=== PATIENT | male | born 1945 | race Caucasian/White ===

== ENCOUNTER 2018-06-03 16:04 | Observation (INO) ==
--- NOTE | 2018-06-03 16:32 | Emergency Department Note ---
Disposition Clinical Impression: TIA (transient ischemic attack) Disposition: Home, Self-Care Condition: Good Referrals: Jose Oglesby MD [Primary Care Provider] - Forms: ED Satisfaction Letter Time of Disposition: 19:38 Weakness HPI - General Chief complaint: ED Weakness Stated complaint: "weakness,general illness from M3" Time Seen by Provider: 06/03/18 16:29 Source: EMS Mode of arrival: ambulatory Limitations: no limitations Nursing Notes Reviewed: Yes Vital Signs Reviewed: Yes - History of Present Illness HPI Narrative: Patient is a 73-year-old male with past medical history of hypertension, diabetes, hyperlipidemia, previous CVA, seizures, anxiety, depression, psychosis NOS. He presents today from a alf due to concern for generalized weakness, possible facial droop. The patient himself states that his family was visiting and stated that he had left upper lip drooping. He states that he took a nap about an hour prior to arrival, workup 30 minutes prior to arrival when his family was there. He denies noting any slurring of speech, facial droop, specific focal numbness, tingling, weakness. He does admit to generalized fatigue over the past several days. Denies any other chest pain, shortness breath, nausea, vomiting, fevers, diarrhea. Denies any falls. Pain Scale: 0 - Related Data Allergies Allergy/AdvReac Type Severity Reaction Status Date / Time No Known Allergies Allergy Verified 08/11/16 07:04 All systems ED: reviewed and negative except as stated. Constitutional: Denies: fever Cardiovascular: Denies: chest pain, palpitations Respiratory: Denies: cough, dyspnea, wheezes Gastrointestinal: Denies: abdominal pain, nausea, vomiting, diarrhea Genitourinary: Denies: urgency, dysuria Integumentary: Denies: rash Neurological: Denies: headache, weakness, numbness, paresthesias Endocrine: Reports: fatigue Past Medical History - Past Medical History Attestation: Yes The following information was validated with the patient. Source: patient Medical history: Reports: COPD, CVA, diabetes, GERD, hypertension, seizures Surgical history: Reports: no surgical history Psychiatric history: Reports: anxiety, depression - Social History Smoking Status: Current every day smoker Smokeless Tobacco Status: No Alcohol use: Reports: none Drug use: Reports: none Physical Exam - General Limitations: no limitations General appearance: alert, in no apparent distress - Head Head exam: atraumatic, normocephalic, normal inspection - Eye Eye exam: Present: normal appearance, PERRL, EOMI - ENT ENT exam: normal exam, normal oropharynx, mucous membranes moist - Neck Neck exam: Present: normal inspection, full ROM, trachea midline - Chest Chest inspection: Present: normal inspection, symmetric chest wall rise - Respiratory Respiratory exam: Present: normal lung sounds bilaterally - Cardiovascular Cardiovascular exam: Present: regular rate, normal rhythm, normal heart sounds - Abdominal Exam Abdominal exam: Present: soft, Non-Tender. Absent: tenderness, distention, guarding, rebound, rigidity - Extremities Exam Extremities exam: Present: normal inspection, full ROM. Absent: tenderness, pedal edema - Neurological Exam Neurological exam: Present: alert, oriented X3, CN II-XII intact. Absent: motor sensory deficit - Expanded Neurological Exam Patient oriented to: Present: person, place, time Speech: Present: fluid speech Cranial nerves: EOM function (II, III, IV, ): Normal, facial sensation (V): Normal, facial palsy (VII): Normal, spinal accessory function (XI): Normal, tongue deviation (XII): Normal Cerebellar function: finger to nose: Abnormal Right, Abnormal Left Motor strength - LUE: 5/5 Motor strength - RUE: 5/5 Motor strength - LLE: 5/5 Motor strength - RLE: 5/5 Sensory exam upper extremity: light touch: Normal Sensory exam lower extremity: light touch: Normal Coma Scale Eye Opening: Spontaneous Coma Scale Motor Response: Obeys Commands Coma Scale Verbal Response: Oriented Coma Scale Total: 15 - Psychiatric Psychiatric exam: Present: normal affect, normal mood - Skin Skin exam: Present: warm, dry, intact, normal color Course Course Narrative: Chest X-Ray 06/03/18 16:29 IMPRESSION: Essentially unremarkable chest radiograph D/ / Michael Whitley / Michael Whitley Interpreting Provider: Michael Whitley Head CT 06/03/18 16:30 IMPRESSION: No acute intracranial abnormality. Remote left MCA territory and frontal encephalomalacia related to prior infarction. D/ / Vinny Pereyra MD / Vinny Pereyra MD Interpreting Provider: Vinny Pereyra MD Vital Signs Temperature 97.7 F 06/03/18 16:06 Pulse Rate 86 06/03/18 16:06 Respiratory Rate 15 06/03/18 16:06 Blood Pressure 147/84 06/03/18 16:06 O2 Sat by Pulse Oximetry 98 06/03/18 16:06 Temperature 97.7 F 06/03/18 16:06 Pulse Rate 73 06/03/18 18:51 Respiratory Rate 18 06/03/18 18:51 Blood Pressure 141/94 06/03/18 18:51 O2 Sat by Pulse Oximetry 94 06/03/18 18:52 Oxygen Delivery Oxygen Delivery Room Air Weakness - MDM Narrative Medical decision making narrative: Physical exam shows NIH of 1 due to ataxia of finger nose finger testing of bilateral UE. No other focal neurologic deficits. If the patient truly had facial droop prior to arrival, it has since resolved. No stroke alert called at this time due to resolved symptoms. We will obtain CT the head, basic lab work, chest x-ray, EKG, troponin level. If negative, we will have to admit for TIA workup. 18:17 No major lab abnormalities. Chest x-ray negative for any acute abnormality. EKG shows no acute ST changes. CT the head negative for any acute abnormality. There is left MCA territory previous infract and frontal encephalomalacia related to prior infarcts. Currently concern for TIA. We will admit to the hospitalist for further care, recommend MRI and MRA of the head and neck. Aspirin given. - Medical Records Medical records reviewed: Yes I reviewed the patient's medical records. - Lab Data Lab results reviewed: Yes I reviewed the patient's lab results. Result diagrams: 06/03/18 17:11 06/03/18 17:11 Lab Results 06/03/18 06/03/18 06/03/18 Range/Units 17:02 17:11 17:11 WBC 6.0 (4.3-11.1) K/mcL RBC 3.67 L (4.19-5.50) M/mcL Hgb 11.8 L (12.9-16.9) g/dL Hct 34.8 L (37.5-50.1) % MCV 94.8 (83.0-100.0) fL MCH 32.2 (28.0-33.3) pg MCHC 33.9 (31.6-35.5) g/dL RDW 12.4 (11.5-14.5) % Plt Count 274 (140-400) K/mcL MPV 8.9 L (9.4-12.4) fL Immature Gran % 0.3 (0-4) % Seg Neutrophils % 37.1 % Lymphocytes % 33.6 % Monocytes % 11.9 % Eosinophils % 16.4 % Basophils % 0.7 % Neutrophils # 2.2 (1.6-8.9) K/mcL Lymphocytes # 2.0 (0.6-4.6) K/mcL Monocytes # 0.7 (0.0-1.3) K/mcL Eosinophils # 1.0 H (0.0-0.6) K/mcL Basophils # 0.0 (0.0-0.2) K/mcL Sodium 131 L (136-145) mEq/L Potassium 3.8 (3.5-5.1) mEq/L Chloride 98 (98-107) mEq/L Carbon Dioxide 28 (23-29) mEq/L BUN 7 L (8-23) mg/dL Creatinine 0.57 L (0.70-1.30) mg/dL Est GFR ( Amer) > 60 (> 60) Est GFR (Non-Af Amer) > 60 (> 60) BUN/Creatinine Ratio 12 (6-26) Glucose 90 (70-105) mg/dL Calculated Osmolality 270 L (280-300) Calcium 9.2 (8.6-10.3) mg/dL Total Bilirubin 0.5 (0.3-1.0) mg/dL AST 19 (13-39) Units/L ALT 12 (7-52) Units/L Alkaline Phosphatase 136 H (34-104) Units/L Troponin I < 0.03 (< 0.04) ng/mL Serum Total Protein 6.9 (6.4-8.9) g/dL Albumin 4.0 (3.5-5.7) g/dL Globulin 2.9 (2.4-3.5) g/dL Albumin/Globulin Ratio 1.4 (1.1-2.2) Urine Color Yellow (Yellow) Urine Clarity Turbid A (Clear) Urine pH 8.0 (5.0-8.0) pH Units Ur Specific [place] 1.016 (1.010-1.025) Urine Protein Negative (Neg-Trace) mg/dL Urine Glucose (UA) Normal (Normal) mg/dL Urine Ketones Negative (Negative) mg/dL Urine Blood Negative (Negative) Urine Nitrite Negative (Negative) Urine Bilirubin Negative (Negative) Urine Urobilinogen Normal (Normal) mg/dL Ur Leukocyte Esterase Negative (Negative) Urine Microscopic RBC 0-3 (0-3) per hpf Urine Microscopic WBC 0-3 (0-3) per hpf Ur Squamous Epith Cells None Seen (None-Few) per lpf Urine Bacteria None Seen (None-Few) per hpf Hyaline Casts None Seen (None-Few) per lpf Ur Culture Indicated? NO (NO) - Radiology Data Radiology results reviewed: Yes I reviewed the patient's radiology results. Chest X-Ray 06/03/18 16:29 IMPRESSION: Essentially unremarkable chest radiograph D/ / Michael Whitley / Michael Whitley Interpreting Provider: Michael Whitley Head CT 06/03/18 16:30 IMPRESSION: No acute intracranial abnormality. Remote left MCA territory and frontal encephalomalacia related to prior infarction. D/ / Vinny Pereyra MD / Vinny Pereyra MD Interpreting Provider: Vinny Pereyra MD S.Ashley - S.BJessyASharon Situation: Demographics, MOA Background: Presenting Complaint, Relevant PMH, Meds, & Allergies Assessment: Vital Signs, Course and respsone to treatment, Exam Concerns, Patient/Family Expectation, Pertinant Lab Results Recommendation: Barrier(s) to disposition, Recommendation based on pending studies, treatments, or consults S.B.A.Kevin Report Given to: Dr. Khurram Varma Repor Time: 19:37
--- NOTE | 2018-06-03 16:36 | Emergency Department Note ---
Disposition Clinical Impression: TIA (transient ischemic attack) Disposition: Home, Self-Care Condition: Good Referrals: Jose Oglesby MD [Primary Care Provider] - Forms: ED Satisfaction Letter General Adult HPI - General Chief complaint: ED Weakness Stated complaint: "weakness,general illness from M3" Time Seen by Provider: 06/03/18 16:29 Source: EMS Mode of arrival: ambulatory Limitations: no limitations - History of Present Illness Pain Scale: 0 - Related Data Allergies Allergy/AdvReac Type Severity Reaction Status Date / Time No Known Allergies Allergy Verified 08/11/16 07:04 Past Medical History - Past Medical History Medical history: Reports: COPD, CVA, diabetes, GERD, hypertension, seizures Surgical history: Reports: no surgical history Psychiatric history: Reports: anxiety, depression - Social History Smoking Status: Current every day smoker Smokeless Tobacco Status: No Alcohol use: Reports: none Drug use: Reports: none Physical Exam - General Limitations: no limitations General appearance: alert, in no apparent distress Course Vital Signs Temperature 97.7 F 06/03/18 16:06 Pulse Rate 86 06/03/18 16:06 Respiratory Rate 15 06/03/18 16:06 Blood Pressure 147/84 06/03/18 16:06 O2 Sat by Pulse Oximetry 98 06/03/18 16:06 Temperature 97.7 F 06/03/18 16:06 Pulse Rate 73 06/03/18 18:51 Respiratory Rate 18 06/03/18 18:51 Blood Pressure 141/94 06/03/18 18:51 O2 Sat by Pulse Oximetry 94 06/03/18 18:52 Oxygen Delivery Oxygen Delivery Room Air Medical Decision Making - Lab Data Result diagrams: 06/03/18 17:11 06/03/18 17:11 Lab Results 06/03/18 06/03/18 06/03/18 Range/Units 17:02 17:11 17:11 WBC 6.0 (4.3-11.1) K/mcL RBC 3.67 L (4.19-5.50) M/mcL Hgb 11.8 L (12.9-16.9) g/dL Hct 34.8 L (37.5-50.1) % MCV 94.8 (83.0-100.0) fL MCH 32.2 (28.0-33.3) pg MCHC 33.9 (31.6-35.5) g/dL RDW 12.4 (11.5-14.5) % Plt Count 274 (140-400) K/mcL MPV 8.9 L (9.4-12.4) fL Immature Gran % 0.3 (0-4) % Seg Neutrophils % 37.1 % Lymphocytes % 33.6 % Monocytes % 11.9 % Eosinophils % 16.4 % Basophils % 0.7 % Neutrophils # 2.2 (1.6-8.9) K/mcL Lymphocytes # 2.0 (0.6-4.6) K/mcL Monocytes # 0.7 (0.0-1.3) K/mcL Eosinophils # 1.0 H (0.0-0.6) K/mcL Basophils # 0.0 (0.0-0.2) K/mcL Sodium 131 L (136-145) mEq/L Potassium 3.8 (3.5-5.1) mEq/L Chloride 98 (98-107) mEq/L Carbon Dioxide 28 (23-29) mEq/L BUN 7 L (8-23) mg/dL Creatinine 0.57 L (0.70-1.30) mg/dL Est GFR ( Amer) > 60 (> 60) Est GFR (Non-Af Amer) > 60 (> 60) BUN/Creatinine Ratio 12 (6-26) Glucose 90 (70-105) mg/dL Calculated Osmolality 270 L (280-300) Calcium 9.2 (8.6-10.3) mg/dL Total Bilirubin 0.5 (0.3-1.0) mg/dL AST 19 (13-39) Units/L ALT 12 (7-52) Units/L Alkaline Phosphatase 136 H (34-104) Units/L Troponin I < 0.03 (< 0.04) ng/mL Serum Total Protein 6.9 (6.4-8.9) g/dL Albumin 4.0 (3.5-5.7) g/dL Globulin 2.9 (2.4-3.5) g/dL Albumin/Globulin Ratio 1.4 (1.1-2.2) Urine Color Yellow (Yellow) Urine Clarity Turbid A (Clear) Urine pH 8.0 (5.0-8.0) pH Units Ur Specific [place] 1.016 (1.010-1.025) Urine Protein Negative (Neg-Trace) mg/dL Urine Glucose (UA) Normal (Normal) mg/dL Urine Ketones Negative (Negative) mg/dL Urine Blood Negative (Negative) Urine Nitrite Negative (Negative) Urine Bilirubin Negative (Negative) Urine Urobilinogen Normal (Normal) mg/dL Ur Leukocyte Esterase Negative (Negative) Urine Microscopic RBC 0-3 (0-3) per hpf Urine Microscopic WBC 0-3 (0-3) per hpf Ur Squamous Epith Cells None Seen (None-Few) per lpf Urine Bacteria None Seen (None-Few) per hpf Hyaline Casts None Seen (None-Few) per lpf Ur Culture Indicated? NO (NO) Attestation Statement - Attestation Attestation: I examined this patient and my medical decision-making was reviewed with the CITY DRIVER/PA/Advanced Practice Nurse/Resident Physician. I agree with the documented findings, disposition and treatment plan as described except to the extent set forth below. I did see the patient and spoke with him and examined him. Stroke scale is 0 at this time. The patient reportedly woke up from a nap with facial droop but the symptoms are resolved at this time. He will have a CT the brain but is not a candidate for thrombolytics based on his low stroke scale and resolved symptoms. The patient will be admitted for further evaluation of possible TIA. I did review his EKG showing normal sinus rhythm with rate of 69 without acute ischemic change [id number]
[2018-06-03 17:25] LABS: Basophils % 0.7 %; Eosinophils % 16.4 %; Hematocrit 34.8 % (37.5-50.1); Hemoglobin 11.8 g/dL (12.9-16.9); Immature Granulocytes % 0.3 % (0-4); Lymphocytes % 33.6 %; Mean Corpuscular HGB Conc 33.9 g/dL (31.6-35.5); Mean Corpuscular Hemoglobin 32.2 pg (28.0-33.3); Mean Corpuscular Volume 94.8 fL (83.0-100.0); Mean Platelet Volume 8.9 fL (9.4-12.4); Monocytes # 0.7 K/mcL (0.0-1.3); Monocytes % 11.9 %; Neutrophils # 2.2 K/mcL (1.6-8.9); Platelet Count 274 K/mcL (140-400); Red Blood Count 3.67 M/mcL (4.19-5.50); Red Cell Distribution Width 12.4 % (11.5-14.5); Segmented Neutrophils % 37.1 %
[2018-06-03 17:34] LABS: Bilirubin,Urine Negative (Negative); Blood,Urine Negative (Negative); Clarity,Urine Turbid (Clear); Color,Urine Yellow (Yellow); Glucose,Urine (UA) Normal (Normal); Ketones,Urine Negative (Negative); Leukocyte Esterase,Urine Negative (Negative); Nitrite,Urine Negative (Negative); Protein,Urine Negative (Neg-Trace); Specific Gravity,Urine 1.016 (1.010-1.025); Urobilinogen,Urine Normal (Normal)
[2018-06-03 17:39] LABS: Bacteria,Urine None Seen per hpf (None-Few); Hyaline Casts,Urine None Seen per lpf (None-Few); RBC,Urine 0-3 per hpf (0-3); Squamous Epithelial Cell,Urine None Seen per lpf (None-Few); WBC,Urine 0-3 per hpf (0-3)
[2018-06-03 17:52] LABS: Troponin I < 0.03 ng/mL (< 0.04)
[2018-06-03 17:53] LABS: Alanine Aminotransferase 12 Units/L (7-52); Albumin/Globulin Ratio 1.4 (1.1-2.2); Alkaline Phosphatase 136 Units/L (34-104); Aspartate Amino Transferase 19 Units/L (13-39); BUN/Creatinine Ratio 12 (6-26); Bilirubin,Total 0.5 mg/dL (0.3-1.0); Blood Urea Nitrogen 7 mg/dL (8-23); Calcium 9.2 mg/dL (8.6-10.3); Carbon Dioxide 28 mEq/L (23-29); Chloride 98 mEq/L (98-107); Globulin 2.9 g/dL (2.4-3.5); Glucose 90 mg/dL (70-105); Osmolality,Calculated 270 (280-300); Potassium 3.8 mEq/L (3.5-5.1); Sodium 131 mEq/L (136-145); Total Protein 6.9 g/dL (6.4-8.9); eGFR For Non-African Americans > 60 (> 60)
[2018-06-03] MEDS ORDERED: *HR* LORazepam 2 MG/ML VIAL IVP ONE (18:17)
[2018-06-03] MEDS ORDERED: Aspirin 325 MG TABLET PO ONE (18:19)
[2018-06-03] MEDS ORDERED: Naloxone 0.4 MG/ML INJ IVP PRN (22:29)
[2018-06-03] MEDS: 0.9 % Sodium Chloride 1,000 ML IVC SCH (23:07)
--- NOTE | 2018-06-04 01:08 | Internal Med History&Physical ---
Date of Encounter: 06/04/18 Time of Encounter: 21:30 Internal Medicine - H&P: HPI Chief complaint: TIA Admitted From: Home Plans for Post Hospital Care: Home History of present illness: Mr. Martinez is a 73 year old male Patient states that he was not feeling well on the day of admission, did not feel like getting out of bed and was more lethargic than normal. His daughter was concerned with this and also noted a facial droop and wants patient to be seen at the hospital for possible stroke. He was brought to the emergency room and by that time his symptoms had resolved. He has a history of seizures in the past as well as atrial fibrillation and chronic hyponatremia. He is a pack- a-day smoker for many years. He currently denies chest pain, abdominal pain, nausea, vomiting, diarrhea, constipation, vision changes and weakness. Workup in the emergency room showed unremarkable chest x-ray and no acute abnormalities intracranially on CT. There was a remote left MCA territory and frontal encephalomalacic area related to a prior infarction. Patient's sodium was found to be 131 which is approximately around his baseline. He was admitted to the hospital for continued management and monitoring for TIA. Currently patient feeling well, has no complaints. Past Med Surg Social Fam HX - Past Medical History Medical history: COPD, CVA, diabetes, GERD, hypertension, seizures Psychiatric history: anxiety, depression - Past Surgical History Surgical History: no surgical history - Social History Smoking Status: Current every day smoker Packs per day: 0.5 Smokeless Tobacco Status: No Alcohol use: none Drug use: none - Family History Mother Living Status: Hx Family Neurologic Disorders: No Father Living Status: Hx Family Neurologic Disorders: No Internal Medicine - H&P: Meds Acetaminophen [Tylenol] 650 mg PO Q4HR PRN 06/03/18 [History] Albuterol Sulfate [Proair Hfa] 2 puff IH Q4H PRN 06/03/18 [History] Cetirizine HCl [Zyrtec] 10 mg PO DAILY 06/03/18 [History] Ferrous Sulfate [Iron] 325 mg PO DAILY 06/03/18 [History] Folic Acid 1 mg PO DAILY 06/03/18 [History] Gabapentin [Neurontin] 300 mg PO BID 06/03/18 [History] Ipratropium/Albuterol Neb [Duoneb] 3 ml IH Q6HR 06/03/18 [History] LORazepam [Ativan] 1 mg PO TID 06/03/18 [History] MORPHINE SUL Oral CONC [Roxanol Oral Conc] 0.25 ml PO Q4H PRN 06/03/18 [History] Mag Hydrox/Al Hydrox/Simeth [Antacid II-Simethicone Liq] 30 ml PO Q4-6H PRN [History] Magnesium Oxide [Magnesium] 400 mg PO DAILY 06/03/18 [History] Metoprolol Succinate [Toprol Xl] 50 mg PO DAILY 06/03/18 [History] Nitroglycerin [Nitrostat] 0.4 mg SL Q5MIN PRN 06/03/18 [History] Phenytoin ER [Dilantin ER] 100 mg PO BID 06/03/18 [History] Phenytoin ER [Dilantin ER] 200 mg PO HS 06/03/18 [History] Sertraline [Zoloft] 50 mg PO DAILY 06/03/18 [History] Thiamine HCl [Vitamin B-1] 100 mg PO DAILY 06/03/18 [History] levETIRAcetam [Levetiracetam] 1,000 mg PO Q12H 06/03/18 [History] 3 Allergy/AdvReac Type Severity Reaction Status Date / Time No Known Allergies Allergy Verified 08/11/16 07:04 All Systems PM: A 10-system review of systems was performed and is negative for pertinent findings except as documented above in the HPI. - Constitutional Vitals: Temp Pulse Resp BP Pulse Ox 97.5 F L 79 18 113/71 96 06/03/18 22:16 06/03/18 22:16 06/03/18 22:16 06/03/18 22:16 06/03/18 22:16 General appearance: Present: cooperative, A&O X 3, pleasant, no acute distress, answers questions appropriately - Head Head exam: Present: normal inspection - Eye Eye exam: Present: EOMI, normal appearance - Neck Neck exam general surgery: Present: full ROM - Respiratory Respiratory exam: Present: CTAB. Absent: chest wall tenderness, respiratory distress - Cardiovascular Cardiovascular exam: Present: RRR. Absent: diastolic murmur, systolic murmur - GI/Abdominal GI/Abdominal exam: Present: normal bowel sounds, soft. Absent: tenderness - Extremities Exam Extremities exam: Present: warm, radial pulses palpable and symmetrical. Absent : calf tenderness, pedal edema, tenderness - Neurological Exam Neurological exam: Present: alert, oriented X3, no focal deficits, strengths equal and symetr throughout. Absent: motor sensory deficit, facial droop, speech deficit - Psychiatric Psychiatric exam: Present: normal affect, normal mood - Skin Skin exam: Present: normal color, warm Internal Med - H&P Results - Labs CBC & Chem 7: 06/04/18 04:52 06/04/18 04:52 - Assessment and plan (1) TIA (transient ischemic attack) Current Visit: Yes Status: Acute Assessment and plan: symptoms of facial droop resolved by the time patient arrived to the ER. No weakness noted on my exam. Continue to monitor MRI in the AM (2) Chronic hyponatremia Current Visit: No Status: Acute Assessment and plan: At baseline, has had this going back 3 years in his chart Maintenance NS at 100cc/hr. Continue to monitor. (3) Seizure disorder Current Visit: No Status: Acute Assessment and plan: Patient states that he has a seizure disorder. Takes levetiracetam and phenytoin at home. Continue to monitor Seizure precautions. Continue home meds. (4) Nicotine dependence Current Visit: Yes Status: Acute Assessment and plan: Pack per day smoker. Declined nicotine patch Encourage cessation. Qualifiers: Nicotine product type: cigarettes Substance use status: uncomplicated Qualified Code(s): F17.210 - Nicotine dependence, cigarettes, uncomplicated (5) DVT prophylaxis Current Visit: No Status: Acute Assessment and plan: SCDs - Time Spent With Patient Total time spent is greater than 50% in coordination of care (as documented) at patient's floor/unit and/or counseling patient: Greater than 35 minutes
[2018-06-04 05:19] LABS: Hematocrit 38.4 % (37.5-50.1); Hemoglobin 13.1 g/dL (12.9-16.9); Mean Corpuscular HGB Conc 34.1 g/dL (31.6-35.5); Mean Corpuscular Volume 93.7 fL (83.0-100.0); Mean Platelet Volume 9.2 fL (9.4-12.4); Platelet Count 283 K/mcL (140-400); Red Cell Distribution Width 12.3 % (11.5-14.5)
[2018-06-04 05:35] LABS: BUN/Creatinine Ratio 20 (6-26); Blood Urea Nitrogen 9 mg/dL (8-23); Carbon Dioxide 24 mEq/L (23-29); Chloride 100 mEq/L (98-107); Glucose 93 mg/dL (70-105); Osmolality,Calculated 274 (280-300); Potassium 4.1 mEq/L (3.5-5.1); Sodium 133 mEq/L (136-145); eGFR For Non-African Americans > 60 (> 60)
[2018-06-04] MEDS: levETIRAcetam 250 MG TABLET PO SCH ×2 (08:32→21:34)
[2018-06-04] MEDS: 0.9 % Sodium Chloride 1,000 ML IVC SCH (08:43)
[2018-06-04] MEDS ORDERED: Nitroglycerin 0.4 MG TAB.SUBL SL PRN (09:28)
[2018-06-04] MEDS ORDERED: Acetaminophen 325 MG TABLET PO PRN (09:28)
[2018-06-04] MEDS ORDERED: Mag Hydrox/Al Hydrox/Simeth 30 ML UDC PO PRN (09:28)
[2018-06-04] MEDS: Ipratropium/Albuterol Neb 3 ML IH SCH ×3 (10:46→22:03)
[2018-06-04] MEDS: Magnesium Oxide 400 MG TABLET PO SCH (11:09)
[2018-06-04] MEDS: Metoprolol XL (24 HR) Succ 50 MG TAB.ER.24H PO SCH (11:09)
[2018-06-04] MEDS: Folic Acid 1 MG TABLET PO SCH (11:09)
[2018-06-04] MEDS: Thiamine (B-1) 100 MG TABLET PO SCH (11:09)
[2018-06-04] MEDS: Loratadine 10 MG TABLET PO SCH (11:09)
--- NOTE | 2018-06-04 11:55 | Internal Med Progress Note ---
Date of Encounter: 06/04/18 Time of Encounter: 11:53 - Assessment and plan (1) TIA (transient ischemic attack) Current Visit: Yes Status: Acute Assessment and plan: Presented with symptoms of facial droop, resolved by time of arrival to the ED. Neurological exam remains nonfocal. Prior history of CVA. Review of records reveals the patient has a severe 60-79% stenosis in the left carotid artery. We will discuss his case with vascular surgeon to determine whether or not he would benefit from optimization of medical management versus vascular intervention. Continue stroke workup with MRI, echocardiogram, carotid Doppler studies. Patient is not on any blood thinners at this time due to risk of falls. (2) Nicotine dependence Current Visit: Yes Status: Acute Assessment and plan: Regular pack per day smoker, declines nicotine patch, encouraged tobacco cessation. Patient does not wish to quit at this time Qualifiers: Nicotine product type: cigarettes Substance use status: uncomplicated Qualified Code(s): F17.210 - Nicotine dependence, cigarettes, uncomplicated (3) Chronic hyponatremia Current Visit: No Status: Acute Assessment and plan: Chronic hyponatremia, continue maintenance and is at 100 mL per hour. Monitor labs daily (4) Seizure disorder Current Visit: No Status: Acute Assessment and plan: History of seizure disorders. Denies any recent seizure-like activity. Continue Keppra and Dilantin per home dosing. Continue seizure precautions (5) DVT prophylaxis Current Visit: No Status: Acute Assessment and plan: SCDs - Time Spent With Patient Total time spent is greater than 50% in coordination of care (as documented) at patient's floor/unit and/or counseling patient: less than 15 minutes - Subjective Interval history: Seen and examined today, reporting resolution of neuro symptoms; facial droop has subsided. Denies any new neuro symptoms, no concerns at this time - Constitutional Vitals: Temp Pulse Resp BP Pulse Ox 97.7 F 89 14 147/92 96 06/04/18 11:11 06/04/18 11:11 06/04/18 11:11 06/04/18 11:11 06/04/18 11:11 General appearance: Present: cooperative, A&O X 2, pleasant, no acute distress, answers questions appropriately - Head Head exam: Present: atraumatic, normocephalic - Eye Eye exam: Present: EOMI, PERRL, conjuntiva pink, sclera anicteric Pupils: Present: PERRL - Neck Neck exam general surgery: Present: supple, trachea midline. Absent: lymphadenopathy - Respiratory Respiratory exam: Present: CTAB. Absent: accessory muscle use, rales, rhonchi, wheezes - Cardiovascular Cardiovascular exam: Present: RRR, +S1, +S2. Absent: diastolic murmur, gallop, rubs, systolic murmur - GI/Abdominal GI/Abdominal exam: Present: normal bowel sounds, soft, no peritoneal signs. Absent: distended, tenderness - Extremities Exam Extremities exam: Present: warm, radial pulses palpable and symmetrical. Absent : calf tenderness, cyanotic, pedal edema - Neurological Exam Neurological exam: Present: alert, CN II-XII intact, strengths equal and symetr throughout. Absent: normal gait (norma), pronater drift, facial droop, speech deficit - Psychiatric Psychiatric exam: Present: normal affect, normal mood Internal Medicine: Result - Labs CBC & Chem 7: 06/04/18 04:52 06/04/18 04:52 Labs: Short CBC 06/04/18 Range/Units 04:52 WBC 8.3 (4.3-11.1) K/mcL Hgb 13.1 (12.9-16.9) g/dL Hct 38.4 (37.5-50.1) % Plt Count 283 (140-400) K/mcL [facility] 06/04/18 04:52 Sodium 133 L Potassium 4.1 Chloride 100 Carbon Dioxide 24 BUN 9 Creatinine 0.45 L Glucose 93 Calcium 9.0 - VTE Documentation of Mechanical Device: Intermittent pneumatic compression device Consult Discharge Plan - Plan Referrals: Jose Oglesby MD [Primary Care Provider] -
[2018-06-04] MEDS: Aspirin 81 MG TAB.CHEW PO SCH (13:39)
[2018-06-04] MEDS ORDERED: *HR* LORazepam 1 MG TABLET PO PRN (14:33)
[2018-06-04] MEDS ORDERED: *HR* LORazepam 1 MG TABLET PO SCH (15:00)
--- NOTE | 2018-06-04 16:30 | Electrocardiograph Report ---
[place] [id number] Test Date: 2018-06-03 Pat Name: Mitchell Martinez Department: [id number] Room: 3B33 Gender: M Head Of Physics: : 1945 Requested By: Emil Rowe Order Number: [id number] Reading MD: Skyler Valentin Measurements Intervals [place] Rate: 69 P: 83 MI: 243 QRS: 65 QRSD: 93 T: 54 QT: 365 QTc: 384 Interpretive Statements SINUS RHYTHM WITH FIRST DEGREE AV BLOCK WITH OCCASIONAL SUPRAVENTRICULAR PREMATURE COMPLEXES SEPTAL MYOCARDIAL INFARCTION, OF INDETERMINATE AGE Electronically Signed On 06-04-2018 16:29:05 EDT by Skyler Valentin
--- NOTE | 2018-06-04 18:20 | Vascular/Endovasc Consult Note ---
Date of Encounter: 06/04/18 Time of Encounter: 18:16 Assessment and Plan (1) COPD (chronic obstructive pulmonary disease) Current Visit: Yes Status: Chronic Patient has chronic COPD Qualifiers: COPD type: unspecified COPD Qualified Code(s): J44.9 - Chronic obstructive pulmonary disease, unspecified (2) Carotid stenosis, bilateral Current Visit: Yes Status: Chronic Patient has chronic carotid artery disease, greater on the right side than on the left. I do not interpret his recent symptoms as that of a TIA or stroke. Imaging of the brain reveals no acute bleed or edema or infarction. Multiple lobes on the left brain have been affected by the previous stroke. The patient is in hospice care at the extended care facility and carotid endarterectomy is not indicated even if a severe stenosis is identified. (3) Nicotine dependence Current Visit: Yes Status: Chronic Patient has chronic tobacco dependency Qualifiers: Nicotine product type: cigarettes Substance use status: uncomplicated Qualified Code(s): F17.210 - Nicotine dependence, cigarettes, uncomplicated - History of Present Illness Consult date: 06/04/18 Consult reason: Carotid stenosis Chief complaint: Weakness History of present illness: Mr. Martinez is a 73 year old male Who was admitted from an extended care facility. His history is extremely imprecise and the patient cannot give me a clear and coherent story. As best I can determine he was being visited by his family and there is some concern raised about his medications and his physical appearance. He then was sent to the emergency room for further evaluation and was admitted. The family had raise concern about a potential facial droop and a possible TIA. The patient himself however does not give a history consistent with TIA. The patient underwent imaging studies that included a CT scan and MRI of the brain. 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 The patient had a stroke in 2009 and was hospitalized for a prolonged period at [facility]. In 2015 he had a seizure disorder and was admitted and treated at that time here at [place]. He was seen by neurology both as an inpatient and in follow-up as an outpatient. He has undergone previous carotid duplex scans. The original scan in August 2016 demonstrated a 60-79% right carotid stenosis with a 40-59% left carotid stenosis. A repeat scan in February 2017 showed similar findings. I seen the patient in the office in 2016. He was scheduled to return to see me earlier this spring. When my staff contacted him we were informed by the family that he was a chronic inpatient in the longterm and that he was known hospice care and did not want further testing. The patient has multiple ongoing medical problems that include COPD, atrial fibrillation, seizure disorder, hypertension, and malnutrition. Patient is also a tobacco abuser and smokes approximately 8-10 cigars a day. Past Med Surg Social Fam HX - Past Medical History Medical history: COPD, CVA, diabetes, GERD, hypertension, seizures Psychiatric history: anxiety, depression - Past Surgical History Surgical History: no surgical history - Social History Smoking Status: Current every day smoker Packs per day: 0.5 Smokeless Tobacco Status: No Alcohol use: none Drug use: none - Family History Mother Living Status: Hx Family Neurologic Disorders: No Father Living Status: Hx Family Neurologic Disorders: No Medications and Allergies Acetaminophen [Tylenol] 650 mg PO Q4HR PRN 06/03/18 [History] Albuterol Sulfate [Proair Hfa] 2 puff IH Q4H PRN 06/03/18 [History] Cetirizine HCl [Zyrtec] 10 mg PO DAILY 06/03/18 [History] Ferrous Sulfate [Iron] 325 mg PO DAILY 06/03/18 [History] Folic Acid 1 mg PO DAILY 06/03/18 [History] Gabapentin [Neurontin] 300 mg PO BID 06/03/18 [History] Ipratropium/Albuterol Neb [Duoneb] 3 ml IH Q6HR 06/03/18 [History] LORazepam [Ativan] 1 mg PO TID 06/03/18 [History] MORPHINE SUL Oral CONC [Roxanol Oral Conc] 0.25 ml PO Q4H PRN 06/03/18 [History] Mag Hydrox/Al Hydrox/Simeth [Antacid II-Simethicone Liq] 30 ml PO Q4-6H PRN [History] Magnesium Oxide [Magnesium] 400 mg PO DAILY 06/03/18 [History] Metoprolol Succinate [Toprol Xl] 50 mg PO DAILY 06/03/18 [History] Nitroglycerin [Nitrostat] 0.4 mg SL Q5MIN PRN 06/03/18 [History] Phenytoin ER [Dilantin ER] 100 mg PO BID 06/03/18 [History] Phenytoin ER [Dilantin ER] 200 mg PO HS 06/03/18 [History] Sertraline [Zoloft] 50 mg PO DAILY 06/03/18 [History] Thiamine HCl [Vitamin B-1] 100 mg PO DAILY 06/03/18 [History] levETIRAcetam [Levetiracetam] 1,000 mg PO Q12H 06/03/18 [History] 3 Allergy/AdvReac Type Severity Reaction Status Date / Time No Known Allergies Allergy Verified 08/11/16 07:04 All Systems Review: The remainder of the systems were reviewed and are negative Exam Vital Signs, Last 4 Hours Temp Pulse Resp BP Pulse Ox 06/04/18 16:11 18 98 06/04/18 15:31 98.7 F 75 14 120/66 98 General: Present: Conversant, No Apparent Distress, Other (Ill and cachectic appearing elderly white male) HEENT: Present: Atraumatic, Normocephaly, Trachea midline Neck: Absent: JVD, Left Carotid bruit, Right Carotid bruit, Midline deformity, Tracheal deviation Cardiac: Present: Reg Rate and Rhythm Lungs: Present: Decreased breath sounds Neuro: Present: Alert and responsive, Other (Patient has an active resting tremor of the right hand. Full neurologic evaluation was not possible as he was lying in bed.) Abdomen: Present: Soft, Non-tender. Absent: Masses Vascular: Absent: Edema Skin: Present: No rashes noted on visualized skin Consult Discharge Plan - Plan Referrals: Jose Oglesby MD [Primary Care Provider] -
[2018-06-04] MEDS: Gabapentin 300 MG CAPSULE PO SCH (21:34)
[2018-06-05] MEDS: 0.9 % Sodium Chloride 1,000 ML IVC SCH (02:26)
[2018-06-05] MEDS: Ipratropium/Albuterol Neb 3 ML IH SCH ×3 (04:18→15:03)
[2018-06-05 04:40] LABS: Basophils # 0.1 K/mcL (0.0-0.2); Basophils % 0.9 %; Eosinophils % 12.3 %; Hematocrit 32.7 % (37.5-50.1); Immature Granulocytes % 0.4 % (0-4); Lymphocytes # 1.9 K/mcL (0.6-4.6); Lymphocytes % 24.9 %; Mean Corpuscular Hemoglobin 30.9 pg (28.0-33.3); Mean Corpuscular Volume 93.7 fL (83.0-100.0); Mean Platelet Volume 9.5 fL (9.4-12.4); Monocytes # 0.9 K/mcL (0.0-1.3); Monocytes % 11.1 %; Neutrophils # 3.9 K/mcL (1.6-8.9); Platelet Count 255 K/mcL (140-400); Red Blood Count 3.49 M/mcL (4.19-5.50); Red Cell Distribution Width 12.3 % (11.5-14.5); Segmented Neutrophils % 50.4 %
[2018-06-05 04:46] LABS: BUN/Creatinine Ratio 17 (6-26); Blood Urea Nitrogen 10 mg/dL (8-23); Calcium 8.7 mg/dL (8.6-10.3); Carbon Dioxide 24 mEq/L (23-29); Chloride 102 mEq/L (98-107); Glucose 97 mg/dL (70-105); Osmolality,Calculated 269 (280-300); Sodium 130 mEq/L (136-145); eGFR For Non-African Americans > 60 (> 60)
[2018-06-05 05:09] LABS: Hemoglobin 10.8 g/dL (12.9-16.9)
[2018-06-05] MEDS: Magnesium Oxide 400 MG TABLET PO SCH (07:57)
[2018-06-05] MEDS: Aspirin 81 MG TAB.CHEW PO SCH (07:57)
[2018-06-05] MEDS: levETIRAcetam 250 MG TABLET PO SCH (07:57)
[2018-06-05] MEDS: Thiamine (B-1) 100 MG TABLET PO SCH (07:58)
[2018-06-05] MEDS: Metoprolol XL (24 HR) Succ 50 MG TAB.ER.24H PO SCH (07:58)
[2018-06-05] MEDS: Gabapentin 300 MG CAPSULE PO SCH (07:58)
[2018-06-05] MEDS: Loratadine 10 MG TABLET PO SCH (07:58)
[2018-06-05] MEDS: Folic Acid 1 MG TABLET PO SCH (07:58)
--- NOTE | 2018-06-05 11:17 | Event Note ---
Date of Encounter: 06/05/18 Time of Encounter: 11:15 Carotid duplex scan was performed late last night. I reviewed these results. There is no significant change from his previous studies in 2016 in 2017. Therefore I do not recommend further evaluation and treatment. As the patient is in hospice status at his ECF he does not require follow-up with vascular surgery.
--- NOTE | 2018-06-05 13:08 | Discharge Summary ---
- NOTES TO OUTPATIENT PROVIDER Notes to Outpatient Provider: No pending studies. Orders not resulted at time of discharge: Pending orders 06/06/18 04:00 Basic Metabolic Panel AM 0400 06/07/18 04:00 Basic Metabolic Panel AM 0400 Date of Encounter: 06/05/18 Time of Encounter: 13:00 - Discharge Diagnosis (1) TIA (transient ischemic attack) Priority: Primary Status: Acute Assessment and Plan: Presented with symptoms of facial droop, resolved by time of arrival to the ED. Neurological exam remains nonfocal. Prior history of CVA. Review of records reveals the patient has a severe 60-79% stenosis in the left carotid artery. We will discuss his case with vascular surgeon to determine whether or not he would benefit from optimization of medical management versus vascular intervention. Continue stroke workup with MRI, echocardiogram, carotid Doppler studies. Patient is not on any blood thinners at this time due to risk of falls. 06/05-TIA--patient presented facial droop resolved prior to arrival. He is now back to baseline and continues to have a nonfocal neurological exam. He is requesting return to [facility]. Chronic medical problems include COPD, A. fib, seizure disorder, HTN, malnutrition and daily tobacco abuse. In the setting of TIA i will add daily aspirin and a statin agent at discharge. CT head and MRI imaging redemonstrated known left hemispheric stroke involving multiple lobes of the left brain. No new findings. Known history of severe left carotid artery stenosis 60-79%. Repeat imaging redemonstrates the same. Patient does not wish to proceed with any further intervention. Uneventful hospital course (2) Nicotine dependence Priority: Secondary Status: Chronic Qualifiers: Nicotine product type: cigarettes Substance use status: uncomplicated Qualified Code(s): F17.210 - Nicotine dependence, cigarettes, uncomplicated (3) Chronic hyponatremia Priority: Secondary Status: Acute Assessment and Plan: Persistent chronic hyponatremia. 1 year review reveals an average serum sodium of 130 serum sodium at baseline today (4) Seizure disorder Priority: Secondary Status: Acute Assessment and Plan: Continue seizure medications at discharge (5) DVT prophylaxis Priority: Secondary Status: Acute Hospital course: Mr. Martinez is a 73 year old male who presented with concern for TIA--patient presented facial droop resolved prior to arrival. He is now back to baseline and continues to have a nonfocal neurological exam. He is requesting return to [facility]. Chronic medical problems include COPD, A. fib, seizure disorder, HTN , malnutrition and daily tobacco abuse. In the setting of TIA i will add daily aspirin and a statin agent at discharge. CT head and MRI imaging redemonstrated known left hemispheric stroke involving multiple lobes of the left brain. No new findings. Known history of severe left carotid artery stenosis 60-79%. Repeat imaging redemonstrates the same. Patient does not wish to proceed with any further intervention. Uneventful hospital course Discharge discussed with: patient, family, nurse, social work, case management, cassandra consultant - Time Spent with Patient Total time spent providing and/or coordinating discharge services: Less than 30 minutes - Discharge Medications Prescriptions: Aspirin 81 mg PO DAILY 30 Days #30 tab.chew LORazepam [Ativan] 1 mg PO TID 2 Days #6 tablet Simvastatin [Zocor] 40 mg PO HS 30 Days #30 tablet Home Medications: Acetaminophen [Tylenol] 650 mg PO Q4HR PRN 06/03/18 [History] Albuterol Sulfate [Proair Hfa] 2 puff IH Q4H PRN 06/03/18 [History] Cetirizine HCl [Zyrtec] 10 mg PO DAILY 06/03/18 [History] Ferrous Sulfate [Iron] 325 mg PO DAILY 06/03/18 [History] Folic Acid 1 mg PO DAILY 06/03/18 [History] Gabapentin [Neurontin] 300 mg PO BID 06/03/18 [History] Ipratropium/Albuterol Neb [Duoneb] 3 ml IH Q6HR 06/03/18 [History] MORPHINE SUL Oral CONC [Roxanol Oral Conc] 0.25 ml PO Q4H PRN 06/03/18 [History] Mag Hydrox/Al Hydrox/Simeth [Antacid II-Simethicone Liq] 30 ml PO Q4-6H PRN [History] Magnesium Oxide [Magnesium] 400 mg PO DAILY 06/03/18 [History] Metoprolol Succinate [Toprol Xl] 50 mg PO DAILY 06/03/18 [History] Nitroglycerin [Nitrostat] 0.4 mg SL Q5MIN PRN 06/03/18 [History] Phenytoin ER [Dilantin ER] 100 mg PO BID 06/03/18 [History] Phenytoin ER [Dilantin ER] 200 mg PO HS 06/03/18 [History] Sertraline [Zoloft] 50 mg PO DAILY 06/03/18 [History] Thiamine HCl [Vitamin B-1] 100 mg PO DAILY 06/03/18 [History] levETIRAcetam [Levetiracetam] 1,000 mg PO Q12H 06/03/18 [History] Aspirin 81 mg PO DAILY 30 Days #30 tab.chew 06/05/18 [Rx] LORazepam [Ativan] 1 mg PO TID 2 Days #6 tablet 06/05/18 [Rx] Simvastatin [Zocor] 40 mg PO HS 30 Days #30 tablet 06/05/18 [Rx] Allergies/Adverse Reactions: 3 Allergy/AdvReac Type Severity Reaction Status Date / Time No Known Allergies Allergy Verified 08/11/16 07:04 Date of admission: 06/03/18 21:26 Primary care physician: Jose Oglesby MD Consults: 06/04/18 11:52 Consult to Vascular Surgery [CONS] Routine Consulting Provider: Vascular Surgery [place] Reason for Consult: Prior h/o CVA, admitted with TIA, known severe carotid stenosis Time Notified: 11:53 Call Completed: Yes Discharging clinician: Aldo Valdez Anticipated date of discharge: 06/05/18 - Constitutional Vitals: Temp Pulse Resp BP Pulse Ox 97.5 F L 63 16 117/71 98 06/05/18 10:36 06/05/18 10:36 06/05/18 11:05 06/05/18 10:36 06/05/18 11:05 General appearance: Present: cooperative, A&O X 2, pleasant, no acute distress, answers questions appropriately - Head Head exam: Present: atraumatic, normocephalic - Eye Eye exam: Present: PERRL, conjuntiva pink, sclera anicteric Pupils: Present: PERRL - Neck Neck exam general surgery: Present: supple, trachea midline. Absent: lymphadenopathy - Respiratory Respiratory exam: Present: CTAB. Absent: accessory muscle use, rales, rhonchi, wheezes - Cardiovascular Cardiovascular exam: Present: RRR, +S1, +S2. Absent: diastolic murmur, gallop, rubs, systolic murmur - GI/Abdominal GI/Abdominal exam: Present: normal bowel sounds, soft, no peritoneal signs. Absent: distended, tenderness - Extremities Exam Extremities exam: Present: warm, radial pulses palpable and symmetrical. Absent : calf tenderness, cyanotic, pedal edema - Neurological Exam Neurological exam: Present: CN II-XII intact, oriented X3, no focal deficits. Absent: pronater drift, facial droop, speech deficit - Skin Skin exam: Present: dry, intact - Patient Status Disposition: Transfer SNF Condition: Good Functional capacity at discharge: uses cane/walker Overall status at discharge: patient is progressing back to baseline - Discharge Instructions Instructions: Peripheral Vascular Disorders (DC), Chronic Obstructive Pulmonary Disease (DC) Follow Up With: Jose Oglesby MD [Primary Care Provider] - - Diet and Activity Activity: resume usual activities as tolerated Diet: low fat, low cholesterol - VTE Documentation of Mechanical Device: Intermittent pneumatic compression device
--- NOTE | 2018-06-05 13:12 | Physician Discharge Referral ---
ExtendedCare Referral Info Transfer To: [facility] Provider in Charge: Facility provider Provider in Charge after Transfer: PCP Institutional Level of Care: Skilled - Diagnosis (1) TIA (transient ischemic attack) Priority: Primary Status: Acute (2) Nicotine dependence Priority: Secondary Status: Chronic (3) Chronic hyponatremia Priority: Secondary Status: Acute (4) Seizure disorder Priority: Secondary Status: Acute (5) DVT prophylaxis Priority: Secondary Status: Acute Prognosis: Fair Aware of Diagnosis: Patient, Family Aware of Prognosis: Patient, Family - Transfer Medications Prescriptions: Aspirin 81 mg PO DAILY 30 Days #30 tab.chew Simvastatin [Zocor] 40 mg PO HS 30 Days #30 tablet Home Medications: Acetaminophen [Tylenol] 650 mg PO Q4HR PRN 06/03/18 [History] Albuterol Sulfate [Proair Hfa] 2 puff IH Q4H PRN 06/03/18 [History] Cetirizine HCl [Zyrtec] 10 mg PO DAILY 06/03/18 [History] Ferrous Sulfate [Iron] 325 mg PO DAILY 06/03/18 [History] Folic Acid 1 mg PO DAILY 06/03/18 [History] Gabapentin [Neurontin] 300 mg PO BID 06/03/18 [History] Ipratropium/Albuterol Neb [Duoneb] 3 ml IH Q6HR 06/03/18 [History] LORazepam [Ativan] 1 mg PO TID 06/03/18 [History] MORPHINE SUL Oral CONC [Roxanol Oral Conc] 0.25 ml PO Q4H PRN 06/03/18 [History] Mag Hydrox/Al Hydrox/Simeth [Antacid II-Simethicone Liq] 30 ml PO Q4-6H PRN [History] Magnesium Oxide [Magnesium] 400 mg PO DAILY 06/03/18 [History] Metoprolol Succinate [Toprol Xl] 50 mg PO DAILY 06/03/18 [History] Nitroglycerin [Nitrostat] 0.4 mg SL Q5MIN PRN 06/03/18 [History] Phenytoin ER [Dilantin ER] 100 mg PO BID 06/03/18 [History] Phenytoin ER [Dilantin ER] 200 mg PO HS 06/03/18 [History] Sertraline [Zoloft] 50 mg PO DAILY 06/03/18 [History] Thiamine HCl [Vitamin B-1] 100 mg PO DAILY 06/03/18 [History] levETIRAcetam [Levetiracetam] 1,000 mg PO Q12H 06/03/18 [History] Aspirin 81 mg PO DAILY 30 Days #30 tab.chew 06/05/18 [Rx] Simvastatin [Zocor] 40 mg PO HS 30 Days #30 tablet 06/05/18 [Rx] Allergies/Adverse Reactions: 3 Allergy/AdvReac Type Severity Reaction Status Date / Time No Known Allergies Allergy Verified 08/11/16 07:04 - Respiratory Orders Smoking Cessation: Smoking cessation has been advised. For more information, call the [place] Tobacco Quit Line at 1-118-HONF-NOW. - Rehabiliation Orders Rehab Potential: Fair Rehab Orders: ROM Exercises, Evaluation for Physical Therapy, Evaluation for Occupational Therapy - Diet Orders Cardiac CERTIFICATION: I certify that the transfer of the above named patient to an Extended Care Facility is necessary for the continuing treatment of the diagnosis listed. The above information is true and accurate reflection of patient's current condition. Confidential - Redisclosure prohibited without a patient's written consent.
[2018-06-05 15:15] VITALS: BP 133/70
== END 2018-06-05 17:16 ==
LOC: 3BNU 16:04 → EMEROO 16:04 → 3BNU 21:40
PROVIDERS: ADMIT Family Medicine; ATTEND Family Medicine

== ENCOUNTER 2018-06-08 14:13 | Inpatient (IN) ==
--- NOTE | 2018-06-08 14:39 | Emergency Department Note ---
Disposition Clinical Impression: Weakness Altered mental status Qualifiers: Altered mental status type: unspecified Qualified Code(s): R41.82 - Altered mental status, unspecified Disposition: Admitted As Inpatient Condition: Fair Referrals: Jose Oglesby MD [Primary Care Provider] - Forms: ED Satisfaction Letter Time of Disposition: 16:40 General Adult HPI - General Chief complaint: ED Weakness Stated complaint: Weakness Time Seen by Provider: 06/08/18 14:14 Source: EMS Limitations: no limitations Nursing Notes Reviewed: Yes Vital Signs Reviewed: Yes - History of Present Illness HPI Narrative: 73-year-old male presents emergency department from his nursing facility with concern for generalized weakness and altered mental status. Patient states that he just does not feel well. Patient was recently admitted for the same symptoms. Recently was in the emergency department and discharged yesterday. Patient not complaining of any chest pain, shortness of breath, fevers. He does report that his eyelids Pain Scale: 0 - Related Data Home Medications Medication Instructions Recorded Confirmed Acetaminophen [Tylenol] 650 mg PO Q4HR PRN 06/03/18 06/03/18 Albuterol Sulfate [Proair Hfa] 2 puff IH Q4H PRN 06/03/18 06/03/18 Cetirizine HCl [Zyrtec] 10 mg PO DAILY 06/03/18 06/03/18 Ferrous Sulfate [Iron] 325 mg PO DAILY 06/03/18 06/03/18 Folic Acid 1 mg PO DAILY 06/03/18 06/03/18 Gabapentin [Neurontin] 300 mg PO BID 06/03/18 06/03/18 Ipratropium/Albuterol Neb [Duoneb] 3 ml IH Q6HR 06/03/18 06/03/18 MORPHINE SUL Oral CONC [Roxanol 0.25 ml PO Q4H PRN 06/03/18 06/03/18 Oral Conc] Mag Hydrox/Al Hydrox/Simeth 30 ml PO Q4-6H PRN 06/03/18 06/03/18 [Antacid II-Simethicone Liq] Magnesium Oxide [Magnesium] 400 mg PO DAILY 06/03/18 06/03/18 Metoprolol Succinate [Toprol Xl] 50 mg PO DAILY 06/03/18 06/03/18 Nitroglycerin [Nitrostat] 0.4 mg SL Q5MIN PRN 06/03/18 06/03/18 Phenytoin ER [Dilantin ER] 100 mg PO BID 06/03/18 06/03/18 Phenytoin ER [Dilantin ER] 200 mg PO HS 06/03/18 06/03/18 Sertraline [Zoloft] 50 mg PO DAILY 06/03/18 06/03/18 Thiamine HCl [Vitamin B-1] 100 mg PO DAILY 06/03/18 06/03/18 levETIRAcetam [Levetiracetam] 1,000 mg PO Q12H 06/03/18 06/03/18 Previous Rx's Medication Instructions Recorded Aspirin 81 mg PO DAILY 30 Days #30 tab.chew 06/05/18 LORazepam [Ativan] 1 mg PO TID 2 Days #6 tablet 06/05/18 Simvastatin [Zocor] 40 mg PO HS 30 Days #30 tablet 06/05/18 Allergies Allergy/AdvReac Type Severity Reaction Status Date / Time No Known Allergies Allergy Verified 08/11/16 07:04 Past Medical History - Past Medical History Medical history: Reports: cancer, COPD, CVA, diabetes, GERD, hypertension, seizures, other Surgical history: Reports: no surgical history Psychiatric history: Reports: anxiety, depression - Social History Smoking Status: Current every day smoker Smokeless Tobacco Status: No Alcohol use: Reports: heavy Drug use: Reports: none Physical Exam - General Limitations: no limitations General appearance: alert, in no apparent distress, lethargic Course Vital Signs Temperature 97.6 F 06/08/18 14:16 Pulse Rate 67 06/08/18 14:16 Respiratory Rate 20 06/08/18 14:16 Blood Pressure 148/82 06/08/18 14:16 O2 Sat by Pulse Oximetry 97 06/08/18 14:16 Temperature 97.6 F 06/08/18 14:24 Pulse Rate 66 06/08/18 15:10 Respiratory Rate 20 06/08/18 15:10 Blood Pressure 133/110 06/08/18 15:10 O2 Sat by Pulse Oximetry 96 06/08/18 15:10 Oxygen Delivery Oxygen Delivery Nasal Cannula Medical Decision Making - [facility] Narrative Medical decision making narrative: 73-year-old male presents emergency department with concern for generalized weakness. EKG was obtained did not reveal any ischemic ST changes. Chest x- ray did not reveal any evidence of acute cardiopulmonary disease. CT of head and neck were obtained as patient had a reported fall. Did not reveal any acute intracranial abnormality. Kidney function is stable. No leukocytosis. Hemoglobin is stable. No evidence of urinary tract infection. Urine drug screen positive for benzodiazepines. Phenytoin level is 33. Dr. Umaña spoke with poison control regarding patient's elevated phenytoin level. Reported supportive management at this time for it. This could certainly be part of the etiology to patient's generalized weakness as well as polypharmacy. Dr. Umaña spoke with the hospitalist who agreed to accept the patient for admission. Patient currently hemodynamically stable and not in acute distress. Chest X-Ray 06/08/18 14:23 IMPRESSION: No evidence of acute cardiopulmonary disease. D/ / 06/08/2018 14:43:20 Rudolph Ray MD / earnold Interpreting Provider: Rudolph Ray MD Cervical Spine CT 06/08/18 14:27 IMPRESSION: No acute abnormality of the cervical spine. D/ / Ivelisse Portillo Cha, MD / Ivelisse Portillo Cha, MD Interpreting Provider: Ivelisse Portillo Cha, MD Head CT 06/08/18 14:27 IMPRESSION: No acute intracranial abnormality or chain. 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 D/ / Landon Palacios MD / Landon Palacios MD Interpreting Provider: Landon Palacios MD - Lab Data Result diagrams: 06/08/18 14:24 06/08/18 14:24 Lab Results 06/08/18 06/08/18 06/08/18 Range/Units 14:24 14:24 14:29 WBC 7.2 (4.3-11.1) K/mcL RBC 4.07 L (4.19-5.50) M/mcL Hgb 12.9 (12.9-16.9) g/dL Hct 38.8 (37.5-50.1) % MCV 95.3 (83.0-100.0) fL MCH 31.7 (28.0-33.3) pg MCHC 33.2 (31.6-35.5) g/dL RDW 12.3 (11.5-14.5) % Plt Count 242 (140-400) K/mcL MPV 9.6 (9.4-12.4) fL Immature Gran % 0.4 (0-4) % Seg Neutrophils % 43.0 % Lymphocytes % 29.1 % Monocytes % 11.1 % Eosinophils % 15.6 % Basophils % 0.8 % Neutrophils # 3.1 (1.6-8.9) K/mcL Lymphocytes # 2.1 (0.6-4.6) K/mcL Monocytes # 0.8 (0.0-1.3) K/mcL Eosinophils # 1.1 H (0.0-0.6) K/mcL Basophils # 0.1 (0.0-0.2) K/mcL VBG pH (7.32-7.42) pH Units VBG pCO2 (41-51) mmHg VBG pO2 (25-50) mmHg VBG HCO3 (21-27) mEq/L Sodium 133 L (136-145) mEq/L Potassium 3.9 (3.5-5.1) mEq/L Chloride 104 (98-107) mEq/L Carbon Dioxide 31 H (23-29) mEq/L BUN 15 (8-23) mg/dL Creatinine 0.61 L (0.70-1.30) mg/dL Est GFR ( Amer) > 60 (> 60) Est GFR (Non-Af Amer) > 60 (> 60) BUN/Creatinine Ratio 25 (6-26) Glucose 94 (70-105) mg/dL Calculated Osmolality 277 L (280-300) Calcium 9.4 (8.6-10.3) mg/dL Total Bilirubin 0.4 (0.3-1.0) mg/dL Direct Bilirubin 0.1 (0.0-0.2) mg/dL Indirect Bilirubin 0.3 (0.0-1.2) mg/dL AST 28 (13-39) Units/L ALT 16 (7-52) Units/L Alkaline Phosphatase 160 H (34-104) Units/L Ammonia (16-53) mcmol/L Serum Total Protein 7.1 (6.4-8.9) g/dL Albumin 4.2 (3.5-5.7) g/dL Globulin 2.9 (2.4-3.5) g/dL Albumin/Globulin Ratio 1.4 (1.1-2.2) TSH 2.804 (0.340-5.600) mcIU/mL Urine Color (Yellow) Urine Clarity (Clear) Urine pH (5.0-8.0) pH Units Ur Specific Ora (1.010-1.025) Urine Protein (Neg-Trace) mg/dL Urine Glucose (UA) (Normal) mg/dL Urine Ketones (Negative) mg/dL Urine Blood (Negative) Urine Nitrite (Negative) Urine Bilirubin (Negative) Urine Urobilinogen (Normal) mg/dL Ur Leukocyte Esterase (Negative) Ur Culture Indicated? (NO) Salicylates < 2.5 L (15.0-30.0) mg/dL Urine Opiates Screen Negative (Pnmoir=937) ng/mL Acetaminophen < 10 L (10-20) mcg/mL Ur Barbiturates Screen Negative (Yloiro=119) ng/mL Phenytoin 33.1 H (10.0-20.0) mcg/mL Ur Phencyclidine Scrn Negative (Cutoff=25) ng/mL Ur Amphetamines Screen Negative (Dshaqz=1890) ng/mL U Benzodiazepines Scrn Positive H (Yznpxx=498) ng/mL Urine Cocaine Screen Negative (Cutoff= 300) ng/mL U Marijuana (THC) Screen Negative (Cutoff = 50) ng/mL Ur Drug Screen Interp See Below Ethyl Alcohol < 10 (Less than 10) mg/dL 06/08/18 06/08/18 06/08/18 Range/Units 14:52 15:07 15:24 WBC (4.3-11.1) K/mcL RBC (4.19-5.50) M/mcL Hgb (12.9-16.9) g/dL Hct (37.5-50.1) % MCV (83.0-100.0) fL MCH (28.0-33.3) pg MCHC (31.6-35.5) g/dL RDW (11.5-14.5) % Plt Count (140-400) K/mcL MPV (9.4-12.4) fL Immature Gran % (0-4) % Seg Neutrophils % % Lymphocytes % % Monocytes % % Eosinophils % % Basophils % % Neutrophils # (1.6-8.9) K/mcL Lymphocytes # (0.6-4.6) K/mcL Monocytes # (0.0-1.3) K/mcL Eosinophils # (0.0-0.6) K/mcL Basophils # (0.0-0.2) K/mcL VBG pH 7.41 (7.32-7.42) pH Units VBG pCO2 44 (41-51) mmHg VBG pO2 100 H (25-50) mmHg VBG HCO3 27 (21-27) mEq/L Sodium (136-145) mEq/L Potassium (3.5-5.1) mEq/L Chloride (98-107) mEq/L Carbon Dioxide (23-29) mEq/L BUN (8-23) mg/dL Creatinine (0.70-1.30) mg/dL Est GFR ( Amer) (> 60) Est GFR (Non-Af Amer) (> 60) BUN/Creatinine Ratio (6-26) Glucose (70-105) mg/dL Calculated Osmolality (280-300) Calcium (8.6-10.3) mg/dL Total Bilirubin (0.3-1.0) mg/dL Direct Bilirubin (0.0-0.2) mg/dL Indirect Bilirubin (0.0-1.2) mg/dL AST (13-39) Units/L ALT (7-52) Units/L Alkaline Phosphatase (34-104) Units/L Ammonia 46 (16-53) mcmol/L Serum Total Protein (6.4-8.9) g/dL Albumin (3.5-5.7) g/dL Globulin (2.4-3.5) g/dL Albumin/Globulin Ratio (1.1-2.2) TSH (0.340-5.600) mcIU/mL Urine Color Dark Yellow (Yellow) Urine Clarity Clear (Clear) Urine pH 6.0 (5.0-8.0) pH Units Ur Specific Ora 1.030 H (1.010-1.025) Urine Protein Negative (Neg-Trace) mg/dL Urine Glucose (UA) Normal (Normal) mg/dL Urine Ketones Negative (Negative) mg/dL Urine Blood Negative (Negative) Urine Nitrite Negative (Negative) Urine Bilirubin Small H (Negative) Urine Urobilinogen Normal (Normal) mg/dL Ur Leukocyte Esterase Negative (Negative) Ur Culture Indicated? NO (NO) Salicylates (15.0-30.0) mg/dL Urine Opiates Screen (Uzxbje=712) ng/mL Acetaminophen (10-20) mcg/mL Ur Barbiturates Screen (Wumsqv=900) ng/mL Phenytoin (10.0-20.0) mcg/mL Ur Phencyclidine Scrn (Cutoff=25) ng/mL Ur Amphetamines Screen (Youbcx=7098) ng/mL U Benzodiazepines Scrn (Vdygrz=013) ng/mL Urine Cocaine Screen (Cutoff= 300) ng/mL U Marijuana (THC) Screen (Cutoff = 50) ng/mL Ur Drug Screen Interp Ethyl Alcohol (Less than 10) mg/dL
--- NOTE | 2018-06-08 14:49 | Emergency Department Note ---
Disposition Clinical Impression: Weakness Altered mental status Qualifiers: Altered mental status type: unspecified Qualified Code(s): R41.82 - Altered mental status, unspecified Disposition: Admitted As Inpatient Condition: Fair Referrals: Jose Oglesby MD [Primary Care Provider] - Forms: ED Satisfaction Letter Time of Disposition: 16:34 Weakness HPI - General Chief complaint: ED Weakness Stated complaint: Weakness Time Seen by Provider: 06/08/18 14:14 Source: patient, EMS Mode of arrival: EMS Limitations: no limitations Nursing Notes Reviewed: Yes Vital Signs Reviewed: Yes - History of Present Illness HPI Narrative: 73 year old white male with complex past medical history of COPD, CVA, prostate cancer, diabetes, GERD, HTN, seizure, anxiety/depression presents to ED for weakness for "couple days." Had recently been discharged from hospital to SNF for TIA-like symptoms. And had Ativan increased to 3 times a day at nursing facility. EMS states that patient came to ED last night for same complaint. States not feeling good. Only change now is that eyes are swollen. Patient states he rubbed at his eyes because they hurt. Patient reports falling out of his wheelchair while trying to get up but did "not hurt anything." Reports feeling cold and cough productive for mucus. Also reports shortness of breath with activity which is not new. Denies chest pain, nausea, vomiting, numbness, tingling, fever, weight loss, dysuria, diarrhea, constipation, pain. Pain Scale: 0 - Related Data Home Medications Medication Instructions Recorded Confirmed Acetaminophen [Tylenol] 650 mg PO Q4HR PRN 06/03/18 06/03/18 Albuterol Sulfate [Proair Hfa] 2 puff IH Q4H PRN 06/03/18 06/03/18 Cetirizine HCl [Zyrtec] 10 mg PO DAILY 06/03/18 06/03/18 Ferrous Sulfate [Iron] 325 mg PO DAILY 06/03/18 06/03/18 Folic Acid 1 mg PO DAILY 06/03/18 06/03/18 Gabapentin [Neurontin] 300 mg PO BID 06/03/18 06/03/18 Ipratropium/Albuterol Neb [Duoneb] 3 ml IH Q6HR 06/03/18 06/03/18 MORPHINE SUL Oral CONC [Roxanol 0.25 ml PO Q4H PRN 06/03/18 06/03/18 Oral Conc] Mag Hydrox/Al Hydrox/Simeth 30 ml PO Q4-6H PRN 06/03/18 06/03/18 [Antacid II-Simethicone Liq] Magnesium Oxide [Magnesium] 400 mg PO DAILY 06/03/18 06/03/18 Metoprolol Succinate [Toprol Xl] 50 mg PO DAILY 06/03/18 06/03/18 Nitroglycerin [Nitrostat] 0.4 mg SL Q5MIN PRN 06/03/18 06/03/18 Phenytoin ER [Dilantin ER] 100 mg PO BID 06/03/18 06/03/18 Phenytoin ER [Dilantin ER] 200 mg PO HS 06/03/18 06/03/18 Sertraline [Zoloft] 50 mg PO DAILY 06/03/18 06/03/18 Thiamine HCl [Vitamin B-1] 100 mg PO DAILY 06/03/18 06/03/18 levETIRAcetam [Levetiracetam] 1,000 mg PO Q12H 06/03/18 06/03/18 Previous Rx's Medication Instructions Recorded Aspirin 81 mg PO DAILY 30 Days #30 tab.chew 06/05/18 LORazepam [Ativan] 1 mg PO TID 2 Days #6 tablet 06/05/18 Simvastatin [Zocor] 40 mg PO HS 30 Days #30 tablet 06/05/18 Allergies Allergy/AdvReac Type Severity Reaction Status Date / Time No Known Allergies Allergy Verified 08/11/16 07:04 All systems ED: reviewed and negative except as stated. Past Medical History - Past Medical History Medical history: Reports: cancer, COPD, CVA, diabetes, GERD, hypertension, seizures, other Surgical history: Reports: no surgical history Psychiatric history: Reports: anxiety, depression - Social History Smoking Status: Current every day smoker Smokeless Tobacco Status: No Alcohol use: Reports: heavy Drug use: Reports: none Physical Exam - General Limitations: no limitations General appearance: alert, in no apparent distress, other (drowsy) - Head Head exam: atraumatic, normocephalic, normal inspection - Eye Eye exam: Present: PERRL, EOMI, other (Swelling of upper eyelids with scant discharge, no crusting. Left eye cataract). Absent: scleral icterus, conjunctival injection - ENT ENT exam: mucous membranes moist, other (poor oral hygiene) - Neck Neck exam: Present: normal inspection, full ROM, trachea midline - Chest Chest inspection: Present: normal inspection, symmetric chest wall rise - Respiratory Respiratory exam: Present: normal lung sounds bilaterally - Cardiovascular Cardiovascular exam: Present: regular rate, normal rhythm, normal heart sounds - Abdominal Exam Abdominal exam: Present: soft, Non-Tender. Absent: tenderness, distention, guarding, rebound, rigidity - Extremities Exam Extremities exam: Present: normal inspection, full ROM. Absent: tenderness, pedal edema - Neurological Exam Neurological exam: Present: alert, oriented X3, CN II-XII intact. Absent: motor sensory deficit - Skin Skin exam: Present: warm, dry, intact, normal color Course Course Narrative: 73 year old male with complex medical history including COPD, CVA, seizure, and diabetes, presents from nursing facility for weakness. He went to ED last night for same complaint. Difficult to gather history from patient due to sleepiness. Patient is hemodynamically stable, alert and oriented, follows commands, and answers questions. Ordered EKG, CXR, CT head and cervical, and labwork including CBC, BMP, TSH, and drug levels. - Reevaluation(s) Reevaluation #1: Phenytoin level is elevated at 33.1. Other labwork and imaging unremarkable and unchanged from prior. Consulted with Poison Control and they recommended symptomatic supportive care with serial phenytoin levels every 4 hours until levels decline. Spoke with hospitalist Dr. Isreal Ratliff who agreed to admit. Time: 16:30 Vital Signs Temperature 97.6 F 06/08/18 14:16 Pulse Rate 67 06/08/18 14:16 Respiratory Rate 20 06/08/18 14:16 Blood Pressure 148/82 06/08/18 14:16 O2 Sat by Pulse Oximetry 97 06/08/18 14:16 Temperature 97.6 F 06/08/18 14:24 Pulse Rate 66 06/08/18 15:10 Respiratory Rate 20 06/08/18 15:10 Blood Pressure 133/110 06/08/18 15:10 O2 Sat by Pulse Oximetry 96 06/08/18 15:10 Oxygen Delivery Oxygen Delivery Nasal Cannula Weakness - Medical Records Medical records reviewed: Yes I reviewed the patient's medical records. - Lab Data Lab results reviewed: Yes I reviewed the patient's lab results. Result diagrams: 06/08/18 14:24 06/08/18 14:24 Lab Results 06/08/18 06/08/18 06/08/18 Range/Units 14:24 14:24 14:29 WBC 7.2 (4.3-11.1) K/mcL RBC 4.07 L (4.19-5.50) M/mcL Hgb 12.9 (12.9-16.9) g/dL Hct 38.8 (37.5-50.1) % MCV 95.3 (83.0-100.0) fL MCH 31.7 (28.0-33.3) pg MCHC 33.2 (31.6-35.5) g/dL RDW 12.3 (11.5-14.5) % Plt Count 242 (140-400) K/mcL MPV 9.6 (9.4-12.4) fL Immature Gran % 0.4 (0-4) % Seg Neutrophils % 43.0 % Lymphocytes % 29.1 % Monocytes % 11.1 % Eosinophils % 15.6 % Basophils % 0.8 % Neutrophils # 3.1 (1.6-8.9) K/mcL Lymphocytes # 2.1 (0.6-4.6) K/mcL Monocytes # 0.8 (0.0-1.3) K/mcL Eosinophils # 1.1 H (0.0-0.6) K/mcL Basophils # 0.1 (0.0-0.2) K/mcL VBG pH (7.32-7.42) pH Units VBG pCO2 (41-51) mmHg VBG pO2 (25-50) mmHg VBG HCO3 (21-27) mEq/L Sodium 133 L (136-145) mEq/L Potassium 3.9 (3.5-5.1) mEq/L Chloride 104 (98-107) mEq/L Carbon Dioxide 31 H (23-29) mEq/L BUN 15 (8-23) mg/dL Creatinine 0.61 L (0.70-1.30) mg/dL Est GFR ( Amer) > 60 (> 60) Est GFR (Non-Af Amer) > 60 (> 60) BUN/Creatinine Ratio 25 (6-26) Glucose 94 (70-105) mg/dL Calculated Osmolality 277 L (280-300) Calcium 9.4 (8.6-10.3) mg/dL Total Bilirubin 0.4 (0.3-1.0) mg/dL Direct Bilirubin 0.1 (0.0-0.2) mg/dL Indirect Bilirubin 0.3 (0.0-1.2) mg/dL AST 28 (13-39) Units/L ALT 16 (7-52) Units/L Alkaline Phosphatase 160 H (34-104) Units/L Ammonia (16-53) mcmol/L Serum Total Protein 7.1 (6.4-8.9) g/dL Albumin 4.2 (3.5-5.7) g/dL Globulin 2.9 (2.4-3.5) g/dL Albumin/Globulin Ratio 1.4 (1.1-2.2) TSH 2.804 (0.340-5.600) mcIU/mL Urine Color (Yellow) Urine Clarity (Clear) Urine pH (5.0-8.0) pH Units Ur Specific Daniel (1.010-1.025) Urine Protein (Neg-Trace) mg/dL Urine Glucose (UA) (Normal) mg/dL Urine Ketones (Negative) mg/dL Urine Blood (Negative) Urine Nitrite (Negative) Urine Bilirubin (Negative) Urine Urobilinogen (Normal) mg/dL Ur Leukocyte Esterase (Negative) Ur Culture Indicated? (NO) Salicylates < 2.5 L (15.0-30.0) mg/dL Urine Opiates Screen Negative (Vqgjyx=020) ng/mL Acetaminophen < 10 L (10-20) mcg/mL Ur Barbiturates Screen Negative (Sifjmo=693) ng/mL Phenytoin 33.1 H (10.0-20.0) mcg/mL Ur Phencyclidine Scrn Negative (Cutoff=25) ng/mL Ur Amphetamines Screen Negative (Qeiybo=8487) ng/mL U Benzodiazepines Scrn Positive H (Wqnaoc=797) ng/mL Urine Cocaine Screen Negative (Cutoff= 300) ng/mL U Marijuana (THC) Screen Negative (Cutoff = 50) ng/mL Ur Drug Screen Interp See Below Ethyl Alcohol < 10 (Less than 10) mg/dL 06/08/18 06/08/18 06/08/18 Range/Units 14:52 15:07 15:24 WBC (4.3-11.1) K/mcL RBC (4.19-5.50) M/mcL Hgb (12.9-16.9) g/dL Hct (37.5-50.1) % MCV (83.0-100.0) fL MCH (28.0-33.3) pg MCHC (31.6-35.5) g/dL RDW (11.5-14.5) % Plt Count (140-400) K/mcL MPV (9.4-12.4) fL Immature Gran % (0-4) % Seg Neutrophils % % Lymphocytes % % Monocytes % % Eosinophils % % Basophils % % Neutrophils # (1.6-8.9) K/mcL Lymphocytes # (0.6-4.6) K/mcL Monocytes # (0.0-1.3) K/mcL Eosinophils # (0.0-0.6) K/mcL Basophils # (0.0-0.2) K/mcL VBG pH 7.41 (7.32-7.42) pH Units VBG pCO2 44 (41-51) mmHg VBG pO2 100 H (25-50) mmHg VBG HCO3 27 (21-27) mEq/L Sodium (136-145) mEq/L Potassium (3.5-5.1) mEq/L Chloride (98-107) mEq/L Carbon Dioxide (23-29) mEq/L BUN (8-23) mg/dL Creatinine (0.70-1.30) mg/dL Est GFR ( Amer) (> 60) Est GFR (Non-Af Amer) (> 60) BUN/Creatinine Ratio (6-26) Glucose (70-105) mg/dL Calculated Osmolality (280-300) Calcium (8.6-10.3) mg/dL Total Bilirubin (0.3-1.0) mg/dL Direct Bilirubin (0.0-0.2) mg/dL Indirect Bilirubin (0.0-1.2) mg/dL AST (13-39) Units/L ALT (7-52) Units/L Alkaline Phosphatase (34-104) Units/L Ammonia 46 (16-53) mcmol/L Serum Total Protein (6.4-8.9) g/dL Albumin (3.5-5.7) g/dL Globulin (2.4-3.5) g/dL Albumin/Globulin Ratio (1.1-2.2) TSH (0.340-5.600) mcIU/mL Urine Color Dark Yellow (Yellow) Urine Clarity Clear (Clear) Urine pH 6.0 (5.0-8.0) pH Units Ur Specific Daniel 1.030 H (1.010-1.025) Urine Protein Negative (Neg-Trace) mg/dL Urine Glucose (UA) Normal (Normal) mg/dL Urine Ketones Negative (Negative) mg/dL Urine Blood Negative (Negative) Urine Nitrite Negative (Negative) Urine Bilirubin Small H (Negative) Urine Urobilinogen Normal (Normal) mg/dL Ur Leukocyte Esterase Negative (Negative) Ur Culture Indicated? NO (NO) Salicylates (15.0-30.0) mg/dL Urine Opiates Screen (Qvojsn=801) ng/mL Acetaminophen (10-20) mcg/mL Ur Barbiturates Screen (Ofisoo=898) ng/mL Phenytoin (10.0-20.0) mcg/mL Ur Phencyclidine Scrn (Cutoff=25) ng/mL Ur Amphetamines Screen (Ddkxgx=8378) ng/mL U Benzodiazepines Scrn (Izbofa=858) ng/mL Urine Cocaine Screen (Cutoff= 300) ng/mL U Marijuana (THC) Screen (Cutoff = 50) ng/mL Ur Drug Screen Interp Ethyl Alcohol (Less than 10) mg/dL - Radiology Data Radiology results reviewed: Yes I reviewed the patient's radiology results. CXR 06/08/2018. Chronic interstitial prominence unchanged from prior CXR 2017. No acute process. CT Cervical 06/08/2018. No acute abnormality. CT Head 06/08/2018. Old left MCA infarction. No acute abnormality. - EKG Data EKG attestation: Yes I reviewed and interpreted this EKG. EKG results narrative: EKG 06/08/2018 14:19. Sinus rhythm. Heart rate 69. No ST segment depression or elevation. No significant changes from prior EKG 06/07/2018.
[2018-06-08 15:07] LABS: Basophils # 0.1 K/mcL (0.0-0.2); Basophils % 0.8 %; Eosinophils # 1.1 K/mcL (0.0-0.6); Eosinophils % 15.6 %; Hematocrit 38.8 % (37.5-50.1); Hemoglobin 12.9 g/dL (12.9-16.9); Immature Granulocytes % 0.4 % (0-4); Lymphocytes # 2.1 K/mcL (0.6-4.6); Lymphocytes % 29.1 %; Mean Corpuscular HGB Conc 33.2 g/dL (31.6-35.5); Mean Corpuscular Hemoglobin 31.7 pg (28.0-33.3); Mean Corpuscular Volume 95.3 fL (83.0-100.0); Mean Platelet Volume 9.6 fL (9.4-12.4); Monocytes # 0.8 K/mcL (0.0-1.3); Monocytes % 11.1 %; Neutrophils # 3.1 K/mcL (1.6-8.9); Platelet Count 242 K/mcL (140-400); Red Blood Count 4.07 M/mcL (4.19-5.50); Red Cell Distribution Width 12.3 % (11.5-14.5)
[2018-06-08 15:10] LABS: VBG HCO3 27 mEq/L (21-27); VBG PCO2 44 mmHg (41-51); VBG PH 7.41 pH Units (7.32-7.42); VBG PO2 100 mmHg (25-50)
[2018-06-08 15:29] LABS: Acetaminophen < 10 mcg/mL (10-20); Alanine Aminotransferase 16 Units/L (7-52); Albumin 4.2 g/dL (3.5-5.7); Albumin/Globulin Ratio 1.4 (1.1-2.2); Alkaline Phosphatase 160 Units/L (34-104); Aspartate Amino Transferase 28 Units/L (13-39); BUN/Creatinine Ratio 25 (6-26); Bilirubin,Direct 0.1 mg/dL (0.0-0.2); Bilirubin,Indirect 0.3 mg/dL (0.0-1.2); Bilirubin,Total 0.4 mg/dL (0.3-1.0); Blood Urea Nitrogen 15 mg/dL (8-23); Calcium 9.4 mg/dL (8.6-10.3); Carbon Dioxide 31 mEq/L (23-29); Chloride 104 mEq/L (98-107); Globulin 2.9 g/dL (2.4-3.5); Glucose 94 mg/dL (70-105); Osmolality,Calculated 277 (280-300); Phenytoin (Dilantin) 33.1 mcg/mL (10.0-20.0); Potassium 3.9 mEq/L (3.5-5.1); Salicylate < 2.5 mg/dL (15.0-30.0); Sodium 133 mEq/L (136-145); Total Protein 7.1 g/dL (6.4-8.9); eGFR For Non-African Americans > 60 (> 60)
[2018-06-08 15:40] LABS: Bilirubin,Urine Small (Negative); Blood,Urine Negative (Negative); Clarity,Urine Clear (Clear); Color,Urine Dark Yellow (Yellow); Glucose,Urine (UA) Normal (Normal); Ketones,Urine Negative (Negative); Leukocyte Esterase,Urine Negative (Negative); Nitrite,Urine Negative (Negative); Protein,Urine Negative (Neg-Trace); Urobilinogen,Urine Normal (Normal)
[2018-06-08 15:41] LABS: Thyroid Stimulating Hormone 2.804 mcIU/mL (0.340-5.600)
--- NOTE | 2018-06-08 15:47 | Emergency Department Note ---
Disposition Clinical Impression: Weakness Altered mental status Qualifiers: Altered mental status type: unspecified Qualified Code(s): R41.82 - Altered mental status, unspecified Disposition: Admitted As Inpatient Condition: Fair Time of Disposition: 09:19 General Adult HPI - General Chief complaint: ED Weakness Stated complaint: Weakness Time Seen by Provider: 06/08/18 14:14 Source: patient, EMS Mode of arrival: EMS Limitations: no limitations - History of Present Illness HPI Narrative: 73 year old male prsentse ot the ED ith complaints of weakness and AMS from care home, it is unclear that if this is his baseline. Ther eis concern that he may have taken too many benzos and that there is polypharmacy component to the presntsation. Faviola was seen here yesterday for simliar prestation and had a thorough workup for AMS and discharged back to the [facility]. PAinet states that his eyelids are swollen and has no history of fevers, nausea, or vomitting. Patient will havve a repeat AMS including a HCT for furhter evlaution. He has not been hypoxic at bedside. WE will continue to monitor at bedside and re-evlaute. Pain Scale: 0 - Related Data Home Medications Medication Instructions Recorded Confirmed Acetaminophen [Tylenol] 650 mg PO Q4HR PRN 06/03/18 06/08/18 Albuterol Sulfate [Proair Hfa] 2 puff IH Q4H PRN 06/03/18 06/08/18 Cetirizine HCl [Zyrtec] 10 mg PO DAILY 06/03/18 06/08/18 Ferrous Sulfate [Iron] 325 mg PO DAILY 06/03/18 06/08/18 Folic Acid 1 mg PO DAILY 06/03/18 06/08/18 Gabapentin [Neurontin] 300 mg PO BID 06/03/18 06/08/18 Ipratropium/Albuterol Neb [Duoneb] 3 ml IH Q6HR 06/03/18 06/08/18 Mag Hydrox/Al Hydrox/Simeth 30 ml PO Q4-6H PRN 06/03/18 06/08/18 [Antacid II-Simethicone Liq] Magnesium Oxide [Magnesium] 400 mg PO DAILY 06/03/18 06/08/18 Metoprolol Succinate [Toprol Xl] 50 mg PO DAILY 06/03/18 06/08/18 Nitroglycerin [Nitrostat] 0.4 mg SL Q5MIN PRN 06/03/18 06/08/18 Phenytoin ER [Dilantin ER] 100 mg PO BID 06/03/18 06/08/18 Phenytoin ER [Dilantin ER] 200 mg PO HS 06/03/18 06/08/18 Sertraline [Zoloft] 50 mg PO DAILY 06/03/18 06/08/18 Thiamine HCl [Vitamin B-1] 100 mg PO DAILY 06/03/18 06/08/18 levETIRAcetam [Levetiracetam] 1,000 mg PO Q12H 06/03/18 06/08/18 Previous Rx's Medication Instructions Recorded Aspirin 81 mg PO DAILY 30 Days #30 tab.chew 06/05/18 LORazepam [Ativan] 1 mg PO TID 2 Days #6 tablet 06/05/18 Simvastatin [Zocor] 40 mg PO HS 30 Days #30 tablet 06/05/18 Allergies Allergy/AdvReac Type Severity Reaction Status Date / Time No Known Allergies Allergy Verified 06/08/18 16:45 Past Medical History - Past Medical History Medical history: Reports: cancer, COPD, CVA, diabetes, GERD, hypertension, seizures, other Surgical history: Reports: no surgical history Psychiatric history: Reports: anxiety, depression - Social History Smoking Status: Current every day smoker Smokeless Tobacco Status: No Alcohol use: Reports: heavy Drug use: Reports: none Physical Exam - General Limitations: no limitations General appearance: alert, in no apparent distress, other (drowsy) Course Vital Signs Temperature 97.6 F 06/08/18 14:16 Pulse Rate 67 06/08/18 14:16 Respiratory Rate 20 06/08/18 14:16 Blood Pressure 148/82 06/08/18 14:16 O2 Sat by Pulse Oximetry 97 06/08/18 14:16 Temperature 97.8 F 06/11/18 06:41 Pulse Rate 86 06/11/18 06:41 Respiratory Rate 16 06/11/18 06:41 Blood Pressure 125/74 06/11/18 06:41 O2 Sat by Pulse Oximetry 93 06/11/18 06:41 Oxygen Delivery Oxygen Delivery Nasal Cannula Medical Decision Making - Lab Data Result diagrams: 06/11/18 03:51 06/11/18 03:51 Lab Results 06/08/18 06/08/18 06/08/18 Range/Units 14:24 14:24 14:29 WBC 7.2 (4.3-11.1) K/mcL RBC 4.07 L (4.19-5.50) M/mcL Hgb 12.9 (12.9-16.9) g/dL Hct 38.8 (37.5-50.1) % MCV 95.3 (83.0-100.0) fL MCH 31.7 (28.0-33.3) pg MCHC 33.2 (31.6-35.5) g/dL RDW 12.3 (11.5-14.5) % Plt Count 242 (140-400) K/mcL MPV 9.6 (9.4-12.4) fL Immature Gran % 0.4 (0-4) % Seg Neutrophils % 43.0 % Lymphocytes % 29.1 % Monocytes % 11.1 % Eosinophils % 15.6 % Basophils % 0.8 % Neutrophils # 3.1 (1.6-8.9) K/mcL Lymphocytes # 2.1 (0.6-4.6) K/mcL Monocytes # 0.8 (0.0-1.3) K/mcL Eosinophils # 1.1 H (0.0-0.6) K/mcL Basophils # 0.1 (0.0-0.2) K/mcL VBG pH (7.32-7.42) pH Units VBG pCO2 (41-51) mmHg VBG pO2 (25-50) mmHg VBG HCO3 (21-27) mEq/L Sodium 133 L (136-145) mEq/L Potassium 3.9 (3.5-5.1) mEq/L Chloride 104 (98-107) mEq/L Carbon Dioxide 31 H (23-29) mEq/L BUN 15 (8-23) mg/dL Creatinine 0.61 L (0.70-1.30) mg/dL Est GFR ( Amer) > 60 (> 60) Est GFR (Non-Af Amer) > 60 (> 60) BUN/Creatinine Ratio 25 (6-26) Glucose 94 (70-105) mg/dL POC Glucose (70-99) mg/dL Calculated Osmolality 277 L (280-300) Calcium 9.4 (8.6-10.3) mg/dL Magnesium (1.6-2.6) mg/dL Total Bilirubin 0.4 (0.3-1.0) mg/dL Direct Bilirubin 0.1 (0.0-0.2) mg/dL Indirect Bilirubin 0.3 (0.0-1.2) mg/dL AST 28 (13-39) Units/L ALT 16 (7-52) Units/L Alkaline Phosphatase 160 H (34-104) Units/L Ammonia (16-53) mcmol/L Serum Total Protein 7.1 (6.4-8.9) g/dL Albumin 4.2 (3.5-5.7) g/dL Globulin 2.9 (2.4-3.5) g/dL Albumin/Globulin Ratio 1.4 (1.1-2.2) TSH 2.804 (0.340-5.600) mcIU/mL Urine Color (Yellow) Urine Clarity (Clear) Urine pH (5.0-8.0) pH Units Ur Specific [place] (1.010-1.025) Urine Protein (Neg-Trace) mg/dL Urine Glucose (UA) (Normal) mg/dL Urine Ketones (Negative) mg/dL Urine Blood (Negative) Urine Nitrite (Negative) Urine Bilirubin (Negative) Urine Urobilinogen (Normal) mg/dL Ur Leukocyte Esterase (Negative) Ur Culture Indicated? (NO) Salicylates < 2.5 L (15.0-30.0) mg/dL Urine Opiates Screen Negative (Eludow=834) ng/mL Acetaminophen < 10 L (10-20) mcg/mL Ur Barbiturates Screen Negative (Wbqwde=056) ng/mL Phenytoin 33.1 H (10.0-20.0) mcg/mL Ur Phencyclidine Scrn Negative (Cutoff=25) ng/mL Ur Amphetamines Screen Negative (Tybhqp=2991) ng/mL U Benzodiazepines Scrn Positive H (Llamtc=821) ng/mL Urine Cocaine Screen Negative (Cutoff= 300) ng/mL U Marijuana (THC) Screen Negative (Cutoff = 50) ng/mL Ur Drug Screen Interp See Below Ethyl Alcohol < 10 (Less than 10) mg/dL 06/08/18 06/08/18 06/08/18 Range/Units 14:33 14:52 14:52 WBC (4.3-11.1) K/mcL RBC (4.19-5.50) M/mcL Hgb (12.9-16.9) g/dL Hct (37.5-50.1) % MCV (83.0-100.0) fL MCH (28.0-33.3) pg MCHC (31.6-35.5) g/dL RDW (11.5-14.5) % Plt Count (140-400) K/mcL MPV (9.4-12.4) fL Immature Gran % (0-4) % Seg Neutrophils % % Lymphocytes % % Monocytes % % Eosinophils % % Basophils % % Neutrophils # (1.6-8.9) K/mcL Lymphocytes # (0.6-4.6) K/mcL Monocytes # (0.0-1.3) K/mcL Eosinophils # (0.0-0.6) K/mcL Basophils # (0.0-0.2) K/mcL VBG pH (7.32-7.42) pH Units VBG pCO2 (41-51) mmHg VBG pO2 (25-50) mmHg VBG HCO3 (21-27) mEq/L Sodium (136-145) mEq/L Potassium (3.5-5.1) mEq/L Chloride (98-107) mEq/L Carbon Dioxide (23-29) mEq/L BUN (8-23) mg/dL Creatinine (0.70-1.30) mg/dL Est GFR ( Amer) (> 60) Est GFR (Non-Af Amer) (> 60) BUN/Creatinine Ratio (6-26) Glucose (70-105) mg/dL POC Glucose 84 (70-99) mg/dL Calculated Osmolality (280-300) Calcium (8.6-10.3) mg/dL Magnesium (1.6-2.6) mg/dL Total Bilirubin (0.3-1.0) mg/dL Direct Bilirubin (0.0-0.2) mg/dL Indirect Bilirubin (0.0-1.2) mg/dL AST (13-39) Units/L ALT (7-52) Units/L Alkaline Phosphatase (34-104) Units/L Ammonia 46 (16-53) mcmol/L Serum Total Protein (6.4-8.9) g/dL Albumin (3.5-5.7) g/dL Globulin (2.4-3.5) g/dL Albumin/Globulin Ratio (1.1-2.2) TSH (0.340-5.600) mcIU/mL Urine Color (Yellow) Urine Clarity (Clear) Urine pH (5.0-8.0) pH Units Ur Specific [place] (1.010-1.025) Urine Protein (Neg-Trace) mg/dL Urine Glucose (UA) (Normal) mg/dL Urine Ketones (Negative) mg/dL Urine Blood (Negative) Urine Nitrite (Negative) Urine Bilirubin (Negative) Urine Urobilinogen (Normal) mg/dL Ur Leukocyte Esterase (Negative) Ur Culture Indicated? (NO) Salicylates (15.0-30.0) mg/dL Urine Opiates Screen (Anbsvc=651) ng/mL Acetaminophen (10-20) mcg/mL Ur Barbiturates Screen (Ewjiju=455) ng/mL Phenytoin TNP (10.0-20.0) mcg/mL Ur Phencyclidine Scrn (Cutoff=25) ng/mL Ur Amphetamines Screen (Kpaigu=0840) ng/mL U Benzodiazepines Scrn (Mkiugn=816) ng/mL Urine Cocaine Screen (Cutoff= 300) ng/mL U Marijuana (THC) Screen (Cutoff = 50) ng/mL Ur Drug Screen Interp Ethyl Alcohol (Less than 10) mg/dL 06/08/18 06/08/18 06/09/18 Range/Units 15:07 15:24 00:40 WBC (4.3-11.1) K/mcL RBC (4.19-5.50) M/mcL Hgb (12.9-16.9) g/dL Hct (37.5-50.1) % MCV (83.0-100.0) fL MCH (28.0-33.3) pg MCHC (31.6-35.5) g/dL RDW (11.5-14.5) % Plt Count (140-400) K/mcL MPV (9.4-12.4) fL Immature Gran % (0-4) % Seg Neutrophils % % Lymphocytes % % Monocytes % % Eosinophils % % Basophils % % Neutrophils # (1.6-8.9) K/mcL Lymphocytes # (0.6-4.6) K/mcL Monocytes # (0.0-1.3) K/mcL Eosinophils # (0.0-0.6) K/mcL Basophils # (0.0-0.2) K/mcL VBG pH 7.41 (7.32-7.42) pH Units VBG pCO2 44 (41-51) mmHg VBG pO2 100 H (25-50) mmHg VBG HCO3 27 (21-27) mEq/L Sodium (136-145) mEq/L Potassium (3.5-5.1) mEq/L Chloride (98-107) mEq/L Carbon Dioxide (23-29) mEq/L BUN (8-23) mg/dL Creatinine (0.70-1.30) mg/dL Est GFR ( Amer) (> 60) Est GFR (Non-Af Amer) (> 60) BUN/Creatinine Ratio (6-26) Glucose (70-105) mg/dL POC Glucose (70-99) mg/dL Calculated Osmolality (280-300) Calcium (8.6-10.3) mg/dL Magnesium (1.6-2.6) mg/dL Total Bilirubin (0.3-1.0) mg/dL Direct Bilirubin (0.0-0.2) mg/dL Indirect Bilirubin (0.0-1.2) mg/dL AST (13-39) Units/L ALT (7-52) Units/L Alkaline Phosphatase (34-104) Units/L Ammonia (16-53) mcmol/L Serum Total Protein (6.4-8.9) g/dL Albumin (3.5-5.7) g/dL Globulin (2.4-3.5) g/dL Albumin/Globulin Ratio (1.1-2.2) TSH (0.340-5.600) mcIU/mL Urine Color Dark Yellow (Yellow) Urine Clarity Clear (Clear) Urine pH 6.0 (5.0-8.0) pH Units Ur Specific [place] 1.030 H (1.010-1.025) Urine Protein Negative (Neg-Trace) mg/dL Urine Glucose (UA) Normal (Normal) mg/dL Urine Ketones Negative (Negative) mg/dL Urine Blood Negative (Negative) Urine Nitrite Negative (Negative) Urine Bilirubin Small H (Negative) Urine Urobilinogen Normal (Normal) mg/dL Ur Leukocyte Esterase Negative (Negative) Ur Culture Indicated? NO (NO) Salicylates (15.0-30.0) mg/dL Urine Opiates Screen (Nvwldf=694) ng/mL Acetaminophen (10-20) mcg/mL Ur Barbiturates Screen (Iipgyb=805) ng/mL Phenytoin 35.6 H (10.0-20.0) mcg/mL Ur Phencyclidine Scrn (Cutoff=25) ng/mL Ur Amphetamines Screen (Bfnwjm=9002) ng/mL U Benzodiazepines Scrn (Nnrjvz=554) ng/mL Urine Cocaine Screen (Cutoff= 300) ng/mL U Marijuana (THC) Screen (Cutoff = 50) ng/mL Ur Drug Screen Interp Ethyl Alcohol (Less than 10) mg/dL 06/09/18 06/09/18 06/10/18 Range/Units 04:10 09:51 06:18 WBC 9.3 (4.3-11.1) K/mcL RBC 3.89 L (4.19-5.50) M/mcL Hgb 12.4 L (12.9-16.9) g/dL Hct 35.7 L (37.5-50.1) % MCV 91.8 (83.0-100.0) fL MCH 31.9 (28.0-33.3) pg MCHC 34.7 (31.6-35.5) g/dL RDW 11.9 (11.5-14.5) % Plt Count 277 (140-400) K/mcL MPV 9.4 (9.4-12.4) fL Immature Gran % 0.2 (0-4) % Seg Neutrophils % 39.7 % Lymphocytes % 30.2 % Monocytes % 12.1 % Eosinophils % 16.9 % Basophils % 0.9 % Neutrophils # 3.7 (1.6-8.9) K/mcL Lymphocytes # 2.8 (0.6-4.6) K/mcL Monocytes # 1.1 (0.0-1.3) K/mcL Eosinophils # 1.6 H (0.0-0.6) K/mcL Basophils # 0.1 (0.0-0.2) K/mcL VBG pH (7.32-7.42) pH Units VBG pCO2 (41-51) mmHg VBG pO2 (25-50) mmHg VBG HCO3 (21-27) mEq/L Sodium 132 L (136-145) mEq/L Potassium 4.3 (3.5-5.1) mEq/L Chloride 100 (98-107) mEq/L Carbon Dioxide 25 (23-29) mEq/L BUN 11 (8-23) mg/dL Creatinine 0.48 L (0.70-1.30) mg/dL Est GFR ( Amer) > 60 (> 60) Est GFR (Non-Af Amer) > 60 (> 60) BUN/Creatinine Ratio 23 (6-26) Glucose 72 (70-105) mg/dL POC Glucose (70-99) mg/dL Calculated Osmolality 272 L (280-300) Calcium 9.0 (8.6-10.3) mg/dL Magnesium 1.6 (1.6-2.6) mg/dL Total Bilirubin (0.3-1.0) mg/dL Direct Bilirubin (0.0-0.2) mg/dL Indirect Bilirubin (0.0-1.2) mg/dL AST (13-39) Units/L ALT (7-52) Units/L Alkaline Phosphatase (34-104) Units/L Ammonia (16-53) mcmol/L Serum Total Protein (6.4-8.9) g/dL Albumin (3.5-5.7) g/dL Globulin (2.4-3.5) g/dL Albumin/Globulin Ratio (1.1-2.2) TSH (0.340-5.600) mcIU/mL Urine Color (Yellow) Urine Clarity (Clear) Urine pH (5.0-8.0) pH Units Ur Specific [place] (1.010-1.025) Urine Protein (Neg-Trace) mg/dL Urine Glucose (UA) (Normal) mg/dL Urine Ketones (Negative) mg/dL Urine Blood (Negative) Urine Nitrite (Negative) Urine Bilirubin (Negative) Urine Urobilinogen (Normal) mg/dL Ur Leukocyte Esterase (Negative) Ur Culture Indicated? (NO) Salicylates (15.0-30.0) mg/dL Urine Opiates Screen (Elekub=175) ng/mL Acetaminophen (10-20) mcg/mL Ur Barbiturates Screen (Ptntvd=925) ng/mL Phenytoin 27.8 H 27.3 H (10.0-20.0) mcg/mL Ur Phencyclidine Scrn (Cutoff=25) ng/mL Ur Amphetamines Screen (Ileuzz=0603) ng/mL U Benzodiazepines Scrn (Jzvjlz=029) ng/mL Urine Cocaine Screen (Cutoff= 300) ng/mL U Marijuana (THC) Screen (Cutoff = 50) ng/mL Ur Drug Screen Interp Ethyl Alcohol (Less than 10) mg/dL 06/10/18 06/11/18 06/11/18 Range/Units 06:18 03:51 03:51 WBC 9.0 (4.3-11.1) K/mcL RBC 3.67 L (4.19-5.50) M/mcL Hgb 11.5 L (12.9-16.9) g/dL Hct 33.9 L (37.5-50.1) % MCV 92.4 (83.0-100.0) fL MCH 31.3 (28.0-33.3) pg MCHC 33.9 (31.6-35.5) g/dL RDW 12.1 (11.5-14.5) % Plt Count 236 (140-400) K/mcL MPV 10.7 (9.4-12.4) fL Immature Gran % 0.2 (0-4) % Seg Neutrophils % 46.0 % Lymphocytes % 27.4 % Monocytes % 11.1 % Eosinophils % 14.3 % Basophils % 1.0 % Neutrophils # 4.1 (1.6-8.9) K/mcL Lymphocytes # 2.5 (0.6-4.6) K/mcL Monocytes # 1.0 (0.0-1.3) K/mcL Eosinophils # 1.3 H (0.0-0.6) K/mcL Basophils # 0.1 (0.0-0.2) K/mcL VBG pH (7.32-7.42) pH Units VBG pCO2 (41-51) mmHg VBG pO2 (25-50) mmHg VBG HCO3 (21-27) mEq/L Sodium 130 L 128 L (136-145) mEq/L Potassium 4.4 4.6 (3.5-5.1) mEq/L Chloride 99 96 L (98-107) mEq/L Carbon Dioxide 26 25 (23-29) mEq/L BUN 7 L 11 (8-23) mg/dL Creatinine 0.49 L 0.54 L (0.70-1.30) mg/dL Est GFR ( Amer) > 60 > 60 (> 60) Est GFR (Non-Af Amer) > 60 > 60 (> 60) BUN/Creatinine Ratio 14 20 (6-26) Glucose 91 80 (70-105) mg/dL POC Glucose (70-99) mg/dL Calculated Osmolality 268 L 264 L (280-300) Calcium 9.0 9.2 (8.6-10.3) mg/dL Magnesium (1.6-2.6) mg/dL Total Bilirubin (0.3-1.0) mg/dL Direct Bilirubin (0.0-0.2) mg/dL Indirect Bilirubin (0.0-1.2) mg/dL AST (13-39) Units/L ALT (7-52) Units/L Alkaline Phosphatase (34-104) Units/L Ammonia (16-53) mcmol/L Serum Total Protein (6.4-8.9) g/dL Albumin (3.5-5.7) g/dL Globulin (2.4-3.5) g/dL Albumin/Globulin Ratio (1.1-2.2) TSH (0.340-5.600) mcIU/mL Urine Color (Yellow) Urine Clarity (Clear) Urine pH (5.0-8.0) pH Units Ur Specific [place] (1.010-1.025) Urine Protein (Neg-Trace) mg/dL Urine Glucose (UA) (Normal) mg/dL Urine Ketones (Negative) mg/dL Urine Blood (Negative) Urine Nitrite (Negative) Urine Bilirubin (Negative) Urine Urobilinogen (Normal) mg/dL Ur Leukocyte Esterase (Negative) Ur Culture Indicated? (NO) Salicylates (15.0-30.0) mg/dL Urine Opiates Screen (Upodmw=561) ng/mL Acetaminophen (10-20) mcg/mL Ur Barbiturates Screen (Ysftej=909) ng/mL Phenytoin 22.9 H 17.6 (10.0-20.0) mcg/mL Ur Phencyclidine Scrn (Cutoff=25) ng/mL Ur Amphetamines Screen (Zksxyi=0623) ng/mL U Benzodiazepines Scrn (Klqhsw=893) ng/mL Urine Cocaine Screen (Cutoff= 300) ng/mL U Marijuana (THC) Screen (Cutoff = 50) ng/mL Ur Drug Screen Interp Ethyl Alcohol (Less than 10) mg/dL Attestation Statement - Attestation Attestation: I examined this patient and my medical decision-making was reviewed with the Resident Physician. I agree with the documented findings, disposition and treatment plan as described except to the extent set forth below. 73 year old male prscatrachoe ot the ED ith complaints of weakness and AMS from care home, it is unclear that if this is his baseline. Ther eis concern that he may have taken too many benzos and that there is polypharmacy component to the presntsation. Faviola was seen here yesterday for simar prestation and had a thorough workup for AMS and discharged back to the E[facility]. Geovanna states that his eyelids are swollen and has no history of fevers, nausea, or vomitting. Patient will havve a repeat AMS including a HCT for furhter evlaution. He has not been hypoxic at bedside. WE will continue to monitor at bedside and re-evlaute.
[2018-06-08 16:05] LABS: Ethanol < 10 mg/dL (Less than 10)
[2018-06-08 16:05] LABS: Amphetamine Screen,Urine Negative ng/mL (Cutoff=1000); Barbiturate Screen,Urine Negative ng/mL (Cutoff=200); Benzodiazepines Screen,Urine Positive ng/mL (Cutoff=200); Cannabinoid Screen,Urine Negative ng/mL (Cutoff = 50); Cocaine Screen,Urine Negative ng/mL (Cutoff= 300); Opiate Screen,Urine Negative ng/mL (Cutoff=300); Phencyclidine Screen,Urine Negative ng/mL (Cutoff=25)
[2018-06-08] MEDS ORDERED: Nitroglycerin 0.4 MG TAB.SUBL SL PRN (21:00)
[2018-06-08] MEDS ORDERED: Ipratropium/Albuterol Neb 3 ML IH PRN (21:00)
[2018-06-08] MEDS ORDERED: Acetaminophen 325 MG TABLET PO PRN (21:00)
[2018-06-08] MEDS: 0.9 % Sodium Chloride w KCl 20 MEQ/1,000 ML MLS IVC SCH (21:43)
[2018-06-08] MEDS: Gabapentin 300 MG CAPSULE PO SCH (21:44)
[2018-06-08] MEDS: *HR* LORazepam 1 MG TABLET PO SCH (21:44)
[2018-06-08] MEDS: levETIRAcetam 250 MG TABLET PO SCH (21:45)
--- NOTE | 2018-06-08 23:27 | Internal Med History&Physical ---
Date of Encounter: 06/08/18 Time of Encounter: 21:00 Internal Medicine - H&P: HPI Admitted From: Long-term Nursing Facility Plans for Post Hospital Care: Transfer Care Home Facility History of present illness: Mr. Martinez is a 73 year old male. The patient is sent to us from his extended care facility. He has developed weakness and inability to ambulate with his walker for the last 2448 hours. It is associated with some confusion. The confusion seems to be better after he has received IV fluids in the emergency department. This patient was recently hospitalized for treatment of TIA. He does have underlying come seizure disorder; taking caffeinated pain. His phenytoin level when checked in the emergency department was 33.1! Review of systems: All 14 organ systems were reviewed by me with the patient. Positive and pertinent negative findings are listed above. The rest of organ systems is negative. Past Med Surg Social Fam HX - Past Medical History Medical history: cancer, COPD, CVA, diabetes, GERD, hypertension, seizures, other Additional medical history: muscle weakness, difficulty in walking Psychiatric history: anxiety, depression - Past Surgical History Surgical History: no surgical history - Social History Smoking Status: Current every day smoker Smokeless Tobacco Status: No Alcohol use: heavy Drug use: none - Family History Mother Living Status: Hx Family Neurologic Disorders: No Father Living Status: Hx Family Neurologic Disorders: No Internal Medicine - H&P: Meds Acetaminophen [Tylenol] 650 mg PO Q4HR PRN 06/03/18 [History] Albuterol Sulfate [Proair Hfa] 2 puff IH Q4H PRN 06/03/18 [History] Cetirizine HCl [Zyrtec] 10 mg PO DAILY 06/03/18 [History] Ferrous Sulfate [Iron] 325 mg PO DAILY 06/03/18 [History] Folic Acid 1 mg PO DAILY 06/03/18 [History] Gabapentin [Neurontin] 300 mg PO BID 06/03/18 [History] Ipratropium/Albuterol Neb [Duoneb] 3 ml IH Q6HR 06/03/18 [History] Mag Hydrox/Al Hydrox/Simeth [Antacid II-Simethicone Liq] 30 ml PO Q4-6H PRN [History] Magnesium Oxide [Magnesium] 400 mg PO DAILY 06/03/18 [History] Metoprolol Succinate [Toprol Xl] 50 mg PO DAILY 06/03/18 [History] Nitroglycerin [Nitrostat] 0.4 mg SL Q5MIN PRN 06/03/18 [History] Phenytoin ER [Dilantin ER] 100 mg PO BID 06/03/18 [History] Phenytoin ER [Dilantin ER] 200 mg PO HS 06/03/18 [History] Sertraline [Zoloft] 50 mg PO DAILY 06/03/18 [History] Thiamine HCl [Vitamin B-1] 100 mg PO DAILY 06/03/18 [History] levETIRAcetam [Levetiracetam] 1,000 mg PO Q12H 06/03/18 [History] Aspirin 81 mg PO DAILY 30 Days #30 tab.chew 06/05/18 [Rx] LORazepam [Ativan] 1 mg PO TID 2 Days #6 tablet 06/05/18 [Rx] Simvastatin [Zocor] 40 mg PO HS 30 Days #30 tablet 06/05/18 [Rx] 3 Allergy/AdvReac Type Severity Reaction Status Date / Time No Known Allergies Allergy Verified 06/08/18 16:45 All Systems PM: A 10-system review of systems was performed and is negative for pertinent findings except as documented above in the HPI. - Constitutional Vitals: Temp Pulse Resp BP Pulse Ox 97.6 F 96 16 149/57 95 06/08/18 23:11 06/08/18 23:11 06/08/18 23:11 06/08/18 23:11 06/08/18 23:11 - Other Additional findings: Skin: Free of rash and discoloration. Eyes: Sclera is white. There is no discharge from eyes. ENMT: Oral/pharyngeal mucosa is normal in appearance. There is no discharge from nose or ears. Respiratory: Normal breath sounds with no crackles and wheezes bilaterally. CV: Heart is regular with no gallop or murmur. GI: Abdomen is flat and soft with no palpable mass or visceromegaly. : There is no tenderness in patient's flanks bilaterally. There is mild tenderness in suprapubic area. His post voiding residual is about 500 cc. Neuro exam: He has good strength in upper and lower extremities. He has normal eye movements. Examination of his gait is deferred. He knows, where he is. He can tell me his first name and last name. He follows my commands. Psychiatric: He has normal affect. His thought process is appropriate to the situation. Internal Med - H&P Results - Labs CBC & Chem 7: 06/08/18 14:24 06/08/18 14:24 - Assessment and plan (1) Phenytoin toxicity Current Visit: Yes Status: Acute Assessment and plan: His phenytoin level is high. We will keep his Dilantin on hold. We will continue IV fluids. We will check his phenytoin level in the morning. He will go to his ECF with lower dose of Dilantin. We will offer him physical therapy from tomorrow morning. Qualifiers: Encounter type: initial encounter Qualified Code(s): T42.0X1A - Poisoning by hydantoin derivatives, accidental (unintentional), initial encounter (2) Seizure disorder Current Visit: No Status: Chronic Assessment and plan: The patient has not had any seizure for a long period of time. We will continue lower dose Dilantin at the time of discharge. We will continue his Keppra. (3) COPD (chronic obstructive pulmonary disease) Current Visit: No Status: Chronic Assessment and plan: The problem is stable/controlled. We will continue when necessary nebulizer treatments with DuoNeb. Qualifiers: COPD type: unspecified COPD Qualified Code(s): J44.9 - Chronic obstructive pulmonary disease, unspecified (4) HTN (hypertension) Current Visit: Yes Status: Acute Assessment and plan: Under control. Will continue Toprol-XL. Qualifiers: Hypertension type: essential hypertension Qualified Code(s): I10 - Essential (primary) hypertension - Time Spent With Patient Total time spent is greater than 50% in coordination of care (as documented) at patient's floor/unit and/or counseling patient: Greater than 35 minutes (40 minutes)
[2018-06-09 05:22] LABS: BUN/Creatinine Ratio 23 (6-26); Blood Urea Nitrogen 11 mg/dL (8-23); Carbon Dioxide 25 mEq/L (23-29); Chloride 100 mEq/L (98-107); Glucose 72 mg/dL (70-105); Magnesium 1.6 mg/dL (1.6-2.6); Osmolality,Calculated 272 (280-300); Phenytoin (Dilantin) 27.8 mcg/mL (10.0-20.0); Potassium 4.3 mEq/L (3.5-5.1); Sodium 132 mEq/L (136-145); eGFR For Non-African Americans > 60 (> 60)
[2018-06-09] MEDS: Magnesium Oxide 400 MG TABLET PO SCH (07:46)
[2018-06-09] MEDS: Thiamine (B-1) 100 MG TABLET PO SCH (07:46)
[2018-06-09] MEDS: *HR* LORazepam 1 MG TABLET PO SCH ×3 (07:46→20:15)
[2018-06-09] MEDS: Folic Acid 1 MG TABLET PO SCH (07:46)
[2018-06-09] MEDS: Gabapentin 300 MG CAPSULE PO SCH ×2 (07:47→20:15)
[2018-06-09] MEDS: Aspirin 81 MG TAB.CHEW PO SCH (07:47)
[2018-06-09] MEDS: Metoprolol XL (24 HR) Succ 50 MG TAB.ER.24H PO SCH (07:47)
[2018-06-09] MEDS: Loratadine 10 MG TABLET PO SCH (07:47)
[2018-06-09] MEDS: 0.9 % Sodium Chloride w KCl 20 MEQ/1,000 ML MLS IVC SCH (07:55)
[2018-06-09] MEDS: levETIRAcetam 250 MG TABLET PO SCH ×2 (08:31→20:14)
--- NOTE | 2018-06-09 11:43 | Internal Med Progress Note ---
Hospitalist Progress Note - Encounter Date of Encounter: 06/09/18 Time of Encounter: 11:43 - Subjective Interval History: Patient seen and examined at bedside currently denies any pain or discomfort - Exam Vitals: Temp Pulse Resp BP Pulse Ox 97.5 F L 71 18 149/74 100 06/09/18 11:22 06/09/18 11:22 06/09/18 11:22 06/09/18 11:22 06/09/18 11:22 Exam: Skin: Free of rash and discoloration. Eyes: Sclera is white. There is no discharge from eyes. ENMT: Oral/pharyngeal mucosa is normal in appearance. There is no discharge from nose or ears. Respiratory: Normal breath sounds with no crackles and wheezes bilaterally. CV: Heart is regular with no gallop or murmur. GI: Abdomen is flat and soft with no palpable mass or visceromegaly. : There is no tenderness in patient's flanks bilaterally. Neuro exam: He has good strength in upper and lower extremities. He has normal eye movements. Psychiatric: He has normal affect. His thought process is appropriate to the situation. - Assessment and Plan (1) HTN (hypertension) Current Visit: Yes Status: Acute Assessment and Plan: Insulin at this time continue with Toprol (2) Phenytoin toxicity Current Visit: Yes Status: Acute Assessment and Plan: 1 . Level was high on admission-33.1, 27.3 today we will continue to hold and monitor Dilantin 100 mg twice a day per pharmacy recommendation-we will clarify with neurology (3) COPD (chronic obstructive pulmonary disease) Current Visit: No Status: Chronic Assessment and Plan: 1 currently stable no wheezing we will continue with bronchodilators oxygen as needed (4) Seizure disorder Current Visit: No Status: Chronic Assessment and Plan: Currently Dilantin level was toxic holding Dilantin continue to monitor seizure precautions-Keppra thousand milligrams every 12 hours (5) Chronic hyponatremia Current Visit: No Status: Acute Assessment and Plan: Sodium 132 today this appears to be chronic we will continue to monitor DVT Prophylaxis: Lovenox subcutaneous - Time Spent with Patient Total time spent is greater than 50% in coordination of care (as documented) at patient's floor/unit and/or counseling patient: Internal Medicine: Result - Labs CBC & Chem 7: 06/08/18 14:24 06/09/18 04:10 Labs: BMP 06/09/18 04:10 Sodium 132 L Potassium 4.3 Chloride 100 Carbon Dioxide 25 BUN 11 Creatinine 0.48 L Glucose 72 Calcium 9.0 Consult Discharge Plan - Plan Referrals: Jose Oglesby MD [Primary Care Provider] - (1) HTN (hypertension) Qualifiers: Hypertension type: essential hypertension Qualified Code(s): I10 - Essential (primary) hypertension (2) Phenytoin toxicity Qualifiers: Encounter type: initial encounter Qualified Code(s): T42.0X1A - Poisoning by hydantoin derivatives, accidental (unintentional), initial encounter (3) COPD (chronic obstructive pulmonary disease) Qualifiers: COPD type: unspecified COPD Qualified Code(s): J44.9 - Chronic obstructive pulmonary disease, unspecified
--- NOTE | 2018-06-09 20:36 | Electrocardiograph Report ---
[place] [id number] Test Date: 2018-06-08 Pat Name: Mitchell Martinez Department: [id number] Room: 3B Gender: M Studio Coordinator: MARILYN : 1945 Requested By: Berto Mccord Order Number: [id number] Reading MD: Caitlin Adame Measurements Intervals [place] Rate: 69 P: 25 NM: 239 QRS: 51 QRSD: 102 T: 53 QT: 366 QTc: 385 Interpretive Statements SINUS RHYTHM WITH FIRST DEGREE AV BLOCK WITH OCCASIONAL SUPRAVENTRICULAR PREMATURE COMPLEXES Electronically Signed On 06-09-2018 17:13:15 EDT by Caitlin Adame
[2018-06-10 06:30] LABS: Basophils # 0.1 K/mcL (0.0-0.2); Basophils % 0.9 %; Eosinophils # 1.6 K/mcL (0.0-0.6); Eosinophils % 16.9 %; Hematocrit 35.7 % (37.5-50.1); Hemoglobin 12.4 g/dL (12.9-16.9); Immature Granulocytes % 0.2 % (0-4); Lymphocytes # 2.8 K/mcL (0.6-4.6); Lymphocytes % 30.2 %; Mean Corpuscular HGB Conc 34.7 g/dL (31.6-35.5); Mean Corpuscular Hemoglobin 31.9 pg (28.0-33.3); Mean Corpuscular Volume 91.8 fL (83.0-100.0); Mean Platelet Volume 9.4 fL (9.4-12.4); Monocytes # 1.1 K/mcL (0.0-1.3); Monocytes % 12.1 %; Neutrophils # 3.7 K/mcL (1.6-8.9); Platelet Count 277 K/mcL (140-400); Red Blood Count 3.89 M/mcL (4.19-5.50); Red Cell Distribution Width 11.9 % (11.5-14.5); Segmented Neutrophils % 39.7 %
[2018-06-10 06:42] LABS: BUN/Creatinine Ratio 14 (6-26); Blood Urea Nitrogen 7 mg/dL (8-23); Carbon Dioxide 26 mEq/L (23-29); Chloride 99 mEq/L (98-107); Glucose 91 mg/dL (70-105); Osmolality,Calculated 268 (280-300); Potassium 4.4 mEq/L (3.5-5.1); Sodium 130 mEq/L (136-145); eGFR For Non-African Americans > 60 (> 60)
[2018-06-10] MEDS: *HR* Enoxaparin 40 MG/0.4 ML SYRINGE SQ SCH (07:24)
[2018-06-10] MEDS: Thiamine (B-1) 100 MG TABLET PO SCH (07:24)
[2018-06-10] MEDS: Gabapentin 300 MG CAPSULE PO SCH ×2 (07:24→20:37)
[2018-06-10] MEDS: Magnesium Oxide 400 MG TABLET PO SCH (07:24)
[2018-06-10] MEDS: *HR* LORazepam 1 MG TABLET PO SCH ×3 (07:24→20:37)
[2018-06-10] MEDS: levETIRAcetam 250 MG TABLET PO SCH ×2 (07:24→20:37)
[2018-06-10] MEDS: Loratadine 10 MG TABLET PO SCH (07:24)
[2018-06-10] MEDS: Aspirin 81 MG TAB.CHEW PO SCH (07:24)
[2018-06-10] MEDS: Folic Acid 1 MG TABLET PO SCH (07:24)
[2018-06-10] MEDS: Metoprolol XL (24 HR) Succ 50 MG TAB.ER.24H PO SCH (07:24)
--- NOTE | 2018-06-10 09:53 | Internal Med Progress Note ---
Hospitalist Progress Note - Encounter Date of Encounter: 06/10/18 Time of Encounter: 09:52 - Subjective Interval History: Patient seen and examined at bedside currently denies any pain or discomfort-no seizure activity noted - Exam Vitals: Temp Pulse Resp BP Pulse Ox 97.9 F 88 16 164/87 95 06/10/18 07:57 06/10/18 07:57 06/10/18 07:57 06/10/18 07:57 06/10/18 07:57 Exam: Skin: Free of rash and discoloration. Eyes: Sclera is white. There is no discharge from eyes. ENMT: Oral/pharyngeal mucosa is normal in appearance. There is no discharge from nose or ears. Respiratory: Normal breath sounds with no crackles and wheezes bilaterally. CV: Heart is regular with no gallop or murmur. GI: Abdomen is flat and soft with no palpable mass or visceromegaly. : There is no tenderness in patient's flanks bilaterally. Neuro exam: He has good strength in upper and lower extremities. He has normal eye movements. Examination of his gait is deferrered alert and oriented to name only Psychiatric: He has normal affect. His thought process is appropriate to the situation. - Assessment and Plan (1) Phenytoin toxicity Current Visit: Yes Status: Acute Assessment and Plan: 1 . Level was high on admission-33.1, improving 22 today we will continue to monitor once returned to baseline pharmacy recommendations-Dilantin 100 mg twice a day -we will clarify with neurology (2) HTN (hypertension) Current Visit: Yes Status: Acute Assessment and Plan: Currently controlled continue with Toprol (3) COPD (chronic obstructive pulmonary disease) Current Visit: No Status: Chronic Assessment and Plan: 1 currently stable no wheezing we will continue with bronchodilators oxygen as needed (4) Seizure disorder Current Visit: No Status: Chronic Assessment and Plan: Currently Dilantin level was toxic holding Dilantin continue to monitor, seizure precautions-Keppra thousand milligrams every 12 hours (5) Chronic hyponatremia Current Visit: No Status: Acute Assessment and Plan: Sodium 130 today this appears to be chronic we will continue to monitor - Time Spent with Patient Total time spent is greater than 50% in coordination of care (as documented) at patient's floor/unit and/or counseling patient: Internal Medicine: Result - Labs CBC & Chem 7: 06/10/18 06:18 06/10/18 06:18 Labs: Short CBC 06/10/18 Range/Units 06:18 WBC 9.3 (4.3-11.1) K/mcL Hgb 12.4 L (12.9-16.9) g/dL Hct 35.7 L (37.5-50.1) % Plt Count 277 (140-400) K/mcL Neutrophils # 3.7 (1.6-8.9) K/mcL BMP 06/10/18 06:18 Sodium 130 L Potassium 4.4 Chloride 99 Carbon Dioxide 26 BUN 7 L Creatinine 0.49 L Glucose 91 Calcium 9.0 Consult Discharge Plan - Plan Referrals: Jose Oglesby MD [Primary Care Provider] - (1) Phenytoin toxicity Qualifiers: Encounter type: initial encounter (2) HTN (hypertension) Qualifiers: Hypertension type: essential hypertension Qualified Code(s): I10 - Essential (primary) hypertension (3) COPD (chronic obstructive pulmonary disease) Qualifiers: COPD type: unspecified COPD Qualified Code(s): J44.9 - Chronic obstructive pulmonary disease, unspecified
[2018-06-10 12:31] LABS: Phenytoin (Dilantin) 22.9 mcg/mL (10.0-20.0)
[2018-06-11 05:04] LABS: Basophils # 0.1 K/mcL (0.0-0.2); Eosinophils # 1.3 K/mcL (0.0-0.6); Eosinophils % 14.3 %; Hematocrit 33.9 % (37.5-50.1); Hemoglobin 11.5 g/dL (12.9-16.9); Immature Granulocytes % 0.2 % (0-4); Lymphocytes # 2.5 K/mcL (0.6-4.6); Lymphocytes % 27.4 %; Mean Corpuscular HGB Conc 33.9 g/dL (31.6-35.5); Mean Corpuscular Hemoglobin 31.3 pg (28.0-33.3); Mean Corpuscular Volume 92.4 fL (83.0-100.0); Mean Platelet Volume 10.7 fL (9.4-12.4); Monocytes % 11.1 %; Neutrophils # 4.1 K/mcL (1.6-8.9); Red Blood Count 3.67 M/mcL (4.19-5.50); Red Cell Distribution Width 12.1 % (11.5-14.5)
[2018-06-11 05:26] LABS: BUN/Creatinine Ratio 20 (6-26); Blood Urea Nitrogen 11 mg/dL (8-23); Calcium 9.2 mg/dL (8.6-10.3); Carbon Dioxide 25 mEq/L (23-29); Chloride 96 mEq/L (98-107); Glucose 80 mg/dL (70-105); Osmolality,Calculated 264 (280-300); Phenytoin (Dilantin) 17.6 mcg/mL (10.0-20.0); Potassium 4.6 mEq/L (3.5-5.1); Sodium 128 mEq/L (136-145); eGFR For Non-African Americans > 60 (> 60)
[2018-06-11 05:44] LABS: Platelet Count 236 K/mcL (140-400)
[2018-06-11] MEDS: *HR* Enoxaparin 40 MG/0.4 ML SYRINGE SQ SCH (05:44)
[2018-06-11] MEDS: 0.9 % Sodium Chloride 1,000 ML IVC SCH ×2 (08:28→21:34)
[2018-06-11] MEDS: Loratadine 10 MG TABLET PO SCH (08:29)
[2018-06-11] MEDS: Gabapentin 300 MG CAPSULE PO SCH ×2 (08:29→20:27)
[2018-06-11] MEDS: Aspirin 81 MG TAB.CHEW PO SCH (08:29)
[2018-06-11] MEDS: Magnesium Oxide 400 MG TABLET PO SCH (08:29)
[2018-06-11] MEDS: Thiamine (B-1) 100 MG TABLET PO SCH (08:29)
[2018-06-11] MEDS: Folic Acid 1 MG TABLET PO SCH (08:29)
[2018-06-11] MEDS: *HR* LORazepam 1 MG TABLET PO SCH ×3 (08:29→20:27)
[2018-06-11] MEDS: levETIRAcetam 250 MG TABLET PO SCH ×2 (08:29→20:27)
[2018-06-11] MEDS: Metoprolol XL (24 HR) Succ 50 MG TAB.ER.24H PO SCH (08:29)
--- NOTE | 2018-06-11 09:17 | Internal Med Progress Note ---
Hospitalist Progress Note - Encounter Date of Encounter: 06/11/18 Time of Encounter: 09:17 - Subjective Interval History: Patient seen and examined at bedside. Patient resides in an extended care facility he developed weakness and inability to ambulate with his walker. He did have some confusion on presentation which did improve after receiving IV fluids has a history of seizure disorder CVA diabetes hypertension COPD. Dilantin level was elevated on presentation. Dilantin was held and has returned back to baseline. pharmacy recommendations-Dilantin 100 mg twice a day -we will clarify with neurology Has a history of chronic hyponatremia sodium was 129 which we are monitoring and giving IV fluids. He has poor oral intake dietary services has been consulted for supplements. Today he is alert oriented to name following simple commands denies any chest pain or shortness of breath - Exam Vitals: Temp Pulse Resp BP Pulse Ox 97.8 F 86 16 125/74 93 06/11/18 06:41 06/11/18 06:41 06/11/18 06:41 06/11/18 06:41 06/11/18 06:41 - Assessment and Plan (1) Phenytoin toxicity Current Visit: Yes Status: Acute Assessment and Plan: 1 . Level was high on admission-33.1, improved 17 today pharmacy recommendations- Dilantin 100 mg twice a day -we will clarify with neurology (2) HTN (hypertension) Current Visit: Yes Status: Acute Assessment and Plan: Currently controlled continue with Toprol (3) COPD (chronic obstructive pulmonary disease) Current Visit: No Status: Chronic Assessment and Plan: 1 currently stable no wheezing we will continue with bronchodilators oxygen as needed (4) Seizure disorder Current Visit: No Status: Chronic Assessment and Plan: Currently Dilantin level was toxic holding Dilantin continue to monitor - pharmacy recommendations-Dilantin 100 mg twice a day -we will clarify with neurology-Keppra thousand milligrams every 12 hours (5) Chronic hyponatremia Current Visit: No Status: Acute Assessment and Plan: Sodium 129 today this appears to be chronic has poor oral intake we will give IV fluids we will continue to monitor - Time Spent with Patient Total time spent is greater than 50% in coordination of care (as documented) at patient's floor/unit and/or counseling patient: Internal Medicine: Result - Labs CBC & Chem 7: 06/11/18 03:51 06/11/18 10:06 Consult Discharge Plan - Plan Referrals: Oglesby,Garcia, MD [Primary Care Provider] - Leticia Garcia CNP [Advanced Practice Nurse] - 06/17/18 4:00 pm (1) Phenytoin toxicity Qualifiers: Encounter type: initial encounter (2) HTN (hypertension) Qualifiers: Hypertension type: essential hypertension Qualified Code(s): I10 - Essential (primary) hypertension (3) COPD (chronic obstructive pulmonary disease) Qualifiers: COPD type: unspecified COPD Qualified Code(s): J44.9 - Chronic obstructive pulmonary disease, unspecified
[2018-06-12] MEDS: Folic Acid 1 MG TABLET PO SCH (08:20)
[2018-06-12] MEDS: Gabapentin 300 MG CAPSULE PO SCH ×2 (08:20→20:06)
[2018-06-12] MEDS: Magnesium Oxide 400 MG TABLET PO SCH (08:20)
[2018-06-12] MEDS: Thiamine (B-1) 100 MG TABLET PO SCH (08:20)
[2018-06-12] MEDS: *HR* LORazepam 1 MG TABLET PO SCH ×2 (08:20→15:46)
[2018-06-12] MEDS: *HR* Enoxaparin 40 MG/0.4 ML SYRINGE SQ SCH (08:20)
[2018-06-12] MEDS: Loratadine 10 MG TABLET PO SCH (08:20)
[2018-06-12] MEDS: Metoprolol XL (24 HR) Succ 50 MG TAB.ER.24H PO SCH (08:20)
[2018-06-12] MEDS: levETIRAcetam 250 MG TABLET PO SCH ×2 (08:20→20:06)
[2018-06-12] MEDS: Aspirin 81 MG TAB.CHEW PO SCH (08:20)
[2018-06-12] MEDS: 0.9 % Sodium Chloride 1,000 ML IVC SCH ×2 (08:21→23:51)
--- NOTE | 2018-06-12 12:22 | Neurology - Consult Note ---
Date of Encounter: 06/12/18 Time of Encounter: 12:13 Assessment and Plan (1) Phenytoin toxicity Current Visit: Yes Status: Acute It is quite possible that the phenytoin toxicity is the etiology for this current presentation. He is not encephalopathic however he is simply somnolent. The lorazepam may also be contributing to this. In my experience is generally not a good idea to use lorazepam in [facility] patient's for this very reason. Sometimes it is slow to metabolize and many patients in the with protracted somnolence. I see no evidence of an acute central nervous system process at this time. No evidence of a central nervous system infectious , hemorrhagic, vascular or neoplastic process. I would recommend discontinuing the phenytoin permanently. It is difficult to comanage with other medications depending on protein binding capabilities. However it is not medication is generally fallen out of favor from long-term use. I would recommend maintaining the Keppra 1000 mg twice a day. I also suspect that this patient may have undiagnosed Parkinson's disease. I would like to follow up with him in my office after discharge to assess him when he is not bedbound. I would recommend increasing activity tolerance as to avoid deconditioning. I anticipate rounding on him tomorrow. At this point I will hold off on ordering an EEG as I do not think that he is having subclinical seizures. Qualifiers: Encounter type: initial encounter Qualified Code(s): T42.0X1A - Poisoning by hydantoin derivatives, accidental (unintentional), initial encounter History of Present Illness HPI: The chart was reviewed, the patient was seen and examined. I also discussed this admission in the prior admission at length with the family who was present at the bedside. Mr. Martinez is a 73 year old male who is seen for neurologic consultation at the request of the hospitalist secondary to lethargy and mental status changes. He was actually admitted to the hospital on June 03 for similar symptoms. At that time it was suspected that he had possible stroke. He had MRI scan of the brain which did not reveal evidence of an acute infarct, he also had a carotid Doppler study completed which shows 60-79% stenosis of the left internal carotid artery. 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 Ultimately he was seen by vascular surgery and the patient declined further intervention. He was discharged on June 05. He then returned to the hospital and was readmitted from the [facility] care facility where he lives on June 07 secondary to similar symptoms of the previous visit. It was then that his phenytoin level was checked and found to be elevated at 33. Otherwise I see no evidence on his examination of acute infection. His vital signs have been relatively stable. Repeat CT scan of the brain reveals no evidence of extended infarction or any other acute inflammatory, neoplastic or hemorrhagic process. His phenytoin increased up to 35 the following day. However his phenytoin is now held and today the level is 17.6. He remains somnolent, but is not encephalopathic. Perhaps some of this may be secondary to lingering effects of lorazepam. Otherwise his CBC is fairly unremarkable. He has chronic hyponatremia. BUN and creatinine are not elevated, glucose has been normal. Liver enzymes are normal. Ammonia level was normal. Urinalysis finds the color of the urine is dark yellow however no evidence of infection identified. Urine tox screen was positive for benzodiazepines. He is been started on levetiracetam 1000 mg every 12 hours. Was also given vitamin B-1 daily, he does have a history of chronic ethanol abuse. He has a history of previous seizures that began after the initial left MCA infarct several years ago. Past Med Surg Social Fam HX - Past Medical History Medical history: cancer, COPD, CVA, diabetes, GERD, hypertension, seizures, other Additional medical history: muscle weakness, difficulty in walking Psychiatric history: anxiety, depression - Past Surgical History Surgical History: no surgical history - Social History Smoking Status: Current every day smoker Smokeless Tobacco Status: No Alcohol use: heavy Drug use: none - Family History Mother Living Status: Hx Family Neurologic Disorders: No Father Living Status: Hx Family Neurologic Disorders: No Medications and Allergies Acetaminophen [Tylenol] 650 mg PO Q4HR PRN 06/03/18 [History] Albuterol Sulfate [Proair Hfa] 2 puff IH Q4H PRN 06/03/18 [History] Cetirizine HCl [Zyrtec] 10 mg PO DAILY 06/03/18 [History] Ferrous Sulfate [Iron] 325 mg PO DAILY 06/03/18 [History] Folic Acid 1 mg PO DAILY 06/03/18 [History] Gabapentin [Neurontin] 300 mg PO BID 06/03/18 [History] Ipratropium/Albuterol Neb [Duoneb] 3 ml IH Q6HR 06/03/18 [History] Mag Hydrox/Al Hydrox/Simeth [Antacid II-Simethicone Liq] 30 ml PO Q4-6H PRN [History] Magnesium Oxide [Magnesium] 400 mg PO DAILY 06/03/18 [History] Metoprolol Succinate [Toprol Xl] 50 mg PO DAILY 06/03/18 [History] Nitroglycerin [Nitrostat] 0.4 mg SL Q5MIN PRN 06/03/18 [History] Phenytoin ER [Dilantin ER] 100 mg PO BID 06/03/18 [History] Phenytoin ER [Dilantin ER] 200 mg PO HS 06/03/18 [History] Sertraline [Zoloft] 50 mg PO DAILY 06/03/18 [History] Thiamine HCl [Vitamin B-1] 100 mg PO DAILY 06/03/18 [History] levETIRAcetam [Levetiracetam] 1,000 mg PO Q12H 06/03/18 [History] Aspirin 81 mg PO DAILY 30 Days #30 tab.chew 06/05/18 [Rx] LORazepam [Ativan] 1 mg PO TID 2 Days #6 tablet 06/05/18 [Rx] Simvastatin [Zocor] 40 mg PO HS 30 Days #30 tablet 06/05/18 [Rx] 3 Allergy/AdvReac Type Severity Reaction Status Date / Time No Known Allergies Allergy Verified 06/08/18 16:45 ROS unobtainable: due to mental status All Systems: The remainder of the systems were reviewed and are negative Physical Examination - Vital Signs Vital Signs: Initial Vital Signs Temp Pulse Resp BP Pulse Ox 97.6 F 67 20 148/82 97 06/08/18 14:16 06/08/18 14:16 06/08/18 14:16 06/08/18 14:16 06/08/18 14:16 - Exam Exam: Cranial nerves-pupils are equal and reactive to light, no ptosis is present. Sensory to face seems to be intact. There is no facial asymmetry present. Hearing seems to be intact. Tongue is midline. Cerebellar exam finds no nystagmus. He performs finger to nose without ataxia. Motor exam-I find no focal or lateralized deficits in strength. He has normal tone of all 4 extremities. However it is difficult to assess strength and motor function in the traditional manner as he is somnolent. He does have a resting tremor of the right upper extremity when awake. The tremor abates when he falls asleep. I see no evidence of myoclonus or seizure activity. Sensory exam-this is difficult to assess in the patient who is somnolent. However he does withdrawal to noxious stim globally. Deep tendon reflexes are 1 symmetrically at biceps triceps preclude radialis patellar and Achilles. No clonus or Babinski at present. - Neurologic Mental Status Examination: Mental status assessment finds this patient to be somnolent, however he is not encephalopathic. When he is aroused he recognizes everyone in the room he knows where he is, he knows the names of his children. He gives appropriate answers to all questions. He simply somnolent. I see no signs of delirium, or agitation. He does have scratches on his face. He states that he scratches his face because it "itches". Results - Laboratory Findings CBC and BMP: 06/11/18 03:51 06/11/18 10:06 Abnormal lab findings: Abnormal lab results RBC 3.67 M/mcL (4.19-5.50) L 06/11/18 03:51 Hgb 11.5 g/dL (12.9-16.9) L 06/11/18 03:51 Hct 33.9 % (37.5-50.1) L 06/11/18 03:51 Eosinophils # 1.3 K/mcL (0.0-0.6) H 06/11/18 03:51 VBG pO2 100 mmHg (25-50) H 06/08/18 15:07 Sodium 131 mEq/L (136-145) L 06/11/18 10:06 Chloride 96 mEq/L (98-107) L 06/11/18 03:51 Creatinine 0.54 mg/dL (0.70-1.30) L 06/11/18 03:51 Calculated Osmolality 264 (280-300) L 06/11/18 03:51 Alkaline Phosphatase 160 Units/L (34-104) H 06/08/18 14:24 Ur Specific [place] 1.030 (1.010-1.025) H 06/08/18 15:24 Urine Bilirubin Small (Negative) H 06/08/18 15:24 Salicylates < 2.5 mg/dL (15.0-30.0) L 06/08/18 14:24 Acetaminophen < 10 mcg/mL (10-20) L 06/08/18 14:24 U Benzodiazepines Scrn Positive ng/mL (Iqylas=609) H 06/08/18 14:29 Consult Discharge Plan - Plan Referrals: Jose Oglesby MD [Primary Care Provider] - Leticia Garcia CNP [Advanced Practice Nurse] - 06/17/18 4:00 pm
--- NOTE | 2018-06-12 16:46 | Internal Med Progress Note ---
Hospitalist Progress Note - Encounter Date of Encounter: 06/12/18 Time of Encounter: 12:00 - Subjective Interval History: Pt was seen and assessed at bedside at noon. Multiple family members at bedside. Pt is drowsy, however, he opens his eyes and answers questions appropriately, slowly. All family questions answered. - Exam Vitals: Temp Pulse Resp BP Pulse Ox 97.7 F 79 17 155/74 99 06/12/18 16:28 06/12/18 16:28 06/12/18 16:28 06/12/18 16:28 06/12/18 16:28 Exam: General: Pt resting quietly on bed, no distress. Pt is somnolent Skin: pwd, no rashes, lesions, redness Neurological: Pt is drowsy, Speech is slow, HEENT: mucous mumbranes moist, no conjuctival pallor Neck: supple, no tracheal deviation, no lymphadenopathy, tenderness, no thyromegaly Heart: S1S2 heard without gallops, clicks, murmurs, no bradycardia or tachycardia, pt has no peripheral edema, pedal and radial pulses palpable bilaterally. Lungs: clear throughout without wheezing, rales, or ronchi, respirations are unlabored Abdomen: soft and non tender with bowel sound present, no hepatomegaly. Psych: Normal affect with good eye contact - Assessment and Plan (1) COPD (chronic obstructive pulmonary disease) Current Visit: No Status: Chronic Assessment and Plan: Stable. Chronic. Continue with bronchodilators, 02 as needed to maintain sats > 92% (2) Seizure disorder Current Visit: Yes Status: Chronic Assessment and Plan: Dilantin has been stopped, may help with somnolence/AmS. Neurology is following, I appreciate his recommendations as always. Will hold off on EEG for now. Suggests that dilantin toxicity is the cause of the AMS pt is experiencing. Pt is also getting Ativan, will slowly taper to avoid withdrawl and possible seizures. Continue seizure precautions Continue Keppra 1,000mg po BID. (3) Chronic hyponatremia Current Visit: No Status: Acute Assessment and Plan: Improving slowly. Continue gentle IVF hydration. Monitor labs and vitals. (4) Phenytoin toxicity Current Visit: Yes Status: Acute Assessment and Plan: Dilantin level WNL today. It has been stopped and Keppra 1,000mg po BID started. (5) HTN (hypertension) Current Visit: Yes Status: Acute Assessment and Plan: Currently controlled continue with Toprol. Stable and chronic. (6) Tremor Current Visit: Yes Status: Acute Assessment and Plan: Pt with chronic tremors to andree hands. Pt has been seen by neurology, he would like to work up pt in the office for Parkinson's disease. Pt is currently unable to feed himself per family, I have entered an order for nursing to feed pt his meal trays. DVT Prophylaxis: Lovenox SQ - Time Spent with Patient Total time spent is greater than 50% in coordination of care (as documented) at patient's floor/unit and/or counseling patient: less than 15 minutes Plan of Care Discussed with: family Internal Medicine: Result - Labs CBC & Chem 7: 06/11/18 03:51 06/11/18 10:06 Consult Discharge Plan - Plan Referrals: Jose Oglesby MD [Primary Care Provider] - Leticia Garcia CNP [Advanced Practice Nurse] - 06/17/18 4:00 pm (1) COPD (chronic obstructive pulmonary disease) Qualifiers: COPD type: unspecified COPD Qualified Code(s): J44.9 - Chronic obstructive pulmonary disease, unspecified (4) Phenytoin toxicity Qualifiers: Encounter type: initial encounter Qualified Code(s): T42.0X1A - Poisoning by hydantoin derivatives, accidental (unintentional), initial encounter (5) HTN (hypertension) Qualifiers: Hypertension type: essential hypertension Qualified Code(s): I10 - Essential (primary) hypertension
[2018-06-12] MEDS: *HR* LORazepam 0.5 MG TABLET PO SCH (20:06)
[2018-06-13] MEDS: *HR* Enoxaparin 40 MG/0.4 ML SYRINGE SQ SCH (06:31)
[2018-06-13 07:10] LABS: Basophils # 0.1 K/mcL (0.0-0.2); Basophils % 0.6 %; Eosinophils # 1.5 K/mcL (0.0-0.6); Eosinophils % 16.4 %; Hematocrit 34.7 % (37.5-50.1); Hemoglobin 11.9 g/dL (12.9-16.9); Immature Granulocytes % 0.2 % (0-4); Lymphocytes # 2.1 K/mcL (0.6-4.6); Lymphocytes % 22.7 %; Mean Corpuscular HGB Conc 34.3 g/dL (31.6-35.5); Mean Corpuscular Hemoglobin 31.5 pg (28.0-33.3); Mean Corpuscular Volume 91.8 fL (83.0-100.0); Mean Platelet Volume 9.7 fL (9.4-12.4); Monocytes % 11.4 %; Neutrophils # 4.4 K/mcL (1.6-8.9); Platelet Count 308 K/mcL (140-400); Red Blood Count 3.78 M/mcL (4.19-5.50); Red Cell Distribution Width 11.9 % (11.5-14.5); Segmented Neutrophils % 48.7 %
[2018-06-13] MEDS: levETIRAcetam 250 MG TABLET PO SCH ×2 (07:44→19:48)
[2018-06-13] MEDS: Gabapentin 300 MG CAPSULE PO SCH ×2 (07:45→19:49)
[2018-06-13] MEDS: Thiamine (B-1) 100 MG TABLET PO SCH (07:45)
[2018-06-13] MEDS: Loratadine 10 MG TABLET PO SCH (07:45)
[2018-06-13] MEDS: Magnesium Oxide 400 MG TABLET PO SCH (07:45)
[2018-06-13] MEDS: Aspirin 81 MG TAB.CHEW PO SCH (07:45)
[2018-06-13] MEDS: *HR* LORazepam 0.5 MG TABLET PO SCH (07:45)
[2018-06-13] MEDS: Metoprolol XL (24 HR) Succ 50 MG TAB.ER.24H PO SCH (07:45)
[2018-06-13] MEDS: Folic Acid 1 MG TABLET PO SCH (07:45)
[2018-06-13 09:58] LABS: BUN/Creatinine Ratio 15 (6-26); Blood Urea Nitrogen 7 mg/dL (8-23); Calcium 9.1 mg/dL (8.6-10.3); Carbon Dioxide 25 mEq/L (23-29); Chloride 99 mEq/L (98-107); Glucose 90 mg/dL (70-105); Osmolality,Calculated 274 (280-300); Sodium 133 mEq/L (136-145); eGFR For Non-African Americans > 60 (> 60)
--- NOTE | 2018-06-13 12:14 | Neurology Progress Note ---
Date of Encounter: 06/13/18 Time of Encounter: 12:12 Assessment and Plan (1) Altered mental status Current Visit: Yes Status: Acute Patient is unchanged at this point he appears very much the same as he did yesterday. He denies any pain or headache. States "I just do not feel good" really do not identify any specific central nervous system etiology to explain this. He does not really seem encephalopathic only somnolent. When he is aroused he gives appropriate answers and seems to be a fairly lucid. I will recheck ALT, AST, lactate, phenytoin, CPK level, thyroid cascade and methylmalonic acid. sedimentation rate. I would recommend considering Romazicon to reverse any residual effects of the benzodiazepine. Consider chest x-ray. Continue thiamine. Qualifiers: Altered mental status type: unspecified Qualified Code(s): R41.82 - Altered mental status, unspecified Subjective Interval history: The chart was reviewed, the patient was seen and examined. From a clinical perspective he is much the same as it was yesterday. He remains somnolent however is arousable, he is coherent when aroused. He knows where he is, he can recognize the correct number of fingers that I hold my hand. Denies headache. States "I do not feel good". His face is very red. He has no focal or lateralized deficits. Currently labs really do not reveal a specific etiology to explain this. Objective - Constitutional Vitals: Temp Pulse Resp BP Pulse Ox 97.9 F 72 16 144/75 99 06/13/18 10:57 06/13/18 10:57 06/13/18 10:57 06/13/18 10:57 06/13/18 10:57 - Neurological Exam Additional comments: Neurologic examination remains unchanged from my previous assessment on 2017. Results - Laboratory Findings CBC and BMP: 06/13/18 06:27 06/13/18 06:27 Abnormal lab findings: Abnormal lab results RBC 3.78 M/mcL (4.19-5.50) L 06/13/18 06:27 Hgb 11.9 g/dL (12.9-16.9) L 06/13/18 06:27 Hct 34.7 % (37.5-50.1) L 06/13/18 06:27 Eosinophils # 1.5 K/mcL (0.0-0.6) H 06/13/18 06:27 VBG pO2 100 mmHg (25-50) H 06/08/18 15:07 Sodium 133 mEq/L (136-145) L 06/13/18 06:27 BUN 7 mg/dL (8-23) L 06/13/18 06:27 Creatinine 0.46 mg/dL (0.70-1.30) L 06/13/18 06:27 Calculated Osmolality 274 (280-300) L 06/13/18 06:27 Alkaline Phosphatase 160 Units/L (34-104) H 06/08/18 14:24 Ur Specific [place] 1.030 (1.010-1.025) H 06/08/18 15:24 Urine Bilirubin Small (Negative) H 06/08/18 15:24 Salicylates < 2.5 mg/dL (15.0-30.0) L 06/08/18 14:24 Acetaminophen < 10 mcg/mL (10-20) L 06/08/18 14:24 U Benzodiazepines Scrn Positive ng/mL (Vbhaqv=928) H 06/08/18 14:29 Consult Discharge Plan - Plan Referrals: Jose Oglesby MD [Primary Care Provider] - Leticia Garcia CNP [Advanced Practice Nurse] - 06/17/18 4:00 pm
[2018-06-13] MEDS: 0.9 % Sodium Chloride 1,000 ML IVC SCH ×2 (13:32→18:49)
--- NOTE | 2018-06-13 18:30 | Internal Med Progress Note ---
Hospitalist Progress Note - Encounter Date of Encounter: 06/13/18 Time of Encounter: 09:20 - Subjective Interval History: Pt was seen and assessed at bedside at 0920 a.m. Family is not present today. Pt is drowsy, however, he opens his eyes and answers questions appropriately, slowly. Pt remains unchanged. - Exam Vitals: Temp Pulse Resp BP Pulse Ox 97.5 F L 78 18 148/87 94 06/13/18 16:01 06/13/18 16:01 06/13/18 16:01 06/13/18 16:01 06/13/18 16:01 - Assessment and Plan (1) COPD (chronic obstructive pulmonary disease) Current Visit: No Status: Chronic Assessment and Plan: Stable. Chronic. Continue with bronchodilators, 02 as needed to maintain sats > 92% Lungs clear and diminished with poor inspiratory effort (2) Seizure disorder Current Visit: Yes Status: Chronic Assessment and Plan: Dilantin has been stopped, thus far has not helped with somnolence Neurology is following, I appreciate his recommendations as always. Will hold off on EEG for now. Suggests that dilantin toxicity is the cause of the AMS pt is experiencing. Ativan discontinued. Continue seizure precautions Continue Keppra 1,000mg po BID. Romazicon 0.2mg IV x 4 doses for benzodiazepine reversal for somnolence. (3) Chronic hyponatremia Current Visit: Yes Status: Acute Assessment and Plan: Improving slowly. Continue gentle IVF hydration. Monitor labs and vitals. (4) Phenytoin toxicity Current Visit: Yes Status: Acute Assessment and Plan: Dilantin level WNL today. It has been stopped and Keppra 1,000mg po BID started. (5) HTN (hypertension) Current Visit: Yes Status: Acute Assessment and Plan: Currently controlled, continue with Toprol. (6) Tremor Current Visit: Yes Status: Acute Assessment and Plan: Pt with chronic tremors to andree hands. Pt has been seen by neurology, he would like to work up pt in the office for Parkinson's disease after discharge. Daughter states that he has been treated with Ativan, it has been stopped due to somnolence. Will continue to monitor. DVT Prophylaxis: Lovenox SQ - Time Spent with Patient Total time spent is greater than 50% in coordination of care (as documented) at patient's floor/unit and/or counseling patient: less than 15 minutes Plan of Care Discussed with: patient Internal Medicine: Result - Labs CBC & Chem 7: 06/13/18 06:27 06/13/18 06:27 Labs: Short CBC 06/13/18 Range/Units 06:27 WBC 9.0 (4.3-11.1) K/mcL Hgb 11.9 L (12.9-16.9) g/dL Hct 34.7 L (37.5-50.1) % Plt Count 308 (140-400) K/mcL Neutrophils # 4.4 (1.6-8.9) K/mcL BMP 06/13/18 06:27 Sodium 133 L Potassium 4.0 Chloride 99 Carbon Dioxide 25 BUN 7 L Creatinine 0.46 L Glucose 90 Calcium 9.1 Consult Discharge Plan - Plan Referrals: Jose Oglesby MD [Primary Care Provider] - Leticia Garcia CNP [Advanced Practice Nurse] - 06/17/18 4:00 pm (1) COPD (chronic obstructive pulmonary disease) Qualifiers: COPD type: unspecified COPD Qualified Code(s): J44.9 - Chronic obstructive pulmonary disease, unspecified (4) Phenytoin toxicity Qualifiers: Encounter type: initial encounter (5) HTN (hypertension) Qualifiers: Hypertension type: essential hypertension Qualified Code(s): I10 - Essential (primary) hypertension
[2018-06-14] MEDS ORDERED: Furosemide 40 MG/4 ML VIAL ONE (03:09)
[2018-06-14] MEDS ORDERED: *HR* Metoprolol 5 MG/5 ML VIAL IVP ONE (03:12)
[2018-06-14] MEDS ORDERED: *HR* LORazepam 2 MG/ML VIAL ONE (03:12)
[2018-06-14] MEDS ORDERED: *HR* Morphine 2 MG/ML SYRINGE IVP ONE (03:13)
--- NOTE | 2018-06-14 03:55 | Event Note ---
Date of Encounter: 06/14/18 Time of Encounter: 03:48 Rapid response was called on the patient for acute change in status. He was seen delirious, diaphoretic and flushed with notable difficulty breathing. On my assessment he had tight wheezes and rales. He was hypoxic to the mid 80s, tachypneic and EKG showed atrial fibrillation with rapid ventricular rate in addition to highly active hypertensive state BP was checked. Glucose level was 175 mg/dL. No seizure activity was witnessed. We administered one stat nebulizer therapy, 5 mg of metoprolol IV for rate control, 2 mg of lorazepam IV for acute anxiety, 40 mg furosemide IV and 2 mg of morphine IV with notable response and his clinical status. His heart rate came down to the 90s and blood pressure 124/70. We placed him on facemask with oxygen saturation sustained above 96%. Chest x-ray showed pulmonary vascular congestion. On follow-up reassessment he still had notable rales on auscultation however the wheezes had improved his respiratory rate normalized. ABG will be obtained. Review of records is notable for administration of flumazenil earlier in the day and it is also possible that he may be a having rebound effect from the benzo reversal. We will place him on one-to-one observation. Nebulizer therapy every 4 hours. Close hemodynamic monitoring.
[2018-06-14 03:59] LABS: Basophils # 0.1 K/mcL (0.0-0.2); Basophils % 0.6 %; Eosinophils # 1.4 K/mcL (0.0-0.6); Eosinophils % 11.4 %; Hematocrit 36.7 % (37.5-50.1); Hemoglobin 12.3 g/dL (12.9-16.9); Immature Granulocytes % 0.3 % (0-4); Lymphocytes # 4.3 K/mcL (0.6-4.6); Lymphocytes % 33.8 %; Mean Corpuscular HGB Conc 33.5 g/dL (31.6-35.5); Mean Corpuscular Hemoglobin 30.7 pg (28.0-33.3); Mean Corpuscular Volume 91.5 fL (83.0-100.0); Mean Platelet Volume 9.7 fL (9.4-12.4); Monocytes # 1.2 K/mcL (0.0-1.3); Monocytes % 9.8 %; Neutrophils # 5.5 K/mcL (1.6-8.9); Platelet Count 358 K/mcL (140-400); Red Blood Count 4.01 M/mcL (4.19-5.50); Segmented Neutrophils % 44.1 %
[2018-06-14] MEDS: Ipratropium/Albuterol Neb 3 ML IH SCH ×6 (03:59→23:34)
[2018-06-14 04:05] LABS: Alanine Aminotransferase 22 Units/L (7-52); Aspartate Amino Transferase 34 Units/L (13-39); BUN/Creatinine Ratio 10 (6-26); Blood Urea Nitrogen 6 mg/dL (8-23); Calcium 9.5 mg/dL (8.6-10.3); Carbon Dioxide 21 mEq/L (23-29); Chloride 98 mEq/L (98-107); Creatine Kinase 85 Units/L (30-223); Glucose 218 mg/dL (70-105); Osmolality,Calculated 280 (280-300); Potassium 3.4 mEq/L (3.5-5.1); Sodium 133 mEq/L (136-145); eGFR For Non-African Americans > 60 (> 60)
[2018-06-14 04:13] LABS: Troponin I < 0.03 ng/mL (< 0.04)
[2018-06-14 04:58] LABS: ABG Base Excess 3 mEq/L (-2 to 3); ABG HCO3 27 mEq/L (21-27); ABG Oxygen Saturation 99 % (95-98); ABG PCO2 37 mmHg (35-45); ABG PH 7.46 pH Units (7.32-7.45); ABG PO2 140 mmHg (85-104); ABG TCO2 28 mEq/L (20-26); Blood Gas FiO2 4.5 (1-15=lpm or21-100=%)
[2018-06-14] MEDS: *HR* Enoxaparin 40 MG/0.4 ML SYRINGE SQ SCH (06:12)
[2018-06-14] MEDS: Loratadine 10 MG TABLET PO SCH (08:33)
[2018-06-14] MEDS: Aspirin 81 MG TAB.CHEW PO SCH (08:33)
[2018-06-14] MEDS: Metoprolol XL (24 HR) Succ 50 MG TAB.ER.24H PO SCH (08:34)
[2018-06-14] MEDS: levETIRAcetam 250 MG TABLET PO SCH ×2 (08:34→20:42)
[2018-06-14] MEDS: Thiamine (B-1) 100 MG TABLET PO SCH (08:34)
[2018-06-14] MEDS: Folic Acid 1 MG TABLET PO SCH (08:34)
[2018-06-14] MEDS: Magnesium Oxide 400 MG TABLET PO SCH (08:34)
[2018-06-14] MEDS: Gabapentin 300 MG CAPSULE PO SCH ×2 (08:34→20:41)
--- NOTE | 2018-06-14 08:53 | Neurology Progress Note ---
<Michael Martinez - Last Filed: 06/14/18 09:42> Date of Encounter: 06/14/18 Time of Encounter: 08:30 Assessment and Plan (1) Altered mental status Current Visit: Yes Status: Acute He remains somnolent but opens eyes, answers questions and follows commands appropriately. No focal neurological deficits or any evidence of a STATE [employer] OFFICER cause. Was given 4 doses of flumazenil yesterday with lorazepam stopped. Spoke to hospitalist and told no change in status since completion of flumazenil. Rapid response early this morning for hypoxia and SOB, was given 2mg of lorazepam. CXR normal. Small leukocytosis of 12.6 today but no evidence of infectious or metabolic origin to account for his mental status. LFT's normal with hepatic encephalopathy unlikely. Phenytoin has been stopped, phenytoin level on 06/13 wnl at 17.6 and awaiting free phenytoin level. Do not think an LP is indicated yet but may consider if no change in status occurs. Will consider EEG but unlikely to show any epileptic activity. Qualifiers: Altered mental status type: somnolence Qualified Code(s): R40.0 - Somnolence (2) Phenytoin toxicity Current Visit: Yes Status: Acute Phenytoin has been stopped. Phenytoin level 17.6 on 06/13 Free phenytoin level ordered. Qualifiers: Encounter type: initial encounter Injury intent: accidental or unintentional Qualified Code(s): T42.0X1A - Poisoning by hydantoin derivatives , accidental (unintentional), initial encounter Subjective Principal diagnosis: Phenytoin toxicity Interval history: He says he is feeling better than yesterday. He says he is just tired and needs rest. He has no complaints today except fatigue. He received 4 doses of flumazenil yesterday with lorazepam stopped. Rapid response early this morning for hypoxia and SOB, was given 2mg of lorazepam. Most recent phenytoin level from 06/13 of 17.6 and free phenytoin level still pending. Objective - Constitutional Vitals: Temp Pulse Resp BP Pulse Ox 97.8 F 67 16 174/88 100 06/13/18 22:34 06/13/18 22:34 06/14/18 07:32 06/13/18 22:34 06/14/18 08:01 General appearance: Present: A&O X 3, no acute distress, answers questions appropriately - Neurological Exam Mental Status Examination: Present: oriented to person, oriented to place, oriented to time, follows commands appropriately, answers questions appropriately, lethargic, opens eyes to voice Cranial nerve examination: Present: EOMI, no facial asymmetry is present, no dysarthria, flexes SCM and trapezius muscles symmetrically with full power, tongue protrudes midline, no atrophy or facial fasiculations present Results - Laboratory Findings CBC and BMP: 06/14/18 03:33 06/14/18 03:33 Abnormal lab findings: Abnormal lab results WBC 12.6 K/mcL (4.3-11.1) H 06/14/18 03:33 RBC 4.01 M/mcL (4.19-5.50) L 06/14/18 03:33 Hgb 12.3 g/dL (12.9-16.9) L 06/14/18 03:33 Hct 36.7 % (37.5-50.1) L 06/14/18 03:33 Eosinophils # 1.4 K/mcL (0.0-0.6) H 06/14/18 03:33 ESR 18 mm/hr (0-10) H 06/13/18 13:33 ABG pH 7.46 pH Units (7.32-7.45) H 06/14/18 04:52 ABG pO2 140 mmHg (85-104) H 06/14/18 04:52 ABG Total CO2 28 mEq/L (20-26) H 06/14/18 04:52 ABG O2 Saturation 99 % (95-98) H 06/14/18 04:52 VBG pO2 100 mmHg (25-50) H 06/08/18 15:07 Sodium 133 mEq/L (136-145) L 06/14/18 03:33 Potassium 3.4 mEq/L (3.5-5.1) L 06/14/18 03:33 Carbon Dioxide 21 mEq/L (23-29) L 06/14/18 03:33 BUN 6 mg/dL (8-23) L 06/14/18 03:33 Creatinine 0.59 mg/dL (0.70-1.30) L 06/14/18 03:33 Glucose 218 mg/dL (70-105) H 06/14/18 03:33 Alkaline Phosphatase 160 Units/L (34-104) H 06/08/18 14:24 Ur Specific [place] 1.030 (1.010-1.025) H 06/08/18 15:24 Urine Bilirubin Small (Negative) H 06/08/18 15:24 Salicylates < 2.5 mg/dL (15.0-30.0) L 06/08/18 14:24 Acetaminophen < 10 mcg/mL (10-20) L 06/08/18 14:24 U Benzodiazepines Scrn Positive ng/mL ([id number]=435) H 06/08/18 14:29 Consult Discharge Plan - Plan Referrals: Jose Oglesby MD [Primary Care Provider] - Leticia Garcia CNP [Advanced Practice Nurse] - 06/17/18 4:00 pm <Emil Dwyer - Last Filed: 06/14/18 16:10> Date of Encounter: 06/14/18 Time of Encounter: 15:47 Assessment and Plan (1) Altered mental status Current Visit: Yes Status: Acute At this point we do not have a specific etiology to explain this case. Metabolic w/u is unrevealing. Initial CT scan only reveals old infarct. Will check MRI brain, Await free dilantin level. Will get EEG and LP. Further recs pending test results. Case discussed with hospitalist. Qualifiers: Altered mental status type: somnolence Qualified Code(s): R40.0 - Somnolence Subjective Interval history: The chart was reviewed, the patient was seen and examined independently. Case was discussed with Dr. Martinez as well as with the director mortgage. Patient is still very somnolent. He arouses however to voice. He gives appropriate answers to questions. He follows simple commands. Metabolic work up has been unrevealing. Objective - Constitutional Vitals: Temp Pulse Resp BP Pulse Ox 99.3 F 100 18 98/52 98 06/14/18 14:57 06/14/18 14:57 06/14/18 14:57 06/14/18 14:57 06/14/18 14:57 Results - Laboratory Findings CBC and BMP: 06/14/18 03:33 06/14/18 03:33 Abnormal lab findings: Abnormal lab results WBC 12.6 K/mcL (4.3-11.1) H 06/14/18 03:33 RBC 4.01 M/mcL (4.19-5.50) L 06/14/18 03:33 Hgb 12.3 g/dL (12.9-16.9) L 06/14/18 03:33 Hct 36.7 % (37.5-50.1) L 06/14/18 03:33 Eosinophils # 1.4 K/mcL (0.0-0.6) H 06/14/18 03:33 ESR 18 mm/hr (0-10) H 06/13/18 13:33 ABG pH 7.46 pH Units (7.32-7.45) H 06/14/18 04:52 ABG pO2 140 mmHg (85-104) H 06/14/18 04:52 ABG Total CO2 28 mEq/L (20-26) H 06/14/18 04:52 ABG O2 Saturation 99 % (95-98) H 06/14/18 04:52 VBG pO2 100 mmHg (25-50) H 06/08/18 15:07 Sodium 133 mEq/L (136-145) L 06/14/18 03:33 Potassium 3.4 mEq/L (3.5-5.1) L 06/14/18 03:33 Carbon Dioxide 21 mEq/L (23-29) L 06/14/18 03:33 BUN 6 mg/dL (8-23) L 06/14/18 03:33 Creatinine 0.59 mg/dL (0.70-1.30) L 06/14/18 03:33 Glucose 218 mg/dL (70-105) H 06/14/18 03:33 Alkaline Phosphatase 160 Units/L (34-104) H 06/08/18 14:24 Ur Specific [place] 1.030 (1.010-1.025) H 06/08/18 15:24 Urine Bilirubin Small (Negative) H 06/08/18 15:24 Salicylates < 2.5 mg/dL (15.0-30.0) L 06/08/18 14:24 Acetaminophen < 10 mcg/mL (10-20) L 06/08/18 14:24 U Benzodiazepines Scrn Positive ng/mL (Pamjyj=856) H 06/08/18 14:29
[2018-06-14] MEDS: 0.9 % Sodium Chloride 1,000 ML IVC SCH ×2 (13:49→14:51)
[2018-06-14] MEDS ORDERED: Gadolinium Contrast Agent (WT Based) IV PRN (15:56)
--- NOTE | 2018-06-14 16:55 | Internal Med Progress Note ---
Hospitalist Progress Note - Encounter Date of Encounter: 06/14/18 Time of Encounter: 07:45 - Subjective Interval History: Pt was seen and assessed at bedside at 0745 a.m. Family is not present. Pt is drowsy, however, he opens his eyes and answers questions appropriately, slowly. Pt remains unchanged. He denies headache, nausea, chest pain, SOB> - Exam Vitals: Temp Pulse Resp BP Pulse Ox 99.3 F 100 16 98/52 96 06/14/18 14:57 06/14/18 14:57 06/14/18 15:50 06/14/18 14:57 06/14/18 15:50 Exam: General: Pt resting quietly on bed, no distress. Skin: pwd, no rashes, lesions, patient has facial redness and peeling Neurological: Pt is alert and awake, oriented x 3, Speech is clear, PERRLA, EOMI , no nystagmus, no pronator drift. strength equal x 4 extremities HEENT: mucous mumbranes moist, no conjuctival pallor, andree pinna appear to be mildly edematous Neck: supple, no tracheal deviation, no lymphadenopathy, tenderness, no thyromegaly Heart: S1S2 heard without gallops, clicks, murmurs, no bradycardia or tachycardia, pt has no peripheral edema, pedal and radial pulses palpable bilaterally. Lungs: clear throughout without wheezing, rales, or ronchi, respirations are unlabored Abdomen: soft and non tender with bowel sound present, no hepatomegaly. Psych: Normal affect with good eye contact - Assessment and Plan (1) COPD (chronic obstructive pulmonary disease) Current Visit: Yes Status: Chronic Assessment and Plan: Stable. Chronic. Continue with bronchodilators, 02 as needed to maintain sats > 92% Lungs clear and diminished with poor inspiratory effort Pt using 2L 02 via n/c . (2) Seizure disorder Current Visit: Yes Status: Chronic Assessment and Plan: Dilantin has been stopped, thus far has not helped with somnolence Free Dilantin level is still pending. Neurology is following, I appreciate his recommendations as always. Ativan discontinued. EEG ordered for morning. Continue seizure precautions Continue Keppra 1,000mg po BID. (3) Chronic hyponatremia Current Visit: Yes Status: Acute Assessment and Plan: Improving slowly, stable. Continue gentle IVF hydration. Monitor labs and vitals. (4) Phenytoin toxicity Current Visit: Yes Status: Acute Assessment and Plan: Dilantin level WNL today. It has been stopped and Keppra 1,000mg po BID started. Pt remains somnolent, free dilantin level ordered and pending. (5) HTN (hypertension) Current Visit: Yes Status: Acute Assessment and Plan: Currently controlled, continue with Toprol. (6) Tremor Current Visit: Yes Status: Acute Assessment and Plan: Pt with chronic tremors to andree hands. Pt has been seen by neurology, he would like to work up pt in the office for Parkinson's disease after discharge. Daughter states that he has been treated with Ativan, it has been stopped due to somnolence. (7) Somnolence Current Visit: Yes Status: Acute Assessment and Plan: Pt is drowsy, arouses briefly to verbal stimuli. He does answer questions appropriately. This is a new occurrence since last admission. Ativan and Dilantin have been stopped without change in level of alertness. Pt has had Romazicon x 4 doses without change in somnolence Unclear etiology, pt was alert and at baseline at his birthday constitution party a few weeks ago. No apparent metabolic cause, on admission, chest x-ray was negative, as it was last night. Patient's head CT was negative on 06/08 with no acute intracranial abnormality. Dilantin and ATivan discontinued due to sedative effects of both. Patient has some new, mild leukocytosis this morning after event last night, likely reactive to event last night. ABG normal. No significant electrolyte imbalance. Urine was negative for infection on arrival. Ammonia and repeat UA ordered for morning as well as BMP and CBC. Dr Dwyer and I have discussed this pt today, MRI, EEG, and LP by IR ordered for tomorrow. If tests are unremarkable, pt should be transferred to another facility for further testing. Heart Surgeon for safety and falls Continue 02 and monitor labs, vitals, pt condition. DVT Prophylaxis: Lovenox SQ - Time Spent with Patient Total time spent is greater than 50% in coordination of care (as documented) at patient's floor/unit and/or counseling patient: less than 15 minutes Plan of Care Discussed with: other Internal Medicine: Result - Labs CBC & Chem 7: 06/14/18 03:33 06/14/18 03:33 Labs: Short CBC 06/14/18 Range/Units 03:33 WBC 12.6 H (4.3-11.1) K/mcL Hgb 12.3 L (12.9-16.9) g/dL Hct 36.7 L (37.5-50.1) % Plt Count 358 (140-400) K/mcL Neutrophils # 5.5 (1.6-8.9) K/mcL BMP 06/14/18 03:33 Sodium 133 L Potassium 3.4 L Chloride 98 Carbon Dioxide 21 L BUN 6 L Creatinine 0.59 L Glucose 218 H Calcium 9.5 Cardiac Enzymes 06/14/18 Range/Units 03:33 Troponin I < 0.03 (< 0.04) ng/mL Liver Function 06/14/18 Range/Units 03:33 AST 34 (13-39) Units/L ALT 22 (7-52) Units/L - ABG Interpretation ABG results: ABG ABG pH 7.46 pH Units (7.32-7.45) H 06/14/18 04:52 ABG pCO2 37 mmHg (35-45) 06/14/18 04:52 ABG pO2 140 mmHg (85-104) H 06/14/18 04:52 ABG O2 Saturation 99 % (95-98) H 06/14/18 04:52 - Impressions Impressions Chest X-Ray 06/14/18 03:19 IMPRESSION: No acute disease. D/ / Dagoberto Escalante MD / Dagoberto Escalante MD Interpreting Provider: Dagoberto Escalante MD Consult Discharge Plan - Plan Referrals: Jose Oglesby MD [Primary Care Provider] - Leticia Garcia CNP [Advanced Practice Nurse] - 06/17/18 4:00 pm (1) COPD (chronic obstructive pulmonary disease) Qualifiers: COPD type: unspecified COPD Qualified Code(s): J44.9 - Chronic obstructive pulmonary disease, unspecified (4) Phenytoin toxicity Qualifiers: Encounter type: initial encounter Injury intent: accidental or unintentional Qualified Code(s): T42.0X1A - Poisoning by hydantoin derivatives, accidental ( unintentional), initial encounter (5) HTN (hypertension) Qualifiers: Hypertension type: essential hypertension Qualified Code(s): I10 - Essential (primary) hypertension
[2018-06-14] MEDS ORDERED: Albuterol 2.5 MG/3 ML NEBULIZER IH PRN (16:59)
[2018-06-14 17:53] LABS: Bilirubin,Urine Small (Negative); Blood,Urine Negative (Negative); Clarity,Urine Cloudy (Clear); Color,Urine Dark Yellow (Yellow); Glucose,Urine (UA) Normal (Normal); Ketones,Urine Trace mg/dL (Negative); Leukocyte Esterase,Urine Small (Negative); Nitrite,Urine Negative (Negative); PH,Urine 5.5 pH Units (5.0-8.0); Protein,Urine 30 mg/dL (Neg-Trace); Specific Gravity,Urine 1.018 (1.010-1.025); Urobilinogen,Urine Normal (Normal)
[2018-06-14 18:19] LABS: Bacteria,Urine Moderate per hpf (None-Few)
[2018-06-14 18:20] LABS: Hyaline Casts,Urine Moderate per lpf (None-Few); Squamous Epithelial Cell,Urine Few per lpf (None-Few)
[2018-06-14] MEDS ORDERED: Aspirin Enteric Coated 81 MG Tablet PO ONE (20:20)
--- NOTE | 2018-06-14 20:54 | Event Note ---
Date of Encounter: 06/14/18 Time of Encounter: 19:51 Alerted by pts. nurse of MRI results which showed small acute infarcts involving the superior right frontal lobe. Extensive left cerebral encephalomalacia/gliosis. Numerous remote infarcts. There is evidence of remote hemorrhage. Notified Dr. Dwyer who was occupational analyst for Neurology of the results. Went to see pt. who was resting in bed. Patient was alert and oriented 3, conversational, denied any complaints at the present time ( including headache, difficulty breathing, weakness). On exam, patient showed no neurologic deficits, slurred speech, pronator drift. Strengths equal in bilateral upper extremities and lower extremities on exam. Notified Dr. Dwyer of these results with his recommendations being administration of 81 mg aspirin now, SHANTAL ordered, and bilateral carotid Dopplers ordered. Dr. Dwyer to see patient in a.m. Patient to be monitored closely overnight.
[2018-06-15] MEDS: Ipratropium/Albuterol Neb 3 ML IH SCH ×5 (03:44→20:46)
[2018-06-15] MEDS: 0.9 % Sodium Chloride 1,000 ML IVC SCH (04:41)
[2018-06-15 06:28] LABS: Basophils # 0.1 K/mcL (0.0-0.2); Basophils % 0.5 %; Eosinophils # 0.9 K/mcL (0.0-0.6); Eosinophils % 8.1 %; Hematocrit 28.8 % (37.5-50.1); Immature Granulocytes % 0.3 % (0-4); Lymphocytes # 2.2 K/mcL (0.6-4.6); Lymphocytes % 20.3 %; Mean Corpuscular Hemoglobin 30.5 pg (28.0-33.3); Mean Corpuscular Volume 89.7 fL (83.0-100.0); Mean Platelet Volume 9.4 fL (9.4-12.4); Monocytes # 1.2 K/mcL (0.0-1.3); Monocytes % 11.1 %; Neutrophils # 6.4 K/mcL (1.6-8.9); Platelet Count 299 K/mcL (140-400); Red Blood Count 3.21 M/mcL (4.19-5.50); Red Cell Distribution Width 12.3 % (11.5-14.5); Segmented Neutrophils % 59.7 %
[2018-06-15 06:29] LABS: Hemoglobin 9.8 g/dL (12.9-16.9)
[2018-06-15 06:44] LABS: BUN/Creatinine Ratio 26 (6-26); Blood Urea Nitrogen 14 mg/dL (8-23); Calcium 8.9 mg/dL (8.6-10.3); Carbon Dioxide 26 mEq/L (23-29); Chloride 103 mEq/L (98-107); Glucose 122 mg/dL (70-105); Osmolality,Calculated 282 (280-300); Potassium 3.7 mEq/L (3.5-5.1); Sodium 135 mEq/L (136-145); eGFR For Non-African Americans > 60 (> 60)
--- NOTE | 2018-06-15 08:24 | Neurology Progress Note ---
Date of Encounter: 06/15/18 Time of Encounter: 08:22 Assessment and Plan (1) Altered mental status Current Visit: Yes Status: Acute Today's the first day that Mr. Martinez seems to be clinically improved. He is awake upon my entering the room today he makes eye contact, follow simple commands and answers questions. I am increasingly suspicious that the phenytoin toxicity is the ultimate explanation. However the free level is still pending. The lab informed me that it may take up to 3 days prior to getting the result. However I do not feel that an EEG or lumbar puncture are necessary at this time. We can cancel the studies. I would like to continue to monitor him for another day or so. I would like to increase his activity to tolerance perhaps getting him up in the chair. I also believe that we can cancel the SHANTAL as he is not a good candidate for anticoagulation in any regard. I will continue to follow with him. Qualifiers: Altered mental status type: somnolence Qualified Code(s): R40.0 - Somnolence Subjective Principal diagnosis: Phenytoin toxicity Interval history: The chart was reviewed, the patient was seen and examined. I am pleased to report that he is a bit more awake today. He follows commands and answers questions. However he is very fatigued. I did review the MRI scan of the brain. It shows 2 small areas of infarct in the deep white matter on the right. These lesions are not responsible for his mental status changes. This is an incidental finding. The MRI also shows the encephalomalacia on the left side from the previous left MCA infarct. The free Dilantin level was still pending. I am increasingly suspicious however that Dilantin toxicity may be the explanation for this case. He continues to deny headache. Objective - Constitutional Vitals: Temp Pulse Resp BP Pulse Ox 98.1 F 96 19 106/61 98 06/15/18 07:06 06/15/18 07:06 06/15/18 07:06 06/15/18 07:06 06/15/18 07:06 General appearance: Present: A&O X 3, no acute distress, answers questions appropriately - Neurological Exam Motor Examination: Present: other (Neurologic examination really does not reveal any focal deficits. He does have generalized weakness of the upper and lower extremities, but I did not find any localized weakness at this time. He is somewhat tremulous however.) Sensation intact: Present: other (Light touch and deep touch are intact.) Reflex and gait examination: other (Deep tendon reflexes are diminished throughout.) Mental Status Examination: Present: awake, oriented to person, oriented to place , oriented to time, follows commands appropriately, answers questions appropriately, opens eyes to voice Cranial nerve examination: Present: PERRL, EOMI, sensory to face intact, no facial asymmetry is present, no dysarthria, flexes SCM and trapezius muscles symmetrically with full power, tongue protrudes midline, no atrophy or facial fasiculations present Results - Laboratory Findings CBC and BMP: 06/15/18 06:12 06/15/18 06:12 Abnormal lab findings: Abnormal lab results RBC 3.21 M/mcL (4.19-5.50) L 06/15/18 06:12 Hgb 9.8 g/dL (12.9-16.9) L D 06/15/18 06:12 Hct 28.8 % (37.5-50.1) L 06/15/18 06:12 Eosinophils # 0.9 K/mcL (0.0-0.6) H 06/15/18 06:12 ESR 18 mm/hr (0-10) H 06/13/18 13:33 ABG pH 7.46 pH Units (7.32-7.45) H 06/14/18 04:52 ABG pO2 140 mmHg (85-104) H 06/14/18 04:52 ABG Total CO2 28 mEq/L (20-26) H 06/14/18 04:52 ABG O2 Saturation 99 % (95-98) H 06/14/18 04:52 VBG pO2 100 mmHg (25-50) H 06/08/18 15:07 Sodium 135 mEq/L (136-145) L 06/15/18 06:12 Creatinine 0.54 mg/dL (0.70-1.30) L 06/15/18 06:12 Glucose 122 mg/dL (70-105) H 06/15/18 06:12 Alkaline Phosphatase 160 Units/L (34-104) H 06/08/18 14:24 Urine Clarity Cloudy (Clear) A 06/14/18 17:30 Urine Protein 30 mg/dL (Neg-Trace) H 06/14/18 17:30 Urine Ketones Trace mg/dL (Negative) H 06/14/18 17:30 Urine Bilirubin Small (Negative) H 06/14/18 17:30 Ur Leukocyte Esterase Small (Negative) H 06/14/18 17:30 Urine Microscopic RBC 3-5 per hpf (0-3) H 06/14/18 17:30 Urine Microscopic WBC 5-15 per hpf (0-3) H 06/14/18 17:30 Urine Bacteria Moderate per hpf (None-Few) H 06/14/18 17:30 Hyaline Casts Moderate per lpf (None-Few) H 06/14/18 17:30 Ur Culture Indicated? YES (NO) A 06/14/18 17:30 Salicylates < 2.5 mg/dL (15.0-30.0) L 06/08/18 14:24 Acetaminophen < 10 mcg/mL (10-20) L 06/08/18 14:24 U Benzodiazepines Scrn Positive ng/mL (Wfajfh=213) H 06/08/18 14:29 Consult Discharge Plan - Plan Referrals: Jose Oglesby MD [Primary Care Provider] - Leticia Garcia CNP [Advanced Practice Nurse] - 06/17/18 4:00 pm
[2018-06-15] MEDS: Loratadine 10 MG TABLET PO SCH (08:42)
[2018-06-15] MEDS: *HR* Enoxaparin 40 MG/0.4 ML SYRINGE SQ SCH (08:42)
[2018-06-15] MEDS: Folic Acid 1 MG TABLET PO SCH (08:42)
[2018-06-15] MEDS: Aspirin 81 MG TAB.CHEW PO SCH (08:42)
[2018-06-15] MEDS: Metoprolol XL (24 HR) Succ 50 MG TAB.ER.24H PO SCH (08:43)
[2018-06-15] MEDS: levETIRAcetam 250 MG TABLET PO SCH ×2 (08:43→20:48)
[2018-06-15] MEDS: Gabapentin 300 MG CAPSULE PO SCH ×2 (08:43→20:41)
[2018-06-15] MEDS: Magnesium Oxide 400 MG TABLET PO SCH (08:43)
[2018-06-15] MEDS: Thiamine (B-1) 100 MG TABLET PO SCH (08:43)
[2018-06-15] MEDS ORDERED: Lidocaine Viscous Oral Soln 15 ML SOLUTION MM PRN (12:34)
[2018-06-15] MEDS ORDERED: 0.9 % Sodium Chloride 500 ML IVC ONE (12:35)
[2018-06-15] MEDS ORDERED: Tetracaine/Benzocaine/Butamben 200MG/SPRAY (100SPY/BOT) MM ONE (12:35)
[2018-06-15] MEDS: *HR* FentaNYL (PF) 100 MCG/2 ML VIAL IVP PRN ×4 (13:25→13:40)
[2018-06-15] MEDS: *HR* Midazolam HCl 5 MG/5 ML VIAL IVP PRN ×4 (13:25→13:40)
--- NOTE | 2018-06-15 13:30 | Internal Med Progress Note ---
Hospitalist Progress Note - Encounter Date of Encounter: 06/15/18 Time of Encounter: 09:00 - Subjective Interval History: Seems to be awake and alert, able to answer a few questions. Nose that he is in the hospital. Reports new onset of right hand weakness and drooping of left eyelid. Reports that he is bed bound and wheelchair bound mostly. Denies chest pain, shortness of breath, cough, fever or chills. Tolerates oral diet. - Exam Vitals: Temp Pulse Resp BP Pulse Ox 98.6 F 89 18 153/74 93 06/15/18 13:12 06/15/18 13:12 06/15/18 13:12 06/15/18 13:12 06/15/18 13:12 Exam: General: frail elderly male, no distress, lying in bed Chest: Normal thoracic expansion. Normal breath sounds. Clear to auscultation. Heart: Normal S1 & S2; rhythmic. No rubs or murmurs. Abdomen: Non-distended, soft and nontender Extremities: No clubbing, cyanosis or edema. No calf tenderness. Normal distal pulses. Neurological: Awake, alert and oriented to person, place; B/L ptosis left>right ; right forearm and hand with 0-1/5 motor power; Psych: Affect appropriate. - Assessment and Plan (1) Acute encephalopathy Current Visit: Yes Status: Acute Assessment and Plan: Toxic metabolic encephalopathy. Neurology follow-up appreciated. Patient has been in the hospital for at least 5 days, reportedly with significant improvement in mental status today per neurology notes. Probable etiology noted to be Dilantin toxicity. MRI brain showed small right frontal infarcts, which is likely an incidental finding. No other infectious or metabolic etiology for encephalopathy identified. Serum ammonia normal. Blood cultures are negative. Follow-up urine culture. No indication for lumbar puncture, EEG at this time. Continue supportive care and fall precautions. (2) COPD (chronic obstructive pulmonary disease) Current Visit: Yes Status: Chronic Assessment and Plan: Not in acute exacerbation. Continue when necessary breathing treatments and supplemental oxygen. (3) Seizure disorder Current Visit: Yes Status: Chronic (4) Chronic hyponatremia Current Visit: Yes Status: Chronic (5) Phenytoin toxicity Current Visit: Yes Status: Resolved Assessment and Plan: Dilantin level improving. Free phenytoin level pending. Phenytoin currently on hold. (6) HTN (hypertension) Current Visit: Yes Status: Chronic Assessment and Plan: Blood pressure well controlled. Continue current medications. (7) Diabetes mellitus Current Visit: Yes Status: Chronic Assessment and Plan: Blood sugars acceptable. Start Accu-Chek blood glucose monitoring with sliding scale insulin as needed. Diabetic diet as tolerated. (8) Anxiety and depression Current Visit: Yes Status: Chronic DVT Prophylaxis: On subcutaneous Lovenox. - Time Spent with Patient Total time spent is greater than 50% in coordination of care (as documented) at patient's floor/unit and/or counseling patient: Plan of Care Discussed with: nurse Internal Medicine: Result - Labs CBC & Chem 7: 06/15/18 06:12 06/15/18 06:12 Labs: Short CBC 06/15/18 Range/Units 06:12 WBC 10.7 (4.3-11.1) K/mcL Hgb 9.8 L D (12.9-16.9) g/dL Hct 28.8 L (37.5-50.1) % Plt Count 299 (140-400) K/mcL Neutrophils # 6.4 (1.6-8.9) K/mcL BMP 06/15/18 06:12 Sodium 135 L Potassium 3.7 Chloride 103 Carbon Dioxide 26 BUN 14 Creatinine 0.54 L Glucose 122 H Calcium 8.9 Urine 06/14/18 Range/Units 17:30 Urine Color Dark Yellow (Yellow) Urine Clarity Cloudy A (Clear) Urine pH 5.5 (5.0-8.0) pH Units Ur Specific Davey 1.018 (1.010-1.025) Urine Protein 30 H (Neg-Trace) mg/dL Urine Glucose (UA) Normal (Normal) mg/dL - ABG Interpretation ABG results: ABG ABG pH 7.46 pH Units (7.32-7.45) H 06/14/18 04:52 ABG pCO2 37 mmHg (35-45) 06/14/18 04:52 ABG pO2 140 mmHg (85-104) H 06/14/18 04:52 ABG O2 Saturation 99 % (95-98) H 06/14/18 04:52 - Impressions Impressions Brain MRI 06/14/18 15:56 IMPRESSION: Small acute infarcts involving the superior right frontal lobe. Extensive left cerebral encephalomalacia/gliosis. Numerous remote infarcts. There is evidence of remote hemorrhage. The findings were sent to the [facility] at 7:27 pm on 06/14/2018to be communicated to a licensed caregiver. D/ / 06/14/2018 19:31:06 Jayson Rivera MD / cortney Interpreting Provider: Jayson Rivera MD Consult Discharge Plan - Plan Referrals: Jose Oglesby MD [Primary Care Provider] - Leticia Garcia CNP [Advanced Practice Nurse] - 06/17/18 4:00 pm (2) COPD (chronic obstructive pulmonary disease) Qualifiers: COPD type: unspecified COPD Qualified Code(s): J44.9 - Chronic obstructive pulmonary disease, unspecified (5) Phenytoin toxicity Qualifiers: Encounter type: initial encounter Injury intent: accidental or unintentional Qualified Code(s): T42.0X1A - Poisoning by hydantoin derivatives, accidental ( unintentional), initial encounter (6) HTN (hypertension) Qualifiers: Hypertension type: essential hypertension Qualified Code(s): I10 - Essential (primary) hypertension (7) Diabetes mellitus Qualifiers: Diabetes mellitus type: type 2 Diabetes mellitus fdc insulin use: without fdc use Diabetes mellitus complication status: with unspecified complications Qualified Code(s): E11.8 - Type 2 diabetes mellitus with unspecified complications
[2018-06-15] MEDS ORDERED: D5% in Water 1,000 ML IVC PRN (13:38)
[2018-06-15] MEDS ORDERED: Dextrose Gel 15 GM/37.5 ML TUBE PO PRN ×2 (13:38)
[2018-06-15] MEDS: Insulin LISPRO 300 UNITS/3 ML VIAL SQ SCH ×2 (16:04→20:47)
[2018-06-15] MEDS ORDERED: *HR* Metoprolol 5 MG/5 ML VIAL IVP ONE (17:21)
[2018-06-15] MEDS: *HR* Dextrose 50 % in Water (Syg) 50 ML SYRINGE IVP PRN (17:36)
[2018-06-16] MEDS: Ipratropium/Albuterol Neb 3 ML IH SCH ×7 (00:43→23:37)
[2018-06-16 05:54] LABS: Basophils # 0.1 K/mcL (0.0-0.2); Basophils % 0.6 %; Eosinophils # 1.1 K/mcL (0.0-0.6); Eosinophils % 10.9 %; Hematocrit 31.6 % (37.5-50.1); Hemoglobin 10.9 g/dL (12.9-16.9); Immature Granulocytes % 0.2 % (0-4); Lymphocytes # 1.9 K/mcL (0.6-4.6); Lymphocytes % 18.4 %; Mean Corpuscular HGB Conc 34.5 g/dL (31.6-35.5); Mean Corpuscular Hemoglobin 32.2 pg (28.0-33.3); Mean Corpuscular Volume 93.2 fL (83.0-100.0); Mean Platelet Volume 9.8 fL (9.4-12.4); Monocytes # 1.1 K/mcL (0.0-1.3); Monocytes % 10.9 %; Neutrophils # 6.1 K/mcL (1.6-8.9); Platelet Count 310 K/mcL (140-400); Red Blood Count 3.39 M/mcL (4.19-5.50); Red Cell Distribution Width 12.5 % (11.5-14.5)
[2018-06-16 06:14] LABS: BUN/Creatinine Ratio 21 (6-26); Blood Urea Nitrogen 10 mg/dL (8-23); Calcium 8.9 mg/dL (8.6-10.3); Carbon Dioxide 26 mEq/L (23-29); Chloride 104 mEq/L (98-107); Glucose 106 mg/dL (70-105); Osmolality,Calculated 283 (280-300); Potassium 3.7 mEq/L (3.5-5.1); Sodium 137 mEq/L (136-145); eGFR For Non-African Americans > 60 (> 60)
[2018-06-16] MEDS: *HR* Enoxaparin 40 MG/0.4 ML SYRINGE SQ SCH (08:03)
--- NOTE | 2018-06-16 08:03 | Neurology Progress Note ---
Date of Encounter: 06/16/18 Time of Encounter: 07:59 Assessment and Plan (1) Altered mental status Current Visit: Yes Status: Acute Qualifiers: Altered mental status type: somnolence Qualified Code(s): R40.0 - Somnolence (2) Phenytoin toxicity Current Visit: Yes Status: Resolved I believe that the major factor leading up to this admission in his mental status changes should be a treatable to be phenytoin toxicity. He is been off phenytoin since admission and gradually his mental status has improved. We were not able to identify any other metabolic or central nervous system process to account for his mental status change. There is no evidence of acute infection or sepsis. The MRI scan of the brain did not reveal an acute right lacunar infarct however this was not a contribute factor in his mental status change. Moving forward I would suggest we increase his activity level getting some sitting up in the chair and standing and trying to ambulate. I would recommend we leave him off phenytoin and maintain the Keppra at 1000 mg twice a day. Maintain aspirin 81 mg daily. I do not feel that the SHANTAL is necessary at this juncture. I would like to follow up with him at some point after discharge to further assess the tremor and whether not is necessary to be treated. I will reevaluate him at your request. Unfortunately we have still not received the free Dilantin level. Qualifiers: Encounter type: initial encounter Injury intent: accidental or unintentional Qualified Code(s): T42.0X1A - Poisoning by hydantoin derivatives , accidental (unintentional), initial encounter Subjective Principal diagnosis: Phenytoin toxicity Interval history: The chart was reviewed, the patient was seen and examined. Patient was awake upon my entering the room and watching television. His mental status is much improved even over yesterday. He recognizes me follows commands and answers questions his responses are appropriate. Denies any pain today. Apparently he is been eating cookies. The urine culture came back negative. Ultimately I suspect that we were dealing with the results of phenytoin toxicity. The skin on his face and neck and upper chest is very dry. He denies any complaints of weakness of the left upper extremity. The acute infarct identified on the MRI involving the right centrum semiovale ovale is not at all relevant to his mental status changes. This infarcts likely due to small vessel disease associated with known stroke risk factors. Objective - Constitutional Vitals: Temp Pulse Resp BP Pulse Ox 97.9 F 56 16 128/76 96 06/16/18 07:38 06/16/18 07:38 06/16/18 07:38 06/16/18 07:38 06/16/18 07:38 General appearance: Present: A&O X 3, no acute distress, answers questions appropriately - Neurological Exam Motor Examination: Present: other (Neurologic examination really does not reveal any focal deficits. He does have generalized weakness of the upper and lower extremities, but I did not find any localized weakness at this time. He is somewhat tremulous however.) Sensation intact: Present: other (Light touch and deep touch are intact.) Reflex and gait examination: other (Deep tendon reflexes are diminished throughout.) Mental Status Examination: Present: awake, oriented to person, oriented to place , oriented to time, follows commands appropriately, answers questions appropriately, opens eyes to voice Cranial nerve examination: Present: PERRL, EOMI, sensory to face intact, no facial asymmetry is present, no dysarthria, flexes SCM and trapezius muscles symmetrically with full power, tongue protrudes midline, no atrophy or facial fasiculations present - VTE Documentation of Mechanical Device: Intermittent pneumatic compression device Results - Laboratory Findings CBC and BMP: 06/16/18 05:38 06/16/18 05:38 Abnormal lab findings: Abnormal lab results RBC 3.39 M/mcL (4.19-5.50) L 06/16/18 05:38 Hgb 10.9 g/dL (12.9-16.9) L 06/16/18 05:38 Hct 31.6 % (37.5-50.1) L 06/16/18 05:38 Eosinophils # 1.1 K/mcL (0.0-0.6) H 06/16/18 05:38 ESR 18 mm/hr (0-10) H 06/13/18 13:33 ABG pH 7.46 pH Units (7.32-7.45) H 06/14/18 04:52 ABG pO2 140 mmHg (85-104) H 06/14/18 04:52 ABG Total CO2 28 mEq/L (20-26) H 06/14/18 04:52 ABG O2 Saturation 99 % (95-98) H 06/14/18 04:52 VBG pO2 100 mmHg (25-50) H 06/08/18 15:07 Creatinine 0.47 mg/dL (0.70-1.30) L 06/16/18 05:38 Glucose 106 mg/dL (70-105) H 06/16/18 05:38 POC Glucose 63 mg/dL (70-99) L 06/15/18 20:17 Alkaline Phosphatase 160 Units/L (34-104) H 06/08/18 14:24 Urine Clarity Cloudy (Clear) A 06/14/18 17:30 Urine Protein 30 mg/dL (Neg-Trace) H 06/14/18 17:30 Urine Ketones Trace mg/dL (Negative) H 06/14/18 17:30 Urine Bilirubin Small (Negative) H 06/14/18 17:30 Ur Leukocyte Esterase Small (Negative) H 06/14/18 17:30 Urine Microscopic RBC 3-5 per hpf (0-3) H 06/14/18 17:30 Urine Microscopic WBC 5-15 per hpf (0-3) H 06/14/18 17:30 Urine Bacteria Moderate per hpf (None-Few) H 06/14/18 17:30 Hyaline Casts Moderate per lpf (None-Few) H 06/14/18 17:30 Ur Culture Indicated? YES (NO) A 06/14/18 17:30 Salicylates < 2.5 mg/dL (15.0-30.0) L 06/08/18 14:24 Acetaminophen < 10 mcg/mL (10-20) L 06/08/18 14:24 U Benzodiazepines Scrn Positive ng/mL (Ygtyey=469) H 06/08/18 14:29 Consult Discharge Plan - Plan Referrals: Jose Oglesby MD [Primary Care Provider] - Leticia Garcia CNP [Advanced Practice Nurse] - 06/17/18 4:00 pm
[2018-06-16] MEDS: Magnesium Oxide 400 MG TABLET PO SCH (08:04)
[2018-06-16] MEDS: Gabapentin 300 MG CAPSULE PO SCH ×2 (08:04→22:05)
[2018-06-16] MEDS: levETIRAcetam 250 MG TABLET PO SCH ×2 (08:04→22:05)
[2018-06-16] MEDS: Loratadine 10 MG TABLET PO SCH (08:04)
[2018-06-16] MEDS: Metoprolol XL (24 HR) Succ 50 MG TAB.ER.24H PO SCH (08:04)
[2018-06-16] MEDS: Aspirin 81 MG TAB.CHEW PO SCH (08:04)
[2018-06-16] MEDS: Insulin LISPRO 300 UNITS/3 ML VIAL SQ SCH ×4 (08:04→21:26)
[2018-06-16] MEDS: Thiamine (B-1) 100 MG TABLET PO SCH (08:04)
[2018-06-16] MEDS: Folic Acid 1 MG TABLET PO SCH (08:04)
--- NOTE | 2018-06-16 15:42 | Internal Med Progress Note ---
Hospitalist Progress Note - Encounter Date of Encounter: 06/16/18 Time of Encounter: 10:30 - Subjective Interval History: Reports feeling much better today. More alert and oriented. Improving right hand weakness. Had an episode of tachycardia and shortness of breath yesterday after returning from SHANTAL, which have now resolved. - Exam Vitals: Temp Pulse Resp BP Pulse Ox 98.4 F 88 15 163/67 90 06/16/18 15:04 06/16/18 15:04 06/16/18 15:04 06/16/18 15:04 06/16/18 15:04 Exam: General: Frail elderly male, lying comfortably in bed in no acute distress Chest: Normal thoracic expansion. Normal breath sounds. Clear to auscultation. Heart: Normal S1 & S2; rhythmic. No rubs or murmurs. Abdomen: Non-distended, soft and nontender Neurological: Awake, alert and oriented to person, place. Improving B/L ptosis and right forearm and hand motor power Psych: Affect appropriate. - Assessment and Plan (1) Acute encephalopathy Current Visit: Yes Status: Acute Assessment and Plan: Toxic metabolic encephalopathy, likely due to Dilantin toxicity. Neurology follow-up appreciated, mow signed off, recommend outpatient f/up. Mental status currently at baseline. MRI brain showed small right frontal infarcts, which is likely an incidental finding. SHANTAL has been aborted yesterday due to patient agitation and uncooperation. No other infectious or metabolic etiology for encephalopathy identified. Serum ammonia normal. Blood and urine cultures are negative. No indication for lumbar puncture, EEG at this time. Continue supportive care and fall precautions. Anticipate discharge back to [facility] tomorrow. (2) COPD (chronic obstructive pulmonary disease) Current Visit: Yes Status: Chronic (3) Seizure disorder Current Visit: Yes Status: Chronic Assessment and Plan: Continue to hold Dilantin at discharge. Continue Keppra at current dosage. Neurology follow-up appreciated. Free Dilantin level is still pending. (4) Chronic hyponatremia Current Visit: Yes Status: Chronic (5) Phenytoin toxicity Current Visit: Yes Status: Resolved Assessment and Plan: Dilantin level improving. Free phenytoin level pending. Phenytoin currently on hold. (6) HTN (hypertension) Current Visit: Yes Status: Chronic (7) Diabetes mellitus Current Visit: Yes Status: Chronic Assessment and Plan: Blood sugars well-controlled. continue Accu-Chek blood glucose monitoring with sliding scale insulin as needed. Had an episode of hypoglycemia last evening after returning from SHANTAL; Diabetic diet as tolerated. (8) Anxiety and depression Current Visit: Yes Status: Chronic (9) Atrial fibrillation Current Visit: Yes Status: Chronic Assessment and Plan: Paroxysmal atrial fibrillation has been documented in his chart. had an episode of respiratory distress and RVR last evening after returning from SHANTAL attempt- improved with a dose of 5mg IV Lopressor and supplemental O2; Not on anticoagulation as outpatient, ?poor candidate due to fall risk, elderly age; will d/w Neurology; DVT Prophylaxis: on s.c Lovenox; - Time Spent with Patient Total time spent is greater than 50% in coordination of care (as documented) at patient's floor/unit and/or counseling patient: Plan of Care Discussed with: case management Internal Medicine: Result - Labs CBC & Chem 7: 06/16/18 05:38 06/16/18 05:38 Labs: Short CBC 06/16/18 Range/Units 05:38 WBC 10.3 (4.3-11.1) K/mcL Hgb 10.9 L (12.9-16.9) g/dL Hct 31.6 L (37.5-50.1) % Plt Count 310 (140-400) K/mcL Neutrophils # 6.1 (1.6-8.9) K/mcL BMP 06/16/18 05:38 Sodium 137 Potassium 3.7 Chloride 104 Carbon Dioxide 26 BUN 10 Creatinine 0.47 L Glucose 106 H Calcium 8.9 - ABG Interpretation ABG results: ABG ABG pH 7.46 pH Units (7.32-7.45) H 06/14/18 04:52 ABG pCO2 37 mmHg (35-45) 06/14/18 04:52 ABG pO2 140 mmHg (85-104) H 06/14/18 04:52 ABG O2 Saturation 99 % (95-98) H 06/14/18 04:52 - VTE Documentation of Mechanical Device: Intermittent pneumatic compression device Consult Discharge Plan - Plan Referrals: Jose Oglesby MD [Primary Care Provider] - Leticia Garcia CNP [Advanced Practice Nurse] - 06/17/18 4:00 pm (2) COPD (chronic obstructive pulmonary disease) Qualifiers: COPD type: unspecified COPD Qualified Code(s): J44.9 - Chronic obstructive pulmonary disease, unspecified (5) Phenytoin toxicity Qualifiers: Encounter type: initial encounter Injury intent: accidental or unintentional Qualified Code(s): T42.0X1A - Poisoning by hydantoin derivatives, accidental ( unintentional), initial encounter (6) HTN (hypertension) Qualifiers: Hypertension type: essential hypertension Qualified Code(s): I10 - Essential (primary) hypertension (7) Diabetes mellitus Qualifiers: Diabetes mellitus type: type 2 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
--- NOTE | 2018-06-16 17:00 | Electrocardiograph Report ---
[address] [place] [address] Test Date: 2018-06-15 Pat Name: Mitchell Martinez Department: 113 Room: 3B31 Gender: Wall Covering Installer: : 1945 Requested By: Ngozi Stafford Order Number: [id number] Reading MD: Skyler Valentin Measurements Intervals [place] Rate: 108 P: 85 IA: 211 QRS: 74 QRSD: 106 T: -72 QT: 312 QTc: 376 Interpretive Statements ATRIAL FIBRILLATION WITH RAPID VENTRICULAR RESPONSE SEPTAL MYOCARDIAL INFARCTION, PROBABLY OLD MODERATE T-WAVE ABNORMALITY, CONSIDER LATERAL ISCHEMIA MODERATE T-WAVE ABNORMALITY, CONSIDER INFERIOR ISCHEMIA Electronically Signed On 06-16-2018 16:58:57 EDT by Skyler Valentin
--- NOTE | 2018-06-16 17:01 | Electrocardiograph Report ---
[address] [place] [address] Test Date: 2018-06-15 Pat Name: Mitchell Martinez Department: 113 Room: 3B31 Gender: M Welder Manufacture: : 1945 Requested By: Ngozi Stafford Order Number: [id number] Reading MD: Skyler Valentin Measurements Intervals [place] Rate: 108 P: MO: 0 QRS: 60 QRSD: 106 T: 188 QT: 326 QTc: 390 Interpretive Statements ATRIAL FIBRILLATION WITH RAPID VENTRICULAR RESPONSE SEPTAL MYOCARDIAL INFARCTION, PROBABLY OLD MODERATE T-WAVE ABNORMALITY, CONSIDER LATERAL ISCHEMIA MODERATE T-WAVE ABNORMALITY, CONSIDER INFERIOR ISCHEMIA Electronically Signed On 06-16-2018 16:59:27 EDT by Skyler Valentin
[2018-06-16 18:02] LABS: Phenytoin (Dilantin) Free 0.7 ug/mL (1.0-2.5); Phenytoin Dose NOT PROVIDED; Phenytoin Dose Frequency NOT PROVIDED; Phenytoin Route NOT PROVIDED
[2018-06-17] MEDS: Ipratropium/Albuterol Neb 3 ML IH SCH ×6 (04:21→23:09)
[2018-06-17] MEDS: *HR* Enoxaparin 40 MG/0.4 ML SYRINGE SQ SCH (06:00)
[2018-06-17 07:23] LABS: ABG Base Excess -9 mEq/L (-2 to 3); ABG HCO3 19 mEq/L (21-27); ABG Oxygen Saturation 93 % (95-98); ABG PCO2 52 mmHg (35-45); ABG PH 7.17 pH Units (7.32-7.45); ABG PO2 84 mmHg (85-104); ABG TCO2 21 mEq/L (20-26)
[2018-06-17 07:48] LABS: Phenytoin Percent Free 11.3 % (8.0-14.0); Phenytoin Type of Draw NOT PROVIDED
[2018-06-17 08:19] LABS: Basophils # 0.1 K/mcL (0.0-0.2); Basophils % 0.7 %; Eosinophils # 1.8 K/mcL (0.0-0.6); Eosinophils % 15.5 %; Immature Granulocytes % 0.4 % (0-4); Lymphocytes # 2.1 K/mcL (0.6-4.6); Lymphocytes % 18.9 %; Mean Corpuscular HGB Conc 34.4 g/dL (31.6-35.5); Mean Corpuscular Hemoglobin 32.1 pg (28.0-33.3); Mean Corpuscular Volume 93.3 fL (83.0-100.0); Mean Platelet Volume 9.6 fL (9.4-12.4); Monocytes % 8.4 %; Neutrophils # 6.4 K/mcL (1.6-8.9); Platelet Count 354 K/mcL (140-400); Red Blood Count 3.43 M/mcL (4.19-5.50); Red Cell Distribution Width 12.2 % (11.5-14.5); Segmented Neutrophils % 56.1 %
[2018-06-17 08:22] LABS: VBG Ionized Calcium 1.18 mmol/L (1.15-1.35)
[2018-06-17 08:24] LABS: INR 1.4; Prothrombin Time 15.5 Seconds (9.4-12.1)
--- NOTE | 2018-06-17 08:25 | Pulmonology Consult Note ---
<Héctor Medina - Last Filed: 06/17/18 21:04> Date of Encounter: 06/17/18 Time of Encounter: 14:00 Assessment and Plan (1) Acute encephalopathy Current Visit: Yes Status: Acute - likely due to his current UTI, it could also be likely due to his dilantin toxicity, patient was rules out for any infectious or metabolic etiology for encephalopathy. patient recent MRI showed small acute infarcts involving the superior frontal lobe in conjunction with extensive left cerebral encephalomalacia/gliosis - unlikely contributing to his current mental status changes. As per the neurologist those infarcts are likely due to small vessel disease associated with known stroke risk factors - patient currently following commands, A&O*3 - we will continue to monitor his mental status, continue supportive care and fall precautions - Ativan 1mg PRN, Haldol 3mg PRN if the patient shows an signs of agitation. (2) Acute respiratory failure with hypoxia Current Visit: Yes Status: Acute - secondary to his Hx of COPD, patient is morbidly cachetic (BMI: 16.8) with Hx of stroke/TIA, -patient was on BiPAP when he was moved to the ICU , he had been on 3L of oxymask later -continue duonebs as needed, oxygen supplementation (3) Atrial fibrillation with RVR Current Visit: Yes Status: Acute - patient has no known Hx of Afib RVR. It could be secondary to his acute respiratory failure, or due to his being agitated which causes a sympathetic drive leading to Afib RVR. Patient had a similar incidence 2 days ago when he went into afib secondary to acute respiratory distress- was given 5 mg of metoprolol IV for rate control - patient is out of the RVR but continues to be in Afib. HR : 80-90s. - patient was put on cardizem drip this morning. Drip has been stopped and he' s currently on 60 q4 PO Cardizem short acting , his metoprolol has been increased from 50 to 100 mL. - (4) Seizure Current Visit: Yes Status: Acute - patient has a Hx of seizure but has not had any seizure episodes for a long time - currently on 1000mg PO keppra, his Dilantin has been discontinued owing to the elevated levels during admission. Patient does not seem to have elevated lactate at the moment ( 1.0) - continue to monitor patient for signs for drooling, teeth clenching , tongue biting, worsening confusion (5) COPD (chronic obstructive pulmonary disease) Current Visit: Yes Status: Chronic - has a Hx of COPD, chroic smoker - no acute exacerbation of COPD noted - duonebs PRN, O2 supplementation Qualifiers: COPD type: unspecified COPD Qualified Code(s): J44.9 - Chronic obstructive pulmonary disease, unspecified (6) UTI (urinary tract infection) Current Visit: Yes Status: Acute - patient's urine culture was positive for moderate bacteria - preliminary culture grew enterococcus species - patient currently is afebrile, denies any suprapubic pain. However with his metabolic encephalopathy could be masking his perception of pain - he's currently on IV ampicillin to cover for enerococcus Qualifiers: Qualified Code(s): N39.0 - Urinary tract infection, site not specified (7) DVT prophylaxis Current Visit: No Status: Acute SCDs History of Present Illness Consult date: 06/17/18 Chief complaint: acute respiraotry failure History of present illness: This is a 73 y.o male with a PMHX of seizures, COPD who was placed on the ICU/ pulmonary service because of acute respiratory failure , Afib RVR. Patient presented to the ED on 06/08 because of weakness confusion and was found to have a Phenytoin level of 33.1 . His confusion got better with fluid resuscitation.By the end of day 6 of his hospital stay his pyenytoin levels came to the normal level. He also had an episode of hyponatremia secondary to less PO intake, which resolved eventually. Patient had a similar presentation on 06/14 when he was agitated, diaphoretic and flushed Patient was recent hospitalized for generalized weakness and mild facial droop, had an JHONY of 1 due to ataxia of finger nose finger testing of bilateral UE and was found to have TIA. Past Med Surg Social Fam HX - Past Medical History Medical history: cancer, COPD, CVA, diabetes, GERD, hypertension, seizures, other Additional medical history: muscle weakness, difficulty in walking Psychiatric history: anxiety, depression - Past Surgical History Surgical History: no surgical history - Social History Smoking Status: Current every day smoker Smokeless Tobacco Status: No Alcohol use: heavy Drug use: none - Family History Mother Living Status: Hx Family Neurologic Disorders: No Father Living Status: Hx Family Neurologic Disorders: No Medications and Allergies Acetaminophen [Tylenol] 650 mg PO Q4HR PRN 06/03/18 [History] Albuterol Sulfate [Proair Hfa] 2 puff IH Q4H PRN 06/03/18 [History] Cetirizine HCl [Zyrtec] 10 mg PO DAILY 06/03/18 [History] Ferrous Sulfate [Iron] 325 mg PO DAILY 06/03/18 [History] Folic Acid 1 mg PO DAILY 06/03/18 [History] Gabapentin [Neurontin] 300 mg PO BID 06/03/18 [History] Ipratropium/Albuterol Neb [Duoneb] 3 ml IH Q6HR 06/03/18 [History] Mag Hydrox/Al Hydrox/Simeth [Antacid II-Simethicone Liq] 30 ml PO Q4-6H PRN [History] Magnesium Oxide [Magnesium] 400 mg PO DAILY 06/03/18 [History] Metoprolol Succinate [Toprol Xl] 50 mg PO DAILY 06/03/18 [History] Nitroglycerin [Nitrostat] 0.4 mg SL Q5MIN PRN 06/03/18 [History] Phenytoin ER [Dilantin ER] 100 mg PO BID 06/03/18 [History] Phenytoin ER [Dilantin ER] 200 mg PO HS 06/03/18 [History] Sertraline [Zoloft] 50 mg PO DAILY 06/03/18 [History] Thiamine HCl [Vitamin B-1] 100 mg PO DAILY 06/03/18 [History] levETIRAcetam [Levetiracetam] 1,000 mg PO Q12H 06/03/18 [History] Aspirin 81 mg PO DAILY 30 Days #30 tab.chew 06/05/18 [Rx] LORazepam [Ativan] 1 mg PO TID 2 Days #6 tablet 06/05/18 [Rx] Simvastatin [Zocor] 40 mg PO HS 30 Days #30 tablet 06/05/18 [Rx] 3 Allergy/AdvReac Type Severity Reaction Status Date / Time No Known Allergies Allergy Verified 06/08/18 16:45 All Systems: The remainder of the systems were reviewed and are negative Physical Examination Vital Signs: Vital Signs, Last 4 Hours Pulse Resp BP Pulse Ox 06/17/18 07:34 169 32 179/119 78 General appearance: agitated (A&O*3) Auscultation: bilateral: clear (no wheezing, ronchi or rales) Cardiovascular: regular rate and rhythm (no gallops, murmurs or rubs) Gastrointestinal: soft, non-tender, non-distended pupils equal and round, CN II-XII normal anxious (agitated , waxing and waning consciousness) Results - Laboratory Findings CBC and BMP: 06/17/18 08:00 06/17/18 08:00 ABG ABG pH 7.17 pH Units (7.32-7.45) L* 06/17/18 07:16 ABG pCO2 52 mmHg (35-45) H 06/17/18 07:16 ABG pO2 84 mmHg (85-104) L 06/17/18 07:16 ABG O2 Saturation 93 % (95-98) L 06/17/18 07:16 Abnormal lab findings: Abnormal lab results WBC 11.3 K/mcL (4.3-11.1) H 06/17/18 08:00 RBC 3.43 M/mcL (4.19-5.50) L 06/17/18 08:00 Hgb 11.0 g/dL (12.9-16.9) L 06/17/18 08:00 Hct 32.0 % (37.5-50.1) L 06/17/18 08:00 Eosinophils # 1.8 K/mcL (0.0-0.6) H 06/17/18 08:00 ESR 18 mm/hr (0-10) H 06/13/18 13:33 ABG pH 7.17 pH Units (7.32-7.45) L* 06/17/18 07:16 ABG pCO2 52 mmHg (35-45) H 06/17/18 07:16 ABG pO2 84 mmHg (85-104) L 06/17/18 07:16 ABG HCO3 19 mEq/L (21-27) L 06/17/18 07:16 ABG O2 Saturation 93 % (95-98) L 06/17/18 07:16 ABG Base Excess -9 mEq/L (-2 to 3) L 06/17/18 07:16 VBG pO2 100 mmHg (25-50) H 06/08/18 15:07 Creatinine 0.47 mg/dL (0.70-1.30) L 06/16/18 05:38 Glucose 106 mg/dL (70-105) H 06/16/18 05:38 POC Glucose 149 mg/dL (70-99) H 06/17/18 07:32 Alkaline Phosphatase 160 Units/L (34-104) H 06/08/18 14:24 Urine Clarity Cloudy (Clear) A 06/14/18 17:30 Urine Protein 30 mg/dL (Neg-Trace) H 06/14/18 17:30 Urine Ketones Trace mg/dL (Negative) H 06/14/18 17:30 Urine Bilirubin Small (Negative) H 06/14/18 17:30 Ur Leukocyte Esterase Small (Negative) H 06/14/18 17:30 Urine Microscopic RBC 3-5 per hpf (0-3) H 06/14/18 17:30 Urine Microscopic WBC 5-15 per hpf (0-3) H 06/14/18 17:30 Urine Bacteria Moderate per hpf (None-Few) H 06/14/18 17:30 Hyaline Casts Moderate per lpf (None-Few) H 06/14/18 17:30 Ur Culture Indicated? YES (NO) A 06/14/18 17:30 Salicylates < 2.5 mg/dL (15.0-30.0) L 06/08/18 14:24 Acetaminophen < 10 mcg/mL (10-20) L 06/08/18 14:24 Free Phenytoin 0.7 ug/mL (1.0-2.5) L 06/13/18 13:33 Total Phenytoin 6.2 ug/mL (10.0-20.0) L 06/13/18 13:33 U Benzodiazepines Scrn Positive ng/mL (Mmycuz=740) H 06/08/18 14:29 - Microbiology Findings Microbiology Findings: Microbiology, Last 48 Hours 06/14/18 17:30 Urine Culture - Preliminary Urine,Clean Catch Enterococcus species - Clinical Findings Intake & Output: Intake & Output 06/16/18 06/17/18 06/17/18 23:59 07:59 15:59 Output Total 200 / 200 200 / 200 Balance -200 / -200 -200 / -200 Weight 53.1 kg Consult Discharge Plan - Plan Referrals: Jose Oglesby MD [Primary Care Provider] - Leticia Garcia, PANEL FLOW MACHINE OPERATOR [Advanced Practice Nurse] - 06/17/18 4:00 pm <JamiehildadannyMinoo S - Last Filed: 06/17/18 21:36> Date of Encounter: 06/17/18 All Systems: The remainder of the systems were reviewed and are negative Physical Examination Vital Signs: Vital Signs, Last 4 Hours Temp Pulse Resp BP Pulse Ox 06/17/18 21:00 81 20 110/60 95 06/17/18 20:00 104 22 97 06/17/18 19:51 22 92 06/17/18 19:37 98.8 F 06/17/18 18:00 85 22 80/56 96 Results - Laboratory Findings CBC and BMP: 06/17/18 08:00 06/17/18 08:00 ABG ABG pH 7.43 pH Units (7.32-7.45) D 06/17/18 12:32 ABG pCO2 42 mmHg (35-45) 06/17/18 12:32 ABG pO2 92 mmHg (85-104) 06/17/18 12:32 ABG O2 Saturation 97 % (95-98) 06/17/18 12:32 PT/INR, D-dimer PT 15.5 Seconds (9.4-12.1) H 06/17/18 08:00 Abnormal lab findings: Abnormal lab results WBC 11.3 K/mcL (4.3-11.1) H 06/17/18 08:00 RBC 3.43 M/mcL (4.19-5.50) L 06/17/18 08:00 Hgb 11.0 g/dL (12.9-16.9) L 06/17/18 08:00 Hct 32.0 % (37.5-50.1) L 06/17/18 08:00 Eosinophils # 1.8 K/mcL (0.0-0.6) H 06/17/18 08:00 ESR 18 mm/hr (0-10) H 06/13/18 13:33 PT 15.5 Seconds (9.4-12.1) H 06/17/18 08:00 ABG HCO3 28 mEq/L (21-27) H 06/17/18 12:32 ABG Total CO2 29 mEq/L (20-26) H 06/17/18 12:32 VBG pO2 100 mmHg (25-50) H 06/08/18 15:07 Sodium 135 mEq/L (136-145) L 06/17/18 08:00 Creatinine 0.55 mg/dL (0.70-1.30) L 06/17/18 08:00 Glucose 130 mg/dL (70-105) H 06/17/18 08:00 AST 48 Units/L (13-39) H 06/17/18 08:00 Alkaline Phosphatase 137 Units/L (34-104) H 06/17/18 08:00 Urine Clarity Cloudy (Clear) A 06/14/18 17:30 Urine Protein 30 mg/dL (Neg-Trace) H 06/14/18 17:30 Urine Ketones Trace mg/dL (Negative) H 06/14/18 17:30 Urine Bilirubin Small (Negative) H 06/14/18 17:30 Ur Leukocyte Esterase Small (Negative) H 06/14/18 17:30 Urine Microscopic RBC 3-5 per hpf (0-3) H 06/14/18 17:30 Urine Microscopic WBC 5-15 per hpf (0-3) H 06/14/18 17:30 Urine Bacteria Moderate per hpf (None-Few) H 06/14/18 17:30 Hyaline Casts Moderate per lpf (None-Few) H 06/14/18 17:30 Ur Culture Indicated? YES (NO) A 06/14/18 17:30 Salicylates < 2.5 mg/dL (15.0-30.0) L 06/08/18 14:24 Acetaminophen < 10 mcg/mL (10-20) L 06/08/18 14:24 Free Phenytoin 0.7 ug/mL (1.0-2.5) L 06/13/18 13:33 Total Phenytoin 6.2 ug/mL (10.0-20.0) L 06/13/18 13:33 U Benzodiazepines Scrn Positive ng/mL (Owmwgg=[id number]) H 06/08/18 14:29 - Microbiology Findings Microbiology Findings: Microbiology, Last 48 Hours 06/14/18 17:30 Urine Culture - Preliminary Urine,Clean Catch Enterococcus species - Clinical Findings Intake & Output: Intake & Output 06/17/18 06/17/18 06/17/18 07:59 15:59 23:59 Intake Total 120 / 120 150 / 150 Output Total 200 / 200 Balance -200 / -200 120 / 120 150 / 150 Weight 53.1 kg 53 kg - Attending Attestation I saw and evaluated this patient and my medical decision-making was reviewed with the Resident Physician. I agree with the documented findings, disposition and treatment plan as described except to the extent set forth below. We independently had [id number] contact with the patient I spent 32 minutes of Critical Care time with this patient. It involved decision making of high complexity to assess, manipulate, and support vital organ system failure and/or to prevent further life threatening deterioration of the patient's condition. The time involved in the performance of separately reportable procedures was not counted toward critical care time. Patient seen and examined at bedside Labs, radiology, chart personally reviewed. Management was reviewed during multidisciplinary critical care rounds. SWATCH CLERK:Patient has episodic confusion , patient has h/o multiple tiny infarcts , seizure disorder on Keppra , Neuro did a extensive evaluation the work up didnt reveal anything , most likely due to toxic/metabolic encephalopathy patient has recent diagnosis of enterococcal UTI for can also be due to some complex partial seizures which is triggered by this toxic/metabolic encephalopathy. Spoke with Dr. Dwyer neurology will come and see the patient tomorrow. Pulm: Franck was transferred to ICU for possible intubation developed acute hypoxic respiratory failure most likely secondary to diastolic dysfunction after atrial fibrillation with rapid ventricular response. Patient was started on AVAPS tolerated well . Patient gas exchange was initially worsen for impending respiratory failure needing intubation but patient responded BiPAP therapy with improvement in oxygenation and ventilation.. Cards: Atrial Fibrillation with RVR with Cardizem drip we will transition to by mouth Cardizem short-acting and Toprol-XL when able FEN-GI: Patient is on BiPAP nothing by mouth for now Renal: Labs and output reviewed ID: urine culture growing enterococcus. We will start on ampicillin. Heme/Onc: Labs reviewed to continue thromboprophylaxis Endo: Glucose Monitored Integ/MSK: Skin Care per routine ICU Nursing Protocol to prevent ulcers. Lines: All lines examined without evidence of infection : Dispo: Patient has high chance of clinical deterioration. CODE: Full Code
[2018-06-17] MEDS: Thiamine (B-1) 100 MG TABLET PO SCH (08:36)
[2018-06-17] MEDS: Gabapentin 300 MG CAPSULE PO SCH ×2 (08:36→19:52)
[2018-06-17] MEDS: Metoprolol XL (24 HR) Succ 50 MG TAB.ER.24H PO SCH (08:36)
[2018-06-17] MEDS: Aspirin 81 MG TAB.CHEW PO SCH (08:36)
[2018-06-17] MEDS: Loratadine 10 MG TABLET PO SCH (08:36)
[2018-06-17] MEDS: levETIRAcetam 250 MG TABLET PO SCH (08:36)
[2018-06-17] MEDS: Magnesium Oxide 400 MG TABLET PO SCH (08:36)
[2018-06-17] MEDS: Folic Acid 1 MG TABLET PO SCH (08:36)
[2018-06-17] MEDS: Insulin LISPRO 300 UNITS/3 ML VIAL SQ SCH ×4 (08:39→23:06)
[2018-06-17 08:41] LABS: Troponin I < 0.03 ng/mL (< 0.04)
[2018-06-17 08:42] LABS: Alanine Aminotransferase 37 Units/L (7-52); Albumin 3.9 g/dL (3.5-5.7); Albumin/Globulin Ratio 1.3 (1.1-2.2); Alkaline Phosphatase 137 Units/L (34-104); Aspartate Amino Transferase 48 Units/L (13-39); BUN/Creatinine Ratio 18 (6-26); Bilirubin,Direct 0.1 mg/dL (0.0-0.2); Bilirubin,Indirect 0.4 mg/dL (0.0-1.2); Bilirubin,Total 0.5 mg/dL (0.3-1.0); Blood Urea Nitrogen 10 mg/dL (8-23); Calcium 9.2 mg/dL (8.6-10.3); Carbon Dioxide 25 mEq/L (23-29); Chloride 100 mEq/L (98-107); Glucose 130 mg/dL (70-105); Magnesium 1.6 mg/dL (1.6-2.6); Osmolality,Calculated 281 (280-300); Potassium 3.9 mEq/L (3.5-5.1); Sodium 135 mEq/L (136-145); Total Protein 6.9 g/dL (6.4-8.9); eGFR For Non-African Americans > 60 (> 60)
[2018-06-17] MEDS: Ampicillin 2 GM in 0.9 % Sodium Chloride Mini Bag 100 ML IVPB SCH ×3 (12:25→23:05)
[2018-06-17 12:38] LABS: ABG Base Excess 3 mEq/L (-2 to 3); ABG HCO3 28 mEq/L (21-27); ABG Oxygen Saturation 97 % (95-98); ABG PCO2 42 mmHg (35-45); ABG PH 7.43 pH Units (7.32-7.45); ABG PO2 92 mmHg (85-104); ABG TCO2 29 mEq/L (20-26); Blood Gas Modality NIV
[2018-06-17] MEDS ORDERED: Metoprolol XL (24 HR) Succ 50 MG TAB.ER.24H PO SCH (13:03)
[2018-06-17] MEDS ORDERED: dilTIAZem HCl 60 MG TABLET PO SCH (13:15)
[2018-06-17] MEDS ORDERED: *HR* LORazepam 2 MG/ML VIAL IVP PRN (15:50)
[2018-06-17] MEDS ORDERED: levETIRAcetam 1,000 MG in 0.9 % Sodium Chloride 100 ML IVPB ONE (16:48)
[2018-06-17] MEDS ORDERED: Haloperidol Lactate 5 MG/ML VIAL IVP PRN (17:09)
[2018-06-17] MEDS: *HR* LORazepam 2 MG/ML VIAL IVP PRN (17:23)
[2018-06-17] MEDS: dilTIAZem HCl 60 MG TABLET PO SCH ×2 (18:06→23:06)
[2018-06-17] MEDS ORDERED: Dexmedetomidine HCl 400 MCG/100 ML MLS IVC ONE (19:53)
[2018-06-17] MEDS: Dexmedetomidine HCl 400 MCG/100 ML MLS IVC SCH (20:00)
[2018-06-18] MEDS: *HR* LORazepam 2 MG/ML VIAL IVP PRN (02:17)
[2018-06-18] MEDS: Ipratropium/Albuterol Neb 3 ML IH SCH ×5 (03:44→20:07)
[2018-06-18] MEDS: Dexmedetomidine HCl 400 MCG/100 ML MLS IVC SCH (03:51)
[2018-06-18 05:34] LABS: Basophils # 0.1 K/mcL (0.0-0.2); Basophils % 0.6 %; Eosinophils # 0.4 K/mcL (0.0-0.6); Eosinophils % 4.1 %; Hematocrit 30.8 % (37.5-50.1); Hemoglobin 10.5 g/dL (12.9-16.9); Immature Granulocytes % 0.4 % (0-4); Lymphocytes # 1.7 K/mcL (0.6-4.6); Lymphocytes % 16.1 %; Mean Corpuscular HGB Conc 34.1 g/dL (31.6-35.5); Mean Corpuscular Hemoglobin 31.5 pg (28.0-33.3); Mean Corpuscular Volume 92.5 fL (83.0-100.0); Mean Platelet Volume 10.4 fL (9.4-12.4); Monocytes # 1.2 K/mcL (0.0-1.3); Neutrophils # 7.3 K/mcL (1.6-8.9); Platelet Count 352 K/mcL (140-400); Red Blood Count 3.33 M/mcL (4.19-5.50); Red Cell Distribution Width 12.2 % (11.5-14.5); Segmented Neutrophils % 67.8 %
[2018-06-18 05:37] LABS: Alanine Aminotransferase 44 Units/L (7-52); Albumin 3.7 g/dL (3.5-5.7); Albumin/Globulin Ratio 1.4 (1.1-2.2); Alkaline Phosphatase 125 Units/L (34-104); Aspartate Amino Transferase 52 Units/L (13-39); BUN/Creatinine Ratio 29 (6-26); Bilirubin,Total 0.5 mg/dL (0.3-1.0); Blood Urea Nitrogen 14 mg/dL (8-23); Calcium 9.3 mg/dL (8.6-10.3); Carbon Dioxide 25 mEq/L (23-29); Chloride 103 mEq/L (98-107); Creatine Kinase 568 Units/L (30-223); Globulin 2.7 g/dL (2.4-3.5); Glucose 97 mg/dL (70-105); Magnesium 1.7 mg/dL (1.6-2.6); Osmolality,Calculated 284 (280-300); Potassium 3.9 mEq/L (3.5-5.1); Sodium 137 mEq/L (136-145); Total Protein 6.4 g/dL (6.4-8.9); eGFR For Non-African Americans > 60 (> 60)
[2018-06-18] MEDS: *HR* Enoxaparin 40 MG/0.4 ML SYRINGE SQ SCH (05:39)
[2018-06-18] MEDS: Ampicillin 2 GM in 0.9 % Sodium Chloride Mini Bag 100 ML IVPB SCH ×3 (05:39→17:00)
[2018-06-18] MEDS: dilTIAZem HCl 60 MG TABLET PO SCH ×3 (05:40→17:03)
[2018-06-18] MEDS ORDERED: levETIRAcetam 1,000 MG in 0.9 % Sodium Chloride 100 ML IVPB SCH (07:00)
[2018-06-18] MEDS: Insulin LISPRO 300 UNITS/3 ML VIAL SQ SCH ×4 (07:15→21:24)
--- NOTE | 2018-06-18 08:41 | Neurology Progress Note ---
Date of Encounter: 06/18/18 Time of Encounter: 08:36 Assessment and Plan (1) Altered mental status Current Visit: Yes Status: Acute Qualifiers: Altered mental status type: somnolence Qualified Code(s): R40.0 - Somnolence (2) Acute metabolic encephalopathy Current Visit: No Status: Acute At this time it seems fairly certain that the acute mental status changes may in fact be due to metabolic encephalopathy associated with a urinary tract infection. He does have right upper and right lower extremity weakness which today seems to be a bit worse however this may be due to unmasking associated with decreased mental status. He has not had any further seizure activity. I am going to obtain a CT scan of the brain just to rule out any new left hemispheric event. I do not feel a repeat EEG is necessary at this juncture. I will recommend maintaining Keppra 1000 mg twice a day. Dilantin should be discontinued indefinitely. Otherwise we will follow him peripherally. Subjective Principal diagnosis: Phenytoin toxicity Interval history: The chart was reviewed, the patient was seen and examined. Case was discussed with the ICU attending and resident. Since my last visit with Mr. Martinez he apparently encountered some respiratory difficulty and was transferred to the intensive care unit. Blood gases were significantly abnormal with a pH of 7.1 CO2 was having the 50s therefore suggestive of a metabolic acidosis. And urine culture was positive for enterococcus. He has not had any further seizure activity. He has been started on antibiotic therapy. He did not have to be intubated. He seems to have more weakness of the right upper and right lower extremity. This may be due to unmasking of the weakness because of his decreased mental status, he has a known history of her previous left MCA territory infarct. During the initial phases of my assessment he was somewhat confused and inattentive. Resident's assessment progressed he became more awake was able to make eye contact answers some questions however not all, he follows some simple commands but not all. He denied headache. Objective - Constitutional Vitals: Temp Pulse Resp BP Pulse Ox 97.4 F L 76 20 141/69 99 06/18/18 07:00 06/18/18 08:00 06/18/18 08:00 06/18/18 08:00 06/18/18 08:00 General appearance: Present: A&O X 3, no acute distress, answers questions appropriately - Neurological Exam Motor Examination: Present: other (Neurologic examination really does not reveal any focal deficits. He does have generalized weakness of the upper and lower extremities, but I did not find any localized weakness at this time. He is somewhat tremulous however.) Motor examination - right side: 3/5: peoples[employer]s, hip flexors, 4/5: deltoids, biceps, triceps, tibialis Anterior, quadriceps, toe extension (EHL), plantarflexion Motor examination - left side: 5/5: deltoids, biceps, triceps, hip flexors, peoples[employer] , quadriceps, tibialis Anterior, toe extension (EHL), plantarflexion Sensation intact: Present: other (Difficult to assess in a confused patient.) Reflex and gait examination: other (Deep tendon reflexes are diminished throughout.) Mental Status Examination: Present: awake, oriented to person, follows commands appropriately (He is able to follow some commands appropriately however not all. ), answers questions appropriately (He is oriented 1. He thought that he was in [place].), opens eyes to voice, makes eye contact. Absent: alert, oriented to place, oriented to time Cranial nerve examination: Present: PERRL, EOMI, sensory to face intact, no facial asymmetry is present, no dysarthria, flexes SCM and trapezius muscles symmetrically with full power, tongue protrudes midline, no atrophy or facial fasiculations present - VTE Documentation of Mechanical Device: Intermittent pneumatic compression device Results - Laboratory Findings CBC and BMP: 06/18/18 05:02 06/18/18 05:02 Abnormal lab findings: Abnormal lab results RBC 3.33 M/mcL (4.19-5.50) L 06/18/18 05:02 Hgb 10.5 g/dL (12.9-16.9) L 06/18/18 05:02 Hct 30.8 % (37.5-50.1) L 06/18/18 05:02 ESR 18 mm/hr (0-10) H 06/13/18 13:33 PT 15.5 Seconds (9.4-12.1) H 06/17/18 08:00 ABG HCO3 28 mEq/L (21-27) H 06/17/18 12:32 ABG Total CO2 29 mEq/L (20-26) H 06/17/18 12:32 VBG pO2 100 mmHg (25-50) H 06/08/18 15:07 Creatinine 0.49 mg/dL (0.70-1.30) L 06/18/18 05:02 BUN/Creatinine Ratio 29 (6-26) H 06/18/18 05:02 AST 52 Units/L (13-39) H 06/18/18 05:02 Alkaline Phosphatase 125 Units/L (34-104) H 06/18/18 05:02 Creatine Kinase 568 Units/L (30-223) H 06/18/18 05:02 Urine Clarity Cloudy (Clear) A 06/14/18 17:30 Urine Protein 30 mg/dL (Neg-Trace) H 06/14/18 17:30 Urine Ketones Trace mg/dL (Negative) H 06/14/18 17:30 Urine Bilirubin Small (Negative) H 06/14/18 17:30 Ur Leukocyte Esterase Small (Negative) H 06/14/18 17:30 Urine Microscopic RBC 3-5 per hpf (0-3) H 06/14/18 17:30 Urine Microscopic WBC 5-15 per hpf (0-3) H 06/14/18 17:30 Urine Bacteria Moderate per hpf (None-Few) H 06/14/18 17:30 Hyaline Casts Moderate per lpf (None-Few) H 06/14/18 17:30 Ur Culture Indicated? YES (NO) A 06/14/18 17:30 Salicylates < 2.5 mg/dL (15.0-30.0) L 06/08/18 14:24 Acetaminophen < 10 mcg/mL (10-20) L 06/08/18 14:24 Free Phenytoin 0.7 ug/mL (1.0-2.5) L 06/13/18 13:33 Total Phenytoin 6.2 ug/mL (10.0-20.0) L 06/13/18 13:33 U Benzodiazepines Scrn Positive ng/mL ([id number]=[id number]) H 06/08/18 14:29 Consult Discharge Plan - Plan Referrals: Jose Oglesby MD [Primary Care Provider] - Leticia Garcia CNP [Advanced Practice Nurse] - 06/17/18 4:00 pm
[2018-06-18] MEDS: Nicotine 14 MG PATCH.TD24 TD SCH (08:42)
--- NOTE | 2018-06-18 09:35 | Pulmonology Progress Note ---
<Minoo Barrientos S - Last Filed: 06/18/18 11:36> Date of Encounter: 06/18/18 Objective PUL Vital signs: Last Vital Signs Temp 97.1 F L 06/18/18 11:34 Pulse 90 06/18/18 11:00 Resp 16 06/18/18 11:10 BP 143/81 06/18/18 11:00 Pulse Ox 93 06/18/18 11:10 Results - Laboratory Findings CBC and BMP: 06/18/18 05:02 06/18/18 05:02 ABG ABG pH 7.43 pH Units (7.32-7.45) D 06/17/18 12:32 ABG pCO2 42 mmHg (35-45) 06/17/18 12:32 ABG pO2 92 mmHg (85-104) 06/17/18 12:32 ABG O2 Saturation 97 % (95-98) 06/17/18 12:32 PT/INR, D-dimer PT 15.5 Seconds (9.4-12.1) H 06/17/18 08:00 Abnormal lab findings: Abnormal lab results RBC 3.33 M/mcL (4.19-5.50) L 06/18/18 05:02 Hgb 10.5 g/dL (12.9-16.9) L 06/18/18 05:02 Hct 30.8 % (37.5-50.1) L 06/18/18 05:02 ESR 18 mm/hr (0-10) H 06/13/18 13:33 PT 15.5 Seconds (9.4-12.1) H 06/17/18 08:00 ABG HCO3 28 mEq/L (21-27) H 06/17/18 12:32 ABG Total CO2 29 mEq/L (20-26) H 06/17/18 12:32 VBG pO2 100 mmHg (25-50) H 06/08/18 15:07 Creatinine 0.49 mg/dL (0.70-1.30) L 06/18/18 05:02 BUN/Creatinine Ratio 29 (6-26) H 06/18/18 05:02 POC Glucose 63 mg/dL (70-99) L 06/18/18 11:30 AST 52 Units/L (13-39) H 06/18/18 05:02 Alkaline Phosphatase 125 Units/L (34-104) H 06/18/18 05:02 Creatine Kinase 568 Units/L (30-223) H 06/18/18 05:02 Urine Clarity Cloudy (Clear) A 06/14/18 17:30 Urine Protein 30 mg/dL (Neg-Trace) H 06/14/18 17:30 Urine Ketones Trace mg/dL (Negative) H 06/14/18 17:30 Urine Bilirubin Small (Negative) H 06/14/18 17:30 Ur Leukocyte Esterase Small (Negative) H 06/14/18 17:30 Urine Microscopic RBC 3-5 per hpf (0-3) H 06/14/18 17:30 Urine Microscopic WBC 5-15 per hpf (0-3) H 06/14/18 17:30 Urine Bacteria Moderate per hpf (None-Few) H 06/14/18 17:30 Hyaline Casts Moderate per lpf (None-Few) H 06/14/18 17:30 Ur Culture Indicated? YES (NO) A 06/14/18 17:30 Salicylates < 2.5 mg/dL (15.0-30.0) L 06/08/18 14:24 Acetaminophen < 10 mcg/mL (10-20) L 06/08/18 14:24 Free Phenytoin 0.7 ug/mL (1.0-2.5) L 06/13/18 13:33 Total Phenytoin 6.2 ug/mL (10.0-20.0) L 06/13/18 13:33 U Benzodiazepines Scrn Positive ng/mL (Xbmurp=358) H 06/08/18 14:29 - Microbiology Findings Microbiology Findings: Microbiology, Last 48 Hours 06/14/18 17:30 Urine Culture - Final Urine,Clean Catch Enterococcus species - Clinical Findings Intake & Output: Intake & Output 06/17/18 06/18/18 06/18/18 23:59 07:59 15:59 Intake Total 177 / 177 518 / 518 111 / 111 Balance 177 / 177 518 / 518 111 / 111 Weight 55.2 kg 56.7 kg Consult Discharge Plan - Plan Referrals: Jose Oglesby MD [Primary Care Provider] - Letciia Garcia CNP [Advanced Practice Nurse] - 06/17/18 4:00 pm - Attending Attestation - Attending Attestation I saw and evaluated this patient and my medical decision-making was reviewed with the Resident Physician. I agree with the documented findings, disposition and treatment plan as described except to the extent set forth below. We independently had [id number] contact with the patient Patient seen and examined at bedside Labs, radiology, chart personally reviewed. Management was reviewed during multidisciplinary critical care rounds. PROFESSOR/NURSE ANESTHETIST:Patient has episodic confusion , patient has h/o multiple tiny infarcts , seizure disorder on Keppra , Neuro did a extensive evaluation the work up didnt reveal anything , most likely due to toxic/metabolic encephalopathy patient has recent diagnosis of enterococcal UTI for can also be due to some complex partial seizures which is triggered by this toxic/metabolic encephalopathy. 06/18 Patient has this on and of episodic confusion with questionable seizure like activity Neuro saw this patient recommended CT scan with out contrast to look for any infarct . Most likely the current PROFESSOR/NURSE ANESTHETIST can due to toxic encephalopathy due to underlying UTI . Pulm: Franck was transferred to ICU for possible intubation developed acute hypoxic respiratory failure most likely secondary to diastolic dysfunction after atrial fibrillation with rapid ventricular response. Patient was started on AVAPS tolerated well . Patient gas exchange was initially worsen for impending respiratory failure needing intubation but patient responded BiPAP therapy with improvement in oxygenation and ventilation.. 06/18 Today his V/Q mismatch is lot better with acceptable Oxygenation and ventilation . To continue O2 supplementation continue diuretics as tolerated . Cards: Patient is hemodynamically stable sinus rhythm will need Lopressor IV as patient is not taking PO at the moment FEN-GI:Patient is getting speech evaluation advance diet as tolerated . Renal: Labs and output reviewed ID: urine culture growing enterococcus. To continue Ampicillin Heme/Onc: Labs reviewed to continue thromboprophylaxis Endo: Glucose Monitored Integ/MSK: Skin Care per routine ICU Nursing Protocol to prevent ulcers. Lines: All lines examined without evidence of infection : Dispo: To remain in the ICU Patient has high chance of clinical deterioration. CODE: Full Code <Khadar Medinabh - Last Filed: 06/18/18 16:55> Date of Encounter: 06/18/18 Time of Encounter: 09:30 Assessment and Plan (1) Acute encephalopathy Current Visit: Yes Status: Acute 06/18/2018 - likely due to his UTI , Urine clean catch was positive for Enterococcus species -currently on IV Ampicillin. Patien doesn't endorse any symptom of dysurea. - patient currently following commands although he does get intermittently agitated (but no drooling, tongue biting or loss of control of bowel /bladder) . - Haldol, Ativan PRN. Precedex if her gets overly agitated . Most recent Head CT unremarkable with no acute changes from previous findings -continue supportive care and fall precautions - Follow up for an out-patient EEG studies 06/17/2018 - likely due to his current UTI, it could also be likely due to his dilantin toxicity, patient was ruled out for any infectious or metabolic etiology for encephalopathy. patient recent MRI showed small acute infarcts involving the superior frontal lobe in conjunction with extensive left cerebral encephalomalacia/gliosis - unlikely contributing to his current mental status changes. As per the neurologist those infarcts are likely due to small vessel disease associated with known stroke risk factors - patient currently following commands, A&O*3 - we will continue to monitor his mental status, continue supportive care and fall precautions - Ativan 1mg PRN, Haldol 3mg PRN if the patient shows an signs of agitation. (2) Acute respiratory failure with hypoxia Current Visit: Yes Status: Acute - secondary to his Hx of COPD, patient is morbidly cachetic (BMI: 16.8) with Hx of stroke/TIA, -patient was on BiPAP when he was moved to the ICU , he had been on 3L of oxymask later -continue duonebs as needed, oxygen supplementation (3) Atrial fibrillation with RVR Current Visit: Yes Status: Acute - patient came t o the ICU with Afib RVR - likely due to sympathetic drive secondary to agitation . - currently patient is on NSR. he is s/p cardizem drip, has Cardizem, Metoprolol PO on board but held overnight because of swallow evaluation. - patient denies any chest pain , palpitation or SOB. - continue monitoring the patient's hemodynamic status. (4) Seizure Current Visit: Yes Status: Acute - patient has a chronic Hx of seizure - currently on 1000mg PO keppra, his Dilantin has been discontinued owing to the elevated levels during admission. Patient does not seem to have elevated lactate as of yesterday ( 1.0) - continue to monitor patient for signs for drooling, teeth clenching , tongue biting, worsening confusion (5) COPD (chronic obstructive pulmonary disease) Current Visit: Yes Status: Chronic - has a Hx of COPD, chronic smoker - no acute exacerbation of COPD noted-, no change in the color of the sputum, change in frequency of cough, no SOB. - duonebs PRN, O2 supplementation Qualifiers: COPD type: unspecified COPD Qualified Code(s): J44.9 - Chronic obstructive pulmonary disease, unspecified (6) UTI (urinary tract infection) Current Visit: Yes Status: Acute -patient's urine culture was positive for moderate bacteria - preliminary culture grew enterococcus species - patient currently is afebrile, denies any suprapubic pain. However with his metabolic encephalopathy could be masking his perception of pain - he's currently on day 2 of IV ampicillin to cover for enerococcus Qualifiers: Qualified Code(s): N39.0 - Urinary tract infection, site not specified (7) DVT prophylaxis Current Visit: No Status: Acute - SDCs . Subjective Principal diagnosis: Phenytoin toxicity Interval history: no acute events overnight . Patient was intermittently agitated overnight with some diminished weakness in the upper and lower extremities. it is hard to tell if it is secondary to any new infarct or due to unmasking because of altered mental state. We repested his Head CT which was negative for any new infarcts or hemorrhage. Patient doesn't seem to have any symptoms of loss of bowel or bladder. He was not on his PO meds overnight and has converted to NSR. He continues to be on Ampicillin for his UTI. Objective PUL Vital signs: Last Vital Signs Temp 97.4 F L 06/18/18 07:00 Pulse 79 06/18/18 09:00 Resp 18 06/18/18 09:00 BP 130/67 06/18/18 09:00 Pulse Ox 97 06/18/18 09:00 General appearance: lethargic (mildy distressed, confused , A&O *2 (person and place) ) Auscultation: bilateral: clear (no wheeing, ronchi or rales) Cardiovascular: regular rate and rhythm (no gallops, murmurs or rubs) Gastrointestinal: soft, non-tender, non-distended Extremities: no cyanosis, no edema, no clubbing CN II-XII normal (motor strength 3/5 bilterally) Results - Laboratory Findings CBC and BMP: 06/18/18 05:02 06/18/18 05:02 ABG ABG pH 7.43 pH Units (7.32-7.45) D 06/17/18 12:32 ABG pCO2 42 mmHg (35-45) 06/17/18 12:32 ABG pO2 92 mmHg (85-104) 06/17/18 12:32 ABG O2 Saturation 97 % (95-98) 06/17/18 12:32 PT/INR, D-dimer PT 15.5 Seconds (9.4-12.1) H 06/17/18 08:00 Abnormal lab findings: Abnormal lab results RBC 3.33 M/mcL (4.19-5.50) L 06/18/18 05:02 Hgb 10.5 g/dL (12.9-16.9) L 06/18/18 05:02 Hct 30.8 % (37.5-50.1) L 06/18/18 05:02 ESR 18 mm/hr (0-10) H 06/13/18 13:33 PT 15.5 Seconds (9.4-12.1) H 06/17/18 08:00 ABG HCO3 28 mEq/L (21-27) H 06/17/18 12:32 ABG Total CO2 29 mEq/L (20-26) H 06/17/18 12:32 VBG pO2 100 mmHg (25-50) H 06/08/18 15:07 Creatinine 0.49 mg/dL (0.70-1.30) L 06/18/18 05:02 BUN/Creatinine Ratio 29 (6-26) H 06/18/18 05:02 AST 52 Units/L (13-39) H 06/18/18 05:02 Alkaline Phosphatase 125 Units/L (34-104) H 06/18/18 05:02 Creatine Kinase 568 Units/L (30-223) H 06/18/18 05:02 Urine Clarity Cloudy (Clear) A 06/14/18 17:30 Urine Protein 30 mg/dL (Neg-Trace) H 06/14/18 17:30 Urine Ketones Trace mg/dL (Negative) H 06/14/18 17:30 Urine Bilirubin Small (Negative) H 06/14/18 17:30 Ur Leukocyte Esterase Small (Negative) H 06/14/18 17:30 Urine Microscopic RBC 3-5 per hpf (0-3) H 06/14/18 17:30 Urine Microscopic WBC 5-15 per hpf (0-3) H 06/14/18 17:30 Urine Bacteria Moderate per hpf (None-Few) H 06/14/18 17:30 Hyaline Casts Moderate per lpf (None-Few) H 06/14/18 17:30 Ur Culture Indicated? YES (NO) A 06/14/18 17:30 Salicylates < 2.5 mg/dL (15.0-30.0) L 06/08/18 14:24 Acetaminophen < 10 mcg/mL (10-20) L 06/08/18 14:24 Free Phenytoin 0.7 ug/mL (1.0-2.5) L 06/13/18 13:33 Total Phenytoin 6.2 ug/mL (10.0-20.0) L 06/13/18 13:33 U Benzodiazepines Scrn Positive ng/mL (Yxlyqw=475) H 06/08/18 14:29 - Microbiology Findings Microbiology Findings: Microbiology, Last 48 Hours 06/14/18 17:30 Urine Culture - Final Urine,Clean Catch Enterococcus species - Clinical Findings Intake & Output: Intake & Output 06/17/18 06/18/18 06/18/18 23:59 07:59 15:59 Intake Total 177 / 177 518 / 518 0 / 0 Balance 177 / 177 518 / 518 0 / 0 Weight 55.2 kg 56.7 kg - VTE Documentation of Mechanical Device: Intermittent pneumatic compression device
[2018-06-18] MEDS: Thiamine (B-1) 100 MG TABLET PO SCH (10:53)
[2018-06-18] MEDS: Loratadine 10 MG TABLET PO SCH (10:53)
[2018-06-18] MEDS: Folic Acid 1 MG TABLET PO SCH (10:53)
[2018-06-18] MEDS: Gabapentin 300 MG CAPSULE PO SCH ×2 (10:53→21:26)
[2018-06-18] MEDS: Aspirin 81 MG TAB.CHEW PO SCH (10:53)
[2018-06-18] MEDS: Magnesium Oxide 400 MG TABLET PO SCH (10:53)
[2018-06-18] MEDS: *HR* Dextrose 50 % in Water (Syg) 50 ML SYRINGE IVP PRN (16:18)
[2018-06-18] MEDS: levETIRAcetam 250 MG TABLET PO SCH (17:02)
--- NOTE | 2018-06-18 17:57 | Electrocardiograph Report ---
[address] [place] [address] Test Date: 2018-06-17 Pat Name: Mitchell Martinez Department: 113 Room: [facility] Gender: M Ultrasound Tester: DEEP : 1945 Requested By: Ngozi Stafford Order Number: [id number] Reading MD: Caitlin Adame Measurements Intervals [place] Rate: 153 P: MO: 0 QRS: 74 QRSD: 87 T: 76 QT: 257 QTc: 344 Interpretive Statements ATRIAL FIBRILLATION WITH RAPID VENTRICULAR RESPONSE SEPTAL MYOCARDIAL INFARCTION, PROBABLY OLD MODERATE ST-WAVE ABNORMALITY, CONSIDER INFERIOR ISCHEMIA Electronically Signed On 06-18-2018 17:55:30 EDT by Caitlin Adame
[2018-06-19] MEDS: Ipratropium/Albuterol Neb 3 ML IH SCH ×7 (00:02→23:20)
[2018-06-19] MEDS: dilTIAZem HCl 60 MG TABLET PO SCH ×5 (00:09→23:35)
[2018-06-19] MEDS: Ampicillin 2 GM in 0.9 % Sodium Chloride Mini Bag 100 ML IVPB SCH ×5 (00:09→23:35)
[2018-06-19] MEDS: *HR* Enoxaparin 40 MG/0.4 ML SYRINGE SQ SCH (05:49)
[2018-06-19] MEDS: levETIRAcetam 250 MG TABLET PO SCH ×2 (05:49→17:37)
[2018-06-19 06:13] LABS: Basophils # 0.1 K/mcL (0.0-0.2); Basophils % 0.7 %; Eosinophils # 0.8 K/mcL (0.0-0.6); Eosinophils % 7.9 %; Hematocrit 32.4 % (37.5-50.1); Immature Granulocytes % 0.1 % (0-4); Lymphocytes # 1.6 K/mcL (0.6-4.6); Lymphocytes % 15.8 %; Mean Corpuscular HGB Conc 33.3 g/dL (31.6-35.5); Mean Corpuscular Hemoglobin 30.9 pg (28.0-33.3); Mean Corpuscular Volume 92.6 fL (83.0-100.0); Mean Platelet Volume 9.6 fL (9.4-12.4); Monocytes # 1.1 K/mcL (0.0-1.3); Monocytes % 10.9 %; Neutrophils # 6.3 K/mcL (1.6-8.9); Platelet Count 376 K/mcL (140-400); Red Cell Distribution Width 12.6 % (11.5-14.5); Segmented Neutrophils % 64.6 %
[2018-06-19 06:19] LABS: Hemoglobin 10.8 g/dL (12.9-16.9)
[2018-06-19 06:31] LABS: BUN/Creatinine Ratio 26 (6-26); Blood Urea Nitrogen 13 mg/dL (8-23); Calcium 9.5 mg/dL (8.6-10.3); Carbon Dioxide 24 mEq/L (23-29); Chloride 104 mEq/L (98-107); Glucose 84 mg/dL (70-105); Osmolality,Calculated 287 (280-300); Potassium 3.2 mEq/L (3.5-5.1); Sodium 139 mEq/L (136-145); eGFR For Non-African Americans > 60 (> 60)
[2018-06-19] MEDS ORDERED: Potassium Chloride Elixir 20 MEQ/15 ML UDC PO ONE (07:47)
[2018-06-19] MEDS: Nicotine 14 MG PATCH.TD24 TD SCH (09:13)
[2018-06-19] MEDS: Gabapentin 300 MG CAPSULE PO SCH ×2 (09:15→20:28)
[2018-06-19] MEDS: Thiamine (B-1) 100 MG TABLET PO SCH (09:15)
[2018-06-19] MEDS: Loratadine 10 MG TABLET PO SCH (09:15)
[2018-06-19] MEDS: Folic Acid 1 MG TABLET PO SCH (09:15)
[2018-06-19] MEDS: Magnesium Oxide 400 MG TABLET PO SCH (09:15)
[2018-06-19] MEDS: Aspirin 81 MG TAB.CHEW PO SCH (09:15)
[2018-06-19] MEDS: Insulin LISPRO 300 UNITS/3 ML VIAL SQ SCH ×4 (09:16→20:29)
[2018-06-19] MEDS ORDERED: Bacitracin/PolymyxinB OPTH Oin 3.5 APPL/3.5 GM TUBE LEFT EYE SCH (10:00)
--- NOTE | 2018-06-19 10:36 | Pulmonology Progress Note ---
Date of Encounter: 06/19/18 Time of Encounter: 09:00 Assessment and Plan (1) Acute encephalopathy Current Visit: Yes Status: Acute Patient encephalopathy is toxic/metabolic the background of chronic microvascular disease in the brain with patient had multiple infarct with chronic encephalomalacia and fibrosis, gliosis any factors like UTI she will need to decline in his mental status and also lowered his seizure threshold. Neurology followed up does not look like seizure-like activity to keep Ativan and Haldol when necessary for agitation probably he might need Precedex if his agitation comes back now is off Precedex patient can be transferred to [facility] where they can do Precedex. (2) Acute respiratory failure with hypoxia Current Visit: Yes Status: Acute Patient acute on chronic hypoxic respiratory failure with acceptable oxygenation and ventilation looks like he is nearly euvolemic will diurese when needed. To continue O2 supplementation. (3) Atrial fibrillation with RVR Current Visit: Yes Status: Acute Patient is on beta alivia when he can take by mouth he can take the Cardizem to patient is currently in sinus rhythm whenever he gets agitated he flips into A. fib at some point he needs to be on anticoagulation after this acute episode because he has high risk for stroke. (4) Seizure Current Visit: Yes Status: Acute Patient is on [facility] neurology recs. (5) UTI (urinary tract infection) Current Visit: Yes Status: Acute Patient is on day 3 of ampicillin patient is growing enterococcus. Qualifiers: Encounter type: initial encounter Qualified Code(s): T83.511A - Infection and inflammatory reaction due to indwelling urethral catheter, initial encounter ; N39.0 - Urinary tract infection, site not specified (6) Encounter for deep vein thrombosis (DVT) prophylaxis Current Visit: Yes Status: Acute To continue current prophylaxis. Subjective Principal diagnosis: Phenytoin toxicity Interval history: Patient is more awake and engaging conversation with me in does not look as stated is soft Precedex patient had a good night with no acute events. Objective PUL Vital signs: Last Vital Signs Temp 98.0 F 06/19/18 07:18 Pulse 72 06/19/18 10:00 Resp 18 06/19/18 10:00 BP 117/93 06/19/18 10:00 Pulse Ox 96 06/19/18 10:00 Auscultation: bilateral: diminished breath sounds Results - Laboratory Findings CBC and BMP: 06/19/18 05:49 06/19/18 05:49 ABG ABG pH 7.43 pH Units (7.32-7.45) D 06/17/18 12:32 ABG pCO2 42 mmHg (35-45) 06/17/18 12:32 ABG pO2 92 mmHg (85-104) 06/17/18 12:32 ABG O2 Saturation 97 % (95-98) 06/17/18 12:32 PT/INR, D-dimer PT 15.5 Seconds (9.4-12.1) H 06/17/18 08:00 Abnormal lab findings: Abnormal lab results RBC 3.50 M/mcL (4.19-5.50) L 06/19/18 05:49 Hgb 10.8 g/dL (12.9-16.9) L 06/19/18 05:49 Hct 32.4 % (37.5-50.1) L 06/19/18 05:49 Eosinophils # 0.8 K/mcL (0.0-0.6) H 06/19/18 05:49 ESR 18 mm/hr (0-10) H 06/13/18 13:33 PT 15.5 Seconds (9.4-12.1) H 06/17/18 08:00 ABG HCO3 28 mEq/L (21-27) H 06/17/18 12:32 ABG Total CO2 29 mEq/L (20-26) H 06/17/18 12:32 VBG pO2 100 mmHg (25-50) H 06/08/18 15:07 Potassium 3.2 mEq/L (3.5-5.1) L 06/19/18 05:49 Creatinine 0.50 mg/dL (0.70-1.30) L 06/19/18 05:49 AST 52 Units/L (13-39) H 06/18/18 05:02 Alkaline Phosphatase 125 Units/L (34-104) H 06/18/18 05:02 Creatine Kinase 568 Units/L (30-223) H 06/18/18 05:02 Urine Clarity Cloudy (Clear) A 06/14/18 17:30 Urine Protein 30 mg/dL (Neg-Trace) H 06/14/18 17:30 Urine Ketones Trace mg/dL (Negative) H 06/14/18 17:30 Urine Bilirubin Small (Negative) H 06/14/18 17:30 Ur Leukocyte Esterase Small (Negative) H 06/14/18 17:30 Urine Microscopic RBC 3-5 per hpf (0-3) H 06/14/18 17:30 Urine Microscopic WBC 5-15 per hpf (0-3) H 06/14/18 17:30 Urine Bacteria Moderate per hpf (None-Few) H 06/14/18 17:30 Hyaline Casts Moderate per lpf (None-Few) H 06/14/18 17:30 Ur Culture Indicated? YES (NO) A 06/14/18 17:30 Salicylates < 2.5 mg/dL (15.0-30.0) L 06/08/18 14:24 Acetaminophen < 10 mcg/mL (10-20) L 06/08/18 14:24 Free Phenytoin 0.7 ug/mL (1.0-2.5) L 06/13/18 13:33 Total Phenytoin 6.2 ug/mL (10.0-20.0) L 06/13/18 13:33 U Benzodiazepines Scrn Positive ng/mL (Glmcxt=821) H 06/08/18 14:29 - Microbiology Findings Microbiology Findings: Microbiology, Last 48 Hours 06/14/18 17:30 Urine Culture - Final Urine,Clean Catch Enterococcus species - Clinical Findings Intake & Output: Intake & Output 06/18/18 06/19/18 06/19/18 23:59 07:59 15:59 Intake Total 220 / 220 200 / 200 Balance 220 / 220 200 / 200 Weight 54.7 kg - VTE Documentation of Mechanical Device: Intermittent pneumatic compression device Consult Discharge Plan - Plan Referrals: Jose Oglesby MD [Primary Care Provider] - Leticia Garcia CNP [Advanced Practice Nurse] - 06/17/18 4:00 pm
[2018-06-19] MEDS ORDERED: Haloperidol Lactate 5 MG/ML VIAL IVP PRN (12:36)
[2018-06-19] MEDS ORDERED: Albuterol 2.5 MG/3 ML NEBULIZER IH PRN (12:36)
[2018-06-19] MEDS ORDERED: Dextrose Gel 15 GM/37.5 ML TUBE PO PRN ×2 (12:36)
[2018-06-19] MEDS ORDERED: Acetaminophen 325 MG TABLET PO PRN (12:36)
[2018-06-19] MEDS ORDERED: Nitroglycerin 0.4 MG TAB.SUBL SL PRN (12:36)
[2018-06-19] MEDS ORDERED: D5% in Water 1,000 ML IVC PRN (12:36)
[2018-06-19] MEDS ORDERED: *HR* Dextrose 50 % in Water (Syg) 50 ML SYRINGE IVP PRN (12:36)
[2018-06-19] MEDS: Dexmedetomidine HCl 400 MCG/100 ML MLS IVC SCH (13:42)
[2018-06-19] MEDS: *HR* LORazepam 2 MG/ML VIAL IVP PRN (14:37)
[2018-06-19] MEDS: Bacitracin/PolymyxinB OPTH Oin 3.5 APPL/3.5 GM TUBE LEFT EYE SCH (20:29)
[2018-06-20] MEDS: *HR* LORazepam 2 MG/ML VIAL IVP PRN ×2 (01:06→18:55)
[2018-06-20] MEDS: Ipratropium/Albuterol Neb 3 ML IH SCH ×6 (03:46→23:59)
[2018-06-20] MEDS: dilTIAZem HCl 60 MG TABLET PO SCH (05:10)
[2018-06-20] MEDS: Ampicillin 2 GM in 0.9 % Sodium Chloride Mini Bag 100 ML IVPB SCH ×4 (05:10→23:47)
[2018-06-20] MEDS: levETIRAcetam 250 MG TABLET PO SCH ×2 (05:10→17:14)
[2018-06-20] MEDS: *HR* Enoxaparin 40 MG/0.4 ML SYRINGE SQ SCH (05:53)
[2018-06-20] MEDS: Insulin LISPRO 300 UNITS/3 ML VIAL SQ SCH ×4 (08:06→21:31)
[2018-06-20] MEDS: Folic Acid 1 MG TABLET PO SCH (08:08)
[2018-06-20] MEDS: Gabapentin 300 MG CAPSULE PO SCH ×2 (08:08→19:46)
[2018-06-20] MEDS: Loratadine 10 MG TABLET PO SCH (08:08)
[2018-06-20] MEDS: Aspirin 81 MG TAB.CHEW PO SCH (08:09)
[2018-06-20] MEDS: Thiamine (B-1) 100 MG TABLET PO SCH (08:09)
[2018-06-20] MEDS: Nicotine 14 MG PATCH.TD24 TD SCH (08:10)
[2018-06-20] MEDS: Magnesium Oxide 400 MG TABLET PO SCH (08:11)
[2018-06-20] MEDS: Diltiazem CD (24hr) 180 MG CAPSULE PO SCH (10:07)
[2018-06-20] MEDS: Bacitracin/PolymyxinB OPTH Oin 3.5 APPL/3.5 GM TUBE LEFT EYE SCH ×2 (10:26→19:58)
--- NOTE | 2018-06-20 12:56 | Internal Med Progress Note ---
Hospitalist Progress Note - Encounter Date of Encounter: 06/20/18 Time of Encounter: 09:10 - Subjective Interval History: Noted to be somewhat sleepy, but able to answer questions; denies chest pain, dyspnea, palpitations; no fever/chills; noted to have intermittent moist cough; noted to have intermittent jerking movements like rigors in extremities, while remaining awake and oriented; - Exam Vitals: Temp Pulse Resp BP Pulse Ox 97.3 F L 87 24 154/77 94 06/20/18 11:35 06/20/18 11:35 06/20/18 11:35 06/20/18 11:35 06/20/18 11:35 Exam: General: frail elderly male lying comfortably in bed in slight discomfort Chest: Normal thoracic expansion. coarse breath sounds B/L; Heart: Normal S1 & S2; rhythmic. tachycardic; No rubs or murmurs. Abdomen: Non-distended, soft and nontender Extremities: No clubbing, cyanosis or edema. No calf tenderness. Normal distal pulses. Neurological: Awake, alert and oriented to person and place; decreased motor power B/L LE Skin- seborrheic dermatitis with dry flaky skin on his face - Assessment and Plan (1) Acute encephalopathy Current Visit: Yes Status: Acute Assessment and Plan: Likely due to UTI, underlying medical illness, unmasking right-sided weakness and facial droop. Patient also has some altered mental status after admission due to suspected Dilantin toxicity. Neurology has been on board, recommended no further intervention at this time except holding Dilantin. Repeat CT head showed no acute infarct. Continue supportive care, fall precautions, physical therapy. (2) COPD (chronic obstructive pulmonary disease) Current Visit: Yes Status: Chronic Assessment and Plan: Not in acute exacerbation. Continue when necessary breathing treatments and supplemental oxygen. Patient is noted to have moist cough with suspicion for aspiration. Speech therapy evaluation was completed, recommended pureed diet with thin liquids with aspiration precautions. (3) Seizure disorder Current Visit: Yes Status: Chronic Assessment and Plan: Continue to hold Dilantin at discharge. Continue Keppra at current dosage. Neurology follow-up appreciated. (4) Phenytoin toxicity Current Visit: Yes Status: Resolved (5) HTN (hypertension) Current Visit: Yes Status: Chronic (6) Diabetes mellitus Current Visit: Yes Status: Chronic Assessment and Plan: Blood sugars low normal. continue Accu-Chek blood glucose monitoring with sliding scale insulin as needed. Diabetic diet as tolerated. (7) Anxiety and depression Current Visit: Yes Status: Chronic (8) Atrial fibrillation Current Visit: Yes Status: Chronic Assessment and Plan: Continues to have intermittent tachycardia, related to his tremors and anxiety. Has been started on Cardizem, been changed to Cardizem CD. Continue beta alivia. Not on anticoagulation as outpatient, ?poor candidate due to fall risk , elderly age; probably needs to be on anticoagulation after the acute medical illness results due to high risk for stroke. Continue telemetry monitoring. (9) UTI (urinary tract infection) Current Visit: Yes Status: Acute Assessment and Plan: Urine culture grew ampicillin sensitive enterococcus, continue IV ampicillin. (10) Acute and chronic respiratory failure Current Visit: Yes Status: Chronic Assessment and Plan: Due to atrial fibrillation with rapid ventricular response and encephalopathy. Improving. Wean down FiO2 as tolerated. - Time Spent with Patient Total time spent is greater than 50% in coordination of care (as documented) at patient's floor/unit and/or counseling patient: Plan of Care Discussed with: nurse Internal Medicine: Result - Labs CBC & Chem 7: 06/19/18 05:49 06/19/18 05:49 - ABG Interpretation ABG results: ABG ABG pH 7.43 pH Units (7.32-7.45) D 06/17/18 12:32 ABG pCO2 42 mmHg (35-45) 06/17/18 12:32 ABG pO2 92 mmHg (85-104) 06/17/18 12:32 ABG O2 Saturation 97 % (95-98) 06/17/18 12:32 PT/INR, D-dimer PT 15.5 Seconds (9.4-12.1) H 06/17/18 08:00 - VTE Documentation of Mechanical Device: Venous foot pump, device Consult Discharge Plan - Plan Referrals: Jose Oglesby MD [Primary Care Provider] - Leticia Garcia CNP [Advanced Practice Nurse] - 06/17/18 4:00 pm (2) COPD (chronic obstructive pulmonary disease) Qualifiers: COPD type: unspecified COPD Qualified Code(s): J44.9 - Chronic obstructive pulmonary disease, unspecified (4) Phenytoin toxicity Qualifiers: Encounter type: initial encounter Injury intent: accidental or unintentional Qualified Code(s): T42.0X1A - Poisoning by hydantoin derivatives, accidental ( unintentional), initial encounter (5) HTN (hypertension) Qualifiers: Hypertension type: essential hypertension Qualified Code(s): I10 - Essential (primary) hypertension (6) Diabetes mellitus Qualifiers: Diabetes mellitus type: type 2 Diabetes mellitus intermediate insulin use: without intermediate use Diabetes mellitus complication status: with unspecified complications Qualified Code(s): E11.8 - Type 2 diabetes mellitus with unspecified complications (8) Atrial fibrillation Qualifiers: Atrial fibrillation type: paroxysmal Qualified Code(s): I48.0 - Paroxysmal atrial fibrillation (9) UTI (urinary tract infection) Qualifiers: Indwelling urinary catheter type: unspecified Encounter type: initial encounter (10) Acute and chronic respiratory failure Qualifiers: Respiratory failure complication: hypoxia Qualified Code(s): J96.21 - Acute and chronic respiratory failure with hypoxia
[2018-06-20] MEDS: Dexmedetomidine HCl 400 MCG/100 ML MLS IVC SCH (19:28)
[2018-06-21] MEDS: Ipratropium/Albuterol Neb 3 ML IH SCH ×6 (03:52→23:26)
[2018-06-21 05:29] LABS: Basophils # 0.1 K/mcL (0.0-0.2); Basophils % 0.3 %; Hematocrit 34.4 % (37.5-50.1); Hemoglobin 11.4 g/dL (12.9-16.9); Immature Granulocytes % 0.6 % (0-4); Lymphocytes # 1.9 K/mcL (0.6-4.6); Lymphocytes % 11.7 %; Mean Corpuscular HGB Conc 33.1 g/dL (31.6-35.5); Mean Corpuscular Hemoglobin 31.1 pg (28.0-33.3); Mean Corpuscular Volume 93.7 fL (83.0-100.0); Mean Platelet Volume 9.8 fL (9.4-12.4); Monocytes % 12.4 %; Platelet Count 439 K/mcL (140-400); Red Blood Count 3.67 M/mcL (4.19-5.50); Red Cell Distribution Width 12.8 % (11.5-14.5)
[2018-06-21 05:30] LABS: Neutrophils # 12.2 K/mcL (1.6-8.9)
[2018-06-21 06:13] LABS: BUN/Creatinine Ratio 36 (6-26); Blood Urea Nitrogen 20 mg/dL (8-23); Calcium 9.8 mg/dL (8.6-10.3); Carbon Dioxide 24 mEq/L (23-29); Chloride 108 mEq/L (98-107); Glucose 87 mg/dL (70-105); Magnesium 1.8 mg/dL (1.6-2.6); Osmolality,Calculated 306 (280-300); Potassium 3.2 mEq/L (3.5-5.1); Sodium 147 mEq/L (136-145); eGFR For Non-African Americans > 60 (> 60)
[2018-06-21] MEDS: Ampicillin 2 GM in 0.9 % Sodium Chloride Mini Bag 100 ML IVPB SCH (06:13)
[2018-06-21] MEDS: levETIRAcetam 250 MG TABLET PO SCH ×2 (06:16→16:32)
[2018-06-21] MEDS: *HR* Enoxaparin 40 MG/0.4 ML SYRINGE SQ SCH (06:18)
[2018-06-21] MEDS: Insulin LISPRO 300 UNITS/3 ML VIAL SQ SCH ×4 (08:41→20:31)
[2018-06-21] MEDS: Nicotine 14 MG PATCH.TD24 TD SCH (08:42)
[2018-06-21] MEDS: Diltiazem CD (24hr) 180 MG CAPSULE PO SCH (08:42)
[2018-06-21] MEDS: Gabapentin 300 MG CAPSULE PO SCH ×2 (08:42→20:30)
[2018-06-21] MEDS: Magnesium Oxide 400 MG TABLET PO SCH (08:42)
[2018-06-21] MEDS: Aspirin 81 MG TAB.CHEW PO SCH (08:43)
[2018-06-21] MEDS: Thiamine (B-1) 100 MG TABLET PO SCH (08:43)
[2018-06-21] MEDS: Folic Acid 1 MG TABLET PO SCH (08:43)
[2018-06-21] MEDS: Loratadine 10 MG TABLET PO SCH (08:43)
[2018-06-21] MEDS ORDERED: Potassium Chloride Elixir 20 MEQ/15 ML UDC PO ONE (08:45)
[2018-06-21] MEDS: Bacitracin/PolymyxinB OPTH Oin 3.5 APPL/3.5 GM TUBE LEFT EYE SCH ×2 (08:48→20:31)
--- NOTE | 2018-06-21 12:17 | Palliative - Consult Note ---
Date of Encounter: 06/21/18 Time of Encounter: 11:30 - Assessment and Plan (1) COPD (chronic obstructive pulmonary disease) Current Visit: Yes Status: Chronic Assessment and plan: Pulmonary evaluated patient. Oxygen saturation 95-96% during assessment. Continue oxygen therapy and duonebs. Qualifiers: COPD type: unspecified COPD Qualified Code(s): J44.9 - Chronic obstructive pulmonary disease, unspecified (2) Atrial fibrillation Current Visit: Yes Status: Chronic Assessment and plan: Patient continues to have Irregular rhythm. Continue Cardizem as ordered. Qualifiers: Atrial fibrillation type: paroxysmal Qualified Code(s): I48.0 - Paroxysmal atrial fibrillation (3) Seizure disorder Current Visit: Yes Status: Chronic Assessment and plan: Neurology consult completed. Recommend continue Keppra. (4) Acute encephalopathy Current Visit: Yes Status: Acute Assessment and plan: Patient alert and oriented times 2. Patient has improved form entry AMS. (5) Goals of care, counseling/discussion Current Visit: Yes Status: Acute Assessment and plan: 1208: Left voicemail for Madhavi and no answer for Zelda. Attempting to reach family members regarding goals of care. Requested Primary RN Rui to call palliative care if patients family arrive for visit. 1416: Attempted to call listed number for Madhavi Martinez ([phone]); notified by male whom answered the telephone that calling the incorrect number. 1515: Family meeting with patient's Daughter Zelda, patient's daughter agrees to discharge patient to [facility] once medically stable. Gave sister's phone number ([phone]); however, only will be able to reach her if on wifi at home. Patient's daughter Zelda expects patient to be followed by [facility] at return to [facility] [place] [facility]. Family understands that [facility] has no beds at this time. Family request voicemail be left if they are unable to be reached at time of discharge. Discussed CODE STATUS; family desires for Palliative care to attempt to discuss CODE STATUS with Madhavi tomorrow. Palliative-CN HPI - Data of Consult Patient: new to practice Consult date: 06/21/18 Requesting Physician: Sonam Stafford MD Primary Care Provider: Jose Oglesby MD - Consult Narrative Palliative Care/Comfort Measures: Palliative care Reason for consult: Poor functional status; intermittent tremors and rigors. Goals of care. History of present illness: Mr. Martinez is a 73 year old male Arrived to [facility] for nursing facility with generalized weakness and AMS, on . Had previously been evaluated and discharged day before. Patient discharged from hospital to SNF for TIA symptoms. Initial Chest x-ray showed: No evidence of acute cardiopulmonary disease. EKG showed: Sinus Rhythm with first degree AV Block with occasional Supraventricular Premature complexes. CT of cervical spine without contrast showing: No acute abnormality of cervical spine. 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 PMH: Cancer, COPD, CVA, DM, GERD, HTN, Seizures, anxiety, and depression. Patient admitted for Weakness; noted Phenytoin level of 33.1. Admitting diagnosis include: HTN, Phenytoin toxicity, COPD, Seizure disorder, and Chronic hyponatremia. Dilantin noted to be improving over the course of the hospital stay. As of 06/11/18, noted to have poor oral intake; nutrition consulted. 06/12/18 , Neurology consulted with recommendation to stop Dilantin and maintain Keppra. Repeat Chest x-ray on 06/14/18 showed no acute disease. Rapid response called as patient had acute change in mentation, increased delirium, diaphoretic and notable dyspnea. Patient was found to be hypoxic, EKG showed Atrial Fibrillation with RVR and hypertensive state. Blood glucose check showed 175. Incident medically managed and patient placed on 1:1 supervision. Patient transferred to ICU. MRI without contrast of head/brain showing: Small acute infarcts involving the superior right frontal lobe; Extensive left cerebral encephalomalacia/gliosis; numerous remote infarcts; and evidence of remote hemorrhage. Findings of MRI given to Neurology with recommendations. Mentation improvement noted as of 06/15/18. Patient is not a candidate for anticoagulation. New onset of right hand weakness and drooping to left eyelid noted; tolerating oral diet. EKG on 06/15/18 showing Atrial Fibrillation with RVR, Septal Myocardial Infarction (probably old), Moderate t-wave abnormality (consider lateral ischemia and inferior ischemia). Echo attempted and canceled due to agitation. Neurology recommends outpatient follow up for management of tremors. EKG, repeated, unchanged. Pulmonary consult completed. New diagnosis and management of UTI. Transferred to . Palliative care consult for poor functional status, came with encephalopathy/Dilantin Toxicity, then developed A. Fib with RVR, now has intermittent tremors and rigors. Patient is alert and oriented times 2; place and person. Slightly confused to time; thought it was 2019. Patient denies pain, nausea, vomiting, anxiety, and dyspnea. Patient discussed potential discharge planning and desires to finalize decision with daughters; given permission to call daughters Zelda and Madhavi. No family present at bedside. Called Madhavi (No voicemail and no answer) and Zelda (Left voicemail). Received report family is expected this afternoon. Will continue to attempt to reach family and arrange family meeting. CC: Sonam Stafford MD Past Med Surg Social Fam HX - Past Medical History Medical history: cancer, COPD, CVA, diabetes, GERD, hypertension, seizures, other Additional medical history: muscle weakness, difficulty in walking Psychiatric history: anxiety, depression - Past Surgical History Surgical History: no surgical history - Social History Smoking Status: Current every day smoker Smokeless Tobacco Status: No Alcohol use: heavy Drug use: none - Family History Mother Living Status: Hx Family Neurologic Disorders: No Father Living Status: Hx Family Neurologic Disorders: No Medications and Allergies Acetaminophen [Tylenol] 650 mg PO Q4HR PRN 06/03/18 [History] Albuterol Sulfate [Proair Hfa] 2 puff IH Q4H PRN 06/03/18 [History] Cetirizine HCl [Zyrtec] 10 mg PO DAILY 06/03/18 [History] Ferrous Sulfate [Iron] 325 mg PO DAILY 06/03/18 [History] Folic Acid 1 mg PO DAILY 06/03/18 [History] Gabapentin [Neurontin] 300 mg PO BID 06/03/18 [History] Ipratropium/Albuterol Neb [Duoneb] 3 ml IH Q6HR 06/03/18 [History] Mag Hydrox/Al Hydrox/Simeth [Antacid II-Simethicone Liq] 30 ml PO Q4-6H PRN [History] Magnesium Oxide [Magnesium] 400 mg PO DAILY 06/03/18 [History] Metoprolol Succinate [Toprol Xl] 50 mg PO DAILY 06/03/18 [History] Nitroglycerin [Nitrostat] 0.4 mg SL Q5MIN PRN 06/03/18 [History] Phenytoin ER [Dilantin ER] 100 mg PO BID 06/03/18 [History] Phenytoin ER [Dilantin ER] 200 mg PO HS 06/03/18 [History] Sertraline [Zoloft] 50 mg PO DAILY 06/03/18 [History] Thiamine HCl [Vitamin B-1] 100 mg PO DAILY 06/03/18 [History] levETIRAcetam [Levetiracetam] 1,000 mg PO Q12H 06/03/18 [History] Aspirin 81 mg PO DAILY 30 Days #30 tab.chew 06/05/18 [Rx] LORazepam [Ativan] 1 mg PO TID 2 Days #6 tablet 06/05/18 [Rx] Simvastatin [Zocor] 40 mg PO HS 30 Days #30 tablet 06/05/18 [Rx] 3 Allergy/AdvReac Type Severity Reaction Status Date / Time No Known Allergies Allergy Verified 06/08/18 16:45 - Constitutional Constitutional ROS PAL: anorexia, frequent falls, weight loss - EENT Ears, nose, mouth, throat: dry mouth - Cardiovascular Cardiovascular ROS: diaphoresis, irregular heart rhythm, no pedal edema, no radiating pain - Respiratory Respiratory: no dyspnea - Gastrointestinal Gastrointestinal: no abdominal pain, no change in stool character, no constipation, no nausea, no vomiting - Genitourinary Genitourinary ROS male: no difficulty urinating - Integumentary ROS Integumentary: dry skin - Neurological Neurological ROS: confusion, frequent falls, lack of coordination - Psychiatric Psychiatric general PM: no anxiety Palliative Care-Exam - Constitutional Vitals: Temp Pulse Resp BP Pulse Ox 97.9 F 81 22 115/83 98 06/21/18 11:28 06/21/18 11:28 06/21/18 11:28 06/21/18 11:28 06/21/18 11:28 General appearance: Present: cooperative, no acute distress - Head Head Exam: Present: atraumatic, normal inspection - Expanded Head Exam Head exam expanded IM: Absent: raccoon eyes - Eye Eye exam: Present: normal appearance, conjuntiva pink. Absent: nystagmus, periorbital swelling, periorbital tenderness, PERRL - ENT ENT exam: Present: mucous membranes dry, normal external ear exam - Expanded ENT Exam Mouth Exam: Present: dry mucosa, normal external inspection. Absent: drooling - Neck Neck exam: Present: full ROM - Respiratory Respiratory exam: Present: accessory muscle use, respiratory distress, wheezes - Cardiovascular Cardiovascular exam: Present: irregular rhythm - Expanded Cardiovascular Exam Peripheral pulses: 2+: Radial (L), Radial (R), Posterior Tibialis (L), Posterior Tibialis (R), Dorsalis Pedis (L) PM, Dorsalis Pedis (R) PM - GI/Abdominal Exam GI/Abdominal exam: Present: distended, normal bowel sounds, soft - Rectal Rectal Exam: Present: deferred - Extremities Exam Extremities exam: Present: normal inspection. Absent: full ROM, pedal edema, tenderness - Back Exam Back exam: Present: normal inspection - Neurological Exam Neurological exam: Present: alert. Absent: oriented X3, strengths equal and symetr throughout - Expanded Neurological Exam Patient oriented to: Present: person, place. Absent: time Coma Scale Eye Opening: To Voice Coma Scale Motor Response: Obeys Commands Coma Scale Verbal Response: Confused Coma Scale Total: 13 - Psychiatric Psychiatric exam: Present: normal affect, normal mood. Absent: anxious - Skin Skin exam: Present: dry, intact, pallor Internal Medicine - CN: Reslt - Labs CBC & Chem 7: 06/21/18 04:53 06/21/18 04:53 Labs: Short CBC 06/21/18 Range/Units 04:53 WBC 16.2 H D (4.3-11.1) K/mcL Hgb 11.4 L (12.9-16.9) g/dL Hct 34.4 L (37.5-50.1) % Plt Count 439 H (140-400) K/mcL Neutrophils # 12.2 H (1.6-8.9) K/mcL BMP 06/21/18 04:53 Sodium 147 H Potassium 3.2 L Chloride 108 H Carbon Dioxide 24 BUN 20 Creatinine 0.56 L Glucose 87 Calcium 9.8 - ABG Interpretation ABG results: ABG ABG pH 7.43 pH Units (7.32-7.45) D 06/17/18 12:32 ABG pCO2 42 mmHg (35-45) 06/17/18 12:32 ABG pO2 92 mmHg (85-104) 06/17/18 12:32 ABG O2 Saturation 97 % (95-98) 06/17/18 12:32 PT/INR, D-dimer PT 15.5 Seconds (9.4-12.1) H 06/17/18 08:00 Consult Discharge Plan - Plan Referrals: Ivelisse Serrano LOOM FIXER HELPER [Advanced Practice Nurse] - 06/29/18 4:00 pm Caitlin Adame DO [Partnered Physician] - (Office will call patient at home with follow up appointment) Palliative Quality Palliative Quality: Screen for Code Status: Yes, Screen for Goals of Care: Yes, Screen for Pain: Yes, If Pain Regimen Started, Initiate Bowel Regimen: NA, Screen for Nausea/Vomitting: Yes
--- NOTE | 2018-06-21 14:31 | Internal Med Progress Note ---
Hospitalist Progress Note - Encounter Date of Encounter: 06/21/18 Time of Encounter: 08:45 - Subjective Interval History: Noted to be awake and alert, denies chest pain, palpitations. Does have intermittent shortness of breath. Noted to have very brief episodes of shaking all his extremities associated with increase in heart rate, which is self- limited. No fever, chills. HPI- This patient has been in the hospital for 13 days, originally sent from [facility] due to altered mental status and lethargy. He was noted to be very somnolent. No infectious or metabolic cause was initially identified. Neurology has been on board, suspected Dilantin toxicity, Dilantin is currently recommended to be held indefinitely. MRI brain also showed small acute right frontal lobe infarcts, which have not thought to be causing his encephalopathy. He also has history of atrial fibrillation, which has been rate controlled, he has not been on anticoagulation as outpatient. His mental status gradually improved, however he had issues with rapid ventricular response and respiratory distress, transferred to ICU, improved with medical management, did not require intubation. He is currently alert, saturating well on room air but continues to have intermittent episodes of tremors and rigors in all 4 extremities, associated with tachycardia, mostly self-limiting. Patient also has right-sided weakness and facial droop, waxing and waning. Neurology is aware of this, do not recommend further testing or intervention. He is being continued on Keppra. Urine culture eventually grew enterococcus, has been on IV ampicillin, been changed to oral amoxicillin today. Blood cultures negative. Has moist cough but does not report choking or dysphagia. POKER IN evaluation was completed, recommended pureed diet with thin liquids with aspiration precautions. Patient has poor functional status with an overall poor prognosis, consulted palliative care. Patient did verbalize to me that he wanted to be DNR/DNI. - Exam Vitals: Temp Pulse Resp BP Pulse Ox 97.9 F 81 22 115/83 98 06/21/18 11:28 06/21/18 11:28 06/21/18 11:28 06/21/18 11:28 06/21/18 11:28 Exam: General: frail elderly male lying comfortably in bed Chest: Normal thoracic expansion. coarse breath sounds B/L; Heart: Normal S1 & S2; irregular;. tachycardic; No rubs or murmurs. Abdomen: Non-distended, soft and nontender Extremities: No clubbing, cyanosis or edema. No calf tenderness. Normal distal pulses. Neurological: Awake, alert and oriented to person and place; decreased motor power B/L LE; improving motor power right UE; intermittent tremors noted; Skin- seborrheic dermatitis with dry flaky skin on his face and neck - Assessment and Plan (1) Acute encephalopathy Current Visit: Yes Status: Acute Assessment and Plan: Metabolic/toxic- Likely due to UTI, underlying medical illness, Dilantin toxicity, unmasking right-sided weakness and facial droop. Neurology has been on board, recommended no further intervention at this time except holding Dilantin. Repeat CT head showed no acute infarct. Continue supportive care, fall precautions, physical therapy. Palliative care has been consulted. (2) COPD (chronic obstructive pulmonary disease) Current Visit: Yes Status: Chronic Assessment and Plan: Not in acute exacerbation. Continue when necessary breathing treatments and supplemental oxygen. Patient is noted to have moist cough with suspicion for aspiration. Speech therapy evaluation was completed, recommended pureed diet with thin liquids with aspiration precautions. He seems to have no issues with feeding and meds per nursing staff; (3) Seizure disorder Current Visit: Yes Status: Chronic Assessment and Plan: Continue to hold Dilantin at discharge. Continue Keppra at current dosage. Neurology follow-up appreciated. (4) Phenytoin toxicity Current Visit: Yes Status: Resolved (5) HTN (hypertension) Current Visit: Yes Status: Chronic (6) Diabetes mellitus Current Visit: Yes Status: Chronic Assessment and Plan: Blood sugars low normal. continue Accu-Chek blood glucose monitoring with sliding scale insulin as needed. Diabetic diet as tolerated. (7) Anxiety and depression Current Visit: Yes Status: Chronic (8) Atrial fibrillation Current Visit: Yes Status: Chronic Assessment and Plan: Continues to have intermittent tachycardia, related to his tremors and anxiety- this is self-limiting. Will not change any treatment; continue Cardizem CD. Continue beta alivia. Not on anticoagulation as outpatient, ?poor candidate due to fall risk, elderly age; probably needs to be on anticoagulation after the acute medical illness results due to high risk for stroke. Continue telemetry monitoring. (9) UTI (urinary tract infection) Current Visit: Yes Status: Acute Assessment and Plan: Patient has chronic indwelling Love catheter. Urine culture grew ampicillin sensitive enterococcus, has been on IV ampicillin, changed to PO Amoxicillin- total of day 4 today. (10) Acute and chronic respiratory failure Current Visit: Yes Status: Chronic DVT Prophylaxis: on s.c Lovenox; - Time Spent with Patient Total time spent is greater than 50% in coordination of care (as documented) at patient's floor/unit and/or counseling patient: Plan of Care Discussed with: patient Internal Medicine: Result - Labs CBC & Chem 7: 06/21/18 04:53 06/21/18 04:53 Labs: Short CBC 06/21/18 Range/Units 04:53 WBC 16.2 H D (4.3-11.1) K/mcL Hgb 11.4 L (12.9-16.9) g/dL Hct 34.4 L (37.5-50.1) % Plt Count 439 H (140-400) K/mcL Neutrophils # 12.2 H (1.6-8.9) K/mcL BMP 06/21/18 04:53 Sodium 147 H Potassium 3.2 L Chloride 108 H Carbon Dioxide 24 BUN 20 Creatinine 0.56 L Glucose 87 Calcium 9.8 - ABG Interpretation ABG results: ABG ABG pH 7.43 pH Units (7.32-7.45) D 06/17/18 12:32 ABG pCO2 42 mmHg (35-45) 06/17/18 12:32 ABG pO2 92 mmHg (85-104) 06/17/18 12:32 ABG O2 Saturation 97 % (95-98) 06/17/18 12:32 PT/INR, D-dimer PT 15.5 Seconds (9.4-12.1) H 06/17/18 08:00 - VTE Documentation of Mechanical Device: Venous foot pump, device Consult Discharge Plan - Plan Referrals: Ivelisse Serrano CNP [Advanced Practice Nurse] - 06/29/18 4:00 pm Caitlin Adame DO [Partnered Physician] - (Office will call patient at home with follow up appointment) (2) COPD (chronic obstructive pulmonary disease) Qualifiers: COPD type: unspecified COPD Qualified Code(s): J44.9 - Chronic obstructive pulmonary disease, unspecified (4) Phenytoin toxicity Qualifiers: Encounter type: initial encounter Injury intent: accidental or unintentional Qualified Code(s): T42.0X1A - Poisoning by hydantoin derivatives, accidental ( unintentional), initial encounter (5) HTN (hypertension) Qualifiers: Hypertension type: essential hypertension Qualified Code(s): I10 - Essential (primary) hypertension (6) Diabetes mellitus Qualifiers: Diabetes mellitus type: type 2 Diabetes mellitus termite control technician insulin use: without correction use Diabetes mellitus complication status: with unspecified complications Qualified Code(s): E11.8 - Type 2 diabetes mellitus with unspecified complications (8) Atrial fibrillation Qualifiers: Atrial fibrillation type: paroxysmal Qualified Code(s): I48.0 - Paroxysmal atrial fibrillation (9) UTI (urinary tract infection) Qualifiers: Indwelling urinary catheter type: unspecified Encounter type: initial encounter (10) Acute and chronic respiratory failure Qualifiers: Respiratory failure complication: hypoxia Qualified Code(s): J96.21 - Acute and chronic respiratory failure with hypoxia
[2018-06-21] MEDS: Amoxicillin 500 MG CAPSULE PO SCH ×2 (16:32→20:30)
[2018-06-22] MEDS: Ipratropium/Albuterol Neb 3 ML IH SCH ×4 (03:44→15:49)
[2018-06-22 05:39] LABS: Basophils # 0.1 K/mcL (0.0-0.2); Basophils % 0.3 %; Eosinophils % 0.2 %; Hematocrit 32.1 % (37.5-50.1); Hemoglobin 10.7 g/dL (12.9-16.9); Immature Granulocytes % 0.6 % (0-4); Lymphocytes # 2.7 K/mcL (0.6-4.6); Lymphocytes % 15.1 %; Mean Corpuscular HGB Conc 33.3 g/dL (31.6-35.5); Monocytes # 1.6 K/mcL (0.0-1.3); Monocytes % 8.8 %; Neutrophils # 13.4 K/mcL (1.6-8.9); Platelet Count 393 K/mcL (140-400); Red Blood Count 3.45 M/mcL (4.19-5.50); Red Cell Distribution Width 12.9 % (11.5-14.5)
[2018-06-22 05:58] LABS: BUN/Creatinine Ratio 38 (6-26); Blood Urea Nitrogen 23 mg/dL (8-23); Calcium 9.6 mg/dL (8.6-10.3); Carbon Dioxide 27 mEq/L (23-29); Chloride 110 mEq/L (98-107); Glucose 113 mg/dL (70-105); Magnesium 1.7 mg/dL (1.6-2.6); Osmolality,Calculated 308 (280-300); Potassium 3.2 mEq/L (3.5-5.1); Sodium 147 mEq/L (136-145); eGFR For Non-African Americans > 60 (> 60)
[2018-06-22] MEDS: *HR* Enoxaparin 40 MG/0.4 ML SYRINGE SQ SCH (06:07)
[2018-06-22] MEDS: levETIRAcetam 250 MG TABLET PO SCH ×2 (06:07→17:03)
[2018-06-22] MEDS: Insulin LISPRO 300 UNITS/3 ML VIAL SQ SCH ×3 (08:11→16:53)
[2018-06-22] MEDS: Nicotine 14 MG PATCH.TD24 TD SCH (09:49)
[2018-06-22] MEDS: Thiamine (B-1) 100 MG TABLET PO SCH (09:53)
[2018-06-22] MEDS: Diltiazem CD (24hr) 180 MG CAPSULE PO SCH (09:53)
[2018-06-22] MEDS: Loratadine 10 MG TABLET PO SCH (09:54)
[2018-06-22] MEDS: Amoxicillin 500 MG CAPSULE PO SCH ×2 (09:54→15:55)
[2018-06-22] MEDS: Magnesium Oxide 400 MG TABLET PO SCH (09:54)
[2018-06-22] MEDS: Gabapentin 300 MG CAPSULE PO SCH (09:54)
[2018-06-22] MEDS: Aspirin 81 MG TAB.CHEW PO SCH (09:54)
[2018-06-22] MEDS: Folic Acid 1 MG TABLET PO SCH (09:54)
[2018-06-22] MEDS: Bacitracin/PolymyxinB OPTH Oin 3.5 APPL/3.5 GM TUBE LEFT EYE SCH (09:55)
--- NOTE | 2018-06-22 11:44 | Palliative Progress Note ---
Date of Encounter: 06/22/18 Time of Encounter: 11:00 - Assessment and plan (1) COPD (chronic obstructive pulmonary disease) Current Visit: Yes Status: Chronic Assessment and plan: Worsening lung sounds. Oxygen saturation 95% on 4L NC. Continue oxygen therapy. Qualifiers: COPD type: unspecified COPD Qualified Code(s): J44.9 - Chronic obstructive pulmonary disease, unspecified (2) Atrial fibrillation Current Visit: Yes Status: Chronic Assessment and plan: Continued irregular rhythm. Continue Cardizem. Qualifiers: Atrial fibrillation type: paroxysmal Qualified Code(s): I48.0 - Paroxysmal atrial fibrillation (3) Seizure disorder Current Visit: Yes Status: Chronic Assessment and plan: Continue Keppra; Neurology consult appreciated. (4) Acute encephalopathy Current Visit: Yes Status: Acute (5) Goals of care, counseling/discussion Current Visit: Yes Status: Acute Assessment and plan: Spoke with patient regarding goals of care. Plan to return to [facility] skilled; patient and family desire to go to [place] or [place]. Patient expressed desire to have full aggressive treatment until his heart should stop. Patient verbalizes ok with intubation. CODE STATUS changed to DNRCCA to reflect patient' s wishes. Notified Daughter Madhavi via telephone; verbalized understanding. Attempted to speak with Zelda; no answer and voicemail left. (6) Weight loss, unintentional Current Visit: Yes Status: Acute Assessment and plan: Patient noted to have lost weight over the last few days. Made phone call to electric motorman to request evaluation. If no further dietary recommendations will order Marinol. - Time Spent With Patient Total time spent is greater than 50% in coordination of care (as documented) at patient's floor/unit and/or counseling patient: - Subjective Interval history: Patient resting in bed looking around room upon arrival for assessment. Patient is alert and oriented times 2; disoriented to time. Patient denies pain, anxiety , nausea, and vomiting during assessment. No family present at bedside. Patient noted to have decreasing weight over the last 5 days. - Constitutional Vitals: Abnormal lab results WBC 17.9 K/mcL (4.3-11.1) H 06/22/18 04:50 RBC 3.45 M/mcL (4.19-5.50) L 06/22/18 04:50 Hgb 10.7 g/dL (12.9-16.9) L 06/22/18 04:50 Hct 32.1 % (37.5-50.1) L 06/22/18 04:50 Neutrophils # 13.4 K/mcL (1.6-8.9) H 06/22/18 04:50 Monocytes # 1.6 K/mcL (0.0-1.3) H 06/22/18 04:50 ESR 18 mm/hr (0-10) H 06/13/18 13:33 PT 15.5 Seconds (9.4-12.1) H 06/17/18 08:00 ABG HCO3 28 mEq/L (21-27) H 06/17/18 12:32 ABG Total CO2 29 mEq/L (20-26) H 06/17/18 12:32 VBG pO2 100 mmHg (25-50) H 06/08/18 15:07 Sodium 147 mEq/L (136-145) H 06/22/18 04:50 Potassium 3.2 mEq/L (3.5-5.1) L 06/22/18 04:50 Chloride 110 mEq/L (98-107) H 06/22/18 04:50 Creatinine 0.60 mg/dL (0.70-1.30) L 06/22/18 04:50 BUN/Creatinine Ratio 38 (6-26) H 06/22/18 04:50 Glucose 113 mg/dL (70-105) H 06/22/18 04:50 POC Glucose 140 mg/dL (70-99) H 06/21/18 19:06 Calculated Osmolality 308 (280-300) H 06/22/18 04:50 AST 52 Units/L (13-39) H 06/18/18 05:02 Alkaline Phosphatase 125 Units/L (34-104) H 06/18/18 05:02 Creatine Kinase 568 Units/L (30-223) H 06/18/18 05:02 Urine Clarity Cloudy (Clear) A 06/14/18 17:30 Urine Protein 30 mg/dL (Neg-Trace) H 06/14/18 17:30 Urine Ketones Trace mg/dL (Negative) H 06/14/18 17:30 Urine Bilirubin Small (Negative) H 06/14/18 17:30 Ur Leukocyte Esterase Small (Negative) H 08/06/18 17:30 Urine Microscopic RBC 3-5 per hpf (0-3) H 06/14/18 17:30 Urine Microscopic WBC 5-15 per hpf (0-3) H 06/14/18 17:30 Urine Bacteria Moderate per hpf (None-Few) H 06/14/18 17:30 Hyaline Casts Moderate per lpf (None-Few) H 06/14/18 17:30 Ur Culture Indicated? YES (NO) A 06/14/18 17:30 Salicylates < 2.5 mg/dL (15.0-30.0) L 06/08/18 14:24 Acetaminophen < 10 mcg/mL (10-20) L 06/08/18 14:24 Free Phenytoin 0.7 ug/mL (1.0-2.5) L 06/13/18 13:33 Total Phenytoin 6.2 ug/mL (10.0-20.0) L 06/13/18 13:33 U Benzodiazepines Scrn Positive ng/mL (Qnwqll=409) H 06/08/18 14:29 General appearance: Present: cooperative, no acute distress - Head Head exam: Present: atraumatic, normal inspection - Eye Eye exam: Present: EOMI, conjuntiva pink. Absent: normal appearance (left eye cataract noted.), periorbital swelling, periorbital tenderness Pupils: Absent: fixed - ENT ENT exam: Present: mucous membranes moist, normal external ear exam - Neck Neck exam: Present: full ROM, normal inspection - Respiratory Respiratory exam: Present: accessory muscle use, rhonchi, wheezes. Absent: respiratory distress - Cardiovascular Cardiovascular exam: Present: irregular rhythm - GI/Abdominal GI/Abdominal exam: Present: normal bowel sounds, soft. Absent: tenderness - Rectal Rectal exam: Present: deferred - Extremities Exam Extremities exam: Present: full ROM. Absent: calf tenderness, pedal edema - Back Exam Back exam: Present: full ROM, normal inspection - Neurological Exam Neurological exam: Present: alert. Absent: oriented X3, strengths equal and symetr throughout - Psychiatric Psychiatric exam: Present: normal affect, normal mood. Absent: anxious - Skin Skin exam: Present: dry, intact, warm Palliative Quality Palliative Quality: Screen for Code Status: Yes, Screen for Goals of Care: Yes, Screen for Pain: Yes, If Pain Regimen Started, Initiate Bowel Regimen: NA, Screen for Nausea/Vomitting: Yes Code Status: 06/22/18 11:37 DNR [Resuscitation Status: Active] [RES] Routine Comment: Resuscitation Status: DNR-Comfort Care-Arrest - Labs CBC & Chem 7: 06/22/18 04:50 06/22/18 04:50 Labs: Laboratory Results - last 24 hr 06/20/18 06/21/18 06/21/18 20:39 07:19 11:30 WBC RBC Hgb Hct MCV MCH MCHC RDW Plt Count MPV Immature Gran % Seg Neutrophils % Lymphocytes % Monocytes % Eosinophils % Basophils % Neutrophils # Lymphocytes # Monocytes # Eosinophils # Basophils # Sodium Potassium Chloride Carbon Dioxide BUN Creatinine Est GFR ( Amer) Est GFR (Non-Af Amer) BUN/Creatinine Ratio Glucose POC Glucose 85 93 91 Calculated Osmolality Calcium Magnesium 06/21/18 06/21/18 06/22/18 15:48 19:06 04:50 WBC 17.9 H RBC 3.45 L Hgb 10.7 L Hct 32.1 L MCV 93.0 MCH 31.0 MCHC 33.3 RDW 12.9 Plt Count 393 MPV 10.0 Immature Gran % 0.6 Seg Neutrophils % 75.0 Lymphocytes % 15.1 Monocytes % 8.8 Eosinophils % 0.2 Basophils % 0.3 Neutrophils # 13.4 H Lymphocytes # 2.7 Monocytes # 1.6 H Eosinophils # 0.0 Basophils # 0.1 Sodium Potassium Chloride Carbon Dioxide BUN Creatinine Est GFR ( Amer) Est GFR (Non-Af Amer) BUN/Creatinine Ratio Glucose POC Glucose 118 H 140 H Calculated Osmolality Calcium Magnesium 06/22/18 04:50 WBC RBC Hgb Hct MCV MCH MCHC RDW Plt Count MPV Immature Gran % Seg Neutrophils % Lymphocytes % Monocytes % Eosinophils % Basophils % Neutrophils # Lymphocytes # Monocytes # Eosinophils # Basophils # Sodium 147 H Potassium 3.2 L Chloride 110 H Carbon Dioxide 27 BUN 23 Creatinine 0.60 L Est GFR ( Amer) > 60 Est GFR (Non-Af Amer) > 60 BUN/Creatinine Ratio 38 H Glucose 113 H POC Glucose Calculated Osmolality 308 H Calcium 9.6 Magnesium 1.7 - Impressions Impressions Videofluoroscopic Swallow 06/22/18 00:01 IMPRESSION: 1. Aspiration of thin liquid. 2. Significant residual in the pharynx with applesauce and cracker. Please see separate speech pathology report for full discussion of findings and recommendations. Anselmo/ / Dawit Khan MD / Dawit Khan MD Interpreting Provider: Dawit Khan MD - ABG Interpretation ABG results: ABG ABG pH 7.43 pH Units (7.32-7.45) D 06/17/18 12:32 ABG pCO2 42 mmHg (35-45) 06/17/18 12:32 ABG pO2 92 mmHg (85-104) 06/17/18 12:32 ABG O2 Saturation 97 % (95-98) 06/17/18 12:32 PT/INR, D-dimer PT 15.5 Seconds (9.4-12.1) H 06/17/18 08:00 Consult Discharge Plan - Plan Referrals: Ivelisse Serrano, SURY [Advanced Practice Nurse] - 06/29/18 4:00 pm Caitlin Adame DO [Partnered Physician] - (Office will call patient at home with follow up appointment)
--- NOTE | 2018-06-22 15:48 | Discharge Summary ---
- NOTES TO OUTPATIENT PROVIDER Notes to Outpatient Provider: Patient to continue Keppra for seizures Orders not resulted at time of discharge: Pending orders 06/21/18 08:20 Culture,Blood [BC] Routine Date of Encounter: 06/22/18 Time of Encounter: 11:00 - Discharge Diagnosis (1) COPD (chronic obstructive pulmonary disease) Priority: Secondary Status: Chronic Qualifiers: COPD type: unspecified COPD Qualified Code(s): J44.9 - Chronic obstructive pulmonary disease, unspecified (2) Atrial fibrillation Priority: Secondary Status: Chronic Qualifiers: Atrial fibrillation type: paroxysmal Qualified Code(s): I48.0 - Paroxysmal atrial fibrillation (3) Seizure disorder Priority: Secondary Status: Chronic (4) Acute and chronic respiratory failure Priority: Secondary Status: Chronic Qualifiers: Respiratory failure complication: hypoxia Qualified Code(s): J96.21 - Acute and chronic respiratory failure with hypoxia (5) Phenytoin toxicity Priority: Primary Status: Resolved Qualifiers: Encounter type: initial encounter Injury intent: accidental or unintentional Qualified Code(s): T42.0X1A - Poisoning by hydantoin derivatives , accidental (unintentional), initial encounter (6) HTN (hypertension) Priority: Secondary Status: Chronic Qualifiers: Hypertension type: essential hypertension Qualified Code(s): I10 - Essential (primary) hypertension (7) Acute encephalopathy Priority: Primary Status: Acute (8) Diabetes mellitus Priority: Secondary Status: Chronic Qualifiers: Diabetes mellitus type: type 2 Diabetes mellitus vermin exterminator insulin use: without detention use Diabetes mellitus complication status: with unspecified complications Qualified Code(s): E11.8 - Type 2 diabetes mellitus with unspecified complications (9) Anxiety and depression Priority: Secondary Status: Chronic (10) UTI (urinary tract infection) Priority: Primary Status: Acute Qualifiers: Indwelling urinary catheter type: unspecified Encounter type: initial encounter Qualified Code(s): T83.511A - Infection and inflammatory reaction due to indwelling urethral catheter, initial encounter; N39.0 - Urinary tract infection, site not specified Hospital course: Patient is a 73-year-old male with past medical history significant for CVA, COPD, hypertension, diabetes, GERD and seizures who presents to the ER on from snf facility due to generalized weakness and confusion. In the ER, patients was confusion was thought to be secondary to phenytoin toxicity and therefore was held and patient started on IV fluids. Patient was admitted to the progressive unit for further monitoring and evaluation. During patients hospital stay, patient was found to have urinary tract infection and was started on IV ampicillin which was later switched to oral amoxicillin. Neurology was consulted and mental status thought to be secondary to urinary tract infection. EEG was also done which did not show seizure activity. Patient was recommended to start Keppra during hospitalization. Patient is medically stable to be discharged to snf facility to continue treatment for urinary tract infection. - Time Spent with Patient Total time spent providing and/or coordinating discharge services: Less than 30 minutes - Discharge Medications Prescriptions: LORazepam [Ativan] 1 mg PO TID 2 Days #6 tablet Home Medications: Acetaminophen [Tylenol] 650 mg PO Q4HR PRN 06/03/18 [History] Albuterol Sulfate [Proair Hfa] 2 puff IH Q4H PRN 06/03/18 [History] Cetirizine HCl [Zyrtec] 10 mg PO DAILY 06/03/18 [History] Ferrous Sulfate [Iron] 325 mg PO DAILY 06/03/18 [History] Folic Acid 1 mg PO DAILY 06/03/18 [History] Gabapentin [Neurontin] 300 mg PO BID 06/03/18 [History] Ipratropium/Albuterol Neb [Duoneb] 3 ml IH Q6HR 06/03/18 [History] Mag Hydrox/Al Hydrox/Simeth [Antacid II-Simethicone Liq] 30 ml PO Q4-6H PRN [History] Magnesium Oxide [Magnesium] 400 mg PO DAILY 06/03/18 [History] Nitroglycerin [Nitrostat] 0.4 mg SL Q5MIN PRN 06/03/18 [History] Phenytoin ER [Dilantin ER] 200 mg PO HS 06/03/18 [History] Sertraline [Zoloft] 50 mg PO DAILY 06/03/18 [History] Thiamine HCl [Vitamin B-1] 100 mg PO DAILY 06/03/18 [History] Aspirin 81 mg PO DAILY 30 Days #30 tab.chew 06/05/18 [Rx] Simvastatin [Zocor] 40 mg PO HS 30 Days #30 tablet 06/05/18 [Rx] Amoxicillin [Amoxil] 500 mg PO TID 3 Days #0 capsule 06/22/18 [Rx] Diltiazem CD (24hr) [Cardizem CD] 360 mg PO DAILY cap.er.24h 06/22/18 [Rx] Enoxaparin [Lovenox] 40 mg SQ 0700 syringe 06/22/18 [Rx] LORazepam [Ativan] 1 mg PO TID 2 Days #6 tablet 06/22/18 [Rx] Metoprolol [Lopressor] 50 mg PO BID tablet 06/22/18 [Rx] Nicotine Patch [Nicoderm] 14 mg TD DAILY patch.td24 06/22/18 [Rx] levETIRAcetam [Keppra] 1,000 mg PO Q12HR tablet 06/22/18 [Rx] Allergies/Adverse Reactions: 3 Allergy/AdvReac Type Severity Reaction Status Date / Time No Known Allergies Allergy Verified 06/08/18 16:45 Date of admission: 06/11/18 08:23 Primary care physician: Jose Oglesby MD Consults: 06/11/18 14:29 Consult to Neurology [CONS] Routine Consulting Provider: Neurology [facility] Reason for Consult: medication recommendations Time Notified: 14:30 Call Completed: Yes 06/17/18 09:18 Consult to Critical Care [CONS] Routine Consulting Provider: Pulm [facility] Reason for Consult: patient transferred to ICU for critical management Call Completed: No 06/18/18 07:40 Consult to Speech Therapy [CONS] Stat Comment: Evaluate, develop and implement POC Reason for Consult: Patient has weak swallowing and cough mechanism please need to be assesed before we can give cardiac rate control meds . Time Notified: 07:40 Call Completed: Yes 06/21/18 08:05 Consult to Palliative Care [CONS] Routine Comment: Consulting Provider: Palliative Care Angie Reason for Consult: Poor functional status, came with encephalopathy with Dilantin toxicity, then developed a.fib with RVR, now has intermittent tremors and rigors Call Completed: No Consult to Speech Therapy [CONS] Routine Comment: Evaluate, develop and implement POC Reason for Consult: continues to have choking and moist cough, elevated white count Call Completed: No - Constitutional Vitals: Temp Pulse Resp BP Pulse Ox 97.8 F 76 18 114/84 95 06/22/18 11:38 06/22/18 11:38 06/22/18 11:38 06/22/18 11:38 06/22/18 11:38 General appearance: Present: no acute distress - Cardiovascular Cardiovascular exam: Present: RRR, +S1, +S2. Absent: diastolic murmur, gallop, rubs, systolic murmur - Patient Status Disposition: Transfer SNF Condition: Fair - Discharge Instructions Follow Up With: Ivelisse Serrano CNP [Advanced Practice Nurse] - 06/29/18 4:00 pm Caitlin Adame DO [Partnered Physician] - (Office will call patient at home with follow up appointment) - VTE Documentation of Mechanical Device: Venous foot pump, device
--- NOTE | 2018-06-22 15:49 | Physician Discharge Referral ---
ExtendedCare Referral Info Institutional Level of Care: Intermediate - Diagnosis (1) COPD (chronic obstructive pulmonary disease) Status: Chronic (2) Atrial fibrillation Status: Chronic (3) Seizure disorder Status: Chronic (4) Acute and chronic respiratory failure Status: Chronic (5) Phenytoin toxicity Status: Resolved (6) HTN (hypertension) Status: Chronic (7) Acute encephalopathy Status: Acute (8) Diabetes mellitus Status: Chronic (9) Anxiety and depression Status: Chronic (10) UTI (urinary tract infection) Status: Acute - Transfer Medications Prescriptions: LORazepam [Ativan] 1 mg PO TID 2 Days #6 tablet Home Medications: Acetaminophen [Tylenol] 650 mg PO Q4HR PRN 06/03/18 [History] Albuterol Sulfate [Proair Hfa] 2 puff IH Q4H PRN 06/03/18 [History] Cetirizine HCl [Zyrtec] 10 mg PO DAILY 06/03/18 [History] Ferrous Sulfate [Iron] 325 mg PO DAILY 06/03/18 [History] Folic Acid 1 mg PO DAILY 06/03/18 [History] Gabapentin [Neurontin] 300 mg PO BID 06/03/18 [History] Ipratropium/Albuterol Neb [Duoneb] 3 ml IH Q6HR 06/03/18 [History] Mag Hydrox/Al Hydrox/Simeth [Antacid II-Simethicone Liq] 30 ml PO Q4-6H PRN [History] Magnesium Oxide [Magnesium] 400 mg PO DAILY 06/03/18 [History] Nitroglycerin [Nitrostat] 0.4 mg SL Q5MIN PRN 06/03/18 [History] Phenytoin ER [Dilantin ER] 200 mg PO HS 06/03/18 [History] Sertraline [Zoloft] 50 mg PO DAILY 06/03/18 [History] Thiamine HCl [Vitamin B-1] 100 mg PO DAILY 06/03/18 [History] Aspirin 81 mg PO DAILY 30 Days #30 tab.chew 06/05/18 [Rx] Simvastatin [Zocor] 40 mg PO HS 30 Days #30 tablet 06/05/18 [Rx] Amoxicillin [Amoxil] 500 mg PO TID 3 Days #0 capsule 06/22/18 [Rx] Diltiazem CD (24hr) [Cardizem CD] 360 mg PO DAILY cap.er.24h 06/22/18 [Rx] Enoxaparin [Lovenox] 40 mg SQ 0700 syringe 06/22/18 [Rx] LORazepam [Ativan] 1 mg PO TID 2 Days #6 tablet 06/22/18 [Rx] Metoprolol [Lopressor] 50 mg PO BID tablet 06/22/18 [Rx] Nicotine Patch [Nicoderm] 14 mg TD DAILY patch.td24 06/22/18 [Rx] levETIRAcetam [Keppra] 1,000 mg PO Q12HR tablet 06/22/18 [Rx] Allergies/Adverse Reactions: 3 Allergy/AdvReac Type Severity Reaction Status Date / Time No Known Allergies Allergy Verified 06/08/18 16:45 - Respiratory Orders Smoking Cessation: Smoking cessation has been advised. For more information, call the [place] Tobacco Quit Line at 9-952-PRPUNOW. CERTIFICATION: I certify that the transfer of the above named patient to an Extended Care Facility is necessary for the continuing treatment of the diagnosis listed. The above information is true and accurate reflection of patient's current condition. Confidential - Redisclosure prohibited without a patient's written consent.
[2018-06-22 16:28] VITALS: BP 106/66
== END 2018-06-22 17:42 | DRG 917 ==
LOC: 3BNU 14:13 → EMEROO 14:13 → 3BNU 17:57 → SUATTDRO 06-11 08:23 → ICNU 06-17 07:27 → 2NNU 06-20 06:23
PROVIDERS: ADMIT Internal Medicine; ATTEND Hospitalist

== ENCOUNTER 2019-02-01 19:48 | Inpatient (IN) ==
[2019-02-01] MEDS ORDERED: Ipratropium/Albuterol Neb 3 ML IH ONE (20:08)
[2019-02-01] MEDS ORDERED: 0.9 % Sodium Chloride 1,000 ML IVC ONE (20:08)
[2019-02-01] MEDS ORDERED: methylPREDNISolone 125 MG/2 ML VIAL IVP ONE (20:09)
--- NOTE | 2019-02-01 20:12 | Emergency Department Note ---
Disposition Clinical Impression: COPD exacerbation, Influenza-like illness Disposition: Admitted As Inpatient Condition: Fair SOB HPI - General Stated Complaint: illness Time Seen by Provider: 02/01/19 19:51 Source: patient, family, EMS Mode of arrival: EMS Limitations: no limitations Nursing Notes Reviewed: Yes Vital Signs Reviewed: Yes - History of Present Illness Patient presents to the ED via EMS for hypoxia and shortness breath. Patient has a history of COPD and is from the skilled nursing. Reportedly everyone on his unit and has influenza, but he tested -48 hours ago. They started him on Tamiflu anyways. He is continued fevers and shortness of breath and cough. Does have an increased sputum production from baseline. Has a history of COPD and is on oxygen at all times, but was noted to be hypoxic in the upper 60s. Upon EMS arrival they state he was in the 80s on his normal 2 L and they bumped him up to 5 L and he came up into the 90s. Patient states he feels just very rundown and tired. He had a fever there as well. He states that he just was discharged from [facility] not too long ago after sepsis from UTI. He did have t o have a feeding tube placed and states he has had no appetite - Related Data Home Medications Medication Instructions Recorded Confirmed RX: Acetaminophen [Tylenol] 650 mg PO Q4HR PRN 06/03/18 06/08/18 RX: Albuterol Sulfate [Proair Hfa] 2 puff IH Q4H PRN 06/03/18 06/08/18 RX: Cetirizine HCl [Zyrtec] 10 mg PO DAILY 06/03/18 06/08/18 RX: Ferrous Sulfate [Iron] 325 mg PO DAILY 06/03/18 06/08/18 RX: Folic Acid 1 mg PO DAILY 06/03/18 06/08/18 RX: Gabapentin [Neurontin] 300 mg PO BID 06/03/18 06/08/18 RX: Ipratropium/Albuterol Neb 3 ml IH Q6HR 06/03/18 06/08/18 [Duoneb] RX: Mag Hydrox/Al Hydrox/Simeth 30 ml PO Q4-6H PRN 06/03/18 06/08/18 [Antacid II-Simethicone Liq] RX: Magnesium Oxide [Magnesium] 400 mg PO DAILY 06/03/18 06/08/18 RX: Nitroglycerin [Nitrostat] 0.4 mg SL Q5MIN PRN 06/03/18 06/08/18 RX: Phenytoin ER [Dilantin ER] 200 mg PO HS 06/03/18 06/08/18 RX: Sertraline [Zoloft] 50 mg PO DAILY 06/03/18 06/08/18 RX: Thiamine HCl [Vitamin B-1] 100 mg PO DAILY 06/03/18 06/08/18 Previous Rx's Medication Instructions Recorded RX: Aspirin 81 mg PO DAILY 30 Days #30 tab.chew 06/05/18 RX: Simvastatin [Zocor] 40 mg PO HS 30 Days #30 tablet 06/05/18 RX: Amoxicillin [Amoxil] 500 mg PO TID 3 Days #0 capsule 06/22/18 RX: Diltiazem CD (24hr) [Cardizem 360 mg PO DAILY cap.er.24h 06/22/18 CD] RX: Enoxaparin [Lovenox] 40 mg SQ 0700 syringe 06/22/18 RX: LORazepam [Ativan] 1 mg PO TID 2 Days #6 tablet 06/22/18 RX: Metoprolol [Lopressor] 50 mg PO BID tablet 06/22/18 RX: Nicotine Patch [Nicoderm] 14 mg TD DAILY patch.td24 06/22/18 RX: levETIRAcetam [Keppra] 1,000 mg PO Q12HR tablet 06/22/18 Allergies Allergy/AdvReac Type Severity Reaction Status Date / Time No Known Allergies Allergy Verified 06/08/18 16:45 Review of Systems: As reviewed in the HPI. All other systems reviewed are negative or normal. Past Medical History - Past Medical History Attestation: Yes The following information was validated with the patient. Source: patient Medical history: Reports: cancer, COPD, CVA, diabetes, GERD, hypertension, seizures, other Surgical history: Reports: no surgical history Psychiatric history: Reports: anxiety, depression - Social History Smoking Status: Current every day smoker Smokeless Tobacco Status: No Alcohol use: Reports: heavy Drug use: Reports: none Physical Exam CONSTITUTIONAL: [Chronically ill-appearing in mild respiratory distress, cachectic] EYES: [EOMI, clear conjunctiva, PERRLA] HENT: [Normocephalic, atraumatic, dry mucus membranes, normal oropharynx] NECK: [normal inspection, full ROM, trachea midline, no obvious swelling] PULMONARY: [Coarse wheezing throughout all lung draper, rhonchi in his central chest, decreased breath sounds bilateral bases, mild respiratory distress with accessory muscle use CARDIOVASCULAR: [regular rate, regular rhythm, normal heart sounds, no murmurs, distal extremities are warm and well perfused] GASTROINSTESTINAL: [soft, non-tender, non-rigid, non-distended, no guarding, no rebound, normal bowel sounds] GENITOURINARY/RECTAL: [Love catheter in place with diaper rash] NEUROLOGIC: [Alert, oriented x3, normal speech, moves all extremities] EXTREMITIES: [Normal inspection, full ROM, no tenderness, no pedal edema, normal capillary refill] MUSCULOSKELETAL: [no gross deformities, atraumatic] SKIN: [No cyanosis, no diaphoresis, normal color, warm, no rash] PSYCHIATRIC: [normal mood and affect] Course Course Narrative: Patient presenting with a COPD exacerbation. He is from the skilled nursing. He does have wheezing consistent with his COPD and his had recent sick contacts. We will go ahead and give him a dose of Levaquin for his COPD exacerbation. Also treated with DuoNeb nebs and steroids Patient has improved and does look better. Family is here and states that he is back to his normal state of health Patient accepted for admission to the hospital service Vital Signs Temperature 100.2 F H 02/01/19 21:31 Pulse Rate 98 02/01/19 21:31 Respiratory Rate 23 02/01/19 21:31 Blood Pressure 146/70 02/01/19 21:31 O2 Sat by Pulse Oximetry 100 02/01/19 21:31 Temperature 100.2 F H 02/01/19 21:31 Pulse Rate 98 02/01/19 21:31 Respiratory Rate 28 02/01/19 22:01 Blood Pressure 146/70 02/01/19 21:31 O2 Sat by Pulse Oximetry 96 02/01/19 22:01 Oxygen Delivery Oxygen Delivery Nasal Cannula Shortness of Breath/Dyspnea - Medical Records Medical records reviewed: Yes I reviewed the patient's medical records. - Lab Data Lab results reviewed: Yes I reviewed the patient's lab results. Result diagrams: 02/01/19 21:10 02/01/19 21:10 Lab Results 02/01/19 02/01/19 02/01/19 Range/Units 21:10 21:10 21:10 WBC 13.5 H (4.3-11.1) K/mcL RBC 4.52 (4.19-5.50) M/mcL Hgb 13.6 (12.9-16.9) g/dL Hct 42.6 (37.5-50.1) % MCV 94.2 (83.0-100.0) fL MCH 30.1 (28.0-33.3) pg MCHC 31.9 (31.6-35.5) g/dL RDW 14.1 (11.5-14.5) % Plt Count 285 (140-400) K/mcL MPV 9.7 (9.4-12.4) fL Immature Gran % 0.4 (0-4) % Seg Neutrophils % 83.7 % Lymphocytes % 6.9 % Monocytes % 8.5 % Eosinophils % 0.1 % Basophils % 0.4 % Neutrophils # 11.3 H (1.6-8.9) K/mcL Lymphocytes # 0.9 (0.6-4.6) K/mcL Monocytes # 1.1 (0.0-1.3) K/mcL Eosinophils # 0.0 (0.0-0.6) K/mcL Basophils # 0.1 (0.0-0.2) K/mcL Sodium 139 (136-145) mEq/L Potassium 4.4 (3.5-5.1) mEq/L Chloride 100 (98-107) mEq/L Carbon Dioxide 31 H (23-29) mEq/L BUN 24 H (8-23) mg/dL Creatinine 0.73 (0.70-1.30) mg/dL Est GFR ( Amer) > 60 (> 60) Est GFR (Non-Af Amer) > 60 (> 60) BUN/Creatinine Ratio 33 H (6-26) Glucose 99 (70-105) mg/dL Calculated Osmolality 292 (280-300) Lactic Acid 0.9 (0.5-2.2) mmol/L Calcium 9.4 (8.6-10.3) mg/dL Troponin I < 0.03 (< 0.04) ng/mL B-Natriuretic Peptide (Less than 100) pg/mL 02/01/19 Range/Units 21:10 WBC (4.3-11.1) K/mcL RBC (4.19-5.50) M/mcL Hgb (12.9-16.9) g/dL Hct (37.5-50.1) % MCV (83.0-100.0) fL MCH (28.0-33.3) pg MCHC (31.6-35.5) g/dL RDW (11.5-14.5) % Plt Count (140-400) K/mcL MPV (9.4-12.4) fL Immature Gran % (0-4) % Seg Neutrophils % % Lymphocytes % % Monocytes % % Eosinophils % % Basophils % % Neutrophils # (1.6-8.9) K/mcL Lymphocytes # (0.6-4.6) K/mcL Monocytes # (0.0-1.3) K/mcL Eosinophils # (0.0-0.6) K/mcL Basophils # (0.0-0.2) K/mcL Sodium (136-145) mEq/L Potassium (3.5-5.1) mEq/L Chloride (98-107) mEq/L Carbon Dioxide (23-29) mEq/L BUN (8-23) mg/dL Creatinine (0.70-1.30) mg/dL Est GFR ( Amer) (> 60) Est GFR (Non-Af Amer) (> 60) BUN/Creatinine Ratio (6-26) Glucose (70-105) mg/dL Calculated Osmolality (280-300) Lactic Acid (0.5-2.2) mmol/L Calcium (8.6-10.3) mg/dL Troponin I (< 0.04) ng/mL B-Natriuretic Peptide 57 (Less than 100) pg/mL - Radiology Data Radiology results reviewed: Yes I reviewed the patient's radiology results. - EKG Data EKG attestation: Yes I reviewed and interpreted this EKG. EKG results narrative: Sinus rhythm, rate 94, normal axis, no acute ischemic change, but there is some noisy artifact limiting fine detail Attestation Statement - Attestation Attestation: Resident Attestation: I examined this patient and my medical decision making was reviewed with the Resident Physician. I agree with the documented findings, disposition and treatment plan as described except to the extent set forth below. We independently had [id number] contact with the patient. Patient presenting to the emergency department secondary to hypoxia. Patient was found have increased work of breathing. Patient has been presumably treated for the flu for the last 2 days. Patient's influenza was negative but everyone else on his floor has been positive. Patient will be treated for COPD exacerbation and possible pneumonia. Patient with mild respiratory distress secondary to wheezing, abdomen soft nontender palpation without guarding or rebound. Patient did improve significantly treatments. Patient will be brought in for COPD exacerbation and possible early clinical pneumonia.
[2019-02-01 21:25] LABS: Basophils # 0.1 K/mcL (0.0-0.2); Basophils % 0.4 %; Eosinophils % 0.1 %; Hematocrit 42.6 % (37.5-50.1); Hemoglobin 13.6 g/dL (12.9-16.9); Immature Granulocytes % 0.4 % (0-4); Lymphocytes # 0.9 K/mcL (0.6-4.6); Lymphocytes % 6.9 %; Mean Corpuscular HGB Conc 31.9 g/dL (31.6-35.5); Mean Corpuscular Hemoglobin 30.1 pg (28.0-33.3); Mean Corpuscular Volume 94.2 fL (83.0-100.0); Mean Platelet Volume 9.7 fL (9.4-12.4); Monocytes # 1.1 K/mcL (0.0-1.3); Monocytes % 8.5 %; Neutrophils # 11.3 K/mcL (1.6-8.9); Platelet Count 285 K/mcL (140-400); Red Blood Count 4.52 M/mcL (4.19-5.50); Red Cell Distribution Width 14.1 % (11.5-14.5); Segmented Neutrophils % 83.7 %
[2019-02-01 21:44] LABS: BUN/Creatinine Ratio 33 (6-26); Blood Urea Nitrogen 24 mg/dL (8-23); Calcium 9.4 mg/dL (8.6-10.3); Carbon Dioxide 31 mEq/L (23-29); Chloride 100 mEq/L (98-107); Glucose 99 mg/dL (70-105); Osmolality,Calculated 292 (280-300); Potassium 4.4 mEq/L (3.5-5.1); Sodium 139 mEq/L (136-145); eGFR For Non-African Americans > 60 (> 60)
[2019-02-01] MEDS ORDERED: Levofloxacin 750 MG/150 ML 750 MG/150 ML BAG IVPB ONE (21:44)
[2019-02-01 21:45] LABS: Troponin I < 0.03 ng/mL (< 0.04)
[2019-02-01 22:43] LABS: Bilirubin,Urine Negative (Negative); Blood,Urine Large (Negative); Clarity,Urine Turbid (Clear); Color,Urine Yellow (Yellow); Glucose,Urine (UA) Normal (Normal); Ketones,Urine Negative (Negative); Leukocyte Esterase,Urine Large (Negative); Nitrite,Urine Positive (Negative); PH,Urine 6.5 pH Units (5.0-8.0); Protein,Urine >=300 mg/dL (Neg-Trace); Specific Gravity,Urine 1.019 (1.010-1.025); Urobilinogen,Urine Normal (Normal)
[2019-02-01 22:46] LABS: Bacteria,Urine Many per hpf (None-Few); RBC,Urine 50-100 per hpf (0-3); WBC,Urine TNTC per hpf (0-3)
[2019-02-01 22:49] LABS: Squamous Epithelial Cell,Urine Moderate per lpf (None-Few)
[2019-02-02] MEDS: Insulin LISPRO 300 UNITS/3 ML VIAL SQ SCH ×4 (09:11→21:40)
[2019-02-02] MEDS: methylPREDNISolone 125 MG/2 ML VIAL IVP SCH ×2 (09:13→15:46)
--- NOTE | 2019-02-02 10:13 | Internal Med History&Physical ---
<Oneida Curtis - Last Filed: 02/02/19 15:20> Date of Encounter: 02/02/19 Time of Encounter: 08:00 Internal Medicine - H&P: HPI Chief complaint: Burning with urination History of present illness: Mr. Martinez is a 73 year old male past medical history of CVA, seizures, dysphagia, hypertension presented to the ED from outside facility complaining of worsening shortness of breath. At presentation he was noted to have white blood cell count of 13.5 he was also requiring 4 L of nasal cannula. He had a temperature 100.2 and heart rate of 98. Chest x-ray did not show any acute abnormalities. This morning he complained resting in bed comfortably and complaining of burning sensation in his genitals. He was recently admitted to [facility] for UTI sepsis. Unsure of what antibiotic regimen he recently completed. He does have history of UTI with enterococcus species back in 06/14/18 and resistant was noted. He does have history of urinary retention and is on bethanechol outpatient. He is a poor historian and unable to give further history. His urine shows many bacteria and elevated leukocytes. Culture is pending. He denies cough, fever, chills, nausea, emesis, chills, or chest pain. Past Med Surg Social Fam HX - Past Medical History Medical history: COPD, CVA, diabetes, GERD, hypertension, seizures, other Additional medical history: muscle weakness, difficulty in walking Psychiatric history: anxiety, depression - Past Surgical History Surgical History: no surgical history - Social History Smoking Status: Current every day smoker Packs per day: half pack Smokeless Tobacco Status: No Alcohol use: none, heavy Drug use: none - Family History Mother Living Status: Hx Family Neurologic Disorders: No Father Living Status: Hx Family Neurologic Disorders: No Internal Medicine - H&P: Meds Acetaminophen [Tylenol] 650 mg PO Q4HR PRN 06/03/18 [History] Albuterol Sulfate [Proair Hfa] 2 puff IH Q4H PRN 06/03/18 [History] Cetirizine HCl [Zyrtec] 10 mg PO DAILY 06/03/18 [History] Ferrous Sulfate [Iron] 325 mg PO DAILY 06/03/18 [History] Folic Acid 1 mg PO DAILY 06/03/18 [History] Gabapentin [Neurontin] 300 mg PO BID 06/03/18 [History] Ipratropium/Albuterol Neb [Duoneb] 3 ml IH Q6HR PRN 06/03/18 [History] Mag Hydrox/Al Hydrox/Simeth [Antacid II-Simethicone Liq] 30 ml PO Q4-6H PRN 06/03/18 [History] Magnesium Oxide [Magnesium] 400 mg PO DAILY 06/03/18 [History] Nitroglycerin [Nitrostat] 0.4 mg SL Q5MIN PRN 06/03/18 [History] Sertraline [Zoloft] 50 mg PO DAILY 06/03/18 [History] Thiamine HCl [Vitamin B-1] 100 mg PO DAILY 06/03/18 [History] Aspirin 81 mg PO DAILY 30 Days #30 tab.chew 06/05/18 [Rx] LORazepam [Ativan] 1 mg PO TID 2 Days #6 tablet 06/22/18 [Rx] levETIRAcetam [Keppra] 1,000 mg PO Q12HR tablet 06/22/18 [Rx] Bethanechol [Urecholine] 25 mg PO TID 02/02/19 [History] Diltiazem HCl [Cardizem LA] 360 mg PO DAILY 02/02/19 [History] Docusate [Colace] 100 mg PO BID PRN 02/02/19 [History] Loratadine [Allergy Relief] 10 mg PO DAILY 02/02/19 [History] Oseltamivir [Tamiflu] 75 mg PO BID 02/02/19 [History] Sennosides [Senokot] 8.6 mg PO BID PRN 02/02/19 [History] Tamsulosin HCl [Flomax] 0.4 mg PO QPM 02/02/19 [History] Triamcinolone Acet 0.1% CRM [Kenalog] 1 appl TP BID 02/02/19 [History] Allergy/AdvReac Type Severity Reaction Status Date / Time No Known Allergies Allergy Verified 06/08/18 16:45 All Systems PM: A 10-system review of systems was performed and is negative for pertinent findings except as documented above in the HPI. Review of systems: Patient is a poor historian - Constitutional Constitutional: no chills, no fever(s) - Cardiovascular Cardiovascular ROS IM: no chest pain, no dyspnea, no palpitations - Respiratory Respiratory: dyspnea, no cough - Gastrointestinal Gastrointestinal: no abdominal pain, no hematemesis, no nausea, no odynophagia - Genitourinary Genitourinary ROS male: dysuria, urinary hesitancy - Musculoskeletal Musculoskeletal ROS IM: no numbness, no stiffness, no tingling - Integumentary Integumentary IM: no erythema, no rash - Constitutional Vitals: Temp Pulse Resp BP Pulse Ox 98.6 F 81 15 108/65 98 02/02/19 07:06 02/02/19 07:06 02/02/19 07:06 02/02/19 07:06 02/02/19 07:06 General appearance: Present: cachectic, A&O X 1, pleasant Exam: See above - Head Head exam: Present: atraumatic, normocephalic - Eye Eye exam: Present: EOMI, normal appearance - ENT ENT exam: Present: mucous membranes moist, normal exam - Neck Neck exam general surgery: Present: full ROM, normal inspection - Respiratory Respiratory exam: Present: rhonchi. Absent: stridor, wheezes - GI/Abdominal GI/Abdominal exam: Present: soft. Absent: firm, rebound, rigid Additional comments: Has a G-tube - Extremities Exam Extremities exam: Present: warm. Absent: pedal edema, tenderness - Psychiatric Psychiatric exam: Present: anxious, normal affect - Skin Skin exam: Present: dry, intact Internal Med - H&P Results - Labs CBC & Chem 7: 02/01/19 21:10 02/01/19 21:10 Labs: Short CBC 02/01/19 Range/Units 21:10 WBC 13.5 H (4.3-11.1) K/mcL Hgb 13.6 (12.9-16.9) g/dL Hct 42.6 (37.5-50.1) % Plt Count 285 (140-400) K/mcL Neutrophils # 11.3 H (1.6-8.9) K/mcL BMP 02/01/19 21:10 Sodium 139 Potassium 4.4 Chloride 100 Carbon Dioxide 31 H BUN 24 H Creatinine 0.73 Glucose 99 Calcium 9.4 Cardiac Enzymes 02/01/19 Range/Units 21:10 Troponin I < 0.03 (< 0.04) ng/mL Urine 03/26/19 Range/Units 22:34 Urine Color Yellow (Yellow) Urine Clarity Turbid A (Clear) Urine pH 6.5 (5.0-8.0) pH Units Ur Specific [place] 1.019 (1.010-1.025) Urine Protein >=300 H (Neg-Trace) mg/dL Urine Glucose (UA) Normal (Normal) mg/dL - Impressions ITS Impressions Chest X-Ray 02/01/19 20:08 IMPRESSION: No acute cardiopulmonary disease. D/ / Jaylen Damon MD / Jaylen Damon MD Interpreting Provider: Jaylen Damon MD - Assessment and Plan (1) Sepsis Current Visit: Yes Status: Acute Assessment and plan: Sepsis likely secondary to UTI. Presented with tachycardia, tachypnea and elevated white blood cell count. Urine shows many leukocyte esterase and bacteria. History of urinary retention and frequent UTIs. Cultures pending. Was recently treated for UTI at [facility] 1 week ago. Received IV fluids in the ED, remains normotensive -Continue ceftriaxone for UTI -Depending on urine culture, will change antibiotic regimen -CBC in the morning -Continue to monitor vitals Qualifiers: Sepsis type: sepsis due to unspecified organism Qualified Code(s): A41.9 - Sepsis, unspecified organism (2) UTI (urinary tract infection) Current Visit: Yes Status: Acute Assessment and plan: Urinalysis in the ED shows large amount of leukocyte esterase and many bacteria. White blood cell count was also elevated at 13.5. UTI could be secondary to retention. Complaining of dysuria And cultures pending Previous history of UTI with enterococcus species -Continue ceftriaxone until cultures return -Bladder scan if not urinating Qualifiers: Urinary tract infection type: site unspecified Hematuria presence: with hematuria Qualified Code(s): N39.0 - Urinary tract infection, site not specified; R31.9 - Hematuria, unspecified (3) COPD (chronic obstructive pulmonary disease) Current Visit: No Status: Chronic Assessment and plan: History of COPD does not appear to be currently in exacerbation but due to consider right lower lobe pneumonia could become in exacerbation. -Continue scheduled DuoNeb -Continue azithromycin and ceftriaxone day 1 -Continue to titrate supplemental oxygen -Continue Solu-Medrol, will titrate to oral depending on clinical picture Qualifiers: COPD type: unspecified COPD Qualified Code(s): J44.9 - Chronic obstructive pulmonary disease, unspecified (4) Pneumonia Current Visit: Yes Status: Acute Assessment and plan: Presented with shortness of breath and at presentation with 2 liters of oxygen he was saturation in the 80s. He is on chronic 2 liters of oxygen. He denies cough or excessive sputum production. CT of the abdomen shows right bronchial wall thickening with mucous plugging -Continue azithyromycin and ceftriaxone day 1 -Continue scheduled duoneb -Continue mucinex Qualifiers: Pneumonia type: due to unspecified organism Laterality: right Lung location: lower lobe of lung Qualified Code(s): J18.1 - Lobar pneumonia, unspecified organism (5) Seizure Current Visit: Yes Status: Chronic Assessment and plan: Continue home keppra (6) DVT prophylaxis Current Visit: No Status: Acute Assessment and plan: Heparin subcutaneous every 12 hours (7) Cachexia Current Visit: Yes Status: Chronic Assessment and plan: Unsure of the etioloy. Awaiting records from outside facility. BMI of 15.8. Has a G tube. Nutrition consulted - Time Spent With Patient Total time spent is greater than 50% in coordination of care (as documented) at patient's floor/unit and/or counseling patient: <Chito Ozuna - Last Filed: 02/02/19 17:14> Date of Encounter: 02/02/19 Internal Medicine - H&P: HPI History of present illness: Mr. Martinez is a 73 year old male All Systems PM: A 10-system review of systems was performed and is negative for pertinent findings except as documented above in the HPI. - Constitutional Vitals: Temp Pulse Resp BP Pulse Ox 97.7 F 74 15 126/70 95 02/02/19 14:24 02/02/19 14:24 02/02/19 14:24 02/02/19 14:24 02/02/19 16:34 Internal Med - H&P Results - Labs CBC & Chem 7: 02/01/19 21:10 02/01/19 21:10 Labs: Short CBC 02/01/19 Range/Units 21:10 WBC 13.5 H (4.3-11.1) K/mcL Hgb 13.6 (12.9-16.9) g/dL Hct 42.6 (37.5-50.1) % Plt Count 285 (140-400) K/mcL Neutrophils # 11.3 H (1.6-8.9) K/mcL BMP 02/01/19 21:10 Sodium 139 Potassium 4.4 Chloride 100 Carbon Dioxide 31 H BUN 24 H Creatinine 0.73 Glucose 99 Calcium 9.4 Cardiac Enzymes 02/01/19 Range/Units 21:10 Troponin I < 0.03 (< 0.04) ng/mL Urine 02/01/19 Range/Units 22:34 Urine Color Yellow (Yellow) Urine Clarity Turbid A (Clear) Urine pH 6.5 (5.0-8.0) pH Units Ur Specific [place] 1.019 (1.010-1.025) Urine Protein >=300 H (Neg-Trace) mg/dL Urine Glucose (UA) Normal (Normal) mg/dL - Impressions ITS Impressions Chest X-Ray 02/01/19 20:08 IMPRESSION: No acute cardiopulmonary disease. D/ / Jaylen Damon MD / Jaylen Damon MD Interpreting Provider: Jaylen Damon MD Abdomen/Pelvis CT 02/02/19 11:11 IMPRESSION: Thickened inflamed appearance of the wall of the urinary bladder consistent with acute cystitis. 5 large bladder stones present. Normal appearance of the kidneys. Normal appendix. Appearance of the base the right lower lobe consistent with early pneumonia and moderate chronic or acute bronchitis with mucous plugging. D/ / Jevon Gunter MD / Jevon Gunter MD Interpreting Provider: Jevon Gunter MD - Assessment and Plan (1) COPD (chronic obstructive pulmonary disease) Current Visit: No Status: Chronic Qualifiers: COPD type: unspecified COPD Qualified Code(s): J44.9 - Chronic obstructive pulmonary disease, unspecified (2) DVT prophylaxis Current Visit: No Status: Acute (3) UTI (urinary tract infection) Current Visit: Yes Status: Acute Qualifiers: Urinary tract infection type: site unspecified Hematuria presence: with hematuria Qualified Code(s): N39.0 - Urinary tract infection, site not specified; R31.9 - Hematuria, unspecified (4) Sepsis Current Visit: Yes Status: Acute Qualifiers: Sepsis type: sepsis due to unspecified organism Qualified Code(s): A41.9 - Sepsis, unspecified organism (5) Pneumonia Current Visit: Yes Status: Acute Qualifiers: Pneumonia type: due to unspecified organism Laterality: right Lung location: lower lobe of lung Qualified Code(s): J18.1 - Lobar pneumonia, unspecified organism (6) Seizure Current Visit: Yes Status: Chronic (7) Cachexia Current Visit: Yes Status: Chronic - Time Spent With Patient Total time spent is greater than 50% in coordination of care (as documented) at patient's floor/unit and/or counseling patient: - Attending Attestation I examined this patient and my medical decision-making was reviewed with the Resident Physician. I agree with the documented findings, disposition and treatment plan as described except to the extent set forth below.
[2019-02-02] MEDS: Ipratropium/Albuterol Neb 3 ML IH SCH ×5 (10:22→23:17)
[2019-02-02] MEDS ORDERED: Acetaminophen 325 MG TABLET PO PRN (11:46)
[2019-02-02] MEDS ORDERED: Ipratropium/Albuterol Neb 3 ML IH PRN (11:46)
[2019-02-02] MEDS ORDERED: cefTRIAXone 1,000 MG in Water for inj. (sterile) 20 ML 10 ML IVP SCH (12:00)
[2019-02-02] MEDS ORDERED: Azithromycin 500 MG in D5% in Water 250 ML IVPB SCH (15:00)
[2019-02-02] MEDS: *HR* LORazepam 1 MG TABLET PO SCH ×2 (15:14→21:39)
[2019-02-02] MEDS: *HR* Heparin 5,000 UNIT/ML VIAL SQ SCH (18:48)
[2019-02-02] MEDS: levETIRAcetam 250 MG TABLET PO SCH (18:49)
[2019-02-02] MEDS: Gabapentin 300 MG CAPSULE PO SCH (21:39)
[2019-02-03 00:31] LABS: Basophils % 0.1 %; Hematocrit 40.1 % (37.5-50.1); Hemoglobin 12.9 g/dL (12.9-16.9); Immature Granulocytes % 0.5 % (0-4); Immature Platelets 3.6 % (1.1-6.1); Lymphocytes # 0.6 K/mcL (0.6-4.6); Lymphocytes % 3.6 %; Mean Corpuscular HGB Conc 32.2 g/dL (31.6-35.5); Mean Corpuscular Hemoglobin 29.9 pg (28.0-33.3); Mean Corpuscular Volume 92.8 fL (83.0-100.0); Mean Platelet Volume 9.8 fL (9.4-12.4); Monocytes # 0.8 K/mcL (0.0-1.3); Monocytes % 4.8 %; Neutrophils # 15.7 K/mcL (1.6-8.9); Platelet Count 254 K/mcL (140-400); Red Blood Count 4.32 M/mcL (4.19-5.50); Red Cell Distribution Width 13.6 % (11.5-14.5)
[2019-02-03 00:49] LABS: BUN/Creatinine Ratio 55 (6-26); Blood Urea Nitrogen 34 mg/dL (8-23); Calcium 9.4 mg/dL (8.6-10.3); Carbon Dioxide 28 mEq/L (23-29); Chloride 101 mEq/L (98-107); Glucose 171 mg/dL (70-105); Osmolality,Calculated 296 (280-300); Potassium 3.6 mEq/L (3.5-5.1); Sodium 137 mEq/L (136-145); eGFR For Non-African Americans > 60 (> 60)
[2019-02-03] MEDS: methylPREDNISolone 125 MG/2 ML VIAL IVP SCH ×4 (01:00→23:59)
[2019-02-03] MEDS ORDERED: 0.9 % Sodium Chloride 1,000 ML IVC ONE ×2 (01:10→06:40)
--- NOTE | 2019-02-03 01:30 | Event Note ---
Date of Encounter: 02/02/19 Time of Encounter: 22:27 Alerted by patient's nurse that patient was a sepsis risk due to WBC of 17.3 and HR 97. Patient admitted with pneumonia and UTI. Last lactic on 02/01 at 21:10 was 0.9. Stat lactic ordered which returned at 3.8. Informed the patient's nurse that patient's IV had gone bad. Nurse instructed to place order for an EPIV and call ICU for placement. DIC workload, household cook called to attempt IV placement which was successful but temporary. 1 L fluid bolus of 0.9 ordered. ICU called again due to patient's septic status and nurse sent to place EPIV. Pt. is currently receiving IVPB azithromycin and ceftriaxone for infection coverage. Nurse instructed to continue monitoring patient very closely overnight and alert me immediately of any adverse changes.
[2019-02-03 02:42] LABS: Adenovirus Not Detected (Not Detect); Bordetella Pertussis Not Detected (Not Detect); Chlamydophila pneumoniae Not Detected (Not Detect); Coronavirus 229E Not Detected (Not Detect); Coronavirus HKU1 Not Detected (Not Detect); Coronavirus NL63 Not Detected (Not Detect); Coronavirus OC43 Not Detected (Not Detect); Human Metapneumovirus Not Detected (Not Detect); Human Rhinovirus/Enterovirus Not Detected (Not Detect); Influenza A Subtype 2009 H1 Not Detected (Not Detect); Influenza A Untypeable Not Detected (Not Detect); Influenza B Not Detected (Not Detect); Mycoplasma pneumoniae Not Detected (Not Detect); Parainfluenza Virus 1 Not Detected (Not Detect); Parainfluenza Virus 2 Not Detected (Not Detect); Parainfluenza Virus 3 Not Detected (Not Detect); Parainfluenza Virus 4 Not Detected (Not Detect); Respiratory Syncytial Virus Not Detected (Not Detect)
[2019-02-03] MEDS: Ipratropium/Albuterol Neb 3 ML IH SCH ×5 (03:52→20:42)
[2019-02-03] MEDS: levETIRAcetam 250 MG TABLET PO SCH ×2 (05:20→17:02)
[2019-02-03] MEDS: *HR* Heparin 5,000 UNIT/ML VIAL SQ SCH ×2 (05:20→17:03)
--- NOTE | 2019-02-03 09:50 | Internal Med Progress Note ---
<Oneida Curtis - Last Filed: 02/03/19 15:26> Hospitalist Progress Note - Encounter Date of Encounter: 02/03/19 Time of Encounter: 09:00 - Subjective Interval History: Mr. Mayen was seen at bedside this morning. He was resting comfortably and reported he slept well overnight. He continues to complain of burning sensation in his genital area, upon exam no lesions were noted. It is likely secondary to UTI. He has no other complaints and denies fever, chills, nausea, emesis or chest pain. - Exam Vitals: Temp Pulse Resp BP Pulse Ox 98.3 F 65 16 122/70 94 02/03/19 03:39 02/03/19 03:39 02/03/19 07:22 02/03/19 03:39 02/03/19 07:22 Exam: Gen: Cachectic appearing, had episodes of tachycardia overnight Eyes: anicteric sclerae, moist conjunctivae HENT: Atraumatic; oropharynx clear with moist mucous membranes Neck: Trachea midline; supple Cardiac: RRR, no murmur, +S1/S2. No JVD noted. Pulmonary: Decreased air transfer, no rhonchi noted Abdomen: soft, nontender, no guarding MSK: ROM intact, no joint swelling noted Extremities: no edema, nontender calf Skin: Normal temperature, turgor; no rash, ulcers or subcutaneous nodules Neuro: moves all extremities, no focal deficits. Psych: Appropriate mood and behavior. A&Ox3 - Assessment and Plan (1) Sepsis Current Visit: Yes Status: Acute Assessment and Plan: Sepsis likely secondary to UTI. Presented with tachycardia, tachypnea and elevated white blood cell count 13.5. Urine shows many leukocyte esterase and bacteria. History of urinary retention and frequent UTIs. Overnight had episodes of tachycardia and white blood cell count was elevated at 17.3 -Received 2 units of fluid overnight due to elevated WBC and elevated lactic acid concerning for sepsis -Due to sepsis contrary to UTI and pneumonia antibiotic regimen changed to Zosyn, vancomycin and Levaquin -Blood cultures pending -CBC in the morning -Continue to monitor vitals -Urine Cultures pending, currently gram-negative rods are seen (2) UTI (urinary tract infection) Current Visit: Yes Status: Acute Assessment and Plan: Urinalysis in the ED shows large amount of leukocyte esterase and many bacteria. Wbc this morning was 17.3 with elevated lactic acid 3.8, repeat was 3.0 and this afternoon is 2.3 Latter scan this morning showed minimal retention of 75 mL Previous history of UTI with enterococcus species -Previous UTI was sensitive to vancomycin, continue vancomycin day 1 -Continue Levaquin day 1 -Urine culture showed gram-negative rods, sensitivities pending (3) COPD (chronic obstructive pulmonary disease) Current Visit: No Status: Chronic Assessment and Plan: History of COPD does not appear to be currently in exacerbation but due to consider right lower lobe pneumonia could become in exacerbation. -Continue scheduled DuoNeb -Continue vancomycin and Zosyn day 1 -Continue to titrate supplemental oxygen -Continue Solu-Medrol, will titrate to oral depending on clinical picture (4) Pneumonia Current Visit: Yes Status: Acute Assessment and Plan: Presented with shortness of breath and at presentation with 2 liters of oxygen he was saturation in the 80s. He is on chronic 2 liters of oxygen. He denies cough or excessive sputum production. CT of the abdomen shows right bronchial wall thickening with mucous plugging -Continue vancomycin and Zosyn day 1 -Continue Solu-Medrol 16 mg every 8 hours continue titrate depending on clinical picture -Continue scheduled duoneb -Continue mucinex -Blood cultures pending (5) Seizure Current Visit: Yes Status: Chronic Assessment and Plan: Continue home keppra (6) DVT prophylaxis Current Visit: No Status: Acute Assessment and Plan: Heparin subcutaneous every 12 hours (7) Cachexia Current Visit: Yes Status: Chronic Assessment and Plan: Unsure of the etioloy. Awaiting records from outside facility. BMI of 15.8. Has a G tube. Nutrition consulted DVT Prophylaxis: Heparin subcutaneous every 12 hours - Time Spent with Patient Total time spent is greater than 50% in coordination of care (as documented) at patient's floor/unit and/or counseling patient: Internal Medicine: Result - Labs CBC & Chem 7: 02/03/19 00:18 02/03/19 00:18 Labs: Short CBC 02/03/19 Range/Units 00:18 WBC 17.3 H (4.3-11.1) K/mcL Hgb 12.9 (12.9-16.9) g/dL Hct 40.1 (37.5-50.1) % Plt Count 254 (140-400) K/mcL Neutrophils # 15.7 H (1.6-8.9) K/mcL BMP 02/03/19 00:18 Sodium 137 Potassium 3.6 Chloride 101 Carbon Dioxide 28 BUN 34 H Creatinine 0.62 L Glucose 171 H Calcium 9.4 - Impressions Impressions Abdomen/Pelvis CT 02/02/19 11:11 IMPRESSION: Thickened inflamed appearance of the wall of the urinary bladder consistent with acute cystitis. 5 large bladder stones present. Normal appearance of the kidneys. Normal appendix. Appearance of the base the right lower lobe consistent with early pneumonia and moderate chronic or acute bronchitis with mucous plugging. D/ / Jevon Gunter MD / Jevon Gunter MD Interpreting Provider: Jevon Gunter MD Consult Discharge Plan - Plan Referrals: Noe Pena MD [Primary Care Provider] - <Chito Ozuna - Last Filed: 02/03/19 17:48> Hospitalist Progress Note - Encounter Date of Encounter: 02/03/19 - Exam Vitals: Temp Pulse Resp BP Pulse Ox 97.7 F 102 18 132/95 94 02/03/19 16:19 02/03/19 16:19 02/03/19 16:19 02/03/19 16:19 02/03/19 16:19 - Assessment and Plan (1) COPD (chronic obstructive pulmonary disease) Current Visit: No Status: Chronic (2) DVT prophylaxis Current Visit: No Status: Acute (3) UTI (urinary tract infection) Current Visit: Yes Status: Acute (4) Sepsis Current Visit: Yes Status: Acute (5) Pneumonia Current Visit: Yes Status: Acute (6) Seizure Current Visit: Yes Status: Chronic (7) Cachexia Current Visit: Yes Status: Chronic - Time Spent with Patient Total time spent is greater than 50% in coordination of care (as documented) at patient's floor/unit and/or counseling patient: Internal Medicine: Result - Labs CBC & Chem 7: 02/03/19 00:18 02/03/19 00:18 Labs: Short CBC 02/03/19 Range/Units 00:18 WBC 17.3 H (4.3-11.1) K/mcL Hgb 12.9 (12.9-16.9) g/dL Hct 40.1 (37.5-50.1) % Plt Count 254 (140-400) K/mcL Neutrophils # 15.7 H (1.6-8.9) K/mcL BMP 02/03/19 00:18 Sodium 137 Potassium 3.6 Chloride 101 Carbon Dioxide 28 BUN 34 H Creatinine 0.62 L Glucose 171 H Calcium 9.4 - Impressions Impressions Videofluoroscopic Swallow 02/03/19 00:01 IMPRESSION: Aspiration with thin liquids. Please see separate speech pathology report for full discussion of findings and recommendations. D/ / 02/03/2019 12:28:00 Husam Zavala MD / Lucía Pryor Interpreting Provider: Husam Zavala MD - Attending Attestation I examined this patient and my medical decision-making was reviewed with the Resident Physician. I agree with the documented findings, disposition and treatment plan as described except to the extent set forth below. <Oneida Curtis - Last Filed: 02/03/19 15:26> (1) Sepsis Qualifiers: Sepsis type: sepsis due to unspecified organism Qualified Code(s): A41.9 - Sepsis, unspecified organism (2) UTI (urinary tract infection) Qualifiers: Urinary tract infection type: site unspecified Hematuria presence: with hematuria Qualified Code(s): N39.0 - Urinary tract infection, site not specified; R31.9 - Hematuria, unspecified (3) COPD (chronic obstructive pulmonary disease) Qualifiers: COPD type: unspecified COPD Qualified Code(s): J44.9 - Chronic obstructive pulmonary disease, unspecified (4) Pneumonia Qualifiers: Pneumonia type: due to unspecified organism Laterality: right Lung location: lower lobe of lung Qualified Code(s): J18.1 - Lobar pneumonia, unspecified organism <TiffanytenakaciJaquelineLaurenhailey Bethmarnie - Last Filed: 02/03/19 17:48> (1) COPD (chronic obstructive pulmonary disease) Qualifiers: COPD type: unspecified COPD Qualified Code(s): J44.9 - Chronic obstructive pulmonary disease, unspecified (3) UTI (urinary tract infection) Qualifiers: Urinary tract infection type: site unspecified Hematuria presence: with hematuria Qualified Code(s): N39.0 - Urinary tract infection, site not specified; R31.9 - Hematuria, unspecified (4) Sepsis Qualifiers: Sepsis type: sepsis due to unspecified organism Qualified Code(s): A41.9 - Sepsis, unspecified organism (5) Pneumonia Qualifiers: Pneumonia type: due to unspecified organism Laterality: right Lung location: lower lobe of lung Qualified Code(s): J18.1 - Lobar pneumonia, unspecified organism
[2019-02-03] MEDS ORDERED: E-Z-PAQUE (BARIUM SULF) SUSP 1 BOTTLE PO ONE (10:29)
[2019-02-03] MEDS ORDERED: E-Z-HD (BARIUM SULF) SUSPENSION PO ONE (10:29)
[2019-02-03] MEDS: *HR* LORazepam 1 MG TABLET PO SCH ×3 (11:05→21:41)
[2019-02-03] MEDS: Thiamine (B-1) 100 MG TABLET PO SCH (11:05)
[2019-02-03] MEDS: Gabapentin 300 MG CAPSULE PO SCH ×2 (11:06→21:41)
[2019-02-03] MEDS: Aspirin 81 MG TAB.CHEW PO SCH (11:06)
[2019-02-03] MEDS: Insulin LISPRO 300 UNITS/3 ML VIAL SQ SCH ×4 (11:39→21:41)
[2019-02-03] MEDS: Levofloxacin 750 MG/150 ML 750 MG/150 ML BAG IVPB SCH (13:56)
[2019-02-03] MEDS: Piperacillin/Tazobactam 3.375 GM in 0.9 % Sodium Chloride Mini Bag 100 ML IVPB SCH ×2 (17:03→23:59)
[2019-02-03] MEDS: GuaiFENesin Liq 200 MG/10 ML UDC PO SCH (21:41)
[2019-02-03] MEDS ORDERED: *HR* OxyCODONE Immed Rel 5 MG TABLET PO ONE (23:58)
[2019-02-04] MEDS: Ipratropium/Albuterol Neb 3 ML IH SCH ×6 (00:17→20:12)
[2019-02-04] MEDS: GuaiFENesin Liq 200 MG/10 ML UDC PO SCH ×6 (01:28→21:31)
[2019-02-04 04:22] LABS: BUN/Creatinine Ratio 46 (6-26); Blood Urea Nitrogen 21 mg/dL (8-23); Calcium 8.8 mg/dL (8.6-10.3); Carbon Dioxide 32 mEq/L (23-29); Chloride 102 mEq/L (98-107); Glucose 182 mg/dL (70-105); Osmolality,Calculated 294 (280-300); Potassium 3.8 mEq/L (3.5-5.1); Sodium 138 mEq/L (136-145); eGFR For Non-African Americans > 60 (> 60)
[2019-02-04 05:29] LABS: Hemoglobin 10.5 g/dL (12.9-16.9); Immature Granulocytes % 0.5 % (0-4); Lymphocytes # 0.7 K/mcL (0.6-4.6); Lymphocytes % 4.6 %; Mean Corpuscular HGB Conc 31.8 g/dL (31.6-35.5); Mean Corpuscular Hemoglobin 29.7 pg (28.0-33.3); Mean Corpuscular Volume 93.5 fL (83.0-100.0); Monocytes # 0.6 K/mcL (0.0-1.3); Monocytes % 3.8 %; Neutrophils # 13.3 K/mcL (1.6-8.9); Platelet Count 234 K/mcL (140-400); Red Blood Count 3.53 M/mcL (4.19-5.50); Red Cell Distribution Width 13.9 % (11.5-14.5); Segmented Neutrophils % 91.1 %
[2019-02-04] MEDS: *HR* Heparin 5,000 UNIT/ML VIAL SQ SCH ×2 (06:10→17:20)
[2019-02-04] MEDS: levETIRAcetam 500 MG/5 ML UDC PO SCH ×2 (06:11→17:37)
--- NOTE | 2019-02-04 06:47 | Internal Med Progress Note ---
<Emil Peterson - Last Filed: 02/04/19 16:03> Hospitalist Progress Note - Encounter Date of Encounter: 02/04/19 Time of Encounter: 10:00 - Subjective Interval History: Patient is resting in bed at time of examination. He does appear to be very somnolent today, however he says that he is comfortable. He says that overnight he had no acute concerns. He denies any pulmonary concerns, and says that his pelvic pain has improved. - Exam Vitals: Temp Pulse Resp BP Pulse Ox 97.6 F 91 18 133/73 92 02/04/19 05:09 02/04/19 05:09 02/04/19 05:09 02/04/19 05:09 02/04/19 05:09 Exam: Gen: Cachectic appearing, had episodes of tachycardia overnight Eyes: anicteric sclerae, moist conjunctivae HENT: Atraumatic; oropharynx clear with moist mucous membranes Neck: Trachea midline; supple Cardiac: RRR, no murmur, +S1/S2. No JVD noted. Pulmonary: Decreased air transfer, no rhonchi noted Abdomen: soft, nontender, no guarding MSK: ROM intact, no joint swelling noted Extremities: no edema, nontender calf Skin: Normal temperature, turgor; no rash, ulcers or subcutaneous nodules Neuro: moves all extremities, no focal deficits. Psych: Appropriate mood and behavior. A&Ox3 - Assessment and Plan (1) Sepsis Current Visit: Yes Status: Acute Assessment and Plan: Sepsis likely secondary to UTI vs pna. 17.3 yesterday, HR 102, Lactic acid 3.8 peak Received 2L 0.9NS per sepsis protocol, broadened, ABX coverage Afebrile overnight, HR normal -Blood cultures pending, urine currently growing GNR species x2 -Vancomycin, zosyn, levaquin day 2, total antibiotic day 3 -CBC in the morning -Continue to monitor vitals (2) UTI (urinary tract infection) Current Visit: Yes Status: Acute Assessment and Plan: Urinalysis in the ED shows large amount of leukocyte esterase and many bacteria. Wbc this morning was 17.3 with elevated lactic acid 3.8, trended down to 2.3 on last check Bladder Latter scan this morning showed minimal retention of 75 mL Previous history of UTI with enterococcus species -Previous UTI was sensitive to vancomycin, continue vancomycin day 2 -Levaquin added for complicated UTI -Urine culture showed gram-negative rods x2, sensitivities pending (3) Pneumonia Current Visit: Yes Status: Acute Assessment and Plan: Presented with shortness of breath and at presentation with 2 liters of oxygen he was saturation in the 80s. He is on chronic 2 liters of oxygen. He denies cough or excessive sputum production. CT of the abdomen shows right bronchial wall thickening with mucous plugging -Continue vancomycin and Zosyn day 2 -Solu-medrol 60mg q8h day 2.5, likely deescalate to 40mg q8h (4) COPD (chronic obstructive pulmonary disease) Current Visit: No Status: Chronic Assessment and Plan: History of COPD does not appear to be currently in exacerbation but due to consider right lower lobe pneumonia could become in exacerbation. -Continue scheduled DuoNeb -Continue vancomycin and Zosyn day 2 -Continue to titrate supplemental oxygen -Continue Solu-Medrol, will titrate to oral depending on clinical picture (5) Seizure Current Visit: Yes Status: Chronic Assessment and Plan: Continue home keppra (6) DVT prophylaxis Current Visit: No Status: Acute Assessment and Plan: Heparin subcutaneous every 12 hours (7) Cachexia Current Visit: Yes Status: Chronic Assessment and Plan: Unsure of the etioloy. Awaiting records from outside facility. BMI of 15.8. Has a G tube. Nutrition consulted - Time Spent with Patient Total time spent is greater than 50% in coordination of care (as documented) at patient's floor/unit and/or counseling patient: Internal Medicine: Result - Labs CBC & Chem 7: 02/04/19 05:00 02/04/19 03:45 Labs: BMP 02/04/19 03:45 Sodium 138 Potassium 3.8 Chloride 102 Carbon Dioxide 32 H BUN 21 Creatinine 0.46 L Glucose 182 H Calcium 8.8 - Impressions Impressions Videofluoroscopic Swallow 02/03/19 00:01 IMPRESSION: 1. Aspiration with thin liquids. 2. Please see separate speech pathology report for full discussion of findings and recommendations. D/ / 02/03/2019 12:28:00 Husam Zavala MD / Lucía Pryor Interpreting Provider: Husam Zavala MD Consult Discharge Plan - Plan Referrals: Noe Pena MD [Primary Care Provider] - <Chito Ozuna - Last Filed: 02/04/19 17:26> Hospitalist Progress Note - Encounter Date of Encounter: 02/04/19 - Exam Vitals: Temp Pulse Resp BP Pulse Ox 97.6 F 84 18 146/92 95 02/04/19 15:28 02/04/19 15:28 02/04/19 15:43 02/04/19 15:28 02/04/19 15:43 - Assessment and Plan (1) COPD (chronic obstructive pulmonary disease) Current Visit: No Status: Chronic (2) DVT prophylaxis Current Visit: No Status: Acute (3) UTI (urinary tract infection) Current Visit: Yes Status: Acute (4) Sepsis Current Visit: Yes Status: Acute (5) Pneumonia Current Visit: Yes Status: Acute (6) Seizure Current Visit: Yes Status: Chronic (7) Cachexia Current Visit: Yes Status: Chronic - Time Spent with Patient Total time spent is greater than 50% in coordination of care (as documented) at patient's floor/unit and/or counseling patient: Internal Medicine: Result - Labs CBC & Chem 7: 02/04/19 05:00 02/04/19 03:45 Labs: Short CBC 02/04/19 Range/Units 05:00 WBC 14.6 H (4.3-11.1) K/mcL Hgb 10.5 L D (12.9-16.9) g/dL Hct 33.0 L (37.5-50.1) % Plt Count 234 (140-400) K/mcL Neutrophils # 13.3 H (1.6-8.9) K/mcL BMP 02/04/19 03:45 Sodium 138 Potassium 3.8 Chloride 102 Carbon Dioxide 32 H BUN 21 Creatinine 0.46 L Glucose 182 H Calcium 8.8 - Impressions Impressions Videofluoroscopic Swallow 02/03/19 00:01 IMPRESSION: 1. Aspiration with thin liquids. 2. Please see separate speech pathology report for full discussion of findings and recommendations. D/ / 02/03/2019 12:28:00 Husam Zavala MD / Lucía Pryor Interpreting Provider: Husam Zavala MD - Attending Attestation I examined this patient and my medical decision-making was reviewed with the Resident Physician. I agree with the documented findings, disposition and treatment plan as described except to the extent set forth below. <Emil Peterson - Last Filed: 02/04/19 16:03> (1) Sepsis Qualifiers: Sepsis type: sepsis due to unspecified organism Qualified Code(s): A41.9 - Sepsis, unspecified organism (2) UTI (urinary tract infection) Qualifiers: Urinary tract infection type: site unspecified Hematuria presence: with he maturia Qualified Code(s): N39.0 - Urinary tract infection, site not specified; R31.9 - Hematuria, unspecified (3) Pneumonia Qualifiers: Pneumonia type: due to unspecified organism Laterality: right Lung location: lower lobe of lung Qualified Code(s): J18.1 - Lobar pneumonia, unspecified organism (4) COPD (chronic obstructive pulmonary disease) Qualifiers: COPD type: unspecified COPD Qualified Code(s): J44.9 - Chronic obstructive pulmonary disease, unspecified <Chito Ozuna - Last Filed: 02/04/19 17:26> (1) COPD (chronic obstructive pulmonary disease) Qualifiers: COPD type: unspecified COPD Qualified Code(s): J44.9 - Chronic obstructive pulmonary disease, unspecified (3) UTI (urinary tract infection) Qualifiers: Urinary tract infection type: site unspecified Hematuria presence: with hematuria Qualified Code(s): N39.0 - Urinary tract infection, site not specified; R31.9 - Hematuria, unspecified (4) Sepsis Qualifiers: Sepsis type: sepsis due to unspecified organism Qualified Code(s): A41.9 - Sepsis, unspecified organism (5) Pneumonia Qualifiers: Pneumonia type: due to unspecified organism Laterality: right Lung location: lower lobe of lung Qualified Code(s): J18.1 - Lobar pneumonia, unspecified organism
[2019-02-04] MEDS: Insulin LISPRO 300 UNITS/3 ML VIAL SQ SCH ×4 (07:45→21:31)
[2019-02-04] MEDS: *HR* LORazepam 1 MG TABLET PO SCH ×3 (08:12→21:30)
[2019-02-04] MEDS: Thiamine (B-1) 100 MG TABLET PO SCH (08:12)
[2019-02-04] MEDS: Gabapentin 300 MG CAPSULE PO SCH ×2 (08:12→21:30)
[2019-02-04] MEDS: Aspirin 81 MG TAB.CHEW PO SCH (08:12)
[2019-02-04] MEDS: methylPREDNISolone 125 MG/2 ML VIAL IVP SCH ×2 (08:12→16:17)
[2019-02-04] MEDS: Piperacillin/Tazobactam 3.375 GM in 0.9 % Sodium Chloride Mini Bag 100 ML IVPB SCH ×2 (08:13→16:22)
--- NOTE | 2019-02-04 11:50 | Electrocardiograph Report ---
[place] [id number] Test Date: 2019-02-01 Pat Name: Mitchell Martinez Department: [id number] Room: 2NE22 Gender: M [employer]: : 1945 Requested By: Shawn Nelson Order Number: [id number] Reading MD: Omar Muller Measurements Intervals [place] Rate: 94 P: 0 MN: 69 QRS: 74 QRSD: 108 T: 264 QT: 317 QTc: 403 Interpretive Statements Sinus rhythm Short MN interval Nonspecific T abnormalities, inferior leads Artifact in lead(s) I II III aVR aVL aVF V2 V4 V5 Electronically Signed On 02-04-2019 11:48:33 EDT by Omar Muller
[2019-02-04] MEDS: Levofloxacin 750 MG/150 ML 750 MG/150 ML BAG IVPB SCH (13:42)
[2019-02-05] MEDS: Ipratropium/Albuterol Neb 3 ML IH SCH ×7 (00:45→23:59)
[2019-02-05] MEDS: Piperacillin/Tazobactam 3.375 GM in 0.9 % Sodium Chloride Mini Bag 100 ML IVPB SCH ×2 (01:18→08:48)
[2019-02-05] MEDS: methylPREDNISolone 125 MG/2 ML VIAL IVP SCH ×2 (01:18→08:47)
[2019-02-05] MEDS: GuaiFENesin Liq 200 MG/10 ML UDC PO SCH ×6 (01:19→21:15)
[2019-02-05 06:26] LABS: Hematocrit 33.1 % (37.5-50.1); Hemoglobin 10.6 g/dL (12.9-16.9); Immature Granulocytes % 0.5 % (0-4); Lymphocytes # 0.6 K/mcL (0.6-4.6); Lymphocytes % 4.7 %; Mean Corpuscular Hemoglobin 29.4 pg (28.0-33.3); Mean Corpuscular Volume 91.7 fL (83.0-100.0); Mean Platelet Volume 10.1 fL (9.4-12.4); Monocytes # 0.7 K/mcL (0.0-1.3); Monocytes % 5.9 %; Neutrophils # 10.8 K/mcL (1.6-8.9); Platelet Count 229 K/mcL (140-400); Red Blood Count 3.61 M/mcL (4.19-5.50); Red Cell Distribution Width 13.6 % (11.5-14.5); Segmented Neutrophils % 88.9 %
[2019-02-05] MEDS: *HR* Heparin 5,000 UNIT/ML VIAL SQ SCH ×2 (06:36→18:24)
[2019-02-05] MEDS: levETIRAcetam 500 MG/5 ML UDC PO SCH ×2 (06:36→21:17)
[2019-02-05 06:52] LABS: BUN/Creatinine Ratio 36 (6-26); Blood Urea Nitrogen 16 mg/dL (8-23); Calcium 8.7 mg/dL (8.6-10.3); Carbon Dioxide 32 mEq/L (23-29); Chloride 96 mEq/L (98-107); Glucose 171 mg/dL (70-105); Osmolality,Calculated 287 (280-300); Potassium 3.6 mEq/L (3.5-5.1); Sodium 136 mEq/L (136-145); eGFR For Non-African Americans > 60 (> 60)
[2019-02-05] MEDS: Insulin LISPRO 300 UNITS/3 ML VIAL SQ SCH ×4 (08:45→21:17)
[2019-02-05] MEDS: *HR* LORazepam 1 MG TABLET PO SCH ×3 (08:48→21:15)
[2019-02-05] MEDS: Gabapentin 300 MG CAPSULE PO SCH ×2 (08:48→21:15)
[2019-02-05] MEDS: Thiamine (B-1) 100 MG TABLET PO SCH (08:48)
[2019-02-05] MEDS: Aspirin 81 MG TAB.CHEW PO SCH (08:48)
--- NOTE | 2019-02-05 10:39 | Internal Med Progress Note ---
Hospitalist Progress Note - Encounter Date of Encounter: 02/05/19 Time of Encounter: 10:45 - Exam Vitals: Temp Pulse Resp BP Pulse Ox 97.5 F L 87 14 156/83 93 02/05/19 07:24 02/05/19 07:24 02/05/19 07:52 02/05/19 07:24 02/05/19 10:34 Exam: Gen: Cachectic appearing, more alert today, cooperative with exam Eyes: anicteric sclerae, moist conjunctivae HENT: Atraumatic; oropharynx clear with moist mucous membranes Neck: Trachea midline; supple Cardiac: RRR, no murmur, +S1/S2. No JVD noted. Pulmonary: Decreased air transfer, no rhonchi noted Abdomen: soft, nontender, no guarding MSK: ROM intact, no joint swelling noted Extremities: no edema, nontender calf Skin: Normal temperature, turgor; no rash, ulcers or subcutaneous nodules Neuro: moves all extremities, no focal deficits. Psych: Appropriate mood and behavior. A&Ox3 - Assessment and Plan (1) Sepsis Current Visit: Yes Status: Acute Assessment and Plan: Sepsis likely secondary to UTI and pna. 17.3 , HR 102, Lactic acid 3.8 peak Received 2L 0.9NS per sepsis protocol, more stable today. Urine culture growing E coli and Proteus: based on sensitivities can de escalate abx. Discontinue Zosyn and start Rocephin. DC Levaquin there are some resistance patterns in culture results, and start Doxy for atypical pneumonia coverage. Continue Vanc await MRSA screen (2) COPD (chronic obstructive pulmonary disease) Current Visit: No Status: Chronic Assessment and Plan: History of COPD does not appear to be currently in exacerbation but due to consider right lower lobe pneumonia could become in exacerbation. -Continue scheduled DuoNeb -treatment of pneumonia as above -Continue to titrate supplemental oxygen -Continue Solu-Medrol, will titrate to oral depending on clinical picture (3) DVT prophylaxis Current Visit: No Status: Acute Assessment and Plan: Heparin subcutaneous every 12 hours (4) UTI (urinary tract infection) Current Visit: Yes Status: Acute Assessment and Plan: Plan as above. (5) Pneumonia Current Visit: Yes Status: Acute Assessment and Plan: Presented with shortness of breath and at presentation with 2 liters of oxygen he was saturation in the 80s. He is on chronic 2 liters of oxygen. He denies cough or excessive sputum pr oduction. CT of the abdomen shows right bronchial wall thickening with mucous plugging -Continue Vancomycin, Levaquin, Zosyn. De escalate antibiotics as toelrated. -Taper Solu Medrol (6) Seizure Current Visit: Yes Status: Chronic Assessment and Plan: Continue home keppra (7) Cachexia Current Visit: Yes Status: Chronic Assessment and Plan: Unsure of the etioloy. Awaiting records from outside facility. BMI of 15.8. Has a G tube. Nutrition consulted DVT Prophylaxis: Heparin subcutaneous every 12 hours - Time Spent with Patient Total time spent is greater than 50% in coordination of care (as documented) at patient's floor/unit and/or counseling patient: Internal Medicine: Result - Labs CBC & Chem 7: 02/05/19 06:05 02/05/19 06:05 Labs: Short CBC 02/05/19 Range/Units 06:05 WBC 12.2 H (4.3-11.1) K/mcL Hgb 10.6 L (12.9-16.9) g/dL Hct 33.1 L (37.5-50.1) % Plt Count 229 (140-400) K/mcL Neutrophils # 10.8 H (1.6-8.9) K/mcL BMP 02/05/19 06:05 Sodium 136 Potassium 3.6 Chloride 96 L Carbon Dioxide 32 H BUN 16 Creatinine 0.44 L Glucose 171 H Calcium 8.7 Consult Discharge Plan - Plan Referrals: Noe Pena MD [Primary Care Provider] - (1) Sepsis Qualifiers: Sepsis type: sepsis due to unspecified organism Qualified Code(s): A41.9 - Sepsis, unspecified organism (2) COPD (chronic obstructive pulmonary disease) Qualifiers: COPD type: unspecified COPD Qualified Code(s): J44.9 - Chronic obstructive pulmonary disease, unspecified (4) UTI (urinary tract infection) Qualifiers: Urinary tract infection type: site unspecified Hematuria presence: with hematuria Qualified Code(s): N39.0 - Urinary tract infection, site not specified; R31.9 - Hematuria, unspecified (5) Pneumonia Qualifiers: Pneumonia type: due to unspecified organism Laterality: right Lung location: lower lobe of lung Qualified Code(s): J18.1 - Lobar pneumonia, unspecified organism
[2019-02-05] MEDS: Doxycycline 100 MG in 0.9 % Sodium Chloride Mini Bag 100 ML IVPB SCH (17:26)
[2019-02-05] MEDS: MethylPREDNISolone 40 MG/ML VIAL IVP SCH (17:26)
[2019-02-06] MEDS: MethylPREDNISolone 40 MG/ML VIAL IVP SCH ×3 (01:29→18:04)
[2019-02-06] MEDS: GuaiFENesin Liq 200 MG/10 ML UDC PO SCH ×6 (01:30→22:00)
[2019-02-06] MEDS: Ipratropium/Albuterol Neb 3 ML IH SCH ×2 (03:41→07:19)
[2019-02-06 04:42] LABS: Hematocrit 35.4 % (37.5-50.1); Hemoglobin 11.5 g/dL (12.9-16.9); Mean Corpuscular HGB Conc 32.5 g/dL (31.6-35.5); Mean Corpuscular Hemoglobin 29.9 pg (28.0-33.3); Mean Corpuscular Volume 91.9 fL (83.0-100.0); Mean Platelet Volume 10.7 fL (9.4-12.4); Platelet Count 228 K/mcL (140-400); Red Blood Count 3.85 M/mcL (4.19-5.50); Red Cell Distribution Width 13.9 % (11.5-14.5)
[2019-02-06 05:01] LABS: BUN/Creatinine Ratio 40 (6-26); Blood Urea Nitrogen 16 mg/dL (8-23); Calcium 8.8 mg/dL (8.6-10.3); Carbon Dioxide 33 mEq/L (23-29); Chloride 97 mEq/L (98-107); Glucose 109 mg/dL (70-105); Osmolality,Calculated 272 (280-300); Potassium 3.6 mEq/L (3.5-5.1); Sodium 130 mEq/L (136-145); eGFR For Non-African Americans > 60 (> 60)
[2019-02-06] MEDS: Insulin LISPRO 300 UNITS/3 ML VIAL SQ SCH ×4 (07:20→22:00)
[2019-02-06] MEDS: Doxycycline 100 MG in 0.9 % Sodium Chloride Mini Bag 100 ML IVPB SCH ×2 (07:37→18:05)
[2019-02-06] MEDS: *HR* LORazepam 1 MG TABLET PO SCH ×3 (07:38→22:00)
[2019-02-06] MEDS: Thiamine (B-1) 100 MG TABLET PO SCH (07:38)
[2019-02-06] MEDS: Aspirin 81 MG TAB.CHEW PO SCH (07:38)
[2019-02-06] MEDS: cefTRIAXone 1,000 MG in Water for inj. (sterile) 20 ML 10 ML IVP SCH (07:38)
[2019-02-06] MEDS: Gabapentin 300 MG CAPSULE PO SCH ×2 (07:38→22:00)
[2019-02-06] MEDS: levETIRAcetam 500 MG/5 ML UDC PO SCH ×2 (07:38→19:22)
[2019-02-06] MEDS: *HR* Heparin 5,000 UNIT/ML VIAL SQ SCH ×2 (07:40→18:25)
[2019-02-06] MEDS ORDERED: Levalbuterol Neb 1.25 MG/3 ML IH PRN (08:27)
[2019-02-06] MEDS ORDERED: Nitroglycerin 0.4 MG TAB.SUBL SL PRN (08:28)
[2019-02-06] MEDS ORDERED: Mag Hydrox/Al Hydrox/Simeth 30 ML UDC PO PRN (08:28)
[2019-02-06] MEDS ORDERED: Triamcinolone Acet 0.1% CRM 1 APPL GRAM TP SCH (09:00)
[2019-02-06] MEDS ORDERED: NON-FORMULARY MEDICATION 1 EACH EACH (Cetirizine Hcl [Zyrtec] 10 MG) PO SCH (09:00)
[2019-02-06] MEDS: Ipratropium Neb 0.5 MG NEBULIZER IH SCH ×3 (09:08→21:51)
[2019-02-06] MEDS: Levalbuterol Neb 1.25 MG/3 ML IH SCH ×3 (09:08→21:51)
[2019-02-06] MEDS: Folic Acid 1 MG TABLET PO SCH (09:12)
[2019-02-06] MEDS: Magnesium Oxide 400 MG TABLET PO SCH (09:12)
[2019-02-06] MEDS: Loratadine 10 MG TABLET PO SCH (09:12)
[2019-02-06] MEDS: Diltiazem CD (24hr) 180 MG CAPSULE PO SCH (09:12)
--- NOTE | 2019-02-06 13:43 | Internal Med Progress Note ---
Hospitalist Progress Note - Encounter Date of Encounter: 02/06/19 Time of Encounter: 13:35 - Subjective Interval History: No acute events. Patient states he is feeling better - Exam Vitals: Temp Pulse Resp BP Pulse Ox 97.8 F 93 16 111/73 92 02/06/19 11:35 02/06/19 11:35 02/06/19 11:35 02/06/19 11:35 02/06/19 11:35 Exam: Gen: Cachectic appearing, more alert today, cooperative with exam Eyes: anicteric sclerae, moist conjunctivae HENT: Atraumatic; oropharynx clear with moist mucous membranes Neck: Trachea midline; supple Cardiac: RRR, no murmur, +S1/S2. No JVD noted. Pulmonary: Decreased air transfer, no rhonchi noted Abdomen: soft, nontender, no guarding MSK: ROM intact, no joint swelling noted Extremities: no edema, nontender calf Skin: Normal temperature, turgor; no rash, ulcers or subcutaneous nodules Neuro: moves all extremities, no focal deficits. Psych: Appropriate mood and behavior. A&Ox3 - Assessment and Plan (1) Sepsis Current Visit: Yes Status: Acute Assessment and Plan: Sepsis likely secondary to UTI and pna. 17.3 , HR 102, Lactic acid 3.8 peak Received 2L 0.9NS per sepsis protocol, more stable today. Urine culture growing E coli and Proteus: based on sensitivities can de escalate abx. Discontinued Zosyn and started Rocephin. DC'd Levaquin there are some resistance patterns in culture results, and start Doxy for atypical pneumonia coverage. MRSA screen negative, DC vancomycin. (2) Pneumonia Current Visit: Yes Status: Acute Assessment and Plan: Presented with shortness of breath and at presentation with 2 liters of oxygen he was saturation in the 80s. He is on chronic 2 liters of oxygen. He denies cough or excessive sputum production. CT of the abdomen shows right bronchial wall thickening with mucous plugging -Taper Solu Medrol - Continue abx as above (3) COPD (chronic obstructive pulmonary disease) Current Visit: No Status: Chronic Assessment and Plan: History of COPD does not appear to be currently in exacerbation but due to consider right lower lobe pneumonia could become in exacerbation. -Continue scheduled DuoNeb -treatment of pneumonia as above -Continue to titrate supplemental oxygen -Continue Solu-Medrol, will titrate to oral depending on clinical picture (4) DVT prophylaxis Current Visit: No Status: Acute Assessment and Plan: Heparin subcutaneous every 12 hours (5) UTI (urinary tract infection) Current Visit: Yes Status: Acute Assessment and Plan: Plan as above. (6) Seizure Current Visit: Yes Status: Chronic Assessment and Plan: Continue home keppra (7) Cachexia Current Visit: Yes Status: Chronic Assessment and Plan: Unsure of the etioloy. Awaiting records from outside facility. BMI of 15.8. Has a G tube. Nutrition consulted - Time Spent with Patient Total time spent is greater than 50% in coordination of care (as documented) at patient's floor/unit and/or counseling patient: Internal Medicine: Result - Labs CBC & Chem 7: 02/06/19 04:10 02/06/19 04:10 Labs: Short CBC 02/06/19 Range/Units 04:10 WBC 10.9 (4.3-11.1) K/mcL Hgb 11.5 L (12.9-16.9) g/dL Hct 35.4 L (37.5-50.1) % Plt Count 228 (140-400) K/mcL BMP 02/06/19 04:10 Sodium 130 L Potassium 3.6 Chloride 97 L Carbon Dioxide 33 H BUN 16 Creatinine 0.40 L Glucose 109 H Calcium 8.8 Consult Discharge Plan - Plan Referrals: Noe Pena MD [Primary Care Provider] - (1) Sepsis Qualifiers: Sepsis type: sepsis due to unspecified organism Qualified Code(s): A41.9 - S epsis, unspecified organism (2) Pneumonia Qualifiers: Pneumonia type: due to unspecified organism Laterality: right Lung location: lower lobe of lung Qualified Code(s): J18.1 - Lobar pneumonia, unspecified organism (3) COPD (chronic obstructive pulmonary disease) Qualifiers: COPD type: unspecified COPD Qualified Code(s): J44.9 - Chronic obstructive pulmonary disease, unspecified (5) UTI (urinary tract infection) Qualifiers: Urinary tract infection type: site unspecified Hematuria presence: with hematuria Qualified Code(s): N39.0 - Urinary tract infection, site not specified; R31.9 - Hematuria, unspecified
[2019-02-07] MEDS: MethylPREDNISolone 40 MG/ML VIAL IVP SCH ×3 (01:25→15:16)
[2019-02-07] MEDS: GuaiFENesin Liq 200 MG/10 ML UDC PO SCH ×6 (01:25→21:52)
[2019-02-07] MEDS: Triamcinolone Acet 0.1% CRM 15 GM TUBE TP SCH ×3 (01:26→21:54)
[2019-02-07] MEDS: Levalbuterol Neb 1.25 MG/3 ML IH SCH ×4 (04:02→22:29)
[2019-02-07] MEDS: Ipratropium Neb 0.5 MG NEBULIZER IH SCH ×4 (04:02→22:29)
[2019-02-07] MEDS: levETIRAcetam 500 MG/5 ML UDC PO SCH ×2 (06:06→17:30)
[2019-02-07] MEDS: Doxycycline 100 MG in 0.9 % Sodium Chloride Mini Bag 100 ML IVPB SCH ×2 (06:06→17:30)
[2019-02-07] MEDS: *HR* Heparin 5,000 UNIT/ML VIAL SQ SCH ×2 (06:12→17:32)
--- NOTE | 2019-02-07 06:17 | Internal Med Progress Note ---
<Emil Peterson - Last Filed: 02/07/19 18:37> Hospitalist Progress Note - Encounter Date of Encounter: 02/07/19 Time of Encounter: 10:15 - Subjective Interval History: Patient is lying in bed at time of exam. He is not overly cooperative with exam and continues to be extremely lethargic. He says that this is atypical for him, and he just needs rest. He complains of no specific pain or discomfort. - Exam Vitals: Temp Pulse Resp BP Pulse Ox 97.6 F 83 18 138/73 91 02/07/19 03:39 02/07/19 03:39 02/07/19 04:02 02/07/19 03:39 02/07/19 04:02 Exam: Gen: Cachectic appearing, very somnolent and lethargic Eyes: anicteric sclerae, moist conjunctivae HENT: Atraumatic; oropharynx clear with moist mucous membranes Neck: Trachea midline; supple Cardiac: RRR, no murmur, +S1/S2. No JVD noted. Pulmonary: Decreased air transfer, no rhonchi noted Abdomen: soft, nontender, no guarding MSK: ROM intact, no joint swelling noted Extremities: no edema, nontender calf Skin: Normal temperature, turgor; no rash, ulcers or subcutaneous nodules Neuro: moves all extremities, no focal deficits. Psych: Appropriate mood and behavior. A&Ox3 - Assessment and Plan (1) Sepsis Current Visit: Yes Status: Acute Assessment and Plan: Sepsis likely secondary to UTI and pna. WBC 17.3 , HR 102, Lactic acid 3.8 peak Received 2L 0.9NS per sepsis protocol, more stable today. Urine culture growing E coli and Proteus: based on sensitivities can de escalate abx. Discontinued Zosyn and started Rocephin. DC'd Levaquin there are some resistance patterns in culture results, and start Doxy for atypical pneumonia coverage. MRSA screen negative, DC vancomycin. Doxy day 3, abx day 6 (2) Pneumonia Current Visit: Yes Status: Acute Assessment and Plan: Presented with shortness of breath and at presentation with 2 liters of oxygen he was saturation in the 80s. He is on chronic 2 liters of oxygen. He denies cough or excessive sputum production. CT of the abdomen shows right bronchial wall thickening with mucous plugging -Taper Solu Medrol - Continue abx as above (3) COPD (chronic obstructive pulmonary disease) Current Visit: No Status: Chronic Assessment and Plan: History of COPD does not appear to be currently in exacerbation but due to consider right lower lobe pneumonia could become in exacerbation. -Continue scheduled DuoNeb -treatment of pneumonia as above -Continue to titrate supplemental oxygen -Continue Solu-Medrol, will titrate to oral depending on clinical picture (4) UTI (urinary tract infection) Current Visit: Yes Status: Acute Assessment and Plan: Plan as above. (5) Seizure Current Visit: No Status: Chronic Assessment and Plan: Continue home keppra (6) Somnolence Current Visit: Yes Status: Acute Assessment and Plan: Patient is highly somnolent, unknown etiology. We will recheck out to extended care facility and patient's daughter to determine baseline (7) DVT prophylaxis Current Visit: No Status: Acute Assessment and Plan: Heparin subcutaneous every 12 hours (8) Cachexia Current Visit: Yes Status: Chronic Assessment and Plan: Unsure of the etioloy. Awaiting records from outside facility. BMI of 15.8. Has a G tube. Nutrition consulted - Time Spent with Patient Total time spent is greater than 50% in coordination of care (as documented) at patient's floor/unit and/or counseling patient: Internal Medicine: Result - Labs CBC & Chem 7: 02/07/19 08:14 02/07/19 08:14 Consult Discharge Plan - Plan Referrals: Noe Pena MD [Primary Care Provider] - <Chito Ozuna - Last Filed: 02/07/19 20:24> Hospitalist Progress Note - Encounter Date of Encounter: 02/07/19 - Exam Vitals: Temp Pulse Resp BP Pulse Ox 97.5 F L 74 16 127/68 91 02/07/19 15:41 02/07/19 15:41 02/07/19 15:57 02/07/19 15:41 02/07/19 15:57 - Assessment and Plan (1) COPD (chronic obstructive pulmonary disease) Current Visit: No Status: Chronic (2) DVT prophylaxis Current Visit: No Status: Acute (3) Somnolence Current Visit: Yes Status: Acute (4) UTI (urinary tract infection) Current Visit: Yes Status: Acute (5) Sepsis Current Visit: Yes Status: Acute (6) Pneumonia Current Visit: Yes Status: Acute (7) Seizure Current Visit: No Status: Chronic (8) Cachexia Current Visit: Yes Status: Chronic - Time Spent with Patient Total time spent is greater than 50% in coordination of care (as documented) at patient's floor/unit and/or counseling patient: Internal Medicine: Result - Labs CBC & Chem 7: 02/07/19 08:14 02/07/19 08:14 Labs: Short CBC 02/07/19 Range/Units 08:14 WBC 8.4 (4.3-11.1) K/mcL Hgb 10.7 L (12.9-16.9) g/dL Hct 32.6 L (37.5-50.1) % Plt Count 233 (140-400) K/mcL BMP 02/07/19 08:14 Sodium 131 L Potassium 3.3 L Chloride 97 L Carbon Dioxide 32 H BUN 18 Creatinine 0.32 L Glucose 179 H Calcium 9.0 - Attending Attestation I examined this patient and my medical decision-making was reviewed with the Resident Physician. I agree with the documented findings, disposition and treatment plan as described except to the extent set forth below. <Emil Peterson - Last Filed: 02/07/19 18:37> (1) Sepsis Qualifiers: Sepsis type: sepsis due to unspecified organism Qualified Code(s): A41.9 - Sepsis, unspecified organism (2) Pneumonia Qualifiers: Pneumonia type: due to unspecified organism Laterality: right Lung location: lower lobe of lung Qualified Code(s): J18.1 - Lobar pneumonia, unspecified organism (3) COPD (chronic obstructive pulmonary disease) Qualifiers: COPD type: unspecified COPD Qualified Code(s): J44.9 - Chronic obstructive pulmonary disease, unspecified (4) UTI (urinary tract infection) Qualifiers: Urinary tract infection type: site unspecified Hematuria presence: with hematuria Qualified Code(s): N39.0 - Urinary tract infection, site not specified; R31.9 - Hematuria, unspecified <Chito Ozuna - Last Filed: 02/07/19 20:24> (1) COPD (chronic obstructive pulmonary disease) Qualifiers: COPD type: unspecified COPD Qualified Code(s): J44.9 - Chronic obstructive pulmonary disease, unspecified (4) UTI (urinary tract infection) Qualifiers: Urinary tract infection type: site unspecified Hematuria presence: with hematuria Qualified Code(s): N39.0 - Urinary tract infection, site not specified; R31.9 - Hematuria, unspecified (5) Sepsis Qualifiers: Sepsis type: sepsis due to unspecified organism Qualified Code(s): A41.9 - Sepsis, unspecified organism (6) Pneumonia Qualifiers: Pneumonia type: due to unspecified organism Laterality: right Lung location: lower lobe of lung Qualified Code(s): J18.1 - Lobar pneumonia, unspecified organism
[2019-02-07 08:39] LABS: Hematocrit 32.6 % (37.5-50.1); Hemoglobin 10.7 g/dL (12.9-16.9); Mean Corpuscular HGB Conc 32.8 g/dL (31.6-35.5); Mean Corpuscular Hemoglobin 29.6 pg (28.0-33.3); Mean Corpuscular Volume 90.3 fL (83.0-100.0); Mean Platelet Volume 10.8 fL (9.4-12.4); Platelet Count 233 K/mcL (140-400); Red Blood Count 3.61 M/mcL (4.19-5.50); Red Cell Distribution Width 13.5 % (11.5-14.5)
[2019-02-07 08:59] LABS: BUN/Creatinine Ratio 56 (6-26); Blood Urea Nitrogen 18 mg/dL (8-23); Carbon Dioxide 32 mEq/L (23-29); Chloride 97 mEq/L (98-107); Glucose 179 mg/dL (70-105); Osmolality,Calculated 278 (280-300); Potassium 3.3 mEq/L (3.5-5.1); Sodium 131 mEq/L (136-145); eGFR For Non-African Americans > 60 (> 60)
[2019-02-07] MEDS: Insulin LISPRO 300 UNITS/3 ML VIAL SQ SCH ×4 (09:29→21:38)
[2019-02-07] MEDS: Diltiazem CD (24hr) 180 MG CAPSULE PO SCH (09:30)
[2019-02-07] MEDS: *HR* LORazepam 1 MG TABLET PO SCH ×3 (09:30→21:52)
[2019-02-07] MEDS: Thiamine (B-1) 100 MG TABLET PO SCH (09:30)
[2019-02-07] MEDS: cefTRIAXone 1,000 MG in Water for inj. (sterile) 20 ML 10 ML IVP SCH (09:30)
[2019-02-07] MEDS: Loratadine 10 MG TABLET PO SCH (09:30)
[2019-02-07] MEDS: Magnesium Oxide 400 MG TABLET PO SCH (09:31)
[2019-02-07] MEDS: Folic Acid 1 MG TABLET PO SCH (09:31)
[2019-02-07] MEDS: Gabapentin 300 MG CAPSULE PO SCH ×2 (09:31→21:53)
[2019-02-07] MEDS: Aspirin 81 MG TAB.CHEW PO SCH (09:31)
[2019-02-07] MEDS ORDERED: Potassium Chloride Elixir 20 MEQ/15 ML UDC GTUBE ONE (10:09)
[2019-02-07 12:58] LABS: Sodium, Urine 30.5 mEq/L
[2019-02-08] MEDS: GuaiFENesin Liq 200 MG/10 ML UDC PO SCH ×6 (00:21→21:27)
[2019-02-08] MEDS: MethylPREDNISolone 40 MG/ML VIAL IVP SCH (00:21)
[2019-02-08] MEDS: Ipratropium Neb 0.5 MG NEBULIZER IH SCH ×4 (04:10→22:08)
[2019-02-08] MEDS: Levalbuterol Neb 1.25 MG/3 ML IH SCH ×4 (04:10→22:08)
[2019-02-08 05:01] LABS: Hematocrit 31.2 % (37.5-50.1); Hemoglobin 10.3 g/dL (12.9-16.9); Mean Corpuscular Hemoglobin 30.1 pg (28.0-33.3); Mean Corpuscular Volume 91.2 fL (83.0-100.0); Mean Platelet Volume 10.6 fL (9.4-12.4); Platelet Count 300 K/mcL (140-400); Red Blood Count 3.42 M/mcL (4.19-5.50); Red Cell Distribution Width 13.7 % (11.5-14.5)
[2019-02-08] MEDS: levETIRAcetam 500 MG/5 ML UDC PO SCH ×2 (05:04→16:41)
[2019-02-08] MEDS: *HR* Heparin 5,000 UNIT/ML VIAL SQ SCH ×2 (05:04→16:41)
[2019-02-08] MEDS: Doxycycline 100 MG in 0.9 % Sodium Chloride Mini Bag 100 ML IVPB SCH (05:05)
[2019-02-08 05:20] LABS: BUN/Creatinine Ratio 63 (6-26); Blood Urea Nitrogen 22 mg/dL (8-23); Calcium 8.8 mg/dL (8.6-10.3); Carbon Dioxide 33 mEq/L (23-29); Chloride 97 mEq/L (98-107); Glucose 164 mg/dL (70-105); Osmolality,Calculated 287 (280-300); Potassium 3.9 mEq/L (3.5-5.1); Sodium 135 mEq/L (136-145); eGFR For Non-African Americans > 60 (> 60)
--- NOTE | 2019-02-08 05:57 | Internal Med Progress Note ---
<Emil Peterson - Last Filed: 02/08/19 05:55> Hospitalist Progress Note - Encounter Date of Encounter: 02/08/19 - Exam Vitals: Temp Pulse Resp BP Pulse Ox 97.6 F 74 14 138/62 96 02/08/19 04:00 02/08/19 04:00 02/08/19 04:11 02/08/19 04:00 02/08/19 04:11 Exam: Gen: Cachectic appearing, very somnolent and lethargic Eyes: anicteric sclerae, moist conjunctivae HENT: Atraumatic; oropharynx clear with moist mucous membranes Neck: Trachea midline; supple Cardiac: RRR, no murmur, +S1/S2. No JVD noted. Pulmonary: Decreased air transfer, no rhonchi noted Abdomen: soft, nontender, no guarding MSK: ROM intact, no joint swelling noted Extremities: no edema, nontender calf Skin: Normal temperature, turgor; no rash, ulcers or subcutaneous nodules Neuro: moves all extremities, no focal deficits. Psych: Appropriate mood and behavior. A&Ox3 - Assessment and Plan (1) Sepsis Current Visit: Yes Status: Acute Assessment and Plan: Sepsis likely secondary to UTI and pna. WBC 17.3 , HR 102, Lactic acid 3.8 peak Received 2L 0.9NS per sepsis protocol, more stable today. Urine culture growing E coli and Proteus: based on sensitivities can de escalate abx. Discontinued Zosyn and started Rocephin. DC'd Levaquin there are some resistance patterns in culture results, and start Doxy for atypical pneumonia coverage. MRSA screen negative, DC vancomycin. Rocephin day 4, Doxy day 4, abx day 7 (2) Pneumonia Current Visit: Yes Status: Acute Assessment and Plan: Presented with shortness of breath and at presentation with 2 liters of oxygen he was saturation in the 80s. He is on chronic 2 liters of oxygen. He denies cough or excessive sputum production. CT of the abdomen shows right bronchial wall thickening with mucous plugging -Taper Solu Medrol to PO prednisone - Continue abx as above (3) COPD (chronic obstructive pulmonary disease) Current Visit: No Status: Chronic Assessment and Plan: History of COPD does not appear to be currently in exacerbation but due to consider right lower lobe pneumonia could become in exacerbation. -Continue scheduled DuoNeb -treatment of pneumonia as above -Continue to titrate supplemental oxygen -transition to PO steroid (4) UTI (urinary tract infection) Current Visit: Yes Status: Acute Assessment and Plan: Plan as above. (5) Seizure Current Visit: No Status: Chronic Assessment and Plan: Continue home keppra (6) Somnolence Current Visit: Yes Status: Acute Assessment and Plan: Patient is highly somnolent, unknown etiology. We will recheck out to extended care facility and patient's daughter to determine baseline (7) DVT prophylaxis Current Visit: No Status: Acute Assessment and Plan: Heparin subcutaneous every 12 hours (8) Cachexia Current Visit: Yes Status: Chronic Assessment and Plan: Unsure of the etioloy. Awaiting records from outside facility. BMI of 15.8. Has a G tube. Nutrition consulted - Time Spent with Patient Total time spent is greater than 50% in coordination of care (as documented) at patient's floor/unit and/or counseling patient: Internal Medicine: Result - Labs CBC & Chem 7: 02/08/19 04:38 02/08/19 04:38 Labs: Short CBC 02/07/19 02/08/19 Range/Units 08:14 04:38 WBC 8.4 13.2 H D (4.3-11.1) K/mcL Hgb 10.7 L 10.3 L (12.9-16.9) g/dL Hct 32.6 L 31.2 L (37.5-50.1) % Plt Count 233 300 (140-400) K/mcL BMP 02/07/19 02/08/19 08:14 04:38 Sodium 131 L 135 L Potassium 3.3 L 3.9 Chloride 97 L 97 L Carbon Dioxide 32 H 33 H BUN 18 22 Creatinine 0.32 L 0.35 L Glucose 179 H 164 H Calcium 9.0 8.8 Consult Discharge Plan - Plan Referrals: Noe Pena MD [Primary Care Provider] - <Chito Ozuna - Last Filed: 02/08/19 21:46> Hospitalist Progress Note - Encounter Date of Encounter: 02/08/19 Time of Encounter: 09:00 - Exam Vitals: Temp Pulse Resp BP Pulse Ox 98.0 F 75 18 113/69 97 02/08/19 16:16 02/08/19 16:16 02/08/19 16:16 02/08/19 16:16 02/08/19 16:16 - Assessment and Plan (1) COPD (chronic obstructive pulmonary disease) Current Visit: No Status: Chronic (2) DVT prophylaxis Current Visit: No Status: Acute (3) Somnolence Current Visit: Yes Status: Acute (4) UTI (urinary tract infection) Current Visit: Yes Status: Acute (5) Sepsis Current Visit: Yes Status: Acute (6) Pneumonia Current Visit: Yes Status: Acute (7) Seizure Current Visit: No Status: Chronic (8) Cachexia Current Visit: Yes Status: Chronic - Time Spent with Patient Total time spent is greater than 50% in coordination of care (as documented) at patient's floor/unit and/or counseling patient: Internal Medicine: Result - Labs CBC & Chem 7: 02/08/19 04:38 02/08/19 04:38 Labs: Short CBC 02/08/19 Range/Units 04:38 WBC 13.2 H D (4.3-11.1) K/mcL Hgb 10.3 L (12.9-16.9) g/dL Hct 31.2 L (37.5-50.1) % Plt Count 300 (140-400) K/mcL BMP 02/08/19 04:38 Sodium 135 L Potassium 3.9 Chloride 97 L Carbon Dioxide 33 H BUN 22 Creatinine 0.35 L Glucose 164 H Calcium 8.8 - Impressions Impressions Abdomen/Pelvis CT 02/08/19 09:30 IMPRESSION: Bronchiectasis is identified, with increased interstitial and alveolar opacities noted at the right lung base posteriorly with a small adjacent reactive effusion, with a trace left pleural effusion as well as very early adjacent airspace disease which is new from the recent comparison examination on 02/02/2019. These changes could be related to early pneumonia or possible aspiration. Moderate emphysema, with no mediastinal lymphadenopathy or spiculated lung mass identified. Scarring seen in the region of the previous lung mass in the left upper lobe identified in 2010. No acute intra-abdominal or pelvic process is identified. The bladder wall thickening on the recent comparison study is improved on today's exam, which may be related to better bladder distention. Multiple bladder calculi again identified. D/ / 02/08/2019 11:07:15 Jaylen Harrison MD / Lucía Pryor Interpreting Provider: Jaylen Harrison MD Chest CT 02/08/19 09:30 IMPRESSION: Bronchiectasis is identified, with increased interstitial and alveolar opacities noted at the right lung base posteriorly with a small adjacent reactive effusion, with a trace left pleural effusion as well as very early adjacent airspace disease which is new from the recent comparison examination on 02/02/2019. These changes could be related to early pneumonia or possible aspiration. Moderate emphysema, with no mediastinal lymphadenopathy or spiculated lung mass identified. Scarring seen in the region of the previous lung mass in the left upper lobe identified in 2010. No acute intra-abdominal or pelvic process is identified. The bladder wall thickening on the recent comparison study is improved on today's exam, which may be related to better bladder distention. Multiple bladder calculi again identified. D/ / 02/08/2019 11:07:15 Jaylen Harrison MD / Lucía Pryor Interpreting Provider: Jaylen Harrison MD - Attending Attestation I examined this patient and my medical decision-making was reviewed with the Resident Physician. I agree with the documented findings, disposition and treatment plan as described except to the extent set forth below. Today patient remains somnolent. Easily arousable but refuses to get up, and today as well tells me he needs a little sleep, same as yesterday. He denies CP, SOB, N/V. Dysuria is resolved. VS: reviewed, physical exam: appears lethargic, malnourished, lungs with poor inspiratory effort and breath sounds, no wheezing, no respiratory distress. CVS: RRR, no mrg, abd: soft, nt/nd 73 year old male here for sepsis from pneumonia and UTI. SIRS criteria no longer met but he does appear to be declining physically. This could be from persisting infection and likely a component of physical deconditioning. [facility] called [facility] to ask about his baseline. He is far from his normal baseline activities. He refuses to sit up, refuses activity despite encouragement by nursing and PT/OT. Will need repeat chest and abdomen imaging, will eval for worsening infection. He may need broadening coverage of antibiotics. 1 - Sepsis from pneumonia and/or UTI 2 - Somnolence from either infection or deconditioning 3 - COPD without any acute exacerbation 4 - Physical deconditioning 5 - Severe protein calorie malnourishment - DC Rocephin/Azithro, start Zosyn, will need aspiration pneumonia coverage. - CT chest/abdomen/pelvis - Continue to encourage activity. <Emil Peterson - Last Filed: 02/08/19 05:55> (1) Sepsis Qualifiers: Sepsis type: sepsis due to unspecified organism Qualified Code(s): A41.9 - Sepsis, unspecified organism (2) Pneumonia Qualifiers: Pneumonia type: due to unspecified organism Laterality: right Lung location: lower lobe of lung Qualified Code(s): J18.1 - Lobar pneumonia, unspecified organism (3) COPD (chronic obstructive pulmonary disease) Qualifiers: COPD type: unspecified COPD Qualified Code(s): J44.9 - Chronic obstructive pulmonary disease, unspecified (4) UTI (urinary tract infection) Qualifiers: Urinary tract infection type: site unspecified Hematuria presence: with hematuria Qualified Code(s): N39.0 - Urinary tract infection, site not specified; R31.9 - Hematuria, unspecified <Chiot Ozuna - Last Filed: 02/08/19 21:46> (1) COPD (chronic obstructive pulmonary disease) Qualifiers: COPD type: unspecified COPD Qualified Code(s): J44.9 - Chronic obstructive pulmonary disease, unspecified (4) UTI (urinary tract infection) Qualifiers: Urinary tract infection type: site unspecified Hematuria presence: with hematuria Qualified Code(s): N39.0 - Urinary tract infection, site not specified; R31.9 - Hematuria, unspecified (5) Sepsis Qualifiers: Sepsis type: sepsis due to unspecified organism Qualified Code(s): A41.9 - Sepsis, unspecified organism (6) Pneumonia Qualifiers: Pneumonia type: due to unspecified organism Laterality: right Lung location: lower lobe of lung Qualified Code(s): J18.1 - Lobar pneumonia, unspecified organism
[2019-02-08] MEDS ORDERED: Isovue-370 500 ML BOTTLE IVP ONE (07:53)
[2019-02-08] MEDS: Folic Acid 1 MG TABLET PO SCH (09:09)
[2019-02-08] MEDS: Aspirin 81 MG TAB.CHEW PO SCH (09:09)
[2019-02-08] MEDS: Thiamine (B-1) 100 MG TABLET PO SCH (09:09)
[2019-02-08] MEDS: Gabapentin 300 MG CAPSULE PO SCH ×2 (09:09→21:26)
[2019-02-08] MEDS: Insulin LISPRO 300 UNITS/3 ML VIAL SQ SCH ×4 (09:09→21:27)
[2019-02-08] MEDS: *HR* LORazepam 1 MG TABLET PO SCH ×3 (09:10→21:26)
[2019-02-08] MEDS: Diltiazem CD (24hr) 180 MG CAPSULE PO SCH (09:10)
[2019-02-08] MEDS: Loratadine 10 MG TABLET PO SCH (09:10)
[2019-02-08] MEDS: cefTRIAXone 1,000 MG in Water for inj. (sterile) 20 ML 10 ML IVP SCH (09:10)
[2019-02-08] MEDS: predniSONE 20 MG TABLET PO SCH (09:10)
[2019-02-08] MEDS: Magnesium Oxide 400 MG TABLET PO SCH (09:32)
[2019-02-08] MEDS: Triamcinolone Acet 0.1% CRM 15 GM TUBE TP SCH ×2 (09:32→21:26)
[2019-02-08 12:29] LABS: Mycoplasma pneumoniae IgG 0.08 U/L (<=0.09)
[2019-02-08] MEDS ORDERED: Aminoglycoside Consult 1 EACH MC ONE (14:10)
[2019-02-08] MEDS: Piperacillin/Tazobactam 3.375 GM in 0.9 % Sodium Chloride Mini Bag 100 ML IVPB SCH (16:42)
[2019-02-09] MEDS: GuaiFENesin Liq 200 MG/10 ML UDC PO SCH ×6 (01:16→22:27)
[2019-02-09] MEDS: Piperacillin/Tazobactam 3.375 GM in 0.9 % Sodium Chloride Mini Bag 100 ML IVPB SCH ×3 (01:17→16:18)
[2019-02-09] MEDS: Ipratropium Neb 0.5 MG NEBULIZER IH SCH ×4 (04:02→22:11)
[2019-02-09] MEDS: Levalbuterol Neb 1.25 MG/3 ML IH SCH ×4 (04:02→22:11)
[2019-02-09] MEDS: *HR* Heparin 5,000 UNIT/ML VIAL SQ SCH ×2 (05:44→16:17)
[2019-02-09] MEDS: levETIRAcetam 500 MG/5 ML UDC PO SCH ×2 (05:44→16:17)
[2019-02-09 08:23] LABS: Basophils % 0.2 %; Hematocrit 30.9 % (37.5-50.1); Hemoglobin 10.1 g/dL (12.9-16.9); Immature Granulocytes % 4.7 % (0-4); Lymphocytes # 1.5 K/mcL (0.6-4.6); Lymphocytes % 8.7 %; Mean Corpuscular HGB Conc 32.7 g/dL (31.6-35.5); Mean Corpuscular Hemoglobin 29.5 pg (28.0-33.3); Mean Corpuscular Volume 90.4 fL (83.0-100.0); Mean Platelet Volume 10.2 fL (9.4-12.4); Monocytes # 1.7 K/mcL (0.0-1.3); Monocytes % 9.9 %; Neutrophils # 12.9 K/mcL (1.6-8.9); Platelet Count 375 K/mcL (140-400); Red Blood Count 3.42 M/mcL (4.19-5.50); Red Cell Distribution Width 13.8 % (11.5-14.5); Segmented Neutrophils % 76.5 %
[2019-02-09] MEDS: *HR* LORazepam 1 MG TABLET PO SCH ×3 (08:38→22:28)
[2019-02-09] MEDS: Gabapentin 300 MG CAPSULE PO SCH ×2 (08:39→22:28)
[2019-02-09] MEDS: Folic Acid 1 MG TABLET PO SCH (08:39)
[2019-02-09] MEDS: predniSONE 20 MG TABLET PO SCH (08:39)
[2019-02-09] MEDS: Loratadine 10 MG TABLET PO SCH (08:39)
[2019-02-09] MEDS: Triamcinolone Acet 0.1% CRM 15 GM TUBE TP SCH ×2 (08:39→22:29)
[2019-02-09] MEDS: Magnesium Oxide 400 MG TABLET PO SCH (08:39)
[2019-02-09] MEDS: Aspirin 81 MG TAB.CHEW PO SCH (08:39)
[2019-02-09] MEDS: Diltiazem CD (24hr) 180 MG CAPSULE PO SCH (08:39)
[2019-02-09] MEDS: Thiamine (B-1) 100 MG TABLET PO SCH (08:39)
[2019-02-09 08:41] LABS: BUN/Creatinine Ratio 53 (6-26); Blood Urea Nitrogen 23 mg/dL (8-23); Calcium 8.8 mg/dL (8.6-10.3); Carbon Dioxide 33 mEq/L (23-29); Chloride 98 mEq/L (98-107); Glucose 122 mg/dL (70-105); Osmolality,Calculated 287 (280-300); Potassium 3.9 mEq/L (3.5-5.1); Sodium 136 mEq/L (136-145); eGFR For Non-African Americans > 60 (> 60)
[2019-02-09] MEDS: Insulin LISPRO 300 UNITS/3 ML VIAL SQ SCH ×4 (08:41→22:29)
--- NOTE | 2019-02-09 13:34 | Palliative - Consult Note ---
Date of Encounter: 02/09/19 Time of Encounter: 13:00 - Assessment and Plan (1) Pneumonia Current Visit: Yes Status: Acute Assessment and plan: Continues treatment with IV atb, oxygen, bronchodilators. WBC remains elevated possibly r/t steroids. Qualifiers: Pneumonia type: due to unspecified organism Laterality: right Lung location: lower lobe of lung Qualified Code(s): J18.1 - Lobar pneumonia, unspecified organism (2) UTI (urinary tract infection) Current Visit: Yes Status: Acute Assessment and plan: E Coli/Proteus per culture. Remains on atb therapy Qualifiers: Urinary tract infection type: site unspecified Hematuria presence: with hematuria Qualified Code(s): N39.0 - Urinary tract infection, site not specified; R31.9 - Hematuria, unspecified (3) Acute and chronic respiratory failure Current Visit: No Status: Chronic Qualifiers: Respiratory failure complication: hypoxia Qualified Code(s): J96.21 - Acute and chronic respiratory failure with hypoxia (4) Goals of care, counseling/discussion Current Visit: No Status: Acute Assessment and plan: Patient up in chair during my visit, had ate small amount of lunch. He states he resides at nursing facility, but not sure he is going back to that same facility, which is consistent with notes I reviewed. Found on record last summer, that he may have been enrolled in [facility], however, I called [facility] and he is NOT currently enrolled in hospice. Patient is able to tell me that he has 2 daughters (Madhavi and Zelda) that Madhavi is POA and she was there earlier this am to visit. Patient has had code status discussion with us last June, and that DNR form is present here in the record. At that time, patient/daughter desired DNRCC-Arrest. Patient remains consistent with those wishes. I did address if he desired intubation for respiratory distress, and he states he does not, which is a change from previous, but also wanted me to discuss with his daughter. Patient states that he wants to continue current care and treatment for infections, as long as he "continues to feel better, which I do now". With patient's permission, attempted to reached out to daughter Madhavi Martinez ([phone]) regarding plan of care, but did not answer. I left my contact information and hoping for return call. If not,, I will try again in am. However, based on current patient conversation of no resuscitation of cardiac arrest, and previously known DNRCC-Arrest form in record, code status was changed to DNRCC-Arrest. Once reached daughter, will discuss intubation that he desires I discuss with her. Will f/u in am. (5) Sepsis Current Visit: Yes Status: Acute Qualifiers: Sepsis type: sepsis due to unspecified organism Qualified Code(s): A41.9 - Sepsis, unspecified organism (6) Cachexia Current Visit: Yes Status: Chronic Palliative-CN HPI - Data of Consult Patient: known to practice within the last 3 years Consult date: 02/09/19 Requesting Physician: Chito Ozuna MD Primary Care Provider: Noe Pena MD - Consult Narrative History of present illness: Mr. Martinez is a 73 year old male known to the palliative care team from a previous visit, who presented from [facility] with shortness of breath. He was diagnosed and has been treated for UTI and pneumonia. He has been here for a week. He remains on IV atb therapy. Initial leukocytosis was found, and did improve - but currently increased possibly r/t steroids. This patient has history of CVA, dysphagia and malnutrition S/P PEG, seizures, HTN, UTI COPD, and was recently at [facility] for UTI. At one point it appears that he may have been enrolled in [facility], but patient cannot recall this, and I have yet to validate that. He states that he believes PEG was done about 6 months ago for his weight loss and malnutrition, but states he is not certain. He has history as well for urinary retention treated with Bethanechol, and CT here demonstrated multiple bladder stones. Upon my visit, pt is sitting up in chair and has ate a small amount of lunch. States that he is feeling much better and is able to tell me that they are treating a pneumonia, and he hopes to get out of hospital soon. Denies any pain or discomfort other than some pain on bottom of right foot. States that he tires easily, and cannot stay up for long. CC: Chito Ozuna MD - Time Spent with Patient Time: Total time spent is greater than 50% in coordination of care (as documented) at patient's floor/unit and/or counseling patient: Past Med Surg Social Fam HX - Past Medical History Medical history: COPD, CVA, diabetes, GERD, hypertension, seizures, other Additional medical history: muscle weakness, difficulty in walking Psychiatric history: anxiety, depression - Past Surgical History Surgical History: no surgical history - Social History Smoking Status: Current every day smoker Packs per day: half pack Smokeless Tobacco Status: No Alcohol use: none, heavy Drug use: none - Family History Mother Living Status: Hx Family Neurologic Disorders: No Father Living Status: Hx Family Neurologic Disorders: No Medications and Allergies Acetaminophen [Tylenol] 650 mg PO Q4HR PRN 06/03/18 [History] Albuterol Sulfate [Proair Hfa] 2 puff IH Q4H PRN 06/03/18 [History] Cetirizine HCl [Zyrtec] 10 mg PO DAILY 06/03/18 [History] Ferrous Sulfate [Iron] 325 mg PO DAILY 06/03/18 [History] Folic Acid 1 mg PO DAILY 06/03/18 [History] Gabapentin [Neurontin] 300 mg PO BID 06/03/18 [History] Ipratropium/Albuterol Neb [Duoneb] 3 ml IH Q6HR PRN 06/03/18 [History] Mag Hydrox/Al Hydrox/Simeth [Antacid II-Simethicone Liq] 30 ml PO Q4-6H PRN 06/03/18 [History] Magnesium Oxide [Magnesium] 400 mg PO DAILY 06/03/18 [History] Nitroglycerin [Nitrostat] 0.4 mg SL Q5MIN PRN 06/03/18 [History] Sertraline [Zoloft] 50 mg PO DAILY 06/03/18 [History] Thiamine HCl [Vitamin B-1] 100 mg PO DAILY 06/03/18 [History] Aspirin 81 mg PO DAILY 30 Days #30 tab.chew 06/05/18 [Rx] LORazepam [Ativan] 1 mg PO TID 2 Days #6 tablet 06/22/18 [Rx] levETIRAcetam [Keppra] 1,000 mg PO Q12HR tablet 06/22/18 [Rx] Bethanechol [Urecholine] 25 mg PO TID 02/02/19 [History] Diltiazem HCl [Cardizem LA] 360 mg PO DAILY 02/02/19 [History] Docusate [Colace] 100 mg PO BID PRN 02/02/19 [History] Loratadine [Allergy Relief] 10 mg PO DAILY 02/02/19 [History] Oseltamivir [Tamiflu] 75 mg PO BID 02/02/19 [History] Sennosides [Senokot] 8.6 mg PO BID PRN 02/02/19 [History] Tamsulosin HCl [Flomax] 0.4 mg PO QPM 02/02/19 [History] Triamcinolone Acet 0.1% CRM [Kenalog] 1 appl TP BID 02/02/19 [History] Allergy/AdvReac Type Severity Reaction Status Date / Time No Known Allergies Allergy Verified 06/08/18 16:45 All systems: reviewed and no additional remarkable complaints except as stated (z) - Constitutional Constitutional ROS PAL: decreased appetite, weight loss - Respiratory Respiratory: cough, dyspnea on exertion - Neurological Neurological ROS: weakness Palliative Care-Exam - Constitutional Vitals: Temp Pulse Resp BP Pulse Ox 97.5 F L 64 16 137/63 93 02/09/19 07:35 02/09/19 07:35 02/09/19 10:47 02/09/19 07:35 02/09/19 10:47 General appearance: Present: no acute distress, thin - Head Head Exam: Present: normal inspection, normocephalic - Eye Eye exam: Present: normal appearance, PERRL - Respiratory Respiratory exam: Present: CTAB - Cardiovascular Cardiovascular exam: Present: +S1, +S2 - GI/Abdominal Exam GI/Abdominal exam: Present: diminished bowel sounds, soft additional comments: PEG intact with feedings - Extremities Exam Extremities exam: Present: normal capillary refill, normal inspection - Neurological Exam Neurological exam: Present: alert, strengths equal and symetr throughout Additional comments: Oriented to name and place. Answers most questions appropriately, but does have difficulty recalling medical history. Follows commands. [place]BR[place] - Skin Skin exam: Present: dry, pallor, warm Internal Medicine - CN: Reslt - Labs CBC & Chem 7: 02/09/19 08:07 02/09/19 08:07 Labs: Short CBC 02/09/19 Range/Units 08:07 WBC 16.9 H (4.3-11.1) K/mcL Hgb 10.1 L (12.9-16.9) g/dL Hct 30.9 L (37.5-50.1) % Plt Count 375 (140-400) K/mcL Neutrophils # 12.9 H (1.6-8.9) K/mcL BMP 02/09/19 08:07 Sodium 136 Potassium 3.9 Chloride 98 Carbon Dioxide 33 H BUN 23 Creatinine 0.43 L Glucose 122 H Calcium 8.8 - Impressions Impressions Abdomen/Pelvis CT 02/08/19 09:30 IMPRESSION: Bronchiectasis is identified, with increased interstitial and alveolar opacities noted at the right lung base posteriorly with a small adjacent reactive effusion, with a trace left pleural effusion as well as very early adjacent airspace disease which is new from the recent comparison examination on 02/02/2019. These changes could be related to early pneumonia or possible aspiration. Moderate emphysema, with no mediastinal lymphadenopathy or spiculated lung mass identified. Scarring seen in the region of the previous lung mass in the left upper lobe identified in 2010. No acute intra-abdominal or pelvic process is identified. The bladder wall thickening on the recent comparison study is improved on today's exam, which may be related to better bladder distention. Multiple bladder calculi again identified. D/ /08/2019 11:07:15 Jaylen Harrison MD / Lucía Pryor Interpreting Provider: Jaylen Harrison MD Chest CT 02/08/19 09:30 IMPRESSION: Bronchiectasis is identified, with increased interstitial and alveolar opacities noted at the right lung base posteriorly with a small adjacent reactive effusion, with a trace left pleural effusion as well as very early adjacent airspace disease which is new from the recent comparison examination on 02/02/2019. These changes could be related to early pneumonia or possible aspiration. Moderate emphysema, with no mediastinal lymphadenopathy or spiculated lung mass identified. Scarring seen in the region of the previous lung mass in the left upper lobe identified in 2010. No acute intra-abdominal or pelvic process is identified. The bladder wall thickening on the recent comparison study is improved on today's exam, which may be related to better bladder distention. Multiple bladder calculi again identified. D/ /08/2019 11:07:15 Jaylen Harrison MD / Lucía Pryor Interpreting Provider: Jaylen Harrison MD Consult Discharge Plan - Plan Referrals: Noe Pena MD [Primary Care Provider] - Palliative Quality Palliative Quality: Screen for Code Status: Yes, Screen for Goals of Care: Yes, Screen for Pain: Yes, If Pain Regimen Started, Initiate Bowel Regimen: Yes, Screen for Nausea/Vomitting: Yes Code Status: 02/02/19 13:29 CODE [Resuscitation Status: Active] [RES] Routine Comment: Resuscitation Status: Full Code Palliative Scale - Palliative Performance Scale How ambulatory is this patient?: Mainly sit / lie What is patient's level of activity and evidence of disease?: Unable to do any work, Extensive disease How much self-care assistance does patient require?: Considerable assistance required How much oral intake does the patient have?: Normal or reduced What is this patient's level of consciousness?: Full or confusion Palliative Performance Score: 50 %
--- NOTE | 2019-02-09 15:27 | Internal Med Progress Note ---
<Emil Peterson - Last Filed: 02/09/19 15:24> Hospitalist Progress Note - Encounter Date of Encounter: 02/09/19 Time of Encounter: 09:50 - Subjective Interval History: Patient remains highly somnolent bed today. Very tired and does not want to wake up. He does not want to open his eyes in general. He has no acute pain or acute complaints. We did speak with patient's family members and previous nursing facility to confirm that this is not his baseline mental status. - Exam Vitals: Temp Pulse Resp BP Pulse Ox 97.5 F L 64 16 137/63 93 02/09/19 07:35 02/09/19 07:35 02/09/19 10:47 02/09/19 07:35 02/09/19 10:47 Exam: Gen: Cachectic appearing, very somnolent and lethargic Eyes: anicteric sclerae, moist conjunctivae HENT: Atraumatic; oropharynx clear with moist mucous membranes Neck: Trachea midline; supple Cardiac: RRR, no murmur, +S1/S2. No JVD noted. Pulmonary: Decreased air transfer, no rhonchi noted Abdomen: soft, nontender, no guarding MSK: ROM intact, no joint swelling noted Extremities: no edema, nontender calf Skin: Normal temperature, turgor; no rash, ulcers or subcutaneous nodules Neuro: moves all extremities, no focal deficits. Psych: Appropriate mood and behavior. A&Ox3 - Assessment and Plan (1) Sepsis Current Visit: Yes Status: Acute Assessment and Plan: Sepsis likely secondary to UTI and pna. WBC 17.3, HR 102, Lactic acid 3.8 peak on arrival Received 2L 0.9NS per sepsis protocol, more stable today. Urine culture growing E coli and Proteus: based on sensitivities can de escalate abx. Discontinued Zosyn and started Rocephin. DC'd Levaquin there are some resistance patterns in culture results, and start Doxy for atypical pneumonia coverage. MRSA screen negative, DC vancomycin. Yesterday due to concern for aspiration pneumonia on CT, we did transition the patient to Zosyn (2) Pneumonia Current Visit: Yes Status: Acute Assessment and Plan: Presented with shortness of breath and at presentation with 2 liters of oxygen he was saturation in the 80s. He is on chronic 2 liters of oxygen. He denies cough or excessive sputum production. CT of the abdomen shows right bronchial wall thickening with mucous plugging -Continue PO prednisone - Continue abx as above (3) COPD (chronic obstructive pulmonary disease) Current Visit: No Status: Chronic Assessment and Plan: History of COPD does not appear to be currently in exacerbation but due to consider right lower lobe pneumonia could become in exacerbation. -Continue scheduled DuoNeb -treatment of pneumonia as above -Continue to titrate supplemental oxygen -transition to PO steroid (4) UTI (urinary tract infection) Current Visit: Yes Status: Acute Assessment and Plan: Symptoms resolved, imaging improved Complicated UTI on admission Patient on Zosyn for HCAP, will treat UTI (5) Seizure Current Visit: No Status: Chronic Assessment and Plan: Continue home keppra (6) Cachexia Current Visit: Yes Status: Chronic Assessment and Plan: Unsure of the etioloy. Awaiting records from outside facility. BMI of 15.8. Has a G tube. Nutrition consulted (7) Somnolence Current Visit: Yes Status: Acute Assessment and Plan: Patient is highly somnolent, unknown etiology. Apparently not his basely Will check VBG to ensure not CO2 retainer Palliative consult (8) DVT prophylaxis Current Visit: No Status: Acute Assessment and Plan: Heparin subcutaneous every 12 hours - Time Spent with Patient Total time spent is greater than 50% in coordination of care (as documented) at patient's floor/unit and/or counseling patient: Internal Medicine: Result - Labs CBC & Chem 7: 02/09/19 08:07 02/09/19 08:07 Labs: Short CBC 02/09/19 Range/Units 08:07 WBC 16.9 H (4.3-11.1) K/mcL Hgb 10.1 L (12.9-16.9) g/dL Hct 30.9 L (37.5-50.1) % Plt Count 375 (140-400) K/mcL Neutrophils # 12.9 H (1.6-8.9) K/mcL BMP 02/09/19 08:07 Sodium 136 Potassium 3.9 Chloride 98 Carbon Dioxide 33 H BUN 23 Creatinine 0.43 L Glucose 122 H Calcium 8.8 Consult Discharge Plan - Plan Referrals: Noe Pena MD [Primary Care Provider] - <Leon Mckeon - Last Filed: 02/09/19 18:24> Hospitalist Progress Note - Encounter Date of Encounter: 02/09/19 Internal Medicine: Result - Labs CBC & Chem 7: 02/09/19 08:07 02/09/19 08:07 Labs: Short CBC 02/09/19 Range/Units 08:07 WBC 16.9 H (4.3-11.1) K/mcL Hgb 10.1 L (12.9-16.9) g/dL Hct 30.9 L (37.5-50.1) % Plt Count 375 (140-400) K/mcL Neutrophils # 12.9 H (1.6-8.9) K/mcL BMP 02/09/19 08:07 Sodium 136 Potassium 3.9 Chloride 98 Carbon Dioxide 33 H BUN 23 Creatinine 0.43 L Glucose 122 H Calcium 8.8 - Attending Attestation Patient seen and examined independently, including review of objective data including labs. I agree with plan of care as documented above by the resident with the following comments: 73 M w G tube through which receives tube feeds, unclear etiology. Does have aspiration confirmed on MBS 02/03, and is on nectar thick liquids for when patient does still PO some, although minimal intake. BMI is 15. Here with sepsis likely from aspiration pneumonia, concomitant UTI. Empiric zosyn for now. On my exam today, pt more awake and able to answer some questions. Hemodynamically stable and only requiring 2L to maintain sats in mid-90s. Not participatory in much self care, and not ambulating. Will ask palliative to see patient to help assist in determining patient's goals of care. <Emil Peterson - Last Filed: 02/09/19 15:24> (1) Sepsis Qualifiers: Sepsis type: sepsis due to unspecified organism Qualified Code(s): A41.9 - Sepsis, unspecified organism (2) Pneumonia Qualifiers: Pneumonia type: due to unspecified organism Laterality: right Lung location: lower lobe of lung Qualified Code(s): J18.1 - Lobar pneumonia, unspecified organism (3) COPD (chronic obstructive pulmonary disease) Qualifiers: COPD type: unspecified COPD Qualified Code(s): J44.9 - Chronic obstructive pulmonary disease, unspecified (4) UTI (urinary tract infection) Qualifiers: Urinary tract infection type: site unspecified Hematuria presence: with hematuria Qualified Code(s): N39.0 - Urinary tract infection, site not specified; R31.9 - Hematuria, unspecified
[2019-02-09 16:12] LABS: VBG HCO3 32 mEq/L (21-27); VBG PCO2 42 mmHg (41-51); VBG PH 7.48 pH Units (7.32-7.42); VBG PO2 177 mmHg (25-50)
[2019-02-10] MEDS: Piperacillin/Tazobactam 3.375 GM in 0.9 % Sodium Chloride Mini Bag 100 ML IVPB SCH ×3 (01:04→14:43)
[2019-02-10] MEDS: GuaiFENesin Liq 200 MG/10 ML UDC PO SCH ×6 (01:04→20:40)
[2019-02-10] MEDS: Ipratropium Neb 0.5 MG NEBULIZER IH SCH ×4 (04:04→22:19)
[2019-02-10] MEDS: Levalbuterol Neb 1.25 MG/3 ML IH SCH ×4 (04:04→22:19)
[2019-02-10] MEDS: levETIRAcetam 500 MG/5 ML UDC PO SCH ×2 (06:09→17:19)
[2019-02-10] MEDS: *HR* Heparin 5,000 UNIT/ML VIAL SQ SCH ×2 (06:09→17:19)
[2019-02-10 06:32] LABS: Hematocrit 30.5 % (37.5-50.1); Mean Corpuscular HGB Conc 32.8 g/dL (31.6-35.5); Mean Corpuscular Hemoglobin 29.9 pg (28.0-33.3); Mean Corpuscular Volume 91.3 fL (83.0-100.0); Mean Platelet Volume 10.1 fL (9.4-12.4); Platelet Count 409 K/mcL (140-400); Red Blood Count 3.34 M/mcL (4.19-5.50); Red Cell Distribution Width 13.8 % (11.5-14.5)
[2019-02-10 07:16] LABS: Hypersegmented Neutrophils Present (Not Present); Lymphocytes # 1.2 K/mcL (0.6-4.6); Monocytes # 0.2 K/mcL (0.0-1.3); Neutrophils # 15.1 K/mcL (1.6-8.9)
[2019-02-10] MEDS: Magnesium Oxide 400 MG TABLET PO SCH (08:15)
[2019-02-10] MEDS: Loratadine 10 MG TABLET PO SCH (08:15)
[2019-02-10] MEDS: Aspirin 81 MG TAB.CHEW PO SCH (08:15)
[2019-02-10] MEDS: Folic Acid 1 MG TABLET PO SCH (08:15)
[2019-02-10] MEDS: Gabapentin 300 MG CAPSULE PO SCH ×2 (08:15→20:40)
[2019-02-10] MEDS: *HR* LORazepam 1 MG TABLET PO SCH ×3 (08:15→20:40)
[2019-02-10] MEDS: predniSONE 20 MG TABLET PO SCH (08:16)
[2019-02-10] MEDS: Diltiazem CD (24hr) 180 MG CAPSULE PO SCH (08:16)
[2019-02-10] MEDS: Triamcinolone Acet 0.1% CRM 15 GM TUBE TP SCH ×2 (08:17→20:57)
[2019-02-10] MEDS: Thiamine (B-1) 100 MG TABLET PO SCH (08:17)
[2019-02-10] MEDS: Insulin LISPRO 300 UNITS/3 ML VIAL SQ SCH ×4 (08:39→20:57)
[2019-02-10] MEDS: Sennosides 8.6 MG TABLET PO PRN (10:41)
--- NOTE | 2019-02-10 12:35 | Palliative Progress Note ---
Date of Encounter: 02/10/19 Time of Encounter: 11:30 - Assessment and plan (1) Pneumonia Current Visit: Yes Status: Acute Assessment and plan: Remains on Zosyn,, aerosols, supportive oxygen per hospitalist team. Denies dyspnea Qualifiers: Pneumonia type: due to unspecified organism Laterality: right Lung location: lower lobe of lung Qualified Code(s): J18.1 - Lobar pneumonia, unspecified organism (2) UTI (urinary tract infection) Current Visit: Yes Status: Acute Qualifiers: Urinary tract infection type: site unspecified Hematuria presence: with hematuria Qualified Code(s): N39.0 - Urinary tract infection, site not specified; R31.9 - Hematuria, unspecified (3) Acute and chronic respiratory failure Current Visit: No Status: Chronic Qualifiers: Respiratory failure complication: hypoxia Qualified Code(s): J96.21 - Acute and chronic respiratory failure with hypoxia (4) Goals of care, counseling/discussion Current Visit: No Status: Acute Assessment and plan: Met with daughter Madhavi regarding goals of care. She went over her journal from his admissions last summer and events of what she stated as medications errors and poor communication at the [facility]. Ultimately, was transferred at that time to [facility], where PEG was placed and she stated he improved. 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 She stated they did follow him for a long time after that, since they had developed a close relationship with him and family. When he returned to [facility] from [facility] last June, hospice did not readmit him. Discussed overall clinical status and lack of clinical progress, Discussed CT results, aspiration of thin liquids and altered diet. Discussed his FTT and possible poor prognosis, risk of further life threatening infections with his debility and institutional setting. Daughter did listen to information, however, states that her father always requires "longer than the average patient" to get better and thinks he needs more time. States that she has been in contact with [facility], and they have agreed to admit him there upon discharge. Patient would be borderline hospice candidate at this point. He maintains artificial feeding and albumin is 2.8 which is above 2.5 for protein malnutrition. He has had approx 15 lbs weight loss since May 2018. Appears that lung disease is stable and CO2 remains in 40's, where 55 is considered hospice eligible. He does have decreased performance status with PPS of 40%. Has not been hospitalized since discharged last June. Discussed code status again, which remains at DNR-Arrest. I strongly discouraged intubation with his lung disease and debility, and discussed likely difficult to successfully wean from vent, however, she states that he has been able to be extubated after a short time. No changes made to code status. Notified DR. Peterson that daughter will be back around 1600, and he will plan on speaking with her as well. (5) Sepsis Current Visit: Yes Status: Acute Qualifiers: Sepsis type: sepsis due to unspecified organism Qualified Code(s): A41.9 - Sepsis, unspecified organism (6) Cachexia Current Visit: Yes Status: Chronic Assessment and plan: Remains on tube feeding with po feedings - altered diet with mech soft and thickened liquids. - Time Spent With Patient Total time spent is greater than 50% in coordination of care (as documented) at patient's floor/unit and/or counseling patient: Greater than 35 minutes - Subjective Interval history: Patient sleeping quietly - awakens with stimulation and will answer few simple questions,, but falls back to sleep. Did work with PT/OT yesterday, their eval was reviewed. When awakened, he does state that he is feeling and breathing better, denies any pain or discomfort other than the chronic neuropathic [place] [address] [place]. Daughter/son n at bedside. - Constitutional Vitals: Abnormal lab results WBC 16.4 K/mcL (4.3-11.1) H 02/10/19 06:19 RBC 3.34 M/mcL (4.19-5.50) L 02/10/19 06:19 Hgb 10.0 g/dL (12.9-16.9) L 02/10/19 06:19 Hct 30.5 % (37.5-50.1) L 02/10/19 06:19 Plt Count 409 K/mcL (140-400) H 02/10/19 06:19 Immature Gran % 4.7 % (0-4) H 02/09/19 08:07 Neutrophils # 15.1 K/mcL (1.6-8.9) H 02/10/19 06:19 Hypersegmented Neuts Present (Not Present) A 02/10/19 06:19 Platelet Estimate Slight increase (Normal) H 02/10/19 06:19 VBG pH 7.48 pH Units (7.32-7.42) H 02/09/19 16:06 VBG pO2 177 mmHg (25-50) H 02/09/19 16:06 VBG HCO3 32 mEq/L (21-27) H 02/09/19 16:06 Carbon Dioxide 33 mEq/L (23-29) H 02/09/19 08:07 Creatinine 0.43 mg/dL (0.70-1.30) L 02/09/19 08:07 BUN/Creatinine Ratio 53 (6-26) H 02/09/19 08:07 Glucose 122 mg/dL (70-105) H 02/09/19 08:07 POC Glucose 126 mg/dL (70-99) H 02/09/19 20:52 Albumin 2.8 g/dL (3.5-5.7) L 02/10/19 06:19 Urine Clarity Turbid (Clear) A 02/01/19 22:34 Urine Protein >=300 mg/dL (Neg-Trace) H 02/01/19 22:34 Urine Blood Large (Negative) H 02/01/19 22:34 Urine Nitrite Positive (Negative) A 02/01/19 22:34 Ur Leukocyte Esterase Large (Negative) H 02/01/19 22:34 Urine Microscopic RBC 50-100 per hpf (0-3) H 02/01/19 22:34 Urine Microscopic WBC TNTC per hpf (0-3) H 02/01/19 22:34 Ur Squamous Epith Cells Moderate per lpf (None-Few) H 02/01/19 22:34 Urine Bacteria Many per hpf (None-Few) H 02/01/19 22:34 Ur Culture Indicated? YES (NO) A 02/01/19 22:34 Vancomycin Trough 2 mcg/mL (5-10) L 02/06/19 10:23 General appearance: Present: no acute distress - Respiratory Respiratory exam: Present: decreased breath sounds Additional comments: Faint insp crackles RLL - Cardiovascular Cardiovascular exam: Present: +S1, +S2 - GI/Abdominal GI/Abdominal exam: Present: normal bowel sounds, soft Additional comments: PEG intact with feeding - Extremities Exam Extremities exam: Present: normal capillary refill, normal inspection - Neurological Exam Neurological exam: Present: alert, oriented X3, strengths equal and symetr throughout Additional comments: Oriented to name/place, needs reoriented to place/time. - Skin Skin exam: Present: dry, pallor, warm Palliative Quality Palliative Quality: Screen for Code Status: Yes, Screen for Goals of Care: Yes, Screen for Pain: Yes, If Pain Regimen Started, Initiate Bowel Regimen: Yes, Screen for Nausea/Vomitting: Yes Code Status: 02/02/19 13:29 CODE [Resuscitation Status: Active] [RES] Routine Comment: Resuscitation Status: Full Code 02/09/19 14:04 DNR [Resuscitation Status: Active] [RES] Routine Comment: Resuscitation Status: DNR-Comfort Care-Arrest - Labs CBC & Chem 7: 02/10/19 06:19 02/09/19 08:07 Labs: Laboratory Results - last 24 hr 02/09/19 02/09/19 02/09/19 07:42 12:20 16:06 WBC RBC Hgb Hct MCV MCH MCHC RDW Plt Count MPV Seg Neutrophils % Band Neutrophils % Lymphocytes % Monocytes % Neutrophils # Lymphocytes # Monocytes # Hypersegmented Neuts Platelet Estimate VBG pH 7.48 H VBG pCO2 42 VBG pO2 177 H VBG HCO3 32 H POC Glucose 147 H 129 H Albumin 02/09/19 02/09/19 02/10/19 16:07 20:52 06:19 WBC RBC Hgb Hct MCV MCH MCHC RDW Plt Count MPV Seg Neutrophils % Band Neutrophils % Lymphocytes % Monocytes % Neutrophils # Lymphocytes # Monocytes # Hypersegmented Neuts Platelet Estimate VBG pH VBG pCO2 VBG pO2 VBG HCO3 POC Glucose 158 H 126 H Albumin 2.8 L 02/10/19 06:19 WBC 16.4 H RBC 3.34 L Hgb 10.0 L Hct 30.5 L MCV 91.3 MCH 29.9 MCHC 32.8 RDW 13.8 Plt Count 409 H MPV 10.1 Seg Neutrophils % 90.0 Band Neutrophils % 2.0 Lymphocytes % 7.0 Monocytes % 1.0 Neutrophils # 15.1 H Lymphocytes # 1.2 Monocytes # 0.2 Hypersegmented Neuts Present A Platelet Estimate Slight increase H VBG pH VBG pCO2 VBG pO2 VBG HCO3 POC Glucose Albumin Palliative Scale - Palliative Performance Scale How ambulatory is this patient?: Mainly sit / lie What is patient's level of activity and evidence of disease?: Unable to do any work, Extensive disease How much self-care assistance does patient require?: Considerable assistance required How much oral intake does the patient have?: Normal or reduced What is this patient's level of consciousness?: Full or confusion Palliative Performance Score: 50 % Consult Discharge Plan - Plan Referrals: Noe Pena MD [Primary Care Provider] -
--- NOTE | 2019-02-10 15:15 | Internal Med Progress Note ---
<Oneida Curtis - Last Filed: 02/10/19 15:12> Hospitalist Progress Note - Encounter Date of Encounter: 02/10/19 Time of Encounter: 08:20 - Subjective Interval History: Mr. Martinez was seen at bedside this morning. He was awake, alert and oriented 3 but continued to remain somnolent during the exam. He was examined later in the day and appeared more awake and alert. He reported his dysuria has improved since admission. He denied any fever, chills, nausea, emesis, chest pain or shortness of breath. - Exam Vitals: Temp Pulse Resp BP Pulse Ox 97.9 F 43 18 137/76 92 02/10/19 11:30 02/10/19 11:30 02/10/19 11:30 02/10/19 11:30 02/10/19 11:30 Exam: Gen: Cachectic appearing, somnolent and lethargic Eyes: anicteric sclerae, moist conjunctivae HENT: Atraumatic; oropharynx clear with moist mucous membranes Neck: Trachea midline; supple Cardiac: RRR, no murmur, +S1/S2. No JVD noted. Pulmonary: Decreased air transfer, with diffuse upper lobe wheezing Abdomen: soft, nontender, no guarding MSK: ROM intact, no joint swelling noted Extremities: no edema, nontender calf Skin: Normal temperature, turgor; no rash, ulcers or subcutaneous nodules Neuro: moves all extremities, no focal deficits. Psych: Appropriate mood and behavior. A&Ox3 - Assessment and Plan (1) UTI (urinary tract infection) Current Visit: Yes Status: Acute Assessment and Plan: Presented with dysuria and was noted to have leukocyte and nitrate positive. Past history of several chronic UTIs. His urine culture is positive for Escherichia coli and Proteus just sensitive to Zosyn. Reports improvement in his dysuria this morning. Continue Zosyn day 8 of 14 (2) Pneumonia Current Visit: Yes Status: Acute Assessment and Plan: Presented with shortness of breath and at presentation with 2 liters of oxygen he was saturation in the 80s. Continues to require 2 L with oxygen saturation 92's, continues to have diffuse wheezing. He is on chronic 2 liters of oxygen. He denies cough or excessive sputum production. CT of the abdomen shows right bronchial wall thickening with mucous plugging Continue PO prednisone, will likely require long taper outpatient Continue Zosyn for aspiration pneumonia Added vancomycin today, day 1 for concern of MRSA pneumonia (3) COPD (chronic obstructive pulmonary disease) Current Visit: No Status: Chronic Assessment and Plan: History of COPD does not appear to be currently in exacerbation but due to consider right lower lobe pneumonia could become in exacerbation. -Continue scheduled DuoNeb -treatment of pneumonia as above -Continue to titrate supplemental oxygen -Continue 60 mg oral prednisone, will require taper upon discharge (4) Somnolence Current Visit: Yes Status: Resolved Assessment and Plan: Was somnolent yesterday but has significantly improved today. Could be due to waxing and weaning from UTI versus underlying dementia. Continue to decrease distraction at nighttime and orient the patient. Continue to open the curtains during daytime. (5) Sepsis Current Visit: Yes Status: Resolved Assessment and Plan: Sepsis likely secondary to UTI and pna. WBC 17.3, HR 102, Lactic acid was 3.8 ring his initial days of admission Date acid improved to 2.15 days ago. She received IV fluids and antibiotics with blood cultures. The cultures have yet to show any growth. Urine cultures positive for Escherichia coli and Proteus mirabilis which is currently sensitive to Zosyn. Also there is concern for aspiration pneumonia given his CT finding and will continue Zosyn for anaerobic coverage. WBC this morning continues to remain elevated at 16.4 with elevated immature neutrophils. Concern for MRSA pneumonia added vancomycin day 1 (6) Cachexia Current Visit: Yes Status: Chronic Assessment and Plan: Unsure of the etiology. Per daughter he required a PEG tube after CVA. BMI improved to 16.3 from 15.8 yesterday. Has a G tube. Nutrition consulted (7) Seizure Current Visit: No Status: Chronic Assessment and Plan: Chronic and no episodes since admission. Continue home keppra (8) DVT prophylaxis Current Visit: No Status: Acute Assessment and Plan: Heparin subcutaneous every 12 hours - Time Spent with Patient Total time spent is greater than 50% in coordination of care (as documented) at patient's floor/unit and/or counseling patient: Internal Medicine: Result - Labs CBC & Chem 7: 02/10/19 06:19 02/09/19 08:07 Labs: Short CBC 02/10/19 Range/Units 06:19 WBC 16.4 H (4.3-11.1) K/mcL Hgb 10.0 L (12.9-16.9) g/dL Hct 30.5 L (37.5-50.1) % Plt Count 409 H (140-400) K/mcL Neutrophils # 15.1 H (1.6-8.9) K/mcL Liver Function 02/10/19 Range/Units 06:19 Albumin 2.8 L (3.5-5.7) g/dL Consult Discharge Plan - Plan Referrals: Noe Pena MD [Primary Care Provider] - <Leon Mckeon - Last Filed: 02/10/19 16:52> Hospitalist Progress Note - Encounter Date of Encounter: 02/10/19 Internal Medicine: Result - Labs CBC & Chem 7: 02/10/19 06:19 02/09/19 08:07 Labs: Short CBC 02/10/19 Range/Units 06:19 WBC 16.4 H (4.3-11.1) K/mcL Hgb 10.0 L (12.9-16.9) g/dL Hct 30.5 L (37.5-50.1) % Plt Count 409 H (140-400) K/mcL Neutrophils # 15.1 H (1.6-8.9) K/mcL Liver Function 02/10/19 Range/Units 06:19 Albumin 2.8 L (3.5-5.7) g/dL - Attending Attestation Patient seen and examined independently, including review of objective data including labs. I agree with plan of care as documented above by the resident with the following comments: Clinically appears improved today; is sitting in bedside chair after eating lunch and able to ask/answer questions appropriately. Lungs still coarse but improved from yesterday. Still resistant to self care but able to verbalize understanding, and reluctantly agrees to PT/OT today. Asking when he'll get to go back to his SNF/ECF. Otherwise, his leukocytosis continues to rise and has bandemia, will temporarily add vancomycin due to length of hospitalization and risk for development of HAP. If continues improvement, though, can d/c and con [facility] account executive discharge on PO abx. <Oneida Curtis - Last Filed: 02/10/19 15:12> (1) UTI (urinary tract infection) Qualifiers: Urinary tract infection type: site unspecified Hematuria presence: with hematuria Qualified Code(s): N39.0 - Urinary tract infection, site not specified; R31.9 - Hematuria, unspecified (2) Pneumonia Qualifiers: Pneumonia type: due to unspecified organism Laterality: right Lung location: lower lobe of lung Qualified Code(s): J18.1 - Lobar pneumonia, unspecified organism (3) COPD (chronic obstructive pulmonary disease) Qualifiers: COPD type: unspecified COPD Qualified Code(s): J44.9 - Chronic obstructive pulmonary disease, unspecified (5) Sepsis Qualifiers: Sepsis type: sepsis due to unspecified organism Qualified Code(s): A41.9 - Sepsis, unspecified organism
[2019-02-11] MEDS: Piperacillin/Tazobactam 3.375 GM in 0.9 % Sodium Chloride Mini Bag 100 ML IVPB SCH ×3 (00:56→16:28)
[2019-02-11] MEDS: Sennosides 8.6 MG TABLET PO PRN (01:03)
[2019-02-11] MEDS: GuaiFENesin Liq 200 MG/10 ML UDC PO SCH ×7 (01:03→23:02)
[2019-02-11] MEDS: Levalbuterol Neb 1.25 MG/3 ML IH SCH ×4 (03:48→21:54)
[2019-02-11] MEDS: Ipratropium Neb 0.5 MG NEBULIZER IH SCH ×4 (03:48→21:54)
[2019-02-11 04:16] LABS: Basophils # 0.1 K/mcL (0.0-0.2); Basophils % 0.3 %; Eosinophils % 0.1 %; Hemoglobin 10.5 g/dL (12.9-16.9); Immature Granulocytes % 7.6 % (0-4); Lymphocytes # 1.7 K/mcL (0.6-4.6); Lymphocytes % 8.8 %; Mean Corpuscular HGB Conc 32.8 g/dL (31.6-35.5); Mean Corpuscular Hemoglobin 30.1 pg (28.0-33.3); Mean Corpuscular Volume 91.7 fL (83.0-100.0); Mean Platelet Volume 10.2 fL (9.4-12.4); Monocytes # 1.6 K/mcL (0.0-1.3); Monocytes % 8.5 %; Platelet Count 434 K/mcL (140-400); Red Blood Count 3.49 M/mcL (4.19-5.50); Red Cell Distribution Width 13.8 % (11.5-14.5); Segmented Neutrophils % 74.7 %
[2019-02-11 04:53] LABS: Platelet Estimate Normal (Normal)
[2019-02-11] MEDS: levETIRAcetam 500 MG/5 ML UDC PO SCH (05:50)
[2019-02-11] MEDS: *HR* Heparin 5,000 UNIT/ML VIAL SQ SCH (05:56)
[2019-02-11] MEDS: *HR* LORazepam 0.5 MG TABLET PO SCH ×3 (09:16→23:00)
[2019-02-11] MEDS: Thiamine (B-1) 100 MG TABLET PO SCH (09:16)
[2019-02-11] MEDS: predniSONE 20 MG TABLET PO SCH (09:16)
[2019-02-11] MEDS: Folic Acid 1 MG TABLET PO SCH (09:17)
[2019-02-11] MEDS: Gabapentin 300 MG CAPSULE PO SCH ×2 (09:17→23:00)
[2019-02-11] MEDS: Diltiazem CD (24hr) 180 MG CAPSULE PO SCH (09:17)
[2019-02-11] MEDS: Loratadine 10 MG TABLET PO SCH (09:17)
[2019-02-11] MEDS: Aspirin 81 MG TAB.CHEW PO SCH (09:17)
[2019-02-11] MEDS: Magnesium Oxide 400 MG TABLET PO SCH (09:17)
[2019-02-11] MEDS: Triamcinolone Acet 0.1% CRM 15 GM TUBE TP SCH ×2 (09:18→23:00)
[2019-02-11] MEDS: Insulin LISPRO 300 UNITS/3 ML VIAL SQ SCH ×4 (09:19→23:01)
--- NOTE | 2019-02-11 16:43 | Internal Med Progress Note ---
<Oneida Curtis - Last Filed: 02/11/19 16:32> Hospitalist Progress Note - Encounter Date of Encounter: 02/11/19 Time of Encounter: 09:00 - Subjective Interval History: Mr. Mayen was seen this morning at bedside he was somnolent but was responsive to physical stimuli. His daughter and son-in-law were present at bedside. We had a long discussion about goals of care his current hospital course. Her daughter he is usually somnolent in the mornings and is awake and alert during the afternoon. She also reported he is a heavy coffee drinker and is not enjoying his thickened coffee she is likely causing him to be less awake during the afternoon. Mr. Mayen was seen later this afternoon began just to reevaluate. He was somnolent, was more awake, alert and oriented 3 by verbal stimuli. He denies fever, chills, nausea, emesis, dysuria, shortness of breath, chest pain or abdominal pain. - Exam Vitals: Temp Pulse Resp BP Pulse Ox 98.6 F 84 16 149/76 95 02/11/19 11:47 02/11/19 11:47 02/11/19 15:20 02/11/19 11:47 02/11/19 15:20 Exam: Gen: Cachectic appearing, somnolent and lethargic Eyes: anicteric sclerae, moist conjunctivae HENT: Atraumatic; oropharynx clear with moist mucous membranes Neck: Trachea midline; supple Cardiac: RRR, no murmur, +S1/S2. No JVD noted. Pulmonary: Good aeration, rhonchi in right lower lung lobe Abdomen: soft, nontender, no guarding MSK: ROM intact, no joint swelling noted Extremities: no edema, nontender calf Skin: Normal temperature, turgor; no rash, ulcers or subcutaneous nodules, ulcers or lesions noted on sacral exam Neuro: moves all extremities, no focal deficits. Psych: Appropriate mood and behavior. A&Ox3 - Assessment and Plan (1) UTI (urinary tract infection) Current Visit: Yes Status: Acute Assessment and Plan: Presented with dysuria and was noted to have leukocyte and nitrate positive. Past history of several chronic UTIs. His urine culture is positive for Escherichia coli and Proteus sensitive to Zosyn. Resolved dysuria this morning Continue Zosyn day 9 of 14 (2) Pneumonia Current Visit: Yes Status: Acute Assessment and Plan: Presented with shortness of breath and at presentation with 2 liters of oxygen he was saturation in the 80s. Continues to require 2 L with oxygen saturation 92's, continues to have diffuse wheezing. He is on chronic 2 liters of oxygen. He denies cough or excessive sputum production. CT of the abdomen shows right bronchial wall thickening with mucous plugging Continue PO prednisone, will likely require long taper outpatient Continue Zosyn for aspiration pneumonia Continue vancomycin, day 2 for concern of MRSA pneumonia (3) COPD (chronic obstructive pulmonary disease) Current Visit: No Status: Chronic Assessment and Plan: History of COPD does not appear to be currently in exacerbation but due to consider right lower lobe pneumonia could become in exacerbation. -Continue scheduled DuoNeb -treatment of pneumonia as above -Continue to titrate supplemental oxygen -Continue 60 mg oral prednisone, will require taper upon discharge (4) Somnolence Current Visit: Yes Status: Resolved Assessment and Plan: Has waxing and waning episodes of somnolence. Per daughter it is chronic for him to be sleepy in the morning but does awaken more so in the afternoon. He was somnolent in the morning and was later examined in the afternoon and was more awake Could be due to waxing and weaning from UTI versus underlying dementia. Also can be from caffeine withdrawal seizures of heavy coffee drinker but due to thickened diet is not enjoying his current coffee Continue to decrease distraction at nighttime and orient the patient. Continue to open the curtains during daytime. (5) Sepsis Current Visit: Yes Status: Resolved Assessment and Plan: Sepsis likely secondary to UTI and pna. WBC 17.3, HR 102, Lactic acid was 3.8 ring his initial days of admission Lactic acid improved to 2.1 on 02/05/19. He received IV fluids and antibioticsa; blood cultures have been negative from 02/05/19 Urine cultures positive for Escherichia coli and Proteus mirabilis which is currently sensitive to Zosyn. Also there is concern for aspiration pneumonia given his CT finding and will continue Zosyn for anaerobic coverage. WBC this morning continues to remain elevated at 16.9 with elevated immature granulocytes. Concern for MRSA pneumonia continue vancomycin day 2 (6) Cachexia Current Visit: Yes Status: Chronic Assessment and Plan: Unsure of the etiology. Per daughter he required a PEG tube after CVA. BMI improved to 16.7 from 15.8 two days ago. Nutrition consulted Continue thickened liquids diet with tube feeding (7) Seizure Current Visit: No Status: Chronic Assessment and Plan: Chronic and no episodes since admission. Continue home keppra (8) DVT prophylaxis Current Visit: No Status: Acute Assessment and Plan: Heparin subcutaneous every 12 hours DVT Prophylaxis: Heparin subcutaneous every 12 hours - Time Spent with Patient Total time spent is greater than 50% in coordination of care (as documented) at patient's floor/unit and/or counseling patient: Internal Medicine: Result - Labs CBC & Chem 7: 02/11/19 03:46 02/09/19 08:07 Labs: Short CBC 02/11/19 Range/Units 03:46 WBC 18.8 H (4.3-11.1) K/mcL Hgb 10.5 L (12.9-16.9) g/dL Hct 32.0 L (37.5-50.1) % Plt Count 434 H (140-400) K/mcL Neutrophils # 14.0 H (1.6-8.9) K/mcL Consult Discharge Plan - Plan Referrals: Noe Pena MD [Primary Care Provider] - <Leon Mckeon - Last Filed: 02/11/19 17:48> Hospitalist Progress Note - Encounter Date of Encounter: 02/11/19 Internal Medicine: Result - Labs CBC & Chem 7: 02/11/19 03:46 02/09/19 08:07 Labs: Short CBC 02/11/19 Range/Units 03:46 WBC 18.8 H (4.3-11.1) K/mcL Hgb 10.5 L (12.9-16.9) g/dL Hct 32.0 L (37.5-50.1) % Plt Count 434 H (140-400) K/mcL Neutrophils # 14.0 H (1.6-8.9) K/mcL - Attending Attestation Patient seen and examined independently, including review of objective data including labs. I agree with plan of care as documented above by the resident with the following comments: Clinically appears stable from yesterday. More groggy in mornings and tends to perk up a bit in the afternoons. Lungs still coarse. Asking when he'll get to go back to his SNF/ECF. Met with daughter, Madhavi, who says patient does actually seem to be at baseline. However, his leukocytosis does continue to rise and we will monitor this; continue empiric zosyn/vanc. If remains stable, will consider de-escalation to empiric PO abx and return to SNF after another 2-3 days. <Oneida Curtis - Last Filed: 02/11/19 16:32> (1) UTI (urinary tract infection) Qualifiers: Urinary tract infection type: site unspecified Hematuria presence: with hematuria Qualified Code(s): N39.0 - Urinary tract infection, site not specified; R31.9 - Hematuria, unspecified (2) Pneumonia Qualifiers: Pneumonia type: due to unspecified organism Laterality: right Lung location: lower lobe of lung Qualified Code(s): J18.1 - Lobar pneumonia, unspecified organism (3) COPD (chronic obstructive pulmonary disease) Qualifiers: COPD type: unspecified COPD Qualified Code(s): J44.9 - Chronic obstructive pulmonary disease, unspecified (5) Sepsis Qualifiers: Sepsis type: sepsis due to unspecified organism Qualified Code(s): A41.9 - Sepsis, unspecified organism
[2019-02-12] MEDS: Piperacillin/Tazobactam 3.375 GM in 0.9 % Sodium Chloride Mini Bag 100 ML IVPB SCH ×4 (00:46→23:09)
[2019-02-12] MEDS: Ipratropium Neb 0.5 MG NEBULIZER IH SCH ×4 (03:45→22:38)
[2019-02-12] MEDS: Levalbuterol Neb 1.25 MG/3 ML IH SCH ×4 (03:45→22:38)
[2019-02-12 04:54] LABS: Hematocrit 33.2 % (37.5-50.1); Hemoglobin 10.7 g/dL (12.9-16.9); Mean Corpuscular HGB Conc 32.2 g/dL (31.6-35.5); Mean Corpuscular Hemoglobin 29.8 pg (28.0-33.3); Mean Corpuscular Volume 92.5 fL (83.0-100.0); Mean Platelet Volume 9.8 fL (9.4-12.4); Platelet Count 459 K/mcL (140-400); Red Blood Count 3.59 M/mcL (4.19-5.50); Red Cell Distribution Width 13.7 % (11.5-14.5)
[2019-02-12 05:10] LABS: BUN/Creatinine Ratio 43 (6-26); Blood Urea Nitrogen 19 mg/dL (8-23); eGFR For Non-African Americans > 60 (> 60)
[2019-02-12 05:18] LABS: Lymphocytes # 2.2 K/mcL (0.6-4.6); Monocytes # 0.4 K/mcL (0.0-1.3); Neutrophils # 15.8 K/mcL (1.6-8.9); Platelet Estimate Increased (Normal)
[2019-02-12] MEDS: GuaiFENesin Liq 200 MG/10 ML UDC PO SCH ×6 (05:51→23:44)
[2019-02-12] MEDS: *HR* Heparin 5,000 UNIT/ML VIAL SQ SCH ×3 (07:12→17:04)
[2019-02-12] MEDS: levETIRAcetam 500 MG/5 ML UDC PO SCH ×3 (07:12→17:04)
[2019-02-12] MEDS: Insulin LISPRO 300 UNITS/3 ML VIAL SQ SCH ×4 (08:10→21:15)
[2019-02-12] MEDS: Aspirin 81 MG TAB.CHEW PO SCH (09:45)
[2019-02-12] MEDS: predniSONE 20 MG TABLET PO SCH (09:45)
[2019-02-12] MEDS: Loratadine 10 MG TABLET PO SCH (09:45)
[2019-02-12] MEDS: Thiamine (B-1) 100 MG TABLET PO SCH (09:45)
[2019-02-12] MEDS: Gabapentin 300 MG CAPSULE PO SCH ×2 (09:45→20:47)
[2019-02-12] MEDS: Magnesium Oxide 400 MG TABLET PO SCH (09:45)
[2019-02-12] MEDS: Diltiazem CD (24hr) 180 MG CAPSULE PO SCH (09:45)
[2019-02-12] MEDS: Triamcinolone Acet 0.1% CRM 15 GM TUBE TP SCH ×2 (09:46→20:47)
[2019-02-12] MEDS: Folic Acid 1 MG TABLET PO SCH (09:46)
[2019-02-12] MEDS: *HR* LORazepam 0.5 MG TABLET PO SCH ×3 (09:46→20:47)
--- NOTE | 2019-02-12 13:27 | Internal Med Progress Note ---
<Oneida Curtis - Last Filed: 02/12/19 13:25> Hospitalist Progress Note - Encounter Date of Encounter: 02/12/19 Time of Encounter: 08:30 - Subjective Interval History: Mr. Mayen was seen at bedside this morning. He was somnolent but was arousable with verbal stimuli. His vitals were reviewed and he remained normotensive overnight. He reported some chest congestion but denied any cough. He also denied fever, chills, nausea, emesis, chest pain or abdominal pain. - Exam Vitals: Temp Pulse Resp BP Pulse Ox 97.8 F 69 15 140/82 93 02/12/19 04:00 02/12/19 11:46 02/12/19 11:46 02/12/19 11:46 02/12/19 11:46 Exam: Gen: Cachectic appearing, somnolent Eyes: anicteric sclerae, moist conjunctivae HENT: Atraumatic; oropharynx clear with moist mucous membranes Neck: Trachea midline; supple Cardiac: RRR, no murmur, +S1/S2. No JVD noted. Pulmonary: Good aeration, rhonchi in right lower lung lobe Abdomen: soft, nontender, no guarding MSK: ROM intact, no joint swelling noted Extremities: no edema, nontender calf Skin: Normal temperature, turgor; no rash, ulcers or subcutaneous nodules, ulcers or lesions noted on sacral exam Neuro: moves all extremities, no focal deficits. Psych: Appropriate mood and behavior. A&Ox3 - Assessment and Plan (1) UTI (urinary tract infection) Current Visit: Yes Status: Acute Assessment and Plan: Presented with dysuria and was noted to have leukocyte and nitrate positive. Past history of several chronic UTIs. His urine culture is positive for Escherichia coli and Proteus sensitive to Zosyn. Resolved dysuria this morning Continue Zosyn day 10 of 14 (2) Pneumonia Current Visit: Yes Status: Acute Assessment and Plan: Presented with shortness of breath and at presentation with 2 liters of oxygen h e was saturation in the 80s. Continues to require 2 L with oxygen saturation 92's, continues to have diffuse wheezing. He is on chronic 2 liters of oxygen. He denies cough but reports chest congestion CT of the abdomen shows right bronchial wall thickening with mucous plugging Decreasing oral prednisone to 40 mg daily, will likely require long taper outpatient Continue Zosyn for aspiration pneumonia Continue vancomycin, day 3 for concern of MRSA pneumonia Continue guaifenesin scheduled Sputum culture pending (3) Leukocytosis Current Visit: Yes Status: Acute Assessment and Plan: Blood cell count remains elevated today is 18.4. Could be secondary to prednisone but was not elevated initially when prednisone was started Concern for underlying malignancy Has had no episodes of fever He is getting appropriate antibiotic regimen to cover for his UTI additionally vancomycin was added 3 days ago to cover for MRSA pneumonia. He is also noted to have elevated platelet counts with increased segmented neutrophils and elevated lymphocyte Sputum culture pending Blood smear is pending (4) COPD (chronic obstructive pulmonary disease) Current Visit: No Status: Chronic Assessment and Plan: History of COPD does not appear to be currently in exacerbation but due to consider right lower lobe pneumonia could become in exacerbation. -Continue scheduled DuoNeb -treatment of pneumonia as above -Continue to titrate supplemental oxygen -Decreased oral prednisone to 40 mg, will require taper upon discharge (5) Somnolence Current Visit: Yes Status: Resolved Assessment and Plan: Has waxing and waning episodes of somnolence. Per daughter it is chronic for him to be sleepy in the morning but does awaken more so in the afternoon. Continues to have somnolent episodes in the morning Could be due to waxing and weaning from UTI versus underlying dementia. Also can be from caffeine withdrawal seizures as he is a heavy coffee drinker but due to thickened diet is not enjoying his current coffee Continue to decrease distraction at nighttime and orient the patient. Continue to open the curtains during daytime. (6) Sepsis Current Visit: Yes Status: Resolved Assessment and Plan: Sepsis likely secondary to UTI and pna. WBC 17.3, HR 102, Lactic acid was 3.8 ring his initial days of admission Lactic acid improved to 2.1 on 02/05/19. He received IV fluids and antibiotics; blood cultures have been negative from 02/05/19 Urine cultures positive for Escherichia coli and Proteus mirabilis which is currently sensitive to Zosyn. Also there is concern for aspiration pneumonia given his CT finding and will continue Zosyn for anaerobic coverage. WBC this morning continues to remain elevated at 18.4 Concern for MRSA pneumonia continue vancomycin day 3 Blood Smear pending (7) Cachexia Current Visit: Yes Status: Chronic Assessment and Plan: Unsure of the etiology. Per daughter he required a PEG tube after CVA. Continues to have severe low weight Continue thickened liquids diet with tube feeding Encourage by mouth intake (8) Seizure Current Visit: No Status: Chronic Assessment and Plan: Chronic and no episodes since admission. Continue home keppra (9) DVT prophylaxis Current Visit: No Status: Acute Assessment and Plan: Heparin subcutaneous every 12 hours - Time Spent with Patient Total time spent is greater than 50% in coordination of care (as documented) at patient's floor/unit and/or counseling patient: Internal Medicine: Result - Labs CBC & Chem 7: 02/12/19 04:38 02/12/19 04:38 Labs: Short CBC 02/12/19 Range/Units 04:38 WBC 18.4 H (4.3-11.1) K/mcL Hgb 10.7 L (12.9-16.9) g/dL Hct 33.2 L (37.5-50.1) % Plt Count 459 H (140-400) K/mcL Neutrophils # 15.8 H (1.6-8.9) K/mcL BMP 02/12/19 04:38 BUN 19 Creatinine 0.44 L Consult Discharge Plan - Plan Referrals: Noe Pena MD [Primary Care Provider] - <Leon Mckeon - Last Filed: 02/12/19 14:23> Hospitalist Progress Note - Encounter Date of Encounter: 02/12/19 Internal Medicine: Result - Labs CBC & Chem 7: 02/12/19 04:38 02/12/19 04:38 Labs: Short CBC 02/12/19 Range/Units 04:38 WBC 18.4 H (4.3-11.1) K/mcL Hgb 10.7 L (12.9-16.9) g/dL Hct 33.2 L (37.5-50.1) % Plt Count 459 H (140-400) K/mcL Neutrophils # 15.8 H (1.6-8.9) K/mcL BMP 02/12/19 04:38 BUN 19 Creatinine 0.44 L - Attending Attestation Patient seen and examined independently, including review of objective data including labs. I agree with plan of care as documented above by the resident with the following comments: Clinically still appears stable for last few days. More groggy in mornings but still does wake to voice and easily answer questions, and tends to perk up a bit in the afternoons. Lungs still coarse although less so on my exam today. Still has very junky/wet sounding cough. Today, his leukocytosis does continue to rise and we will continue empiric zosyn/vanc, send sputum for culture, and check peripheral smear. Will add mucinex and acapella. If remains stable, will consider de-escalation to empiric PO abx and return to SNF after another 2-3 days. <Oneida Curtis - Last Filed: 02/12/19 13:25> (1) UTI (urinary tract infection) Qualifiers: Urinary tract infection type: site unspecified Hematuria presence: with hematuria Qualified Code(s): N39.0 - Urinary tract infection, site not s pecified; R31.9 - Hematuria, unspecified (2) Pneumonia Qualifiers: Pneumonia type: due to unspecified organism Laterality: right Lung location: lower lobe of lung Qualified Code(s): J18.1 - Lobar pneumonia, unspecified organism (3) Leukocytosis Qualifiers: Leukocytosis type: unspecified Qualified Code(s): D72.829 - Elevated white bl ood cell count, unspecified (4) COPD (chronic obstructive pulmonary disease) Qualifiers: COPD type: unspecified COPD Qualified Code(s): J44.9 - Chronic obstructive pulmonary disease, unspecified (6) Sepsis Qualifiers: Sepsis type: sepsis due to unspecified organism Qualified Code(s): A41.9 - Sepsis, unspecified organism
[2019-02-13 04:24] LABS: Basophils % 0.2 %; Hematocrit 31.8 % (37.5-50.1); Hemoglobin 10.4 g/dL (12.9-16.9); Immature Granulocytes % 4.4 % (0-4); Lymphocytes # 1.3 K/mcL (0.6-4.6); Lymphocytes % 7.2 %; Mean Corpuscular HGB Conc 32.7 g/dL (31.6-35.5); Mean Corpuscular Hemoglobin 30.1 pg (28.0-33.3); Mean Corpuscular Volume 92.2 fL (83.0-100.0); Mean Platelet Volume 9.9 fL (9.4-12.4); Monocytes # 1.2 K/mcL (0.0-1.3); Monocytes % 7.1 %; Neutrophils # 14.2 K/mcL (1.6-8.9); Platelet Count 469 K/mcL (140-400); Red Blood Count 3.45 M/mcL (4.19-5.50); Segmented Neutrophils % 81.1 %
[2019-02-13] MEDS: Levalbuterol Neb 1.25 MG/3 ML IH SCH ×4 (04:34→22:37)
[2019-02-13] MEDS: Ipratropium Neb 0.5 MG NEBULIZER IH SCH ×4 (04:34→22:37)
[2019-02-13] MEDS: GuaiFENesin Liq 200 MG/10 ML UDC PO SCH ×5 (05:14→22:09)
[2019-02-13] MEDS: levETIRAcetam 500 MG/5 ML UDC PO SCH ×2 (06:00→16:54)
[2019-02-13] MEDS: *HR* Heparin 5,000 UNIT/ML VIAL SQ SCH ×2 (06:00→16:56)
--- NOTE | 2019-02-13 07:37 | Internal Med Progress Note ---
Hospitalist Progress Note - Encounter Date of Encounter: 02/13/19 Time of Encounter: 07:36 - Subjective Interval History: Pt this AM sitting up in bed with eyes open, participates in conversation by answering questions. Says cough is improved but still rattling/wet which he says is usual for him. No abd pain, N/V, or diarrhea. - Exam Vitals: Temp Pulse Resp BP Pulse Ox 98.2 F 72 16 149/67 90 02/13/19 04:10 02/13/19 04:10 02/13/19 04:35 02/13/19 04:10 02/13/19 04:35 Exam: General: NAD, good eye contact today, elderly and frail appearing, does not move much Thoracic: coarse breath sounds but no wheezing or crackles Cardio: Normal S1 and S2, regular rate and rhythm, no murmurs Abdomen: Soft, nontender, nondistended. G-tube in place. Extremities: Warm, well perfused. DP pulses 2+ b/l. No edema. Skin: Intact. No rashes, bruises, or ulcers Neuro: Awake, fully oriented. Speech fluent - Summary of Assessment and Plan Summary of Assessment and Plan: Mitchell Martinez is a 73 M w hx smoker, COPD on 2L, DM2, HTN, CVA, seizures, dysphagia s/p PEG, and recent admission for urosepsis, who p/w SOB, cough, increased O2 req, leukocytosis, and eventual CT w RLL infiltrates, concerning for hospital acquired pneumonia. Bronchiectasis with HAP: seen RLL on CT 02/08. Clinically, pt has been improving but still has leukocytosis. - continue empiric zosyn and vanc - start empiric levaquin 750 daily - repeat chest CT - depending on findings, consider pulm consult for bronchoscopy Leukocytosis: possibly 2/2 infection as noted above, neutrophil predominance. BCx x2 negative, repeat x2 ngtd. UCx growing E coli and Proteus which have been treated. - peripheral smear - f/u BCx x2 - monitor COPD in acute exacerbation: likely 2/2 PNA, resolved - nebs q6h&prn - decrease prednisone to 20 daily x5d Chronic hypoxic respiratory failure: weaned back to home 2L O2, acute component resolved - supplemental O2, wean as able - IS and Acapella Sepsis: resolved E coli and Proteus UTI: resolved Dysphagia: feeds per G-tube Severe protein malnutrition and cachexia: noted, nutrition consult Epilepsy: home keppra bid PPx: SCDs FEN: TF plus mech altered food & nectar thick liq, no MIVF Lines: PIV Consults: Code: DNRCC-A Dispo: patient requires inpatient eval and management at this time. Anticipate 2-3 days. Will need new SNF placement at d/c Internal Medicine: Result - Labs CBC & Chem 7: 02/13/19 03:45 02/12/19 04:38 Labs: Short CBC 02/12/19 02/13/19 Range/Units 04:38 03:45 WBC 18.4 H 17.6 H (4.3-11.1) K/mcL Hgb 10.7 L 10.4 L (12.9-16.9) g/dL Hct 33.2 L 31.8 L (37.5-50.1) % Plt Count 459 H 469 H (140-400) K/mcL Neutrophils # 15.8 H 14.2 H (1.6-8.9) K/mcL Consult Discharge Plan - Plan Referrals: Noe Pena MD [Primary Care Provider] -
[2019-02-13] MEDS ORDERED: Potassium Chloride Elixir 20 MEQ/15 ML UDC PO ONE (08:14)
[2019-02-13] MEDS: Insulin LISPRO 300 UNITS/3 ML VIAL SQ SCH ×4 (08:16→22:09)
[2019-02-13] MEDS: Levofloxacin 750 MG/150 ML 750 MG/150 ML BAG IVPB SCH (08:23)
[2019-02-13] MEDS: Loratadine 10 MG TABLET PO SCH (08:32)
[2019-02-13] MEDS: Aspirin 81 MG TAB.CHEW PO SCH (08:32)
[2019-02-13] MEDS: Magnesium Oxide 400 MG TABLET PO SCH (08:32)
[2019-02-13] MEDS: Folic Acid 1 MG TABLET PO SCH (08:33)
[2019-02-13] MEDS: Diltiazem CD (24hr) 180 MG CAPSULE PO SCH (08:33)
[2019-02-13] MEDS: *HR* LORazepam 0.5 MG TABLET PO SCH ×3 (08:33→22:09)
[2019-02-13] MEDS: Triamcinolone Acet 0.1% CRM 15 GM TUBE TP SCH ×2 (08:33→22:10)
[2019-02-13] MEDS: Thiamine (B-1) 100 MG TABLET PO SCH (08:33)
[2019-02-13] MEDS: Gabapentin 300 MG CAPSULE PO SCH ×2 (08:33→22:09)
[2019-02-13] MEDS ORDERED: predniSONE 20 MG TABLET PO SCH (09:00)
[2019-02-13] MEDS: Piperacillin/Tazobactam 3.375 GM in 0.9 % Sodium Chloride Mini Bag 100 ML IVPB SCH ×3 (10:11→23:29)
[2019-02-14] MEDS: GuaiFENesin Liq 200 MG/10 ML UDC PO SCH ×5 (03:56→17:12)
[2019-02-14 04:09] LABS: Hematocrit 30.6 % (37.5-50.1); Hemoglobin 10.4 g/dL (12.9-16.9); Mean Corpuscular Hemoglobin 30.4 pg (28.0-33.3); Mean Corpuscular Volume 89.5 fL (83.0-100.0); Mean Platelet Volume 9.7 fL (9.4-12.4); Platelet Count 440 K/mcL (140-400); Red Blood Count 3.42 M/mcL (4.19-5.50); Red Cell Distribution Width 14.4 % (11.5-14.5)
[2019-02-14 04:22] LABS: BUN/Creatinine Ratio 49 (6-26); Blood Urea Nitrogen 22 mg/dL (8-23); Calcium 8.5 mg/dL (8.6-10.3); Carbon Dioxide 33 mEq/L (23-29); Chloride 96 mEq/L (98-107); Glucose 143 mg/dL (70-105); Osmolality,Calculated 286 (280-300); Potassium 3.5 mEq/L (3.5-5.1); Sodium 135 mEq/L (136-145); eGFR For Non-African Americans > 60 (> 60)
[2019-02-14] MEDS: Ipratropium Neb 0.5 MG NEBULIZER IH SCH ×4 (04:30→21:52)
[2019-02-14] MEDS: Levalbuterol Neb 1.25 MG/3 ML IH SCH ×4 (04:30→21:52)
[2019-02-14] MEDS: *HR* Heparin 5,000 UNIT/ML VIAL SQ SCH ×2 (06:01→17:13)
[2019-02-14] MEDS: levETIRAcetam 500 MG/5 ML UDC PO SCH ×2 (06:01→17:12)
--- NOTE | 2019-02-14 07:30 | Internal Med Progress Note ---
<Titi Albrecht S - Last Filed: 02/14/19 11:24> Hospitalist Progress Note - Encounter Date of Encounter: 02/14/19 Time of Encounter: 08:25 - Subjective Interval History: Pt admitted on 02/02/19. He has a PMH of CVA, seizures, dysphagia, HTN and came from outside facility with SOB. On presentation he was requiring increasing amounts of O2 from baseline, usually uses 2 L at home and needed 4L. Was also recently at [facility] for UTI and told admitting hospitalist he was unsure of abx used. Pt laying in bed with eyes open. Doesn't participate in conversation much, is hard to arouse and sleepy. No family present at bedside. - Exam Vitals: Temp Pulse Resp BP Pulse Ox 97.4 F L 61 17 142/68 97 02/14/19 04:02 02/14/19 04:02 02/14/19 04:30 02/14/19 04:02 02/14/19 04:30 Exam: General: NAD, elderly and frail appearing, does not move much, not partipiating in conversation Lungs: coarse breath sounds no wheeze/stridor, not in respiratory distress Cardio: Normal S1 and S2, regular rate and rhythm, no murmurs Abdomen: Soft, nontender, nondistended. G-tube in place. Extremities: Warm, well perfused. DP pulses 2+ b/l. No edema. Skin: Intact. No rashes, bruises, or ulcers Neuro: Sleeping, not able to assess, doesn't appear to have FND Psych: unable to assess - Assessment and Plan (1) Bronchiectasis Current Visit: Yes Status: Acute Assessment and Plan: Pt has exacerbation of bronchiestasis with hospital acquired PNA vs aspiration PNA CT on 02/08: bronchiestasis, increased interstitial and alveolar opacities right lung (early PNA vs aspiration), moderate emphysema CT on 02/13: ground glass attenuation and punctate nodules in the LLL, new since 02/08 infectious vs inflammatory RLL opacity improving new ground glass opacity in right apex, 7mm Blood cx negative 02/03 Sputum cx preliminary negative Plan: - continue abx Levaquin day 2 for a total of 5-7days d/c Vancomycin day 4 d/c Zosyn day 11 - blood cx pending - prednisone 20mg daily x 5 days, day 2/5 - continue duonebs q6hr and prn - IS and acapella - FEN: tube feeds, mechanically altered food, nectar thickened liquids - dispo: d/c to SNF, 1-2 days (2) Chronic respiratory failure Current Visit: Yes Status: Acute Assessment and Plan: Continue to wean O2 as able to. Currently on home 2 L. (3) Dysphagia Current Visit: Yes Status: Acute Assessment and Plan: PEG tube in place. Diet as per nutrition. (4) Diabetes mellitus Current Visit: No Status: Chronic Assessment and Plan: LDSS. Glucose 171 this AM, appropriate. (5) Sepsis Current Visit: Yes Status: Resolved Assessment and Plan: Resolved. Met sepsis criteria on admission for WBC, HR, RR. LA elevated at 2.3 on 02/02, has since resolved. (6) Pneumonia Current Visit: Yes Status: Acute Assessment and Plan: See above for bronchiestasis. Likely HAP. (7) Seizure Current Visit: No Status: Chronic Assessment and Plan: Has hx of seizure, on keppra BID. (8) Cachexia Current Visit: Yes Status: Chronic Assessment and Plan: Chronic. BMI 16.7, severe malnourishment. Nutrition consulted. (9) Leukocytosis Current Visit: Yes Status: Acute Assessment and Plan: WBC 17.5 this morning. Improved from 18.8 --> 18.4 --> 17.6. Likely secondary to PNA, see above for bronchiestasis. (10) DVT prophylaxis Current Visit: Yes Status: Acute Assessment and Plan: sq heparin DVT Prophylaxis: Heparin subcutaneous every 12 hours - Time Spent with Patient Total time spent is greater than 50% in coordination of care (as documented) at patient's floor/unit and/or counseling patient: less than 15 minutes Plan of Care Discussed with: nurse Internal Medicine: Result - Labs CBC & Chem 7: 02/14/19 03:45 02/14/19 03:45 Labs: Short CBC 02/14/19 Range/Units 03:45 WBC 17.5 H (4.3-11.1) K/mcL Hgb 10.4 L (12.9-16.9) g/dL Hct 30.6 L (37.5-50.1) % Plt Count 440 H (140-400) K/mcL BMP 02/14/19 03:45 Sodium 135 L Potassium 3.5 Chloride 96 L Carbon Dioxide 33 H BUN 22 Creatinine 0.45 L Glucose 143 H Calcium 8.5 L - Impressions Impressions Chest CT 02/13/19 07:35 IMPRESSION: Emphysema. Evaluation is limited by respiratory motion. Previously visualized nodule in the left lung apex has significantly decreased in size since 2010 and now measures up to 5 mm. Adjacent interlobular nodular thickening has also nearly completely resolved. Region of ground-glass attenuation and punctate nodules in the left lower lobe, new since 02/08/2019. Findings may be infectious or inflammatory in etiology. Recommend short interval follow-up. Right lower lobe opacity has improved since 02/08/2019. New ground-glass nodule in the right apex measures 7 mm. Recommend follow-up in 6-12 months. D/ / Cammy Woodard MD / Cammy Woodard MD Interpreting Provider: Cammy Woodard MD Consult Discharge Plan - Plan Referrals: Noe Pena MD [Primary Care Provider] - <Leon Mckeon - Last Filed: 02/14/19 13:07> Hospitalist Progress Note - Encounter Date of Encounter: 02/14/19 Internal Medicine: Result - Labs CBC & Chem 7: 02/14/19 03:45 02/14/19 03:45 Labs: Short CBC 02/14/19 Range/Units 03:45 WBC 17.5 H (4.3-11.1) K/mcL Hgb 10.4 L (12.9-16.9) g/dL Hct 30.6 L (37.5-50.1) % Plt Count 440 H (140-400) K/mcL BMP 02/14/19 03:45 Sodium 135 L Potassium 3.5 Chloride 96 L Carbon Dioxide 33 H BUN 22 Creatinine 0.45 L Glucose 143 H Calcium 8.5 L - Attending Attestation Patient seen and examined independently, including review of objective data including labs. I agree with plan of care as documented above by the resident with the following comments: Clinically improved to reported baseline, much more awake even in AM today, and somewhat conversant. CT showing improvement in previous infiltrate but concern for new one developing. No improvement in clinical status (was already improving) or leukocytosis since starting Vanc and will thus discontinue. Has had 11 days Zosyn and also will discontinue. Will continue Levaquin for additional 5 days. Re leukocytosis, persistent despite broad spectrum abx and clinical improvement. LDH normal, peripheral smear pending. Likely d/c to SNF tomorrow and can follow up outpatient should leukocytosis persist. ___ <Titi Albrecht S - Last Filed: 02/14/19 11:24> (1) Bronchiectasis Qualifiers: Bronchiectasis type: with acute exacerbation Qualified Code(s): J47.1 - Bronchiectasis with (acute) exacerbation (2) Chronic respiratory failure Qualifiers: Respiratory failure complication: hypoxia Qualified Code(s): J96.11 - Chronic respiratory failure with hypoxia (3) Dysphagia Qualifiers: Dysphagia type: unspecified Qualified Code(s): R13.10 - Dysphagia, unspecified (4) Diabetes mellitus Qualifiers: Diabetes mellitus type: type 2 Diabetes mellitus intermodal dispatcher insulin use: without intermodal dispatcher use Diabetes mellitus complication status: with unspecified complications Qualified Code(s): E11.8 - Type 2 diabetes mellitus with unspecified complications (5) Sepsis Qualifiers: Sepsis type: sepsis due to unspecified organism Qualified Code(s): A41.9 - Sepsis, unspecified organism (6) Pneumonia Qualifiers: Pneumonia type: due to unspecified organism Laterality: right Lung location: lower lobe of lung Qualified Code(s): J18.1 - Lobar pneumonia, unspecified organism (9) Leukocytosis Qualifiers: Leukocytosis type: unspecified Qualified Code(s): D72.829 - Elevated white blood cell count, unspecified
[2019-02-14 07:54] LABS: Lactate Dehydrogenase 152 Units/L (140-271)
--- NOTE | 2019-02-14 09:22 | Event Note ---
Date of Encounter: 02/14/19 Time of Encounter: 09:15 Patient seen briefly - sleeping on my arrival , but awakens easily. STates he feels better, just tired. No family present. I spoke with daughter Madhavi kevin late last week, and Dr. Peterson also spoke with her regarding ongoing goals of care discussion. No changes were made,, and daughter desired to continue aggressive management of care, up to the point of cardiac arrest. Code status remains DNR-Arrest. Will transition to ECF upon discharge, likely [place]. Palliative currently not managing any symptoms and will sign off. Please call if needed.
[2019-02-14] MEDS: Loratadine 10 MG TABLET PO SCH (09:24)
[2019-02-14] MEDS: Thiamine (B-1) 100 MG TABLET PO SCH (09:24)
[2019-02-14] MEDS: Gabapentin 300 MG CAPSULE PO SCH (09:24)
[2019-02-14] MEDS: Diltiazem CD (24hr) 180 MG CAPSULE PO SCH (09:24)
[2019-02-14] MEDS: Levofloxacin 750 MG/150 ML 750 MG/150 ML BAG IVPB SCH (09:24)
[2019-02-14] MEDS: predniSONE 20 MG TABLET PO SCH (09:24)
[2019-02-14] MEDS: Aspirin 81 MG TAB.CHEW PO SCH (09:25)
[2019-02-14] MEDS: Folic Acid 1 MG TABLET PO SCH (09:25)
[2019-02-14] MEDS: Magnesium Oxide 400 MG TABLET PO SCH (09:25)
[2019-02-14] MEDS: Insulin LISPRO 300 UNITS/3 ML VIAL SQ SCH ×3 (09:26→17:13)
[2019-02-14] MEDS: Triamcinolone Acet 0.1% CRM 15 GM TUBE TP SCH (09:27)
[2019-02-14] MEDS: *HR* LORazepam 0.5 MG TABLET PO SCH ×2 (09:27→14:50)
[2019-02-14] MEDS: Piperacillin/Tazobactam 3.375 GM in 0.9 % Sodium Chloride Mini Bag 100 ML IVPB SCH (10:49)
[2019-02-14 14:01] LABS: C-Reactive Protein < 5 mg/L (Less than 10)
[2019-02-14] MEDS ORDERED: Aminoglycoside Consult 1 EACH MC ONE (14:10)
[2019-02-14 23:35] LABS: ABG Base Excess 6 mEq/L (-2 to 3); ABG HCO3 31 mEq/L (21-27); ABG Oxygen Saturation 98 % (95-98); ABG PCO2 49 mmHg (35-45); ABG PH 7.41 pH Units (7.32-7.45); ABG PO2 109 mmHg (85-104); ABG TCO2 33 mEq/L (20-26)
[2019-02-15] MEDS ORDERED: *HR* LORazepam 2 MG/ML VIAL IVP ONE (00:03)
[2019-02-15] MEDS: Insulin LISPRO 300 UNITS/3 ML VIAL SQ SCH ×5 (00:06→20:43)
[2019-02-15] MEDS ORDERED: 0.9 % Sodium Chloride 1,000 ML IVC ONE (00:10)
[2019-02-15] MEDS: *HR* LORazepam 0.5 MG TABLET PO SCH ×4 (00:18→20:42)
[2019-02-15] MEDS: Triamcinolone Acet 0.1% CRM 15 GM TUBE TP SCH ×3 (00:18→20:42)
[2019-02-15] MEDS: Gabapentin 300 MG CAPSULE PO SCH ×3 (00:18→20:42)
[2019-02-15] MEDS: GuaiFENesin Liq 200 MG/10 ML UDC PO SCH ×7 (00:20→20:42)
[2019-02-15 02:26] LABS: Basophils % 0.1 %; Hematocrit 30.9 % (37.5-50.1); Immature Granulocytes % 2.2 % (0-4); Lymphocytes # 1.2 K/mcL (0.6-4.6); Lymphocytes % 4.9 %; Mean Corpuscular HGB Conc 32.4 g/dL (31.6-35.5); Mean Corpuscular Hemoglobin 30.1 pg (28.0-33.3); Mean Corpuscular Volume 93.1 fL (83.0-100.0); Mean Platelet Volume 9.5 fL (9.4-12.4); Monocytes # 1.7 K/mcL (0.0-1.3); Neutrophils # 20.6 K/mcL (1.6-8.9); Platelet Count 447 K/mcL (140-400); Red Blood Count 3.32 M/mcL (4.19-5.50); Red Cell Distribution Width 14.4 % (11.5-14.5); Segmented Neutrophils % 85.8 %
[2019-02-15 02:42] LABS: BUN/Creatinine Ratio 57 (6-26); Blood Urea Nitrogen 26 mg/dL (8-23); Calcium 8.2 mg/dL (8.6-10.3); Carbon Dioxide 34 mEq/L (23-29); Chloride 102 mEq/L (98-107); Glucose 97 mg/dL (70-105); Osmolality,Calculated 291 (280-300); Potassium 3.2 mEq/L (3.5-5.1); Sodium 138 mEq/L (136-145); eGFR For Non-African Americans > 60 (> 60)
[2019-02-15] MEDS: Levalbuterol Neb 1.25 MG/3 ML IH SCH ×4 (03:28→21:37)
[2019-02-15] MEDS: Ipratropium Neb 0.5 MG NEBULIZER IH SCH ×4 (03:28→21:37)
[2019-02-15] MEDS ORDERED: Piperacillin/Tazobactam 3.375 GM in 0.9 % Sodium Chloride Mini Bag 100 ML IVPB SCH (04:00)
[2019-02-15] MEDS: *HR* Heparin 5,000 UNIT/ML VIAL SQ SCH ×2 (06:53→18:01)
[2019-02-15] MEDS: levETIRAcetam 500 MG/5 ML UDC PO SCH ×2 (06:53→17:57)
[2019-02-15] MEDS ORDERED: Potassium Chloride Elixir 20 MEQ/15 ML UDC GTUBE ONE (07:01)
--- NOTE | 2019-02-15 07:03 | Internal Med Progress Note ---
<Titi Albrecht S - Last Filed: 02/15/19 13:28> Hospitalist Progress Note - Encounter Date of Encounter: 02/15/19 Time of Encounter: 08:20 - Subjective Interval History: Pt seen at bedside overnight. The night resident reported that the pt had a seizure overnight and it was reported that he went without his ativan all day yesterday. Nursing staff reports they were told he was "blue" and SpO2 was in the 60's. The pt is somnolent and very lethargic at bedside, he is hard to arouse. - Exam Vitals: Temp Pulse Resp BP Pulse Ox 96.6 F L 79 18 154/78 99 02/15/19 05:00 02/15/19 05:00 02/15/19 05:00 02/15/19 05:00 02/15/19 05:00 Exam: General: NAD, elderly and frail appearing, does not move much, not participating in conversation Lungs: coarse breath sounds no wheeze/stridor, not in respiratory distress Cardio: Normal S1 and S2, regular rate and rhythm, no murmurs Abdomen: Soft, nontender, nondistended. G-tube in place. Extremities: Warm, well perfused. DP pulses 2+ b/l. No edema. Skin: Intact. No rashes, bruises, or ulcers Neuro: Sleeping, not able to assess, doesn't appear to have FND Psych: unable to assess - Assessment and Plan (1) Bronchiectasis Current Visit: Yes Status: Acute Assessment and Plan: Pt has exacerbation of bronchiestasis with hospital acquired PNA vs aspiration PNA CT on 02/08: bronchiestasis, increased interstitial and alveolar opacities right lung (early PNA vs aspiration), moderate emphysema CT on 02/13: ground glass attenuation and punctate nodules in the LLL, new since 02/08 infectious vs inflammatory RLL opacity improving new ground glass opacity in right apex, 7mm XR chest overnight showed no acute disease Blood cx negative 02/03, 02/10 Sputum cx preliminary negative Plan: - continue abx Levaquin day 3 for a total of 5-7days d/c Vancomycin 02/14 d/c Zosyn day 11, was restarted last night during rapid and d/c today again - prednisone 20mg daily x 5 days, day 3/5 - continue duonebs q6hr and prn - IS and acapella - FEN: tube feeds, mechanically altered food, nectar thickened liquids - dispo: d/c to SNF in 2-3 days, continue to monitor for seizure like activity and await sensitivities of sputum cx, check keppra levels at 1800 before next administration of keppra (2) Sepsis Current Visit: Yes Status: Acute Assessment and Plan: Overnight the pt did have rapid called for seizure like activity and SpO2 into the 60's. He was found to have a HR of 96, lactic acid of 3.5. He was given bolus of fluids. Repeat LA 1.2, XR chest negative for acute disease, troponin (- ) and EKG negative for new ischemia. Pt currently does not meet SIRS criteria, however, does have increasing WBC count from previous. Up from 17 to 24. Pt restarted on zosyn (since d/c again), and continued on Levaquin day #3. (3) Chronic respiratory failure Current Visit: Yes Status: Acute Assessment and Plan: Continue to wean O2 as able to. Currently on home 2 L. (4) Dysphagia Current Visit: Yes Status: Acute Assessment and Plan: PEG tube in place. Diet as per nutrition. (5) Diabetes mellitus Current Visit: No Status: Chronic Assessment and Plan: LDSS. Glucose 97 this AM. (6) Pneumonia Current Visit: Yes Status: Acute Assessment and Plan: See above for bronchiestasis. Likely HAP. (7) Seizure Current Visit: No Status: Chronic Assessment and Plan: Has hx of seizure, on keppra BID. Reportedly had seizure like activity ov miguel, was found to have missed ativan dosages yesterday. Continue ativan and keppra. Continue seizure precautions. Check keppra levels before adminitering rx at 1800 today. (8) Cachexia Current Visit: Yes Status: Chronic Assessment and Plan: Chronic. BMI 16.7, severe malnourishment. Nutrition consulted. (9) Leukocytosis Current Visit: Yes Status: Acute Assessment and Plan: See above for sepsis. Peripheral smear negative for blast crisis. (10) DVT prophylaxis Current Visit: Yes Status: Acute Assessment and Plan: sq heparin (11) Hypokalemia Current Visit: Yes Status: Acute Assessment and Plan: Potassium 3.2. Replaced via G tube. - Time Spent with Patient Total time spent is greater than 50% in coordination of care (as documented) at patient's floor/unit and/or counseling patient: less than 15 minutes Plan of Care Discussed with: nurse Internal Medicine: Result - Labs CBC & Chem 7: 02/15/19 02:05 02/15/19 02:05 Labs: Short CBC 02/15/19 Range/Units 02:05 WBC 24.1 H (4.3-11.1) K/mcL Hgb 10.0 L (12.9-16.9) g/dL Hct 30.9 L (37.5-50.1) % Plt Count 447 H (140-400) K/mcL Neutrophils # 20.6 H (1.6-8.9) K/mcL BMP 02/14/19 02/15/19 03:45 02:05 Sodium 135 L 138 Potassium 3.5 3.2 L Chloride 96 L 102 Carbon Dioxide 33 H 34 H BUN 22 26 H Creatinine 0.45 L 0.46 L Glucose 143 H 97 Calcium 8.5 L 8.2 L Cardiac Enzymes 02/15/19 Range/Units 02:05 Troponin I < 0.03 (< 0.04) ng/mL - ABG Interpretation ABG results: ABG ABG pH 7.41 pH Units (7.32-7.45) 02/14/19 23:31 ABG pCO2 49 mmHg (35-45) H 02/14/19 23:31 ABG pO2 109 mmHg (85-104) H 02/14/19 23:31 ABG O2 Saturation 98 % (95-98) 02/14/19 23:31 - Impressions Impressions Chest X-Ray 02/14/19 23:17 IMPRESSION: No acute disease. D/ / Dagoberto Escalante MD / Dagoberto Escalante MD Interpreting Provider: Dagoberto Escalante MD Consult Discharge Plan - Plan Referrals: Noe Pena MD [Primary Care Provider] - <Leon Mckeon - Last Filed: 02/15/19 14:42> Hospitalist Progress Note - Encounter Date of Encounter: 02/15/19 Internal Medicine: Result - Labs CBC & Chem 7: 02/15/19 02:05 02/15/19 02:05 Labs: Short CBC 02/15/19 Range/Units 02:05 WBC 24.1 H (4.3-11.1) K/mcL Hgb 10.0 L (12.9-16.9) g/dL Hct 30.9 L (37.5-50.1) % Plt Count 447 H (140-400) K/mcL Neutrophils # 20.6 H (1.6-8.9) K/mcL BMP 02/15/19 02:05 Sodium 138 Potassium 3.2 L Chloride 102 Carbon Dioxide 34 H BUN 26 H Creatinine 0.46 L Glucose 97 Calcium 8.2 L Cardiac Enzymes 02/15/19 Range/Units 02:05 Troponin I < 0.03 (< 0.04) ng/mL - ABG Interpretation ABG results: ABG ABG pH 7.41 pH Units (7.32-7.45) 02/14/19 23:31 ABG pCO2 49 mmHg (35-45) H 02/14/19 23:31 ABG pO2 109 mmHg (85-104) H 02/14/19 23:31 ABG O2 Saturation 98 % (95-98) 02/14/19 23:31 - Impressions Impressions Chest X-Ray 02/14/19 23:17 IMPRESSION: No acute disease. D/ / Dagoberto Escalante MD / Dagoberto Escalante MD Interpreting Provider: Dagoberto Escalante MD - Attending Attestation Patient seen and examined independently, including review of objective data including labs. I agree with plan of care as documented above by the resident with the following comments: Pt had witnessed seizure-like activity last night, with subsequent increase in lactic acid and WBC. On my interview and exam this AM, pt unchanged from yesterday, able to tell me that he's been told he had a seizure last night but otherwise denies symptoms, is sitting at bedside chair eating breakfast. Zosyn started overnight, will again d/c this. Continue levaquin. Check keppra level this evening and ensure patient gets scheduled Ativan doses. Path review of blood smear shows only reactive/inflammatory process. Plan initially was to d/c to SNF today, but will monitor another day. <Titi Albrecht S - Last Filed: 02/15/19 13:28> (1) Bronchiectasis Qualifiers: Bronchiectasis type: with acute exacerbation Qualified Code(s): J47.1 - Bronchiectasis with (acute) exacerbation (2) Sepsis Qualifiers: Sepsis type: sepsis due to unspecified organism Qualified Code(s): A41.9 - Sepsis, unspecified organism (3) Chronic respiratory failure Qualifiers: Respiratory failure complication: hypoxia Qualified Code(s): J96.11 - Chronic respiratory failure with hypoxia (4) Dysphagia Qualifiers: Dysphagia type: unspecified Qualified Code(s): R13.10 - Dysphagia, unspecified (5) Diabetes mellitus Qualifiers: Diabetes mellitus type: type 2 Diabetes mellitus residential insulin use: without dedicated intermodal truck driver use Diabetes mellitus complication status: with unspecified complications Qualified Code(s): E11.8 - Type 2 diabetes mellitus with unspecified complications (6) Pneumonia Qualifiers: Pneumonia type: due to unspecified organism Laterality: right Lung location: lower lobe of lung Qualified Code(s): J18.1 - Lobar pneumonia, unspecified organism (9) Leukocytosis Qualifiers: Leukocytosis type: unspecified Qualified Code(s): D72.829 - Elevated white blood cell count, unspecified
[2019-02-15] MEDS: levoFLOXacin 750 MG TABLET PO SCH (08:32)
[2019-02-15] MEDS: Loratadine 10 MG TABLET PO SCH (08:32)
[2019-02-15] MEDS: Folic Acid 1 MG TABLET PO SCH (08:33)
[2019-02-15] MEDS: Magnesium Oxide 400 MG TABLET PO SCH (08:33)
[2019-02-15] MEDS: Diltiazem CD (24hr) 180 MG CAPSULE PO SCH (08:33)
[2019-02-15] MEDS: Aspirin 81 MG TAB.CHEW PO SCH (08:33)
[2019-02-15] MEDS: Thiamine (B-1) 100 MG TABLET PO SCH (08:33)
[2019-02-15] MEDS: predniSONE 20 MG TABLET PO SCH (08:33)
--- NOTE | 2019-02-15 17:01 | Electrocardiograph Report ---
[address] [address] Test Date: 2019-02-14 Pat Name: Mitchell Martinez Department: 111 Room: 2NE22 Gender: M Last Picker: : [phone] Requested By: Oneida Curtis Order Number: [id number] Reading MD: Brooke Gu Measurements Intervals [place] Rate: 103 P: 74 WA: 195 QRS: 60 QRSD: 99 T: 66 QT: 322 QTc: 382 Interpretive Statements SINUS TACHYCARDIA Electronically Signed On 02-15-2019 16:59:47 EDT by Brooke Gu
[2019-02-16] MEDS: GuaiFENesin Liq 200 MG/10 ML UDC PO SCH ×3 (01:11→10:03)
[2019-02-16] MEDS: Ipratropium Neb 0.5 MG NEBULIZER IH SCH ×2 (03:32→10:50)
[2019-02-16] MEDS: Levalbuterol Neb 1.25 MG/3 ML IH SCH ×2 (03:32→10:50)
[2019-02-16] MEDS: levETIRAcetam 500 MG/5 ML UDC PO SCH (06:13)
[2019-02-16] MEDS: *HR* Heparin 5,000 UNIT/ML VIAL SQ SCH (06:13)
[2019-02-16 06:54] VITALS: BP 126/65
--- NOTE | 2019-02-16 07:02 | Internal Med Progress Note ---
Hospitalist Progress Note - Encounter Date of Encounter: 02/16/19 - Exam Vitals: Temp Pulse Resp BP Pulse Ox 97.4 F L 77 14 126/65 95 02/16/19 06:53 02/16/19 06:53 02/16/19 06:53 02/16/19 06:53 02/16/19 06:53 - Assessment and Plan (1) Bronchiectasis Current Visit: Yes Status: Acute (2) Sepsis Current Visit: Yes Status: Acute (3) Chronic respiratory failure Current Visit: Yes Status: Acute (4) Dysphagia Current Visit: Yes Status: Acute (5) Diabetes mellitus Current Visit: No Status: Chronic (6) Pneumonia Current Visit: Yes Status: Acute (7) Seizure Current Visit: No Status: Chronic (8) Cachexia Current Visit: Yes Status: Chronic (9) Leukocytosis Current Visit: Yes Status: Acute (10) DVT prophylaxis Current Visit: Yes Status: Acute (11) Hypokalemia Current Visit: Yes Status: Acute - Time Spent with Patient Total time spent is greater than 50% in coordination of care (as documented) at patient's floor/unit and/or counseling patient: Internal Medicine: Result - Labs CBC & Chem 7: 02/15/19 02:05 02/15/19 02:05 - ABG Interpretation ABG results: ABG ABG pH 7.41 pH Units (7.32-7.45) 02/14/19 23:31 ABG pCO2 49 mmHg (35-45) H 02/14/19 23:31 ABG pO2 109 mmHg (85-104) H 02/14/19 23:31 ABG O2 Saturation 98 % (95-98) 02/14/19 23:31 Consult Discharge Plan - Plan Referrals: Noe Pena MD [Primary Care Provider] - (1) Bronchiectasis Qualifiers: Bronchiectasis type: with acute exacerbation Qualified Code(s): J47.1 - Bronchiectasis with (acute) exacerbation (2) Sepsis Qualifiers: Sepsis type: sepsis due to unspecified organism Qualified Code(s): A41.9 - Sepsis, unspecified organism (3) Chronic respiratory failure Qualifiers: Respiratory failure complication: hypoxia Qualified Code(s): J96.11 - Chronic respiratory failure with hypoxia (4) Dysphagia Qualifiers: Dysphagia type: unspecified Qualified Code(s): R13.10 - Dysphagia, unspecified (5) Diabetes mellitus Qualifiers: Diabetes mellitus type: type 2 Diabetes mellitus terminal make up operator insulin use: without penitentiary use Diabetes mellitus complication status: with unspecified complications Qualified Code(s): E11.8 - Type 2 diabetes mellitus with unspecified complications (6) Pneumonia Qualifiers: Pneumonia type: due to unspecified organism Laterality: right Lung location: lower lobe of lung Qualified Code(s): J18.1 - Lobar pneumonia, unspecified organism (9) Leukocytosis Qualifiers: Leukocytosis type: unspecified Qualified Code(s): D72.829 - Elevated white blood cell count, unspecified
[2019-02-16] MEDS: Insulin LISPRO 300 UNITS/3 ML VIAL SQ SCH ×2 (07:39→13:24)
[2019-02-16 07:51] LABS: Hematocrit 30.7 % (37.5-50.1); Hemoglobin 9.9 g/dL (12.9-16.9); Mean Corpuscular HGB Conc 32.2 g/dL (31.6-35.5); Mean Platelet Volume 9.9 fL (9.4-12.4); Platelet Count 395 K/mcL (140-400)
[2019-02-16 08:26] LABS: BUN/Creatinine Ratio 60 (6-26); Blood Urea Nitrogen 28 mg/dL (8-23); Carbon Dioxide 33 mEq/L (23-29); Chloride 100 mEq/L (98-107); Glucose 89 mg/dL (70-105); Osmolality,Calculated 293 (280-300); Potassium 4.1 mEq/L (3.5-5.1); Sodium 139 mEq/L (136-145); eGFR For Non-African Americans > 60 (> 60)
--- NOTE | 2019-02-16 09:24 | Discharge Summary ---
<Titi Albrecht S - Last Filed: 02/16/19 11:39> - NOTES TO OUTPATIENT PROVIDER Notes to Outpatient Provider: Follow up on seizures, follow up on white count and resolution of infxn. Ensure pt taking abx as directed to completion. Date of Encounter: 02/16/19 Time of Encounter: 09:22 - Discharge Diagnosis (1) Bronchiectasis Priority: Primary Status: Acute Qualifiers: Bronchiectasis type: with acute exacerbation Qualified Code(s): J47.1 - Bronchiectasis with (acute) exacerbation (2) Sepsis Priority: Secondary Status: Resolved Qualifiers: Sepsis type: sepsis due to unspecified organism Qualified Code(s): A41.9 - Sepsis, unspecified organism (3) Chronic respiratory failure Priority: Secondary Status: Chronic Qualifiers: Respiratory failure complication: hypoxia Qualified Code(s): J96.11 - Chronic respiratory failure with hypoxia (4) Dysphagia Priority: Secondary Status: Chronic Qualifiers: Dysphagia type: unspecified Qualified Code(s): R13.10 - Dysphagia, unspecified (5) Diabetes mellitus Priority: Secondary Status: Chronic Qualifiers: Diabetes mellitus type: type 2 Diabetes mellitus termite renewal inspector insulin use: without senior living use Diabetes mellitus complication status: with unspecified complications Qualified Code(s): E11.8 - Type 2 diabetes mellitus with unspecified complications (6) Pneumonia Priority: Secondary Status: Acute Qualifiers: Pneumonia type: due to unspecified organism Laterality: right Lung location: lower lobe of lung Qualified Code(s): J18.1 - Lobar pneumonia, unspecified organism (7) Seizure Priority: Secondary Status: Chronic (8) Cachexia Priority: Secondary Status: Chronic (9) Leukocytosis Priority: Secondary Status: Acute Qualifiers: Leukocytosis type: unspecified Qualified Code(s): D72.829 - Elevated white blood cell count, unspecified (10) DVT prophylaxis Priority: Secondary Status: Acute (11) Hypokalemia Priority: Secondary Status: Acute Hospital course: Mr. Martinez is a 73 year old male with past medical history of CVA, seizures, dysphagia, hypertension presented to the ED from outside facility complaining of worsening shortness of breath. At baseline he is not very interactive with hospital staff and is poor historian. He was found to have WBC of 13.5 he was also requiring 4 L of nasal cannula. He had a temperature 100.2 and heart rate of 98. Chest x-ray showed noacute abnormalities. He was also recently admitted to [place] for UTI sepsis and he was unsure of what antibiotic regimen he recently completed. He does have history of UTI with enterococcus species back in 06/14/18. He does have history of urinary retention and is on bethanechol outpatient. His urine shows many bacteria and elevated leukocytes. He was started on zosyn and completed 11 days treatment. He was also tx for bronchiectasis exacerbation. CT on 02/08: bronchiestasis, increased interstitial and alveolar opacities right lung (early PNA vs aspiration), moderate emphysema. CT on 02/13: ground glass attenuation and punctate nodules in the LLL, new since 02/08, infectious vs inflammatory, RLL opacity improving, new ground glass opacity in right apex, 7mm. He was given vancomycin x4days. Blood cx and sputum cx negative. Overnight 02/15/19 he had a seizure noted by staff and was found to have missed several doses of lorazepam. Infectious workup overnight negative. XR chest overnight showed no acute disease. Noted to have leukocytosis persistently despite tx, peripheral smear negative for blasts. Will go to SNF with 3 more days levaquin for a total of 7 days, 1 day prednisone and prescription for tube feeds. He is stable for discharge. Discharge discussed with: patient, nurse, social work Time spent discussing smoking cessation with patient: 3 to 10 minutes - Time Spent with Patient Total time spent providing and/or coordinating discharge services: Time spent: Less than 30 minutes - Discharge Medications Prescriptions: New levoFLOXacin [Levaquin] 750 mg PO DAILY 3 Days #3 tablet predniSONE [PredniSONE] 20 mg PO DAILY 1 Days #1 tablet Continue Acetaminophen [Tylenol] 650 mg PO Q4HR PRN PRN Reason: Pain Albuterol Sulfate [Proair Hfa] 2 puff IH Q4H PRN PRN Reason: Shortness Of Breath/Wheezing Cetirizine HCl [Zyrtec] 10 mg PO DAILY Ferrous Sulfate [Iron] 325 mg PO DAILY Folic Acid 1 mg PO DAILY Gabapentin [Neurontin] 300 mg PO BID Ipratropium/Albuterol Neb [Duoneb] 3 ml IH Q6HR PRN PRN Reason: Shortness Of Breath Mag Hydrox/Al Hydrox/Simeth [Antacid II-Simethicone Liq] 30 ml PO Q4-6H PRN PRN Reason: UPSET STOMACH Magnesium Oxide [Magnesium] 400 mg PO DAILY Nitroglycerin [Nitrostat] 0.4 mg SL Q5MIN PRN PRN Reason: Chest Pain Sertraline [Zoloft] 50 mg PO DAILY Thiamine HCl [Vitamin B-1] 100 mg PO DAILY Aspirin 81 mg PO DAILY 30 Days #30 tab.chew levETIRAcetam [Keppra] 1,000 mg PO Q12HR tablet LORazepam [Ativan] 1 mg PO TID 2 Days #6 tablet Bethanechol [Urecholine] 25 mg PO TID Diltiazem HCl [Cardizem LA] 360 mg PO DAILY Docusate [Colace] 100 mg PO BID PRN PRN Reason: Constipation Loratadine [Allergy Relief] 10 mg PO DAILY Oseltamivir [Tamiflu] 75 mg PO BID Sennosides [Senokot] 8.6 mg PO BID PRN PRN Reason: Constipation Tamsulosin HCl [Flomax] 0.4 mg PO QPM Triamcinolone Acet 0.1% CRM [Kenalog] 1 appl TP BID Home Medications: Acetaminophen [Tylenol] 650 mg PO Q4HR PRN 06/03/18 [History] Albuterol Sulfate [Proair Hfa] 2 puff IH Q4H PRN 06/03/18 [History] Cetirizine HCl [Zyrtec] 10 mg PO DAILY 06/03/18 [History] Ferrous Sulfate [Iron] 325 mg PO DAILY 06/03/18 [History] Folic Acid 1 mg PO DAILY 06/03/18 [History] Gabapentin [Neurontin] 300 mg PO BID 06/03/18 [History] Ipratropium/Albuterol Neb [Duoneb] 3 ml IH Q6HR PRN 06/03/18 [History] Mag Hydrox/Al Hydrox/Simeth [Antacid II-Simethicone Liq] 30 ml PO Q4-6H PRN 06/03/18 [History] Magnesium Oxide [Magnesium] 400 mg PO DAILY 06/03/18 [History] Nitroglycerin [Nitrostat] 0.4 mg SL Q5MIN PRN 06/03/18 [History] Sertraline [Zoloft] 50 mg PO DAILY 06/03/18 [History] Thiamine HCl [Vitamin B-1] 100 mg PO DAILY 06/03/18 [History] Aspirin 81 mg PO DAILY 30 Days #30 tab.chew 06/05/18 [Rx] LORazepam [Ativan] 1 mg PO TID 2 Days #6 tablet 06/22/18 [Rx] levETIRAcetam [Keppra] 1,000 mg PO Q12HR tablet 06/22/18 [Rx] Bethanechol [Urecholine] 25 mg PO TID 02/02/19 [History] Diltiazem HCl [Cardizem LA] 360 mg PO DAILY 02/02/19 [History] Docusate [Colace] 100 mg PO BID PRN 02/02/19 [History] Loratadine [Allergy Relief] 10 mg PO DAILY 02/02/19 [History] Oseltamivir [Tamiflu] 75 mg PO BID 02/02/19 [History] Sennosides [Senokot] 8.6 mg PO BID PRN 02/02/19 [History] Tamsulosin HCl [Flomax] 0.4 mg PO QPM 02/02/19 [History] Triamcinolone Acet 0.1% CRM [Kenalog] 1 appl TP BID 02/02/19 [History] levoFLOXacin [Levaquin] 750 mg PO DAILY 3 Days #3 tablet 02/16/19 [Rx] predniSONE [PredniSONE] 20 mg PO DAILY 1 Days #1 tablet 02/16/19 [Rx] Allergies/Adverse Reactions: Allergy/AdvReac Type Severity Reaction Status Date / Time No Known Allergies Allergy Verified 06/08/18 16:45 Date of admission: 02/02/19 07:48 Primary care physician: Noe Pena MD Consults: 02/02/19 10:13 Consult to Nutrition [CONS] Routine Comment: history of feeding through G tube Consulting Provider: NUTRITION Reason for Dietary Consult: Tube Feed Start & Manage 02/07/19 08:06 Consult to Occupational Therapy [CONS] Routine Comment: Evaluate, develop and implement POC Reason for Consult: Evaluate, develop and implement POC Does patient have active BEDREST order?: No Is patient medically & hemodynamically stable?: Yes Consult to Physical Therapy [CONS] Routine Comment: Evaluate, develop and implement POC Reason for Consult: Disposition planning. Therapy - weakness in bed. Does patient have active BEDREST order?: No Is patient medically & hemodynamically stable?: Yes 02/09/19 11:28 Consult to Palliative Care [CONS] Routine Comment: Consulting Provider: Palliative Care [place] Reason for Consult: goals of therapy, cachexia with likely lack of capacity Call Completed: No - Constitutional Vitals: Temp Pulse Resp BP Pulse Ox 97.4 F L 77 14 126/65 95 02/16/19 06:53 02/16/19 06:53 02/16/19 06:53 02/16/19 06:53 02/16/19 06:53 General appearance: Present: cachectic, A&O X 1, pleasant Exam: General: NAD, elderly and frail appearing, does not move much, sitting up at bedside eating breakfast Lungs: coarse breath sounds no wheeze/stridor, not in respiratory distress Cardio: Normal S1 and S2, regular rate and rhythm, no murmurs Abdomen: Soft, nontender, nondistended. G-tube in place. Extremities: Warm, well perfused. DP pulses 2+ b/l. No edema. Skin: Intact. No rashes, bruises, or ulcers Neuro: no FND, sensation intact Psych: appears to have normal mood/affect - Patient Status Disposition: Transfer SNF Condition: Fair Functional capacity at discharge: uses cane/walker Overall status at discharge: patient is progressing back to baseline - Discharge Instructions Instructions: Prednisone (By mouth), Levofloxacin (By mouth), Atrial Fibrillation (DC), Acute Respiratory Distress Syndrome (DC), Urinary Tract Infection in Men (DC), Diabetes Mellitus Type 2 in Adults (DC), Peripheral Vascular Disorders (DC), Chronic Obstructive Pulmonary Disease (DC), Sepsis (DC), Chronic Dysphagia (DC), Chronic Hypertension (DC), Pneumonia (DC), Cigarette Smoking and Your Health, Hand Mold Maker (GEN), How to Use and Care for Your PEG Tube, Hand Mold Maker (GEN) Follow Up With: Noe Pena MD [Primary Care Provider] - Forms: ED Satisfaction Letter - Diet and Activity Activity: as per physical therapy, increase activity as tolerated, wear oxygen at all times Diet: other (tube feeds) <Chito Ozuna - Last Filed: 02/16/19 15:38> Date of Encounter: 02/16/19 - Discharge Diagnosis (1) COPD (chronic obstructive pulmonary disease) Status: Chronic Qualifiers: COPD type: unspecified COPD Qualified Code(s): J44.9 - Chronic obstructive pulmonary disease, unspecified (2) DVT prophylaxis Status: Acute (3) Somnolence Status: Resolved (4) UTI (urinary tract infection) Status: Acute Qualifiers: Urinary tract infection type: site unspecified Hematuria presence: with hematuria Qualified Code(s): N39.0 - Urinary tract infection, site not specified; R31.9 - Hematuria, unspecified (5) Sepsis Status: Resolved Qualifiers: Sepsis type: sepsis due to unspecified organism Qualified Code(s): A41.9 - Sepsis, unspecified organism (6) Pneumonia Status: Acute Qualifiers: Pneumonia type: due to unspecified organism Laterality: right Lung location: lower lobe of lung Qualified Code(s): J18.1 - Lobar pneumonia, unspecified organism (7) Seizure Status: Chronic (8) Cachexia Status: Chronic (9) Leukocytosis Status: Acute Qualifiers: Leukocytosis type: unspecified Qualified Code(s): D72.829 - Elevated white blood cell count, unspecified Hospital course: Mr. Martinez is a 73 year old male - Time Spent with Patient Total time spent providing and/or coordinating discharge services: Date of admission: 02/02/19 07:48 Primary care physician: Noe Pena MD Consults: 02/02/19 10:13 Consult to Nutrition [CONS] Routine Comment: history of feeding through G tube Consulting Provider: NUTRITION Reason for Dietary Consult: Tube Feed Start & Manage 02/07/19 08:06 Consult to Occupational Therapy [CONS] Routine Comment: Evaluate, develop and implement POC Reason for Consult: Evaluate, develop and implement POC Does patient have active BEDREST order?: No Is patient medically & hemodynamically stable?: Yes Consult to Physical Therapy [CONS] Routine Comment: Evaluate, develop and implement POC Reason for Consult: Disposition planning. Therapy - weakness in bed. Does patient have active BEDREST order?: No Is patient medically & hemodynamically stable?: Yes 02/09/19 11:28 Consult to Palliative Care [CONS] Routine Comment: Consulting Provider: Palliative Care [place] Reason for Consult: goals of therapy, cachexia with likely lack of capacity Call Completed: No - Constitutional Vitals: Temp Pulse Resp BP Pulse Ox 97.4 F L 77 18 126/65 94 02/16/19 06:53 02/16/19 06:53 02/16/19 10:51 02/16/19 06:53 02/16/19 10:51 - Attending Attestation I examined this patient and my medical decision-making was reviewed with the Resident Physician. I agree with the documented findings, disposition and treatment plan as described except to the extent set forth below. discharge time 45 min
--- NOTE | 2019-02-16 09:27 | Physician Discharge Referral ---
ExtendedCare Referral Info Transfer To: [place] Provider in Charge after Transfer: PCP Institutional Level of Care: Skilled - Diagnosis (1) Bronchiectasis Priority: Primary Status: Acute (2) Sepsis Priority: Secondary Status: Resolved (3) Chronic respiratory failure Priority: Secondary Status: Chronic (4) Dysphagia Priority: Secondary Status: Chronic (5) Diabetes mellitus Priority: Secondary Status: Chronic (6) Pneumonia Priority: Secondary Status: Acute (7) Seizure Priority: Secondary Status: Chronic (8) Cachexia Priority: Secondary Status: Chronic (9) Leukocytosis Priority: Secondary Status: Acute (10) DVT prophylaxis Priority: Secondary Status: Acute (11) Hypokalemia Priority: Secondary Status: Acute - Transfer Medications Prescriptions: levoFLOXacin [Levaquin] 750 mg PO DAILY 3 Days #3 tablet predniSONE [PredniSONE] 20 mg PO DAILY 1 Days #1 tablet Home Medications: Acetaminophen [Tylenol] 650 mg PO Q4HR PRN 06/03/18 [History] Albuterol Sulfate [Proair Hfa] 2 puff IH Q4H PRN 06/03/18 [History] Cetirizine HCl [Zyrtec] 10 mg PO DAILY 06/03/18 [History] Ferrous Sulfate [Iron] 325 mg PO DAILY 06/03/18 [History] Folic Acid 1 mg PO DAILY 06/03/18 [History] Gabapentin [Neurontin] 300 mg PO BID 06/03/18 [History] Ipratropium/Albuterol Neb [Duoneb] 3 ml IH Q6HR PRN 06/03/18 [History] Mag Hydrox/Al Hydrox/Simeth [Antacid II-Simethicone Liq] 30 ml PO Q4-6H PRN 06/03/18 [History] Magnesium Oxide [Magnesium] 400 mg PO DAILY 06/03/18 [History] Nitroglycerin [Nitrostat] 0.4 mg SL Q5MIN PRN 06/03/18 [History] Sertraline [Zoloft] 50 mg PO DAILY 06/03/18 [History] Thiamine HCl [Vitamin B-1] 100 mg PO DAILY 06/03/18 [History] Aspirin 81 mg PO DAILY 30 Days #30 tab.chew 06/05/18 [Rx] LORazepam [Ativan] 1 mg PO TID 2 Days #6 tablet 06/22/18 [Rx] levETIRAcetam [Keppra] 1,000 mg PO Q12HR tablet 06/22/18 [Rx] Bethanechol [Urecholine] 25 mg PO TID 02/02/19 [History] Diltiazem HCl [Cardizem LA] 360 mg PO DAILY 02/02/19 [History] Docusate [Colace] 100 mg PO BID PRN 02/02/19 [History] Loratadine [Allergy Relief] 10 mg PO DAILY 02/02/19 [History] Oseltamivir [Tamiflu] 75 mg PO BID 02/02/19 [History] Sennosides [Senokot] 8.6 mg PO BID PRN 02/02/19 [History] Tamsulosin HCl [Flomax] 0.4 mg PO QPM 02/02/19 [History] Triamcinolone Acet 0.1% CRM [Kenalog] 1 appl TP BID 02/02/19 [History] levoFLOXacin [Levaquin] 750 mg PO DAILY 3 Days #3 tablet 02/16/19 [Rx] predniSONE [PredniSONE] 20 mg PO DAILY 1 Days #1 tablet 02/16/19 [Rx] Allergies/Adverse Reactions: Allergy/AdvReac Type Severity Reaction Status Date / Time No Known Allergies Allergy Verified 06/08/18 16:45 - Respiratory Orders Oxygen / L per min Smoking Cessation: Smoking cessation has been advised. For more information, call the [place] Tobacco Quit Line at 3-992-KMHW-NOW. - Ancillary Orders May use pressure relief devices daily prn - Advance Directives Code Status: DNR-Arrest - Mobility Orders Chair - Rehabiliation Orders Rehab Potential: Fair Rehab Orders: ROM Exercises, Evaluation for Physical Therapy, Evaluation for Occupational Therapy - Diet Orders Mechanical Soft Tube Feedings (type/amount/rate): jevity 1.5@50ml/hr continuous CERTIFICATION: I certify that the transfer of the above named patient to an Extended Care Facility is necessary for the continuing treatment of the diagnosis listed. The above information is true and accurate reflection of patient's current condition. Confidential - Redisclosure prohibited without a patient's written consent.
[2019-02-16] MEDS: Diltiazem CD (24hr) 180 MG CAPSULE PO SCH (10:01)
[2019-02-16] MEDS: predniSONE 20 MG TABLET PO SCH (10:01)
[2019-02-16] MEDS: Loratadine 10 MG TABLET PO SCH (10:01)
[2019-02-16] MEDS: Folic Acid 1 MG TABLET PO SCH (10:02)
[2019-02-16] MEDS: levoFLOXacin 750 MG TABLET PO SCH (10:02)
[2019-02-16] MEDS: Thiamine (B-1) 100 MG TABLET PO SCH (10:02)
[2019-02-16] MEDS: *HR* LORazepam 0.5 MG TABLET PO SCH (10:02)
[2019-02-16] MEDS: Magnesium Oxide 400 MG TABLET PO SCH (10:02)
[2019-02-16] MEDS: Gabapentin 300 MG CAPSULE PO SCH (10:02)
[2019-02-16] MEDS: Aspirin 81 MG TAB.CHEW PO SCH (10:02)
[2019-02-16] MEDS: Triamcinolone Acet 0.1% CRM 15 GM TUBE TP SCH (10:04)
== END 2019-02-16 14:11 | DRG 871 ==
LOC: 3ANU 19:48 → EMEROOARM 19:48 → 3ANU 23:09 → SUATTDRO 02-02 07:48 → 2NENU 02-03 16:03
PROVIDERS: ADMIT Student in an Organized Health Care Education/Training Program; ATTEND Student in an Organized Health Care Education/Training Program

== ENCOUNTER 2019-07-19 17:58 | Observation (INO) ==
[2019-07-19] MEDS ORDERED: Morphine Sulfate 2 MG/ML SYRINGE IVP ONE (18:01)
--- NOTE | 2019-07-19 18:04 | Emergency Department Note ---
Disposition Clinical Impression: Gastrostomy tube dysfunction Disposition: Admitted As Inpatient Condition: Fair Time of Disposition: 23:54 General Adult HPI - General Time Seen by Provider: 07/19/19 18:00 Source: patient Mode of arrival: EMS Limitations: no limitations Nursing Notes Reviewed: Yes Vital Signs Reviewed: Yes - Related Data Home Medications Medication Instructions Recorded Confirmed Acetaminophen [Tylenol] 650 mg PO Q4HR PRN 06/03/18 07/19/19 Albuterol Sulfate [Proair Hfa] 2 puff IH Q4H PRN 06/03/18 07/19/19 Folic Acid 1 mg PO DAILY 06/03/18 07/19/19 Gabapentin [Neurontin] 300 mg PO BID 06/03/18 07/19/19 Nitroglycerin [Nitrostat] 0.4 mg SL Q5MIN PRN 06/03/18 07/19/19 Sertraline [Zoloft] 50 mg PO DAILY 06/03/18 07/19/19 Thiamine HCl [Vitamin B-1] 100 mg PO DAILY 06/03/18 07/19/19 Bethanechol [Urecholine] 25 mg PO TID 02/02/19 07/19/19 Diltiazem CD (24hr) [Cardizem CD] 360 mg PO DAILY 07/19/19 07/19/19 LORazepam [Ativan] 0.5 mg PO TID 07/19/19 07/19/19 LevETIRAcetam [Keppra] 1,000 mg PO BID 07/19/19 07/19/19 Mirtazapine 7.5 mg PO HS 07/19/19 07/19/19 predniSONE [PredniSONE] 5 mg PO DAILY 07/19/19 07/19/19 Allergies Allergy/AdvReac Type Severity Reaction Status Date / Time cephalexin [From Keflex] Allergy See Verified 07/19/19 23:39 Comments All systems ED: reviewed and negative except as stated. Review of Systems: As Per HPI Constitutional: Denies: fever, chills ENT ED: Denies: congestion Cardiovascular: Denies: chest pain, palpitations Respiratory: Denies: cough, dyspnea Gastrointestinal: Reports: abdominal pain, nausea. Denies: vomiting, diarrhea, hematemesis, melena, hematochezia Musculoskeletal: Denies: back pain Integumentary: Denies: rash Neurological: Denies: headache, weakness Endocrine: Denies: fatigue Past Medical History - Past Medical History Medical history: Reports: COPD, CVA, diabetes, GERD, hypertension, seizures, other Surgical history: Reports: no surgical history Psychiatric history: Reports: anxiety, depression - Social History Smoking Status: Current every day smoker Smokeless Tobacco Status: No Alcohol use: Reports: none, heavy Drug use: Reports: none Physical Exam - General Limitations: no limitations, age General appearance: alert, in no apparent distress - Head Head exam: atraumatic, normocephalic, normal inspection - Eye Eye exam: Present: normal appearance, PERRL, EOMI - ENT ENT exam: normal exam, normal oropharynx, mucous membranes moist - Neck Neck exam: Present: normal inspection, full ROM, trachea midline - Chest Chest inspection: Present: normal inspection, symmetric chest wall rise - Respiratory Respiratory exam: Present: normal lung sounds bilaterally - Cardiovascular Cardiovascular exam: Present: regular rate, normal rhythm, normal heart sounds - Abdominal Exam Abdominal exam: Present: soft, tenderness (Just surrounding the G-tube and stoma), other (Patient with a swelling and induration with a drainage from the). Absent: guarding, rebound Course Vital Signs Temperature 98.2 F 07/19/19 18:03 Pulse Rate 83 07/19/19 18:03 Respiratory Rate 16 07/19/19 18:03 Blood Pressure 143/73 07/19/19 18:03 O2 Sat by Pulse Oximetry 98 07/19/19 18:03 Temperature 97.5 F L 07/19/19 21:58 Pulse Rate 82 07/19/19 21:58 Respiratory Rate 17 07/19/19 21:58 Blood Pressure 123/74 07/19/19 21:58 O2 Sat by Pulse Oximetry 100 07/19/19 21:58 Oxygen Delivery Oxygen Delivery Room Air Medical Decision Making - Lab Data Result diagrams: 07/19/19 18:16 07/19/19 18:16 Lab Results 07/19/19 07/19/19 07/19/19 Range/Units 18:16 18:16 18:16 WBC 9.9 (4.3-11.1) K/mcL RBC 4.60 (4.19-5.50) M/mcL Hgb 13.3 (12.9-16.9) g/dL Hct 43.3 (37.5-50.1) % MCV 94.1 (83.0-100.0) fL MCH 28.9 (28.0-33.3) pg MCHC 30.7 L (31.6-35.5) g/dL RDW 13.3 (11.5-14.5) % Plt Count 350 (140-400) K/mcL MPV 10.4 (9.4-12.4) fL Immature Gran % 0.4 (0-4) % Seg Neutrophils % 71.5 % Lymphocytes % 18.3 % Monocytes % 7.2 % Eosinophils % 2.0 % Basophils % 0.6 % Neutrophils # 7.1 (1.6-8.9) K/mcL Lymphocytes # 1.8 (0.6-4.6) K/mcL Monocytes # 0.7 (0.0-1.3) K/mcL Eosinophils # 0.2 (0.0-0.6) K/mcL Basophils # 0.1 (0.0-0.2) K/mcL Sodium 139 (136-145) mEq/L Potassium 4.4 (3.5-5.1) mEq/L Chloride 98 (98-107) mEq/L Carbon Dioxide 35 H (23-29) mEq/L BUN 17 (8-23) mg/dL Creatinine 0.65 L (0.70-1.30) mg/dL Est GFR ( Amer) > 60 (> 60) Est GFR (Non-Af Amer) > 60 (> 60) BUN/Creatinine Ratio 26 (6-26) Glucose 111 H (70-105) mg/dL Calculated Osmolality 290 (280-300) Lactic Acid 1.3 (0.5-2.2) mmol/L Calcium 10.4 H (8.6-10.3) mg/dL Total Bilirubin 0.4 (0.3-1.0) mg/dL AST 38 (13-39) Units/L ALT 56 H (7-52) Units/L Alkaline Phosphatase 141 H (34-104) Units/L Serum Total Protein 8.6 (6.4-8.9) g/dL Albumin 4.3 (3.5-5.7) g/dL Globulin 4.3 H (2.4-3.5) g/dL Albumin/Globulin Ratio 1.0 L (1.1-2.2) Attestation Statement - Attestation Attestation: I reviewed the residents documentation and agree with the residents assessment and plan of care. I have personally had face to face time with the patient. (Brief History, Brief Exam, and MDM) I personally supervised and was present for the nelson/critical portions of the following procedures completed by the resident: (add procedures performed here). Face to face time provided in conjunction with Dr. Aggarwal, resident physician Patient arrives from [facility] with increase swelling and irritation of his feeding tube stoma. On exam there is swelling of the stoma with erosion of a portion of the appliance through the mucosa. This will require surgical consultation. In the interim we are going to start broad- spectrum antibiotics and check labs
[2019-07-19] MEDS ORDERED: Piperacillin/Tazobactam 3.375 GM in 0.9 % Sodium Chloride Mini Bag 100 ML IVPB ONE (18:05)
[2019-07-19] MEDS ORDERED: Ondansetron 4 MG/2 ML VIAL IVP ONE (18:05)
--- NOTE | 2019-07-19 18:05 | Emergency Department Note ---
Disposition Clinical Impression: Gastrostomy tube dysfunction Disposition: Admitted As Inpatient Condition: Fair Referrals: NONE,PCP [Non-Partnered Physician] - Time of Disposition: 20:00 General Adult HPI - General Time Seen by Provider: 07/19/19 18:00 Source: patient, EMS Mode of arrival: EMS Limitations: no limitations, age Nursing Notes Reviewed: Yes Vital Signs Reviewed: Yes - History of Present Illness HPI Narrative: Patient is a 74-year-old male brought in from outside facility via EMS for G- tube concern. Patient was seen multiple times in the ER for similar complaint he had been prescribed Keflex, clindamycin as well as Bactrim currently on doxycycline 100 mg without change. Patient currently complaining of pain and drainage from the stoma where his G-tube is placed. He denies fever or chills. He states there is pain surrounding the stoma. Patient does not recall why he has the G-tube placed. He does not recall where this was placed and what facility or which physician performed this or when. He is not able for provide further information regarding present illness. - Related Data Home Medications Medication Instructions Recorded Confirmed Acetaminophen [Tylenol] 650 mg PO Q4HR PRN 06/03/18 02/02/19 Albuterol Sulfate [Proair Hfa] 2 puff IH Q4H PRN 06/03/18 02/02/19 Cetirizine HCl [Zyrtec] 10 mg PO DAILY 06/03/18 02/02/19 Ferrous Sulfate [Iron] 325 mg PO DAILY 06/03/18 02/02/19 Folic Acid 1 mg PO DAILY 06/03/18 02/02/19 Gabapentin [Neurontin] 300 mg PO BID 06/03/18 02/02/19 Ipratropium/Albuterol Neb [Duoneb] 3 ml IH Q6HR PRN 06/03/18 02/02/19 Mag Hydrox/Al Hydrox/Simeth 30 ml PO Q4-6H PRN 06/03/18 02/02/19 [Antacid II-Simethicone Liq] Magnesium Oxide [Magnesium] 400 mg PO DAILY 06/03/18 02/02/19 Nitroglycerin [Nitrostat] 0.4 mg SL Q5MIN PRN 06/03/18 02/02/19 Sertraline [Zoloft] 50 mg PO DAILY 06/03/18 02/02/19 Thiamine HCl [Vitamin B-1] 100 mg PO DAILY 06/03/18 02/02/19 Bethanechol [Urecholine] 25 mg PO TID 02/02/19 02/02/19 Diltiazem HCl [Cardizem LA] 360 mg PO DAILY 02/02/19 02/02/19 Docusate [Colace] 100 mg PO BID PRN 02/02/19 02/02/19 Loratadine [Allergy Relief] 10 mg PO DAILY 02/02/19 02/02/19 Oseltamivir [Tamiflu] 75 mg PO BID 02/02/19 02/02/19 Sennosides [Senokot] 8.6 mg PO BID PRN 02/02/19 02/02/19 Tamsulosin HCl [Flomax] 0.4 mg PO QPM 02/02/19 02/02/19 Triamcinolone Acet 0.1% CRM 1 appl TP BID 02/02/19 02/02/19 [Kenalog] Previous Rx's Medication Instructions Recorded Aspirin 81 mg PO DAILY 30 Days #30 tab.chew 06/05/18 LORazepam [Ativan] 1 mg PO TID 2 Days #6 tablet 06/22/18 levETIRAcetam [Keppra] 1,000 mg PO Q12HR tablet 06/22/18 Doxycycline 100 mg PO BID #14 capsule 07/16/19 Hydrogen Peroxide 960 ml MC BID #1 solution 07/16/19 Sulfamethoxazole/Trimeth DS 1 each PO BID #14 tablet 07/16/19 [Bactrim DS] cephALEXin [Keflex] 500 mg PO QID #28 capsule 07/16/19 Allergies Allergy/AdvReac Type Severity Reaction Status Date / Time No Known Allergies Allergy Verified 06/08/18 16:45 All systems ED: reviewed and negative except as stated. Review of Systems: As Per HPI Constitutional: Denies: fever, chills Cardiovascular: Denies: chest pain, palpitations Respiratory: Denies: cough, dyspnea, wheezes Gastrointestinal: Reports: abdominal pain, nausea. Denies: vomiting, hematemesis, melena Genitourinary: Denies: urgency, dysuria Musculoskeletal: Denies: back pain Integumentary: Reports: as per HPI Neurological: Denies: headache, weakness Endocrine: Denies: fatigue Past Medical History - Past Medical History Medical history: Reports: COPD, CVA, diabetes, GERD, hypertension, seizures, other Surgical history: Reports: no surgical history Psychiatric history: Reports: anxiety, depression - Social History Smoking Status: Current every day smoker Smokeless Tobacco Status: No Alcohol use: Reports: none, heavy Drug use: Reports: none Physical Exam - General Limitations: no limitations, age General appearance: alert, in no apparent distress - Head Head exam: atraumatic, normocephalic, normal inspection - Eye Eye exam: Present: normal appearance, PERRL, EOMI - ENT ENT exam: normal exam, normal oropharynx, mucous membranes moist - Neck Neck exam: Present: normal inspection, full ROM, trachea midline - Chest Chest inspection: Present: normal inspection, symmetric chest wall rise - Respiratory Respiratory exam: Present: normal lung sounds bilaterally - Cardiovascular Cardiovascular exam: Present: regular rate, normal rhythm, normal heart sounds - Abdominal Exam Abdominal exam: Present: soft, tenderness (Just surrounding the G-tube and stoma), other (Patient with a G-tube placed to the mid to left lateral abdomen with stoma that is protruding out that appears erythematous and indurated, there is some purulent drainage as well as what appears to be possible gastric contents coming from the stoma, patient also has a white plastic piece that appears to have ruptured to the superior portion of the stoma with significant erythema and tenderness to palpation). Absent: distention, guarding, rebound - Extremities Exam Extremities exam: Present: normal inspection, full ROM. Absent: tenderness, pedal edema - Neurological Exam Neurological exam: Present: alert - Psychiatric Psychiatric exam: Present: normal affect, normal mood - Skin Skin exam: Present: warm, dry. Absent: diaphoresis Course Vital Signs Temperature 98.2 F 07/19/19 18:03 Pulse Rate 83 07/19/19 18:03 Respiratory Rate 16 07/19/19 18:03 Blood Pressure 143/73 07/19/19 18:03 O2 Sat by Pulse Oximetry 98 07/19/19 18:03 Temperature 98.2 F 07/19/19 18:03 Pulse Rate 77 07/19/19 19:01 Respiratory Rate 16 07/19/19 19:01 Blood Pressure 124/69 07/19/19 19:01 O2 Sat by Pulse Oximetry 96 07/19/19 19:01 Oxygen Delivery Oxygen Delivery Room Air Medical Decision Making - MDM Narrative Medical decision making narrative: Patient is a 74-year-old male is presenting with G-tube concern. On arrival, patient is in no acute distress. Patient is brought from [facility] with past medical history significant for epilepsy currently on Keppra, dysphasia, dementia, anemia, anxiety disorder, hypertension, diabetes mellitus type 2, emphysema and dysphonia. Patient with history of COPD and TIA. Patient has been on multiple antibiotics, most recently taking doxycycline, however has increase in worsening G-tube concern. On my examination, patient does have significant purulence with what appears to be in a rotating G-tube through the abdominal wall. Patient with tenderness localized to this area. X-ray work was relatively unremarkable with no leukocytosis. Patient is chronically on oxygen and is on 2 L with no hypoxia. I did speak with Dr. Cain, Dr. Cain agrees to come and see the patient in the ER for further evaluation for possible surgical intervention. With Dr. Cain at bedside, he states the patient needs to be admitted requiring surgical intervention, as patient has multiple comorbidities, patient will need to be admitted to the hospitalist service and he will consult with most likely surgical intervention tomorrow for G-tube removal. Discussed this patient with the hospitalist, he is been admitted. - Medical Records Medical records reviewed: Yes I reviewed the patient's medical records. - Lab Data Lab results reviewed: Yes I reviewed the patient's lab results. Result diagrams: 07/19/19 18:16 07/19/19 18:16 Lab Results 07/19/19 07/19/19 07/19/19 Range/Units 18:16 18:16 18:16 WBC 9.9 (4.3-11.1) K/mcL RBC 4.60 (4.19-5.50) M/mcL Hgb 13.3 (12.9-16.9) g/dL Hct 43.3 (37.5-50.1) % MCV 94.1 (83.0-100.0) fL MCH 28.9 (28.0-33.3) pg MCHC 30.7 L (31.6-35.5) g/dL RDW 13.3 (11.5-14.5) % Plt Count 350 (140-400) K/mcL MPV 10.4 (9.4-12.4) fL Immature Gran % 0.4 (0-4) % Seg Neutrophils % 71.5 % Lymphocytes % 18.3 % Monocytes % 7.2 % Eosinophils % 2.0 % Basophils % 0.6 % Neutrophils # 7.1 (1.6-8.9) K/mcL Lymphocytes # 1.8 (0.6-4.6) K/mcL Monocytes # 0.7 (0.0-1.3) K/mcL Eosinophils # 0.2 (0.0-0.6) K/mcL Basophils # 0.1 (0.0-0.2) K/mcL Sodium 139 (136-145) mEq/L Potassium 4.4 (3.5-5.1) mEq/L Chloride 98 (98-107) mEq/L Carbon Dioxide 35 H (23-29) mEq/L BUN 17 (8-23) mg/dL Creatinine 0.65 L (0.70-1.30) mg/dL Est GFR ( Amer) > 60 (> 60) Est GFR (Non-Af Amer) > 60 (> 60) BUN/Creatinine Ratio 26 (6-26) Glucose 111 H (70-105) mg/dL Calculated Osmolality 290 (280-300) Lactic Acid 1.3 (0.5-2.2) mmol/L Calcium 10.4 H (8.6-10.3) mg/dL Total Bilirubin 0.4 (0.3-1.0) mg/dL AST 38 (13-39) Units/L ALT 56 H (7-52) Units/L Alkaline Phosphatase 141 H (34-104) Units/L Serum Total Protein 8.6 (6.4-8.9) g/dL Albumin 4.3 (3.5-5.7) g/dL Globulin 4.3 H (2.4-3.5) g/dL Albumin/Globulin Ratio 1.0 L (1.1-2.2)
[2019-07-19 18:38] LABS: Basophils # 0.1 K/mcL (0.0-0.2); Basophils % 0.6 %; Eosinophils # 0.2 K/mcL (0.0-0.6); Hematocrit 43.3 % (37.5-50.1); Hemoglobin 13.3 g/dL (12.9-16.9); Immature Granulocytes % 0.4 % (0-4); Lymphocytes # 1.8 K/mcL (0.6-4.6); Lymphocytes % 18.3 %; Mean Corpuscular HGB Conc 30.7 g/dL (31.6-35.5); Mean Corpuscular Hemoglobin 28.9 pg (28.0-33.3); Mean Corpuscular Volume 94.1 fL (83.0-100.0); Mean Platelet Volume 10.4 fL (9.4-12.4); Monocytes # 0.7 K/mcL (0.0-1.3); Monocytes % 7.2 %; Neutrophils # 7.1 K/mcL (1.6-8.9); Platelet Count 350 K/mcL (140-400); Red Cell Distribution Width 13.3 % (11.5-14.5); Segmented Neutrophils % 71.5 %; White Blood Count 9.9 K/mcL (4.3-11.1)
[2019-07-19 18:54] LABS: Alanine Aminotransferase 56 Units/L (7-52); Albumin 4.3 g/dL (3.5-5.7); Alkaline Phosphatase 141 Units/L (34-104); Aspartate Amino Transferase 38 Units/L (13-39); BUN/Creatinine Ratio 26 (6-26); Bilirubin,Total 0.4 mg/dL (0.3-1.0); Blood Urea Nitrogen 17 mg/dL (8-23); Calcium 10.4 mg/dL (8.6-10.3); Carbon Dioxide 35 mEq/L (23-29); Chloride 98 mEq/L (98-107); Globulin 4.3 g/dL (2.4-3.5); Glucose 111 mg/dL (70-105); Osmolality,Calculated 290 (280-300); Potassium 4.4 mEq/L (3.5-5.1); Sodium 139 mEq/L (136-145); Total Protein 8.6 g/dL (6.4-8.9); eGFR For African Americans > 60 (> 60); eGFR For Non-African Americans > 60 (> 60)
[2019-07-19] MEDS ORDERED: levETIRAcetam 250 MG TABLET PO STA (20:19)
--- NOTE | 2019-07-19 20:25 | AcuteCare Surgery Consult Note ---
Date of Encounter: 07/19/19 Time of Encounter: 19:50 Assessment and Plan (1) PEG tube malfunction Current Visit: Yes Status: Acute The patient tube has eroded into the subcutaneous tissue and is no longer in a stable position in the stomach. This will need to be removed. I fear that there is a that may require closure. Recommend admission for IV antibiotics. Nothing by mouth after midnight and removal of the PEG tube with possible closure of gastrocutaneous fistula. History of Present Illness Consult date: 07/19/19 Reason for consult: other (PEG tube malfunction and wound) History of present illness: The patient is seen and evaluated in the emergency room. The emergency room contacted me with concern of infection at the PEG tube exit site. It is unclear how long the PEG tube has been in place. The patient is a poor historian. He does appear that he had a stroke and afterwards went to [facility] with a PEG tube was placed. As I examined the PEG tube it appears much older and inferior poor condition. The patient states that he has a foul odor coming from the PEG tube exit site. There is some surrounding erythema and cellulitis. The patient denies shakes chills or fever. Next On physical examination, the patient has had a externally removable PEG tube placed that has a intragastric mushroom to maintain position. The mushroom has eroded out of the stomach and into the subcutaneous tissue and is being held in place by a bridge of tissue. 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 The area is exquisitely tender. He will require intravenous antibiotics and treatment for his comorbid conditions. The right tube will need to be removed, likely under anesthetic. 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 Past Med Surg Social Fam HX - Past Medical History Medical history: COPD, CVA, diabetes, GERD, hypertension, seizures, other Additional medical history: muscle weakness, difficulty in walking Psychiatric history: anxiety, depression - Past Surgical History Surgical History: no surgical history Additional surgical history: peg tube placement - Social History Smoking Status: Current every day smoker Smokeless Tobacco Status: No Alcohol use: none, heavy Drug use: none - Family History Mother Living Status: Hx Family Neurologic Disorders: No Father Living Status: Hx Family Neurologic Disorders: No Medications and Allergies Acetaminophen [Tylenol] 650 mg PO Q4HR PRN 06/03/18 [History] Albuterol Sulfate [Proair Hfa] 2 puff IH Q4H PRN 06/03/18 [History] Cetirizine HCl [Zyrtec] 10 mg PO DAILY 06/03/18 [History] Ferrous Sulfate [Iron] 325 mg PO DAILY 06/03/18 [History] Folic Acid 1 mg PO DAILY 06/03/18 [History] Gabapentin [Neurontin] 300 mg PO BID 06/03/18 [History] Ipratropium/Albuterol Neb [Duoneb] 3 ml IH Q6HR PRN 06/03/18 [History] Mag Hydrox/Al Hydrox/Simeth [Antacid II-Simethicone Liq] 30 ml PO Q4-6H PRN 06/03/18 [History] Magnesium Oxide [Magnesium] 400 mg PO DAILY 06/03/18 [History] Nitroglycerin [Nitrostat] 0.4 mg SL Q5MIN PRN 06/03/18 [History] Sertraline [Zoloft] 50 mg PO DAILY 06/03/18 [History] Thiamine HCl [Vitamin B-1] 100 mg PO DAILY 06/03/18 [History] Aspirin 81 mg PO DAILY 30 Days #30 tab.chew 06/05/18 [Rx] LORazepam [Ativan] 1 mg PO TID 2 Days #6 tablet 06/22/18 [Rx] levETIRAcetam [Keppra] 1,000 mg PO Q12HR tablet 06/22/18 [Rx] Bethanechol [Urecholine] 25 mg PO TID 02/02/19 [History] Diltiazem HCl [Cardizem LA] 360 mg PO DAILY 02/02/19 [History] Docusate [Colace] 100 mg PO BID PRN 02/02/19 [History] Loratadine [Allergy Relief] 10 mg PO DAILY 02/02/19 [History] Oseltamivir [Tamiflu] 75 mg PO BID 02/02/19 [History] Sennosides [Senokot] 8.6 mg PO BID PRN 02/02/19 [History] Tamsulosin HCl [Flomax] 0.4 mg PO QPM 02/02/19 [History] Triamcinolone Acet 0.1% CRM [Kenalog] 1 appl TP BID 02/02/19 [History] Doxycycline 100 mg PO BID #14 capsule 07/16/19 [Rx] Hydrogen Peroxide 960 ml MC BID #1 solution 07/16/19 [Rx] Sulfamethoxazole/Trimeth DS [Bactrim DS] 1 each PO BID #14 tablet 07/16/19 [Rx] cephALEXin [Keflex] 500 mg PO QID #28 capsule 07/16/19 [Rx] Allergy/AdvReac Type Severity Reaction Status Date / Time No Known Allergies Allergy Verified 06/08/18 16:45 Review of Systems All systems PM: The remainder of the systems were reviewed and are negative General Surgery Exam Initial Vital Signs Temp Pulse Resp BP Pulse Ox 98.2 F 83 16 143/73 98 07/19/19 18:03 07/19/19 18:03 07/19/19 18:03 07/19/19 18:03 07/19/19 18:03 - General physical appearance moderate distress, moderate pain, chronically ill - Respiratory crackles: bilateral, wheezing: bilateral - Cardiovascular Cardiovascular exam: Present: RRR, no murmurs/rubs/gallops - Abdomen Abdomen general surgery: Present: bowel sounds present, soft, non tender (No peritoneal signs. The PEG tube is partially eroded through the skin. 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) - Neurologic Present: other (Previous stroke permanent sequela) - Psychiatric Psychiatric general surgery: Present: appropriate, oriented to person, oriented to place, oriented to time, speech is normal, memory intact Exam Initial Vital Signs Temp Pulse Resp BP Pulse Ox 98.2 F 83 16 143/73 98 07/19/19 18:03 07/19/19 18:03 07/19/19 18:03 07/19/19 18:03 07/19/19 18:03 Results - Labs 07/19/19 18:16 07/19/19 18:16 Abnormal lab results MCHC 30.7 g/dL (31.6-35.5) L 07/19/19 18:16 Carbon Dioxide 35 mEq/L (23-29) H 07/19/19 18:16 Creatinine 0.65 mg/dL (0.70-1.30) L 07/19/19 18:16 Glucose 111 mg/dL (70-105) H 07/19/19 18:16 Calcium 10.4 mg/dL (8.6-10.3) H 07/19/19 18:16 ALT 56 Units/L (7-52) H 07/19/19 18:16 Alkaline Phosphatase 141 Units/L (34-104) H 07/19/19 18:16 Globulin 4.3 g/dL (2.4-3.5) H 07/19/19 18:16 Albumin/Globulin Ratio 1.0 (1.1-2.2) L 07/19/19 18:16 Diabetes panel 07/19/19 Range/Units 18:16 Sodium 139 (136-145) mEq/L Potassium 4.4 (3.5-5.1) mEq/L Chloride 98 (98-107) mEq/L Carbon Dioxide 35 H (23-29) mEq/L BUN 17 (8-23) mg/dL Creatinine 0.65 L (0.70-1.30) mg/dL Glucose 111 H (70-105) mg/dL Calcium 10.4 H (8.6-10.3) mg/dL AST 38 (13-39) Units/L ALT 56 H (7-52) Units/L Alkaline Phosphatase 141 H (34-104) Units/L Albumin 4.3 (3.5-5.7) g/dL Calcium panel 07/19/19 Range/Units 18:16 Calcium 10.4 H (8.6-10.3) mg/dL Albumin 4.3 (3.5-5.7) g/dL Pituitary panel 07/19/19 Range/Units 18:16 Sodium 139 (136-145) mEq/L Potassium 4.4 (3.5-5.1) mEq/L Chloride 98 (98-107) mEq/L Carbon Dioxide 35 H (23-29) mEq/L BUN 17 (8-23) mg/dL Creatinine 0.65 L (0.70-1.30) mg/dL Glucose 111 H (70-105) mg/dL Calcium 10.4 H (8.6-10.3) mg/dL Adrenal panel 07/19/19 Range/Units 18:16 Sodium 139 (136-145) mEq/L Potassium 4.4 (3.5-5.1) mEq/L Chloride 98 (98-107) mEq/L Carbon Dioxide 35 H (23-29) mEq/L BUN 17 (8-23) mg/dL Creatinine 0.65 L (0.70-1.30) mg/dL Glucose 111 H (70-105) mg/dL Calcium 10.4 H (8.6-10.3) mg/dL Total Bilirubin 0.4 (0.3-1.0) mg/dL AST 38 (13-39) Units/L ALT 56 H (7-52) Units/L Alkaline Phosphatase 141 H (34-104) Units/L Albumin 4.3 (3.5-5.7) g/dL All other labs normal. Consult Discharge Plan - Plan Referrals: NONE,PCP [Primary Care Provider] -
[2019-07-19] MEDS ORDERED: Ondansetron ODT 4 MG TAB.RAPDIS SL PRN (20:45)
[2019-07-19] MEDS ORDERED: Ringers Solution, Lactated 1,000 ML IVC SCH (20:45)
[2019-07-19] MEDS ORDERED: Naloxone 0.4 MG/ML INJ IVP PRN (20:45)
--- NOTE | 2019-07-19 20:54 | Internal Med History&Physical ---
Date of Encounter: 07/20/19 Time of Encounter: 20:51 Internal Medicine - H&P: HPI Chief complaint: Abominal pain Admitted From: Home Plans for Post Hospital Care: Home History of present illness: Mr. Martinez is a 74 year old male who is frail manuurished fdc sent to the ED for Abdominal pain. [id number] encountered current at 8:30 p.m. Abdominal pain is localized G-tube location started Thursday where it was cleaned by the nursing staff. Patient reported the pain continued to progress and got worse yesterday having more drainage and significantly more tender No alleviating or exacerbating factor no association with fever, chills, nausea, vomiting, chest pain, shortness of breath, diarrhea or dysuria. Personally reviewed patient's past medical, surgical, family and social history. CODE STATUS was discussed and the patient is a DNR/DNI Past Med Surg Social Fam HX - Past Medical History Medical history: COPD, CVA, diabetes, GERD, hypertension, seizures, other Additional medical history: muscle weakness, difficulty in walking Psychiatric history: anxiety, depression - Past Surgical History Surgical History: no surgical history Additional surgical history: peg tube placement - Social History Smoking Status: Current every day smoker Smokeless Tobacco Status: No Alcohol use: none, heavy Drug use: none - Family History Mother Living Status: Hx Family Neurologic Disorders: No Father Living Status: Hx Family Neurologic Disorders: No Internal Medicine - H&P: Meds Acetaminophen [Tylenol] 650 mg PO Q4HR PRN 06/03/18 [History] Albuterol Sulfate [Proair Hfa] 2 puff IH Q4H PRN 06/03/18 [History] Folic Acid 1 mg PO DAILY 06/03/18 [History] Gabapentin [Neurontin] 300 mg PO BID 06/03/18 [History] Nitroglycerin [Nitrostat] 0.4 mg SL Q5MIN PRN 06/03/18 [History] Sertraline [Zoloft] 50 mg PO DAILY 06/03/18 [History] Thiamine HCl [Vitamin B-1] 100 mg PO DAILY 06/03/18 [History] Bethanechol [Urecholine] 25 mg PO TID 02/02/19 [History] Diltiazem CD (24hr) [Cardizem CD] 360 mg PO DAILY 07/19/19 [History] LORazepam [Ativan] 0.5 mg PO TID 07/19/19 [History] LevETIRAcetam [Keppra] 1,000 mg PO BID 07/19/19 [History] Mirtazapine 7.5 mg PO HS 07/19/19 [History] predniSONE [PredniSONE] 5 mg PO DAILY 07/19/19 [History] Allergy/AdvReac Type Severity Reaction Status Date / Time cephalexin [From Keflex] Allergy See Verified 07/19/19 23:39 Comments All Systems PM: A 10-system review of systems was performed and is negative for pertinent fi ndings except as documented above in the HPI. - Constitutional Vitals: Temp Pulse Resp BP Pulse Ox 98.2 F 77 16 124/69 96 07/19/19 18:03 07/19/19 19:01 07/19/19 19:01 07/19/19 19:01 07/19/19 19:01 Exam: General Appearance: Appearing as age, well-nourished in mild acute distress. Head: Atraumatic normocephalic Skin: Normal texture, normal turgor, warm, dry. Eyes: Conjunctivae not pale with no erythema, drainage, or ulcers. Anicteric. Neck: No Lymphadenopathy in the anterior/posterior cervical chain. No thyromegaly, masses or ulcers. Trachea midline. Heart: RRR, no murmurs. Capillary refill 3 seconds Lungs: No accessory muscle usage, lungs clear to auscultation bilaterally, no wheezes or crackles. Extremities: No pitting edema, No clubbing, No cyanosis. Abdomen: Non-distended, normoactive bowel sounds. G-tube present with erythema, drainage and tender to palpation, no hepatomegally. No guarding. Neuro: AOx3 with no new sensory loss or focal deficits. MSK: Strength 5/5 Upper extremity equal bilaterally. Strength 5/5 Lower extremity equal bilaterally Internal Med - H&P Results - Labs CBC & Chem 7: 07/20/19 04:34 07/20/19 04:34 Labs: Short CBC 07/19/19 Range/Units 18:16 WBC 9.9 (4.3-11.1) K/mcL Hgb 13.3 (12.9-16.9) g/dL Hct 43.3 (37.5-50.1) % Plt Count 350 (140-400) K/mcL Neutrophils # 7.1 (1.6-8.9) K/mcL BMP 07/19/19 18:16 Sodium 139 Potassium 4.4 Chloride 98 Carbon Dioxide 35 H BUN 17 Creatinine 0.65 L Glucose 111 H Calcium 10.4 H Liver Function 07/19/19 Range/Units 18:16 Total Bilirubin 0.4 (0.3-1.0) mg/dL AST 38 (13-39) Units/L ALT 56 H (7-52) Units/L Alkaline Phosphatase 141 H (34-104) Units/L Albumin 4.3 (3.5-5.7) g/dL - Summary of Assessment and Plan Summary of Assessment and Plan: 1.G-tube wound infection: IV antibiotic, consultation for surgery. 2.Severely malnutrition, Nutrition consultation. 3.Normocytic anemia: Continue to monitor.No signs of bleeding. 4.Seizures: Keppra restarted IV due to no oral intake. DVT prophylaxis: heparin Dispo: < 2 day stay - Time Spent With Patient Total time spent is greater than 38 minutes 50% in coordination of care (as documented) at patient's floor/unit and/or counseling patient: Greater than 35 minutes
[2019-07-19] MEDS: 0.9 % Sodium Chloride 1,000 ML IVC SCH (21:11)
[2019-07-19] MEDS: *HR* Heparin 5,000 UNIT/ML VIAL SQ SCH (22:30)
[2019-07-20 05:26] LABS: Basophils % 0.5 %; Eosinophils # 0.4 K/mcL (0.0-0.6); Eosinophils % 5.4 %; Hematocrit 41.8 % (37.5-50.1); Hemoglobin 12.7 g/dL (12.9-16.9); Immature Granulocytes % 0.4 % (0-4); Lymphocytes # 2.3 K/mcL (0.6-4.6); Lymphocytes % 29.4 %; Mean Corpuscular HGB Conc 30.4 g/dL (31.6-35.5); Mean Corpuscular Hemoglobin 28.5 pg (28.0-33.3); Mean Corpuscular Volume 93.9 fL (83.0-100.0); Mean Platelet Volume 10.7 fL (9.4-12.4); Monocytes # 0.8 K/mcL (0.0-1.3); Monocytes % 10.1 %; Neutrophils # 4.3 K/mcL (1.6-8.9); Platelet Count 326 K/mcL (140-400); Red Blood Count 4.45 M/mcL (4.19-5.50); Red Cell Distribution Width 13.4 % (11.5-14.5); Segmented Neutrophils % 54.2 %; White Blood Count 7.9 K/mcL (4.3-11.1)
[2019-07-20 05:33] LABS: INR 1.1; Prothrombin Time 12.5 Seconds (9.4-12.1)
[2019-07-20 05:47] LABS: Alanine Aminotransferase 47 Units/L (7-52); Albumin 3.8 g/dL (3.5-5.7); Alkaline Phosphatase 117 Units/L (34-104); Aspartate Amino Transferase 31 Units/L (13-39); BUN/Creatinine Ratio 25 (6-26); Bilirubin,Total 0.3 mg/dL (0.3-1.0); Blood Urea Nitrogen 14 mg/dL (8-23); Calcium 9.8 mg/dL (8.6-10.3); Carbon Dioxide 34 mEq/L (23-29); Chloride 99 mEq/L (98-107); Globulin 3.7 g/dL (2.4-3.5); Glucose 72 mg/dL (70-105); Magnesium 1.8 mg/dL (1.6-2.6); Osmolality,Calculated 291 (280-300); Phosphorous 2.9 mg/dL (2.7-4.5); Potassium 4.1 mEq/L (3.5-5.1); Sodium 141 mEq/L (136-145); Total Protein 7.5 g/dL (6.4-8.9); eGFR For African Americans > 60 (> 60); eGFR For Non-African Americans > 60 (> 60)
[2019-07-20] MEDS ORDERED: *HR* Dextrose 50 % in Water (Syg) 50 ML SYRINGE IVP PRN (05:51)
[2019-07-20] MEDS: *HR* Heparin 5,000 UNIT/ML VIAL SQ SCH ×3 (05:51→20:34)
[2019-07-20] MEDS ORDERED: D5% in Water 1,000 ML IVC PRN (05:51)
[2019-07-20] MEDS ORDERED: Dextrose Gel 15 GM/37.5 ML TUBE PO PRN ×2 (05:51)
[2019-07-20] MEDS ORDERED: Piperacillin/Tazobactam 3.375 GM in 0.9 % Sodium Chloride Mini Bag 100 ML IVP ONE (06:55)
--- NOTE | 2019-07-20 09:14 | AcuteCareSurgery Progress Note ---
Date of Encounter: 07/20/19 Time of Encounter: 09:13 - Assessment and Plan (1) PEG tube malfunction Current Visit: Yes Status: Acute The PEG tube has been removed here at the bedside without difficult. Will clean off and cover/pack the wound and we will reassess within the next 24-48 hours to see if the area will start to granulate and heal without any type of intervention. Subjective Patient reports: other (Patient lying in bed awake and alert. Denies any significant pain.) Objective Vital Signs - Last 8 Hours Temp Pulse Resp BP Pulse Ox 07/20/19 06:55 97.7 F 84 16 137/54 95 07/20/19 04:36 97.6 F 67 16 158/75 97 Intake and Output 07/19/19 07/20/19 07/20/19 23:59 07:59 15:59 Intake Total 100 / 100 Balance 100 / 100 Intake: IV Fluids 100 / 100 Zosyn 3.375 GM In 0.9 % Sodium 100 / 100 Chloride (Mini-Bag +) 100 ML @ 25 mls/hr IVPB ONCE ONE Rx#: [id number] Other: # Urine Diapers 2 # Bowel Movement Diapers 1 Weight 55.1 kg Blood Glucose* 91 - General physical appearance no distress, cachectic - Abdomen Additional Comments: Dressing remove them PEG site shows near complete erosion of the PEG from its subcutaneous tissue position with a small skin bridge present. This area has been cleaned in the skin bridge has been cut with a 15 blade scalpel to allow for removal of the PEG. The site has been packed with 4 x 4 gauze and covered with 4 x 4 gauze. - Labs 07/20/19 04:34 07/20/19 04:34 Diabetes panel 07/19/19 07/20/19 Range/Units 18:16 04:34 Sodium 139 141 (136-145) mEq/L Potassium 4.4 4.1 (3.5-5.1) mEq/L Chloride 98 99 (98-107) mEq/L Carbon Dioxide 35 H 34 H (23-29) mEq/L BUN 17 14 (8-23) mg/dL Creatinine 0.65 L 0.57 L (0.70-1.30) mg/dL Glucose 111 H 72 (70-105) mg/dL Calcium 10.4 H 9.8 (8.6-10.3) mg/dL AST 38 31 (13-39) Units/L ALT 56 H 47 (7-52) Units/L Alkaline Phosphatase 141 H 117 H (34-104) Units/L Albumin 4.3 3.8 (3.5-5.7) g/dL Calcium panel 07/19/19 07/20/19 Range/Units 18:16 04:34 Calcium 10.4 H 9.8 (8.6-10.3) mg/dL Phosphorus 2.9 (2.7-4.5) mg/dL Albumin 4.3 3.8 (3.5-5.7) g/dL Pituitary panel 07/19/19 07/20/19 Range/Units 18:16 04:34 Sodium 139 141 (136-145) mEq/L Potassium 4.4 4.1 (3.5-5.1) mEq/L Chloride 98 99 (98-107) mEq/L Carbon Dioxide 35 H 34 H (23-29) mEq/L BUN 17 14 (8-23) mg/dL Creatinine 0.65 L 0.57 L (0.70-1.30) mg/dL Glucose 111 H 72 (70-105) mg/dL Calcium 10.4 H 9.8 (8.6-10.3) mg/dL Adrenal panel 07/19/19 07/20/19 Range/Units 18:16 04:34 Sodium 139 141 (136-145) mEq/L Potassium 4.4 4.1 (3.5-5.1) mEq/L Chloride 98 99 (98-107) mEq/L Carbon Dioxide 35 H 34 H (23-29) mEq/L BUN 17 14 (8-23) mg/dL Creatinine 0.65 L 0.57 L (0.70-1.30) mg/dL Glucose 111 H 72 (70-105) mg/dL Calcium 10.4 H 9.8 (8.6-10.3) mg/dL Total Bilirubin 0.4 0.3 (0.3-1.0) mg/dL AST 38 31 (13-39) Units/L ALT 56 H 47 (7-52) Units/L Alkaline Phosphatase 141 H 117 H (34-104) Units/L Albumin 4.3 3.8 (3.5-5.7) g/dL Consult Discharge Plan - Plan
[2019-07-20] MEDS: Piperacillin/Tazobactam 3.375 GM in 0.9 % Sodium Chloride Mini Bag 100 ML IVP SCH ×3 (10:27→23:38)
[2019-07-20] MEDS: levETIRAcetam 1,000 MG in 0.9 % Sodium Chloride 100 ML IVPB SCH ×2 (10:33→20:14)
[2019-07-20] MEDS ORDERED: *HR* LORazepam 2 MG/ML VIAL IVP PRN (11:28)
[2019-07-20] MEDS ORDERED: *HR* Metoprolol 5 MG/5 ML VIAL IVP PRN (11:30)
--- NOTE | 2019-07-20 13:50 | Internal Med Progress Note ---
Hospitalist Progress Note - Encounter Date of Encounter: 07/20/19 Time of Encounter: 13:48 - Subjective Interval History: Pt was seen and examined at bed side today. Pt denies any acute issues and concerns overnight. Pt reports he felt much better after PEG tube was removed. Pt denies any fever and chills - Exam Vitals: Temp Pulse Resp BP Pulse Ox 98.0 F 77 17 132/65 99 07/20/19 11:48 07/20/19 11:48 07/20/19 11:48 07/20/19 11:48 07/20/19 11:48 Exam: General Appearance: Appearing as age, well-nourished in mild acute distress. Heart: RRR, no murmurs. Capillary refill 3 seconds Lungs: No accessory muscle usage, lungs clear to auscultation bilaterally, no wheezes or crackles. Extremities: No pitting edema, No clubbing, No cyanosis. Abdomen: Non-distended, normoactive bowel sounds. Dressing placed at the site of G tube. Gtube removed. Pt has erythema and tenderness around the previous G tube site. Neuro: AOx3 with no new sensory loss or focal deficits. MSK: Strength 5/5 Upper extremity equal bilaterally. Strength 5/5 Lower extremity equal bilaterally - Assessment and Plan (1) PEG tube malfunction Current Visit: Yes Status: Acute Assessment and Plan: Patient presented to the hospital with PEG tube malfunction and pain around the site of G tube. The trachea surgery consulted. G-tube was removed. On exam patient has erythema and tenderness around the G-tube site. - We will follow recommendation from acute care surgery. Appreciate recom mendations. - IV hydration - IV pain medication - IV antibiotic. (2) G-tube site cellulitis Current Visit: No Status: Acute Assessment and Plan: Management as above (3) Seizure Current Visit: No Status: Acute Assessment and Plan: We will continue IV Keppra. DVT Prophylaxis: SC Heparin - Time Spent with Patient Total time spent is greater than 50% in coordination of care (as documented) at patient's floor/unit and/or counseling patient: 25 - 35 minutes Plan of Care Discussed with: patient Internal Medicine: Result - Labs CBC & Chem 7: 07/20/19 04:34 07/20/19 04:34 Labs: Short CBC 07/19/19 07/20/19 Range/Units 18:16 04:34 WBC 9.9 7.9 (4.3-11.1) K/mcL Hgb 13.3 12.7 L (12.9-16.9) g/dL Hct 43.3 41.8 (37.5-50.1) % Plt Count 350 326 (140-400) K/mcL Neutrophils # 7.1 4.3 (1.6-8.9) K/mcL BMP 07/19/19 07/20/19 18:16 04:34 Sodium 139 141 Potassium 4.4 4.1 Chloride 98 99 Carbon Dioxide 35 H 34 H BUN 17 14 Creatinine 0.65 L 0.57 L Glucose 111 H 72 Calcium 10.4 H 9.8 Cardiac Enzymes 07/19/19 07/20/19 Range/Units 21:54 04:34 Troponin I < 0.03 < 0.03 (< 0.04) ng/mL Liver Function 07/19/19 07/20/19 Range/Units 18:16 04:34 Total Bilirubin 0.4 0.3 (0.3-1.0) mg/dL AST 38 31 (13-39) Units/L ALT 56 H 47 (7-52) Units/L Alkaline Phosphatase 141 H 117 H (34-104) Units/L Albumin 4.3 3.8 (3.5-5.7) g/dL - ABG Interpretation ABG results: PT/INR, D-dimer PT 12.5 Seconds (9.4-12.1) H 07/20/19 04:34 Consult Discharge Plan - Plan Referrals: NONE,PCP [Primary Care Provider] -
[2019-07-20] MEDS ORDERED: *HR* LORazepam 0.5 MG TABLET PO PRN (14:56)
[2019-07-20] MEDS: 0.9 % Sodium Chloride 1,000 ML IVC SCH (20:18)
[2019-07-20] MEDS ORDERED: Mirtazapine 15 MG TABLET PO SCH (21:00)
[2019-07-21 03:38] LABS: Basophils # 0.1 K/mcL (0.0-0.2); Basophils % 0.8 %; Eosinophils # 0.6 K/mcL (0.0-0.6); Hematocrit 36.3 % (37.5-50.1); Immature Granulocytes % 0.2 % (0-4); Lymphocytes # 2.6 K/mcL (0.6-4.6); Mean Corpuscular HGB Conc 30.3 g/dL (31.6-35.5); Mean Corpuscular Hemoglobin 28.1 pg (28.0-33.3); Mean Corpuscular Volume 92.6 fL (83.0-100.0); Mean Platelet Volume 11.1 fL (9.4-12.4); Monocytes # 0.9 K/mcL (0.0-1.3); Monocytes % 10.2 %; Neutrophils # 4.7 K/mcL (1.6-8.9); Platelet Count 266 K/mcL (140-400); Red Blood Count 3.92 M/mcL (4.19-5.50); Red Cell Distribution Width 13.4 % (11.5-14.5); Segmented Neutrophils % 52.8 %; White Blood Count 8.9 K/mcL (4.3-11.1)
[2019-07-21 03:57] LABS: BUN/Creatinine Ratio 14 (6-26); Blood Urea Nitrogen 8 mg/dL (8-23); Carbon Dioxide 32 mEq/L (23-29); Chloride 100 mEq/L (98-107); Glucose 75 mg/dL (70-105); Osmolality,Calculated 281 (280-300); Potassium 3.5 mEq/L (3.5-5.1); Sodium 137 mEq/L (136-145); eGFR For African Americans > 60 (> 60); eGFR For Non-African Americans > 60 (> 60)
[2019-07-21] MEDS: *HR* Heparin 5,000 UNIT/ML VIAL SQ SCH (05:09)
--- NOTE | 2019-07-21 08:31 | AcuteCareSurgery Progress Note ---
<Brenda Aguilar Krista - Last Filed: 07/21/19 09:05> Date of Encounter: 07/21/19 Time of Encounter: 08:31 - Assessment and Plan (1) PEG tube malfunction Current Visit: Yes Status: Acute PEG site and efficiently improved. There is no evidence for concern of fistula at this time. Recommend daily packing Loosely (for secondary intention) pack with saline moistened gauze and cover with a dry dressing. Can D/c Packing when appropriately granulated. No acute surgical intervention indicated. Recommend a strict calorie count. If patient is unable to have adequate PO intake, he can follow-up as an outpatient for discussion of peg replacement. Acute care surgery will sign off at this time. Please call or reconsult if any further questions or needs arise. Subjective Narrative: No pain. Denies drainage Objective Vital Signs - Last 8 Hours Temp Pulse Resp BP Pulse Ox 07/21/19 07:13 97.4 F L 85 16 150/78 98 Intake and Output 07/20/19 07/21/19 07/21/19 23:59 07:59 15:59 Intake Total 210 / 1310 100 / 100 Balance 210 / 1310 100 / 100 Intake: IV Fluids 210 / 1310 100 / 100 Zosyn 3.375 GM In 0.9 % Sodium 100 / 200 100 / 100 Chloride (Mini-Bag +) 100 ML @ 25 mls/hr IVP Q8HR [facility] Rx#: [id number] Keppra 1,000 MG In 0.9 % Sodium 110 / 210 Chloride 100 ML @ 400 mls/hr IVPB BID [facility] Rx#:[id number] Oral 0 / 0 Other: Meal Dinner # Urine Diapers 1 1 # Bowel Movement Diapers 2 Blood Glucose* 89 83 - General physical appearance no distress, cachectic - ENT atraumatic, normocephalic - Abdomen Abdomen: Present: bowel sounds present, soft, non tender, wound (Previous PEG site is significantly improved. No evidence of fistula) - Integumentary no rash - Neurologic normal sensation - Labs 07/21/19 02:40 07/21/19 02:40 Diabetes panel 07/21/19 Range/Units 02:40 Sodium 137 (136-145) mEq/L Potassium 3.5 (3.5-5.1) mEq/L Chloride 100 (98-107) mEq/L Carbon Dioxide 32 H (23-29) mEq/L BUN 8 (8-23) mg/dL Creatinine 0.56 L (0.70-1.30) mg/dL Glucose 75 (70-105) mg/dL Calcium 9.0 (8.6-10.3) mg/dL Calcium panel 07/21/19 Range/Units 02:40 Calcium 9.0 (8.6-10.3) mg/dL Pituitary panel 07/21/19 Range/Units 02:40 Sodium 137 (136-145) mEq/L Potassium 3.5 (3.5-5.1) mEq/L Chloride 100 (98-107) mEq/L Carbon Dioxide 32 H (23-29) mEq/L BUN 8 (8-23) mg/dL Creatinine 0.56 L (0.70-1.30) mg/dL Glucose 75 (70-105) mg/dL Calcium 9.0 (8.6-10.3) mg/dL Adrenal panel 07/21/19 Range/Units 02:40 Sodium 137 (136-145) mEq/L Potassium 3.5 (3.5-5.1) mEq/L Chloride 100 (98-107) mEq/L Carbon Dioxide 32 H (23-29) mEq/L BUN 8 (8-23) mg/dL Creatinine 0.56 L (0.70-1.30) mg/dL Glucose 75 (70-105) mg/dL Calcium 9.0 (8.6-10.3) mg/dL Consult Discharge Plan - Plan Referrals: NONE,PCP [Primary Care Provider] - <Luis Cain - Last Filed: 07/21/19 09:35> Date of Encounter: 07/21/19 - Assessment and Plan (1) PEG tube malfunction Current Visit: Yes Status: Acute Objective Vital Signs - Last 8 Hours Temp Pulse Resp BP Pulse Ox 07/21/19 07:13 97.4 F L 85 16 150/78 98 Intake and Output 07/20/19 07/21/19 07/21/19 23:59 07:59 15:59 Intake Total 210 / 1310 100 / 100 Balance 210 / 1310 100 / 100 Intake: IV Fluids 210 / 1310 100 / 100 Zosyn 3.375 GM In 0.9 % Sodium 100 / 200 100 / 100 Chloride (Mini-Bag +) 100 ML @ 25 mls/hr IVP Q8HR [facility] Rx#: [id number] Keppra 1,000 MG In 0.9 % Sodium 110 / 210 Chloride 100 ML @ 400 mls/hr IVPB BID [facility] Rx#:[id number] Oral 0 / 0 Other: Meal Dinner # Urine Diapers 1 1 # Bowel Movement Diapers 2 Blood Glucose* 89 83 - Labs 07/21/19 02:40 07/21/19 02:40 Diabetes panel 07/21/19 Range/Units 02:40 Sodium 137 (136-145) mEq/L Potassium 3.5 (3.5-5.1) mEq/L Chloride 100 (98-107) mEq/L Carbon Dioxide 32 H (23-29) mEq/L BUN 8 (8-23) mg/dL Creatinine 0.56 L (0.70-1.30) mg/dL Glucose 75 (70-105) mg/dL Calcium 9.0 (8.6-10.3) mg/dL Calcium panel 07/21/19 Range/Units 02:40 Calcium 9.0 (8.6-10.3) mg/dL Pituitary panel 07/21/19 Range/Units 02:40 Sodium 137 (136-145) mEq/L Potassium 3.5 (3.5-5.1) mEq/L Chloride 100 (98-107) mEq/L Carbon Dioxide 32 H (23-29) mEq/L BUN 8 (8-23) mg/dL Creatinine 0.56 L (0.70-1.30) mg/dL Glucose 75 (70-105) mg/dL Calcium 9.0 (8.6-10.3) mg/dL Adrenal panel 07/21/19 Range/Units 02:40 Sodium 137 (136-145) mEq/L Potassium 3.5 (3.5-5.1) mEq/L Chloride 100 (98-107) mEq/L Carbon Dioxide 32 H (23-29) mEq/L BUN 8 (8-23) mg/dL Creatinine 0.56 L (0.70-1.30) mg/dL Glucose 75 (70-105) mg/dL Calcium 9.0 (8.6-10.3) mg/dL - Attending Attestation I have personally performed a face to face evaluation on this patient. I have reviewed and agree with the care plan. History and Exam by me shows: The patient is seen and evaluated on morning rounds with the acute care surgery team. The gastrocutaneous fistula appears to have closed now that the extruded PEG tube has been removed. This can be treated as a wound closing by secondary intention. I would recommend 24-hour calorie count. If the patient is unable to maintain his nutrition, another PEG tube can be placed different location. Luis Cain MD FACS
--- NOTE | 2019-07-21 09:45 | Discharge Summary ---
- NOTES TO OUTPATIENT PROVIDER Notes to Outpatient Provider: Patient with history of chronic malnutrition was presented to the hospital with PEG tube malfunction. Surgery was consulted. Patient's PEG tube was eroded through the skin. 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 Surgery took PEG tube out on admission day 1. Next day, on assessment patient's fistula was closed. We will discharge patient to his correction facility. Patient to continue clindamycin orally for one week. Patient need calorie count outpatient. If patient is not able to eat enough calories, then patient can be referred for PEG tube placement as an outpatient. Orders not resulted at time of discharge: Pending orders 07/19/19 18:16 Culture,Blood [BC] Stat 07/20/19 04:00 Urinalysis reflex Microscopic [URIN] AM 0400 Estimated PT Needs at Discharge: SNF/ECF Date of Encounter: 07/21/19 Time of Encounter: 09:43 - Discharge Diagnosis (1) PEG tube malfunction Priority: Primary Status: Acute (2) G-tube site cellulitis Priority: Secondary Status: Acute (3) Seizure Priority: Secondary Status: Acute Hospital course: Mr. Martinez is a 74 year old male with history of chronic malnutrition was presented to the hospital with PEG tube malfunction. Surgery was consulted. Patient's PEG tube was eroded through the skin. 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 Surgery took PEG tube out on admission day 1. Next day, on assessment patient's fistula was closed. We will discharge patient to his correction facility. Patient to continue clindamycin orally for one week. Patient need calorie count outpatient. If patient is not able to eat enough calories, then patient can be referred for PEG tube placement as an outpatient. Discharge discussed with: patient, nurse, social work, case management, guidance consultant - Time Spent with Patient Total time spent providing and/or coordinating discharge services: 35 Time spent: Greater than 30 minutes - Discharge Medications Prescriptions: New Clindamycin HCl 300 mg PO Q8H 7 Days #21 capsule Continued Acetaminophen [Tylenol] 650 mg PO Q4HR PRN PRN Reason: Pain Albuterol Sulfate [Proair Hfa] 2 puff IH Q4H PRN PRN Reason: Shortness Of Breath/Wheezing Folic Acid 1 mg PO DAILY Gabapentin [Neurontin] 300 mg PO BID Nitroglycerin [Nitrostat] 0.4 mg SL Q5MIN PRN PRN Reason: Chest Pain Sertraline [Zoloft] 50 mg PO DAILY Thiamine HCl [Vitamin B-1] 100 mg PO DAILY Bethanechol [Urecholine] 25 mg PO TID Diltiazem CD (24hr) [Cardizem CD] 360 mg PO DAILY LevETIRAcetam [Keppra] 1,000 mg PO BID LORazepam [Ativan] 0.5 mg PO TID Mirtazapine 7.5 mg PO HS predniSONE [PredniSONE] 5 mg PO DAILY Home Medications: Acetaminophen [Tylenol] 650 mg PO Q4HR PRN 06/03/18 [History] Albuterol Sulfate [Proair Hfa] 2 puff IH Q4H PRN 06/03/18 [History] Folic Acid 1 mg PO DAILY 06/03/18 [History] Gabapentin [Neurontin] 300 mg PO BID 06/03/18 [History] Nitroglycerin [Nitrostat] 0.4 mg SL Q5MIN PRN 06/03/18 [History] Sertraline [Zoloft] 50 mg PO DAILY 06/03/18 [History] Thiamine HCl [Vitamin B-1] 100 mg PO DAILY 06/03/18 [History] Bethanechol [Urecholine] 25 mg PO TID 02/02/19 [History] Diltiazem CD (24hr) [Cardizem CD] 360 mg PO DAILY 07/19/19 [History] LORazepam [Ativan] 0.5 mg PO TID 07/19/19 [History] LevETIRAcetam [Keppra] 1,000 mg PO BID 07/19/19 [History] Mirtazapine 7.5 mg PO HS 07/19/19 [History] predniSONE [PredniSONE] 5 mg PO DAILY 07/19/19 [History] Clindamycin HCl 300 mg PO Q8H 7 Days #21 capsule 07/21/19 [Rx] Allergies/Adverse Reactions: Allergy/AdvReac Type Severity Reaction Status Date / Time cephalexin [From Keflex] Allergy See Verified 07/19/19 23:39 Comments Date of admission: 07/19/19 20:36 Primary care physician: PCP NONE Consults: 07/19/19 19:57 Consult to Surgery [CONS] Stat Consulting Provider: Acute Care Surgery Reason for Consult: G tube concern Time Notified: 19:57 Call Completed: Yes 07/20/19 06:40 Consult to Nutrition [CONS] Routine Comment: Consulting Provider: NUTRITION Reason for Dietary Consult: Other Other:: Severe malnutrition. 07/20/19 06:44 Consult to Surgery [CONS] Routine Consulting Provider: Surgery [facility] Reason for Consult: G-tube related infection. Call Completed: No Discharging clinician: uSnny Zavala - Constitutional Vitals: Temp Pulse Resp BP Pulse Ox 97.4 F L 85 16 150/78 98 07/21/19 07:13 07/21/19 07:13 07/21/19 07:13 07/21/19 07:13 07/21/19 07:13 General appearance: Present: cooperative, A&O X 3 Exam: General Appearance: Appearing as age, well-nourished in mild acute distress. Heart: RRR, no murmurs. Capillary refill 3 seconds Lungs: No accessory muscle usage, lungs clear to auscultation bilaterally, no wheezes or crackles. Extremities: No pitting edema, No clubbing, No cyanosis. Abdomen: Non-distended, normoactive bowel sounds. Dressing placed at the site of G tube. Gtube removed. Pt has erythema and tenderness around the previous G tube site. Neuro: AOx3 with no new sensory loss or focal deficits. MSK: Strength 5/5 Upper extremity equal bilaterally. Strength 5/5 Lower extremity equal bilaterally - Patient Status Disposition: Transfer SNF Condition: Good Functional capacity at discharge: uses cane/walker Overall status at discharge: patient is progressing back to baseline - Discharge Instructions Follow Up With: NONE,PCP [Primary Care Provider] - Forms: ED Satisfaction Letter, Work/School Release - Diet and Activity Activity: as per physical therapy, increase activity as tolerated Diet: diabetic diet, low salt diet, other ([place] thickened diet)
--- NOTE | 2019-07-21 09:53 | Physician Discharge Referral ---
ExtendedCare Referral Info Transfer To: SNF Provider in Charge after Transfer: PCP - Diagnosis (1) PEG tube malfunction Priority: Primary Status: Acute (2) G-tube site cellulitis Priority: Secondary Status: Acute (3) Seizure Priority: Secondary Status: Acute Prognosis: Good Aware of Diagnosis: Patient Aware of Prognosis: Patient - Transfer Medications Prescriptions: Clindamycin HCl 300 mg PO Q8H 7 Days #21 capsule Home Medications: Acetaminophen [Tylenol] 650 mg PO Q4HR PRN 06/03/18 [History] Albuterol Sulfate [Proair Hfa] 2 puff IH Q4H PRN 06/03/18 [History] Folic Acid 1 mg PO DAILY 06/03/18 [History] Gabapentin [Neurontin] 300 mg PO BID 06/03/18 [History] Nitroglycerin [Nitrostat] 0.4 mg SL Q5MIN PRN 06/03/18 [History] Sertraline [Zoloft] 50 mg PO DAILY 06/03/18 [History] Thiamine HCl [Vitamin B-1] 100 mg PO DAILY 06/03/18 [History] Bethanechol [Urecholine] 25 mg PO TID 02/02/19 [History] Diltiazem CD (24hr) [Cardizem CD] 360 mg PO DAILY 07/19/19 [History] LORazepam [Ativan] 0.5 mg PO TID 07/19/19 [History] LevETIRAcetam [Keppra] 1,000 mg PO BID 07/19/19 [History] Mirtazapine 7.5 mg PO HS 07/19/19 [History] predniSONE [PredniSONE] 5 mg PO DAILY 07/19/19 [History] Clindamycin HCl 300 mg PO Q8H 7 Days #21 capsule 07/21/19 [Rx] Allergies/Adverse Reactions: Allergy/AdvReac Type Severity Reaction Status Date / Time cephalexin [From Keflex] Allergy See Verified 07/19/19 23:39 Comments - Respiratory Orders Oxygen / L per min (2L / min PRN) Smoking Cessation: Smoking cessation has been advised. For more information, call the [employer] Tobacco Quit Line at 5-670-NUBE-NOW. - Ancillary Orders May use pressure relief devices daily prn - Advance Directives Code Status: DNR-Arrest/Don't Intubate - Mobility Orders Ambulate - Rehabiliation Orders Rehab Potential: Fair Rehab Orders: Sternal Precautions, ROM Exercises, Evaluation for Physical Therapy, Evaluation for Occupational Therapy - Diet Orders House Supplement per Dietary: [place] thickened diet Tube Feedings (type/amount/rate): Patient's PEG tube is out. Patient's gastrocutaneous fistula is healing well. Patient to continue antibiotic clindamycin for 1 week. Patient need daily calorie count as an outpatient. If the patient is not eating enough calorie di etary requirement then patient can be referred out for outpatient PEG tube placement. CERTIFICATION: I certify that the transfer of the above named patient to an Extended Care Facility is necessary for the continuing treatment of the diagnosis listed. The above information is true and accurate reflection of patient's current condition. Confidential - Redisclosure prohibited without a patient's written consent.
[2019-07-21] MEDS: levETIRAcetam 1,000 MG in 0.9 % Sodium Chloride 100 ML IVPB SCH (10:09)
[2019-07-21 11:13] VITALS: BP 142/83
== END 2019-07-21 14:42 ==
LOC: 3ANU 17:58 → EMEROOARM 17:58 → SUATTDRO 20:36 → 3ANU 21:27
PROVIDERS: ADMIT Internal Medicine; ATTEND Family Medicine

== ENCOUNTER 2019-09-09 09:24 | Inpatient (IN) ==
[2019-09-09] MEDS ORDERED: 0.9 % Sodium Chloride 1,000 ML IVC ONE ×2 (09:32→09:51)
[2019-09-09] MEDS ORDERED: Ipratropium/Albuterol Neb 3 ML IH ONE (09:32)
[2019-09-09] MEDS ORDERED: methylPREDNISolone 125 MG/2 ML VIAL IVP ONE (09:32)
[2019-09-09] MEDS ORDERED: Ondansetron 4 MG/2 ML VIAL IVP ONE (09:32)
[2019-09-09] MEDS ORDERED: Ipratropium/Albuterol Neb 3 ML ONE (09:33)
[2019-09-09] MEDS ORDERED: 0.9 % Sodium Chloride 1,000 ML ONE (09:37)
[2019-09-09] MEDS ORDERED: methylPREDNISolone 125 MG/2 ML VIAL ONE (09:37)
[2019-09-09] MEDS ORDERED: Ondansetron 4 MG/2 ML VIAL ONE (09:38)
[2019-09-09] MEDS ORDERED: Piperacillin/Tazobactam 3.375 GM in Water for inj. (sterile) 20 ML IVP ONE (09:49)
[2019-09-09 09:59] LABS: Basophils # 0.1 K/mcL (0.0-0.2); Basophils % 0.3 %; Eosinophils % 0.1 %; Hemoglobin 14.1 g/dL (12.9-16.9); Immature Granulocytes % 0.6 % (0-4); Lymphocytes # 1.2 K/mcL (0.6-4.6); Lymphocytes % 4.7 %; Mean Corpuscular Hemoglobin 29.6 pg (28.0-33.3); Mean Corpuscular Volume 98.7 fL (83.0-100.0); Mean Platelet Volume 10.6 fL (9.4-12.4); Monocytes % 8.1 %; Neutrophils # 21.7 K/mcL (1.6-8.9); Platelet Count 345 K/mcL (140-400); Red Blood Count 4.76 M/mcL (4.19-5.50); Red Cell Distribution Width 14.1 % (11.5-14.5); Segmented Neutrophils % 86.2 %; White Blood Count 25.2 K/mcL (4.3-11.1)
[2019-09-09 10:05] LABS: INR 1.1
[2019-09-09 10:22] LABS: Alanine Aminotransferase 24 Units/L (7-52); Albumin 4.8 g/dL (3.5-5.7); Albumin/Globulin Ratio 1.1 (1.1-2.2); Alkaline Phosphatase 153 Units/L (34-104); Aspartate Amino Transferase 31 Units/L (13-39); BUN/Creatinine Ratio 14 (6-26); Bilirubin,Direct 0.1 mg/dL (0.0-0.2); Bilirubin,Indirect 0.4 mg/dL (0.0-1.0); Bilirubin,Total 0.5 mg/dL (0.3-1.0); Blood Urea Nitrogen 24 mg/dL (8-23); Calcium 11.3 mg/dL (8.6-10.3); Carbon Dioxide 30 mEq/L (23-29); Chloride 102 mEq/L (98-107); Ethanol < 10 mg/dL (Less than 10); Globulin 4.3 g/dL (2.4-3.5); Glucose 168 mg/dL (70-105); Magnesium 2.6 mg/dL (1.6-2.6); Osmolality,Calculated 316 (280-300); Phosphorous 5.9 mg/dL (2.7-4.5); Potassium 3.6 mEq/L (3.5-5.1); Sodium 149 mEq/L (136-145); Total Protein 9.1 g/dL (6.4-8.9); Troponin I < 0.03 ng/mL (< 0.04); eGFR For African Americans 49 (> 60); eGFR For Non-African Americans 40 (> 60)
[2019-09-09 10:31] LABS: Platelet Estimate Normal (Normal)
[2019-09-09 10:54] LABS: ABG Base Excess -1 mEq/L (-2 to 3); ABG HCO3 29 mEq/L (21-27); ABG Oxygen Saturation 98 % (95-98); ABG PCO2 71 mmHg (35-45); ABG PH 7.22 pH Units (7.32-7.45); ABG PO2 121 mmHg (85-104); ABG TCO2 31 mEq/L (20-26)
[2019-09-09] MEDS ORDERED: Albuterol 2.5 MG/3 ML NEBULIZER IH PRN (10:58)
[2019-09-09] MEDS ORDERED: 0.9 % Sodium Chloride 1,000 ML IVC SCH (11:00)
[2019-09-09] MEDS ORDERED: Naloxone 0.4 MG/ML INJ IVP PRN (11:01)
[2019-09-09] MEDS ORDERED: Ondansetron 4 MG/2 ML VIAL IVP PRN (11:01)
[2019-09-09 11:51] LABS: Bilirubin,Urine Negative (Negative); Blood,Urine Large (Negative); Clarity,Urine Turbid (Clear); Color,Urine Yellow (Yellow); Glucose,Urine (UA) Normal (Normal); Ketones,Urine Negative (Negative); Leukocyte Esterase,Urine Large (Negative); Nitrite,Urine Negative (Negative); Protein,Urine >=300 mg/dL (Neg-Trace); Specific Gravity,Urine 1.014 (1.010-1.025); Urobilinogen,Urine Normal (Normal)
[2019-09-09 11:52] LABS: Bacteria,Urine None Seen per hpf (None-Few); RBC,Urine TNTC per hpf (0-3); Squamous Epithelial Cell,Urine Many per lpf (None-Few); WBC,Urine TNTC per hpf (0-3)
[2019-09-09] MEDS ORDERED: levoFLOXacin 750 MG/150 ML 750 MG/150 ML BAG IVPB SCH (12:00)
[2019-09-09 14:08] LABS: ABG Base Excess 0 mEq/L (-2 to 3); ABG HCO3 29 mEq/L (21-27); ABG Oxygen Saturation 98 % (95-98); ABG PCO2 69 mmHg (35-45); ABG PH 7.24 pH Units (7.32-7.45); ABG PO2 122 mmHg (85-104); ABG TCO2 31 mEq/L (20-26)
[2019-09-09] MEDS ORDERED: *HR* LORazepam 2 MG/ML VIAL IVP PRN (15:35)
[2019-09-09] MEDS ORDERED: *HR* Promethazine 25 MG/ML VIAL IVP PRN (15:35)
[2019-09-09] MEDS: Ipratropium/Albuterol Neb 3 ML IH SCH ×3 (15:42→20:27)
[2019-09-09] MEDS ORDERED: Acetaminophen 325 MG TABLET PO PRN (15:57)
[2019-09-09] MEDS: Ringers Solution, Lactated 1,000 ML IVC SCH (17:10)
[2019-09-09] MEDS: *HR* Heparin 5,000 UNIT/ML VIAL SQ SCH (17:11)
[2019-09-09] MEDS: Piperacillin/Tazobactam 3.375 GM in 0.9 % Sodium Chloride Mini Bag 100 ML IVPB SCH (17:11)
[2019-09-09] MEDS: methylPREDNISolone 125 MG/2 ML VIAL IVP SCH ×2 (17:11→19:58)
[2019-09-09] MEDS ORDERED: Azithromycin 500 MG in 0.9 % Sodium Chloride 250 ML IVPB SCH (18:00)
[2019-09-09] MEDS ORDERED: Thiamine (B-1) 100 MG, Folic Acid 1 MG, MVI, adult with vitamin K 10 ML in 0.9 % Sodi... IVPB SCH (18:00)
[2019-09-09] MEDS: Gabapentin 300 MG CAPSULE PO SCH (19:40)
[2019-09-09] MEDS: Levalbuterol 1 PUFF INHALER IH SCH (20:24)
[2019-09-09] MEDS: levETIRAcetam 1,000 MG in 0.9 % Sodium Chloride 100 ML IVPB SCH (20:45)
[2019-09-09] MEDS ORDERED: Mirtazapine 15 MG TABLET PO SCH (21:00)
[2019-09-09] MEDS ORDERED: levETIRAcetam 250 MG TABLET PO SCH (21:00)
[2019-09-10] MEDS: Ipratropium/Albuterol Neb 3 ML IH SCH ×7 (00:46→22:49)
[2019-09-10] MEDS: Piperacillin/Tazobactam 3.375 GM in 0.9 % Sodium Chloride Mini Bag 100 ML IVPB SCH ×4 (01:43→23:20)
[2019-09-10] MEDS: methylPREDNISolone 125 MG/2 ML VIAL IVP SCH ×4 (02:30→19:56)
[2019-09-10] MEDS: Ringers Solution, Lactated 1,000 ML IVC SCH (05:16)
[2019-09-10 05:18] LABS: White Blood Count 19.8 K/mcL (4.3-11.1)
[2019-09-10 05:19] LABS: Basophils % 0.1 %; Hematocrit 36.5 % (37.5-50.1); Immature Granulocytes % 0.6 % (0-4); Lymphocytes % 4.8 %; Mean Corpuscular HGB Conc 31.2 g/dL (31.6-35.5); Mean Corpuscular Hemoglobin 29.9 pg (28.0-33.3); Mean Corpuscular Volume 95.8 fL (83.0-100.0); Mean Platelet Volume 10.5 fL (9.4-12.4); Monocytes # 0.5 K/mcL (0.0-1.3); Monocytes % 2.5 %; Neutrophils # 18.2 K/mcL (1.6-8.9); Platelet Count 257 K/mcL (140-400); Red Blood Count 3.81 M/mcL (4.19-5.50); Red Cell Distribution Width 14.6 % (11.5-14.5)
[2019-09-10 05:22] LABS: Hemoglobin 11.4 g/dL (12.9-16.9)
[2019-09-10] MEDS: *HR* Heparin 5,000 UNIT/ML VIAL SQ SCH ×2 (05:22→18:13)
[2019-09-10 05:38] LABS: BUN/Creatinine Ratio 26 (6-26); Blood Urea Nitrogen 24 mg/dL (8-23); Calcium 9.2 mg/dL (8.6-10.3); Carbon Dioxide 27 mEq/L (23-29); Chloride 115 mEq/L (98-107); Glucose 149 mg/dL (70-105); Magnesium 1.9 mg/dL (1.6-2.6); Osmolality,Calculated 311 (280-300); Potassium 4.2 mEq/L (3.5-5.1); Sodium 147 mEq/L (136-145); eGFR For African Americans > 60 (> 60); eGFR For Non-African Americans > 60 (> 60)
[2019-09-10] MEDS: Levalbuterol 1 PUFF INHALER IH SCH (08:01)
[2019-09-10] MEDS ORDERED: Piperacillin/Tazobactam 3.375 GM VIAL ONE (08:21)
[2019-09-10] MEDS: Gabapentin 300 MG CAPSULE PO SCH ×2 (08:29→19:56)
[2019-09-10] MEDS ORDERED: Diltiazem CD (24hr) 180 MG CAPSULE PO SCH (09:00)
[2019-09-10 11:49] LABS: ABG Base Excess 5 mEq/L (-2 to 3); ABG HCO3 31 mEq/L (21-27); ABG Oxygen Saturation 94 % (95-98); ABG PCO2 49 mmHg (35-45); ABG PO2 71 mmHg (85-104); ABG TCO2 32 mEq/L (20-26)
[2019-09-10] MEDS: levETIRAcetam 1,000 MG in 0.9 % Sodium Chloride 100 ML IVPB SCH (12:00)
[2019-09-10] MEDS ORDERED: *HR* LORazepam 0.5 MG TABLET PO PRN ×2 (12:53→17:07)
[2019-09-10] MEDS ORDERED: Acetaminophen 325 MG TABLET PO PRN (17:07)
[2019-09-10] MEDS ORDERED: Naloxone 0.4 MG/ML INJ IVP PRN (17:07)
[2019-09-10] MEDS ORDERED: Ondansetron 4 MG/2 ML VIAL IVP PRN (17:07)
[2019-09-10] MEDS ORDERED: *HR* Promethazine 25 MG/ML VIAL IVP PRN (17:07)
[2019-09-10] MEDS ORDERED: *HR* LORazepam 2 MG/ML VIAL IVP PRN (17:07)
[2019-09-10] MEDS ORDERED: Azithromycin 500 MG in 0.9 % Sodium Chloride 250 ML IVPB SCH (18:00)
[2019-09-10] MEDS: Thiamine (B-1) 100 MG, Folic Acid 1 MG, MVI, adult with vitamin K 10 ML in 0.9 % Sodi... IVPB SCH (18:14)
[2019-09-10] MEDS ORDERED: Aminoglycoside Consult 1 EACH MC ONE (18:34)
[2019-09-10] MEDS: Mirtazapine 15 MG TABLET PO SCH (19:55)
[2019-09-10] MEDS ORDERED: levETIRAcetam 1,000 MG in 0.9 % Sodium Chloride 100 ML IVPB SCH (21:00)
[2019-09-10] MEDS ORDERED: Levalbuterol 1 PUFF INHALER IH SCH (22:00)
[2019-09-11] MEDS: methylPREDNISolone 125 MG/2 ML VIAL IVP SCH ×4 (02:45→20:54)
[2019-09-11] MEDS: Ipratropium/Albuterol Neb 3 ML IH SCH ×6 (03:35→23:21)
[2019-09-11] MEDS: *HR* Heparin 5,000 UNIT/ML VIAL SQ SCH ×2 (05:18→18:04)
[2019-09-11] MEDS: Piperacillin/Tazobactam 3.375 GM in 0.9 % Sodium Chloride Mini Bag 100 ML IVPB SCH ×2 (10:08→18:05)
[2019-09-11] MEDS: Gabapentin 300 MG CAPSULE PO SCH ×2 (10:11→20:55)
[2019-09-11] MEDS: levETIRAcetam 250 MG TABLET PO SCH (18:04)
[2019-09-11] MEDS: Doxycycline 100 MG in 0.9 % Sodium Chloride Mini Bag 100 ML IVPB SCH (18:06)
[2019-09-11] MEDS: Thiamine (B-1) 100 MG, Folic Acid 1 MG, MVI, adult with vitamin K 10 ML in 0.9 % Sodi... IVPB SCH (18:07)
[2019-09-11] MEDS: Mirtazapine 15 MG TABLET PO SCH (20:55)
[2019-09-12] MEDS: Piperacillin/Tazobactam 3.375 GM in 0.9 % Sodium Chloride Mini Bag 100 ML IVPB SCH ×3 (00:24→16:24)
[2019-09-12 03:43] LABS: Basophils % 0.1 %; Hematocrit 30.1 % (37.5-50.1); Hemoglobin 9.9 g/dL (12.9-16.9); Immature Granulocytes % 0.8 % (0-4); Lymphocytes # 0.6 K/mcL (0.6-4.6); Mean Corpuscular HGB Conc 32.9 g/dL (31.6-35.5); Mean Corpuscular Hemoglobin 29.7 pg (28.0-33.3); Mean Corpuscular Volume 90.4 fL (83.0-100.0); Mean Platelet Volume 11.1 fL (9.4-12.4); Monocytes # 0.6 K/mcL (0.0-1.3); Monocytes % 2.9 %; Platelet Count 274 K/mcL (140-400); Red Blood Count 3.33 M/mcL (4.19-5.50); Red Cell Distribution Width 15.3 % (11.5-14.5); Segmented Neutrophils % 93.2 %; White Blood Count 19.3 K/mcL (4.3-11.1)
[2019-09-12 04:00] LABS: BUN/Creatinine Ratio 42 (6-26); Blood Urea Nitrogen 24 mg/dL (8-23); Carbon Dioxide 30 mEq/L (23-29); Chloride 106 mEq/L (98-107); Glucose 173 mg/dL (70-105); Osmolality,Calculated 304 (280-300); Potassium 3.2 mEq/L (3.5-5.1); Sodium 143 mEq/L (136-145); eGFR For African Americans > 60 (> 60); eGFR For Non-African Americans > 60 (> 60)
[2019-09-12] MEDS: Ipratropium/Albuterol Neb 3 ML IH SCH ×6 (04:08→23:25)
[2019-09-12] MEDS: Doxycycline 100 MG in 0.9 % Sodium Chloride Mini Bag 100 ML IVPB SCH ×2 (05:38→18:28)
[2019-09-12] MEDS: levETIRAcetam 250 MG TABLET PO SCH ×2 (05:39→18:27)
[2019-09-12] MEDS: *HR* Heparin 5,000 UNIT/ML VIAL SQ SCH ×2 (05:41→18:28)
[2019-09-12] MEDS: methylPREDNISolone 125 MG/2 ML VIAL IVP SCH (09:45)
[2019-09-12] MEDS: Gabapentin 300 MG CAPSULE PO SCH ×2 (09:45→22:42)
[2019-09-12] MEDS: Mirtazapine 15 MG TABLET PO SCH (22:43)
[2019-09-13] MEDS: Piperacillin/Tazobactam 3.375 GM in 0.9 % Sodium Chloride Mini Bag 100 ML IVPB SCH ×2 (00:57→08:48)
[2019-09-13] MEDS: Ipratropium/Albuterol Neb 3 ML IH SCH ×4 (03:36→15:50)
[2019-09-13] MEDS: Doxycycline 100 MG in 0.9 % Sodium Chloride Mini Bag 100 ML IVPB SCH (06:29)
[2019-09-13] MEDS: levETIRAcetam 250 MG TABLET PO SCH (06:30)
[2019-09-13] MEDS: *HR* Heparin 5,000 UNIT/ML VIAL SQ SCH (06:31)
[2019-09-13 06:46] LABS: Basophils % 0.2 %; Hematocrit 35.4 % (37.5-50.1); Immature Granulocytes % 1.5 % (0-4); Lymphocytes % 5.3 %; Mean Corpuscular HGB Conc 33.9 g/dL (31.6-35.5); Mean Corpuscular Hemoglobin 29.7 pg (28.0-33.3); Mean Corpuscular Volume 87.6 fL (83.0-100.0); Mean Platelet Volume 11.2 fL (9.4-12.4); Monocytes # 0.8 K/mcL (0.0-1.3); Monocytes % 4.3 %; Platelet Count 244 K/mcL (140-400); Red Blood Count 4.04 M/mcL (4.19-5.50); Red Cell Distribution Width 15.1 % (11.5-14.5); Segmented Neutrophils % 88.7 %; White Blood Count 18.2 K/mcL (4.3-11.1)
[2019-09-13 07:05] LABS: BUN/Creatinine Ratio 34 (6-26); Blood Urea Nitrogen 21 mg/dL (8-23); Calcium 9.4 mg/dL (8.6-10.3); Carbon Dioxide 30 mEq/L (23-29); Chloride 104 mEq/L (98-107); Glucose 127 mg/dL (70-105); Osmolality,Calculated 301 (280-300); Potassium 4.4 mEq/L (3.5-5.1); Sodium 143 mEq/L (136-145); eGFR For African Americans > 60 (> 60); eGFR For Non-African Americans > 60 (> 60)
[2019-09-13 07:08] LABS: Neutrophils # 16.1 K/mcL (1.6-8.9)
[2019-09-13 07:10] LABS: Platelet Estimate Normal (Normal)
[2019-09-13] MEDS: Gabapentin 300 MG CAPSULE PO SCH (08:48)
[2019-09-13] MEDS ORDERED: predniSONE 20 MG TABLET PO SCH (09:00)
[2019-09-13 17:27] VITALS: BP 123/97
== END 2019-09-13 18:35 | DRG 871 ==
LOC: EMEROOARM 09:24 → SUATTDRO 12:03 → ICNU 12:03 → 2NENU 09-10 17:02
PROVIDERS: ADMIT Internal Medicine Pulmonary Disease; ATTEND Internal Medicine

== ENCOUNTER 2020-02-19 09:16 | Inpatient (IN) ==
[2020-02-19] MEDS ORDERED: Ipratropium/Albuterol Neb 3 ML IH ONE (09:24)
[2020-02-19 10:01] LABS: Hematocrit 42.5 % (37.5-50.1); Hemoglobin 12.6 g/dL (12.9-16.9); Mean Corpuscular HGB Conc 29.6 g/dL (31.6-35.5); Mean Corpuscular Hemoglobin 28.8 pg (28.0-33.3); Mean Corpuscular Volume 97.3 fL (83.0-100.0); Mean Platelet Volume 10.3 fL (9.4-12.4); Platelet Count 264 K/mcL (140-400); Red Blood Count 4.37 M/mcL (4.19-5.50); Red Cell Distribution Width 14.4 % (11.5-14.5)
[2020-02-19 10:02] LABS: White Blood Count 16.7 K/mcL (4.3-11.1)
[2020-02-19 10:14] LABS: INR 1.1
[2020-02-19 10:17] LABS: Monocytes # 0.7 K/mcL (0.0-1.3); Neutrophils # 14.7 K/mcL (1.6-8.9)
[2020-02-19 10:18] LABS: Platelet Estimate Normal (Normal)
[2020-02-19 10:23] LABS: Alanine Aminotransferase 41 Units/L (7-52); Albumin 3.2 g/dL (3.5-5.7); Albumin/Globulin Ratio 0.9 (1.1-2.2); Alkaline Phosphatase 92 Units/L (34-104); Aspartate Amino Transferase 25 Units/L (13-39); BUN/Creatinine Ratio 35 (6-26); Bilirubin,Direct 0.1 mg/dL (0.0-0.2); Bilirubin,Indirect 0.2 mg/dL (0.0-1.0); Bilirubin,Total 0.3 mg/dL (0.3-1.0); Blood Urea Nitrogen 23 mg/dL (8-23); C-Reactive Protein 27 mg/L (Less than 10); Calcium 10.2 mg/dL (8.6-10.3); Carbon Dioxide 39 mEq/L (23-29); Chloride 104 mEq/L (98-107); Globulin 3.5 g/dL (2.4-3.5); Glucose 83 mg/dL (70-105); Lactate Dehydrogenase 241 Units/L (140-271); Magnesium 2.1 mg/dL (1.6-2.6); Osmolality,Calculated 305 (280-300); Phosphorous 2.3 mg/dL (2.7-4.5); Potassium 3.7 mEq/L (3.5-5.1); Sodium 146 mEq/L (136-145); Total Protein 6.7 g/dL (6.4-8.9); eGFR For African Americans > 60 (> 60); eGFR For Non-African Americans > 60 (> 60)
[2020-02-19 10:24] LABS: Troponin I 0.03 ng/mL (< 0.04)
[2020-02-19 10:42] LABS: Ferritin 397 ng/mL (20-250)
[2020-02-19 10:56] LABS: Bilirubin,Urine Negative (Negative); Blood,Urine Moderate (Negative); Clarity,Urine Clear (Clear); Color,Urine Yellow (Yellow); Glucose,Urine (UA) Normal (Normal); Ketones,Urine Negative (Negative); Leukocyte Esterase,Urine Negative (Negative); Nitrite,Urine Negative (Negative); Protein,Urine Trace mg/dL (Neg-Trace); Specific Gravity,Urine 1.027 (1.010-1.025); Urobilinogen,Urine Normal (Normal)
[2020-02-19 10:59] LABS: Bacteria,Urine None Seen per hpf (None-Few); Hyaline Casts,Urine None Seen per lpf (None-Few)
[2020-02-19] MEDS ORDERED: Piperacillin/Tazobactam 3.375 GM in 0.9 % Sodium Chloride Mini Bag 100 ML IVPB ONE (11:11)
[2020-02-19 11:14] LABS: RBC,Urine 15-30 per hpf (0-3); Squamous Epithelial Cell,Urine Few per lpf (None-Few)
[2020-02-19] MEDS ORDERED: Naloxone 0.4 MG/ML INJ IVP PRN (11:42)
[2020-02-19] MEDS ORDERED: Ondansetron 4 MG/2 ML VIAL IVP PRN (11:42)
[2020-02-19] MEDS ORDERED: Acetaminophen 325 MG TABLET PO PRN (11:45)
[2020-02-19] MEDS: levoFLOXacin 750 MG/150 ML 750 MG/150 ML BAG IVPB SCH (12:39)
[2020-02-19] MEDS: MethylPREDNISolone 40 MG/ML VIAL IVP SCH ×3 (13:55→23:30)
[2020-02-19 14:56] LABS: ABG Base Excess 14 mEq/L (-2 to 3); ABG HCO3 42 mEq/L (21-27); ABG Oxygen Saturation 91 % (95-98); ABG PCO2 68 mmHg (35-45); ABG PO2 65 mmHg (85-104); ABG TCO2 44 mEq/L (20-26)
[2020-02-19] MEDS: Ipratropium/Albuterol Neb 3 ML IH SCH ×3 (14:59→19:54)
[2020-02-19] MEDS ORDERED: 0.9 % Sodium Chloride 1,000 ML IVC SCH ×2 (15:00→15:18)
[2020-02-19] MEDS: Budesonide/Formoterol 160/4.5 1 PUFF INH IH SCH ×2 (15:38→19:55)
[2020-02-19] MEDS: *HR* Heparin 5,000 UNIT/ML VIAL SQ SCH (18:20)
[2020-02-19] MEDS: Piperacillin/Tazobactam 3.375 GM in 0.9 % Sodium Chloride Mini Bag 100 ML IVPB SCH (20:29)
[2020-02-19] MEDS: levETIRAcetam 250 MG TABLET PO SCH (20:48)
[2020-02-19] MEDS: Mirtazapine 15 MG TABLET PO SCH (20:49)
[2020-02-19] MEDS: Gabapentin 300 MG CAPSULE PO SCH (20:49)
[2020-02-20] MEDS: Piperacillin/Tazobactam 3.375 GM in 0.9 % Sodium Chloride Mini Bag 100 ML IVPB SCH ×3 (04:22→19:55)
[2020-02-20 05:13] LABS: Hematocrit 39.8 % (37.5-50.1); Hemoglobin 11.9 g/dL (12.9-16.9); Mean Corpuscular HGB Conc 29.9 g/dL (31.6-35.5); Mean Corpuscular Hemoglobin 28.9 pg (28.0-33.3); Mean Corpuscular Volume 96.6 fL (83.0-100.0); Mean Platelet Volume 10.5 fL (9.4-12.4); Platelet Count 223 K/mcL (140-400); Red Blood Count 4.12 M/mcL (4.19-5.50); Red Cell Distribution Width 14.5 % (11.5-14.5); White Blood Count 13.4 K/mcL (4.3-11.1)
[2020-02-20 05:33] LABS: BUN/Creatinine Ratio 41 (6-26); Blood Urea Nitrogen 24 mg/dL (8-23); Calcium 9.3 mg/dL (8.6-10.3); Carbon Dioxide 36 mEq/L (23-29); Chloride 103 mEq/L (98-107); Glucose 123 mg/dL (70-105); Magnesium 1.9 mg/dL (1.6-2.6); Osmolality,Calculated 307 (280-300); Phosphorous 3.1 mg/dL (2.7-4.5); Potassium 3.5 mEq/L (3.5-5.1); Sodium 146 mEq/L (136-145); eGFR For African Americans > 60 (> 60); eGFR For Non-African Americans > 60 (> 60)
[2020-02-20] MEDS: *HR* Heparin 5,000 UNIT/ML VIAL SQ SCH ×2 (05:37→16:42)
[2020-02-20 05:45] LABS: Lymphocytes # 0.5 K/mcL (0.6-4.6); Monocytes # 0.3 K/mcL (0.0-1.3); Neutrophils # 12.1 K/mcL (1.6-8.9); Platelet Estimate Normal (Normal)
[2020-02-20] MEDS: Budesonide/Formoterol 160/4.5 1 PUFF INH IH SCH ×2 (07:53→19:40)
[2020-02-20] MEDS: levETIRAcetam 250 MG TABLET PO SCH (09:00)
[2020-02-20] MEDS: Thiamine (B-1) 100 MG TABLET PO SCH ×2 (09:00→12:58)
[2020-02-20] MEDS: levoFLOXacin 750 MG/150 ML 750 MG/150 ML BAG IVPB SCH ×2 (09:00→12:58)
[2020-02-20] MEDS: Folic Acid 1 MG TABLET PO SCH ×2 (09:00→12:58)
[2020-02-20] MEDS: *HR* LORazepam 0.5 MG TABLET PO SCH ×2 (09:00→12:00)
[2020-02-20] MEDS: DilTIAZem CD (24hr) 180 MG CAP.ER.24H PO SCH ×2 (09:00→12:00)
[2020-02-20] MEDS: Gabapentin 300 MG CAPSULE PO SCH ×3 (09:01→19:56)
[2020-02-20] MEDS: MethylPREDNISolone 40 MG/ML VIAL IVP SCH ×2 (09:01→12:58)
[2020-02-20] MEDS ORDERED: *HR* LORazepam 2 MG/ML VIAL ONE ×2 (09:06→09:10)
[2020-02-20] MEDS ORDERED: levETIRAcetam 1,000 MG in 0.9 % Sodium Chloride 100 ML IVPB ONE (09:23)
[2020-02-20] MEDS ORDERED: *HR* FentaNYL (PF) 100 MCG/2 ML VIAL ONE (09:27)
[2020-02-20] MEDS ORDERED: 0.9 % Sodium Chloride 250 ML ONE (09:52)
[2020-02-20] MEDS ORDERED: *HR* Phenylephrine 10 MG/ML VIAL ONE (09:52)
[2020-02-20] MEDS ORDERED: Ringers Solution, Lactated 1,000 ML IVC ONE (10:04)
[2020-02-20] MEDS ORDERED: *HR* FentaNYL (PF) 100 MCG/2 ML VIAL IVP ONE (10:05)
[2020-02-20] MEDS ORDERED: *HR* Midazolam HCl 2 MG/2 ML VIAL IV ONE (10:17)
[2020-02-20] MEDS ORDERED: *HR* Propofol 200 MG/20 ML VIAL IVP ONE (10:17)
[2020-02-20] MEDS ORDERED: *HR* Midazolam HCl 5 MG/5 ML VIAL IVP ONE (10:17)
[2020-02-20] MEDS ORDERED: Artificial Tears SOLN 15 ML BOTTLE BOTH EYES PRN (10:29)
[2020-02-20 10:35] LABS: ABG Base Excess 11 mEq/L (-2 to 3); ABG HCO3 40 mEq/L (21-27); ABG Oxygen Saturation 100 % (95-98); ABG PCO2 73 mmHg (35-45); ABG PH 7.35 pH Units (7.32-7.45); ABG PO2 537 mmHg (85-104); ABG TCO2 42 mEq/L (20-26); Blood Gas Modality ASSIST CONTROL; Blood Gas VT 480 cc
[2020-02-20] MEDS ORDERED: 0.9 % Sodium Chloride 500 ML ONE (10:55)
[2020-02-20] MEDS: Norepinephrine 4 MG in 0.9 % Sodium Chloride 250 ML IVC SCH (12:01)
[2020-02-20] MEDS: Artificial Tears SOLN 15 ML BOTTLE BOTH EYES SCH ×4 (12:03→23:48)
[2020-02-20] MEDS: Pantoprazole 40 MG VIAL IVP SCH (12:57)
[2020-02-20] MEDS: *HR* HYDROmorphone 2 MG/ML SYRINGE IVP SCH ×4 (12:57→23:47)
[2020-02-20] MEDS: Chlorhexidine Rinse 15 ML MOUTHWASH MM SCH ×2 (12:58→19:55)
[2020-02-20 15:49] LABS: ABG Base Excess 11 mEq/L (-2 to 3); ABG HCO3 35 mEq/L (21-27); ABG Oxygen Saturation 100 % (95-98); ABG PCO2 44 mmHg (35-45); ABG PH 7.51 pH Units (7.32-7.45); ABG PO2 197 mmHg (85-104); ABG TCO2 36 mEq/L (20-26); Blood Gas Modality ASSIST CONTROL; Blood Gas VT 480 cc
[2020-02-20] MEDS ORDERED: D5% in Water 1,000 ML IVC PRN (19:00)
[2020-02-20] MEDS ORDERED: Dextrose Gel 15 GM/37.5 ML TUBE PO PRN ×2 (19:00)
[2020-02-20] MEDS ORDERED: *HR* Dextrose 50 % in Water (Syg) 50 ML SYRINGE IVP PRN (19:00)
[2020-02-20] MEDS: levETIRAcetam 500 MG/5 ML UDC PO SCH (19:55)
[2020-02-20] MEDS: Mirtazapine 15 MG TABLET PO SCH (19:56)
[2020-02-20] MEDS: Insulin LISPRO 300 UNITS/3 ML VIAL SQ SCH ×2 (19:56→23:48)
[2020-02-20] MEDS: D5% in Lactated Ringers 1,000 ML IVC SCH (19:57)
[2020-02-20 21:38] LABS: Acinetobacter baumannii by PCR Not Detected (Not Detect); Candida albicans by PCR Not Detected (Not Detect); Candida glabrata by PCR Not Detected (Not Detect); Candida krusei by PCR Not Detected (Not Detect); Candida parapsilosis by PCR Not Detected (Not Detect); Candida tropicalis by PCR Not Detected (Not Detect); Enterobacter cloacae Cmplx PCR Not Detected (Not Detect); Enterobacteriaceae by PCR Not Detected (Not Detect); Enterococcus by PCR Not Detected (Not Detect); Escherichia coli by PCR Not Detected (Not Detect); Klebsiella oxytoca by PCR Not Detected (Not Detect); Klebsiella pneumoniae by PCR Not Detected (Not Detect); Proteus by PCR Not Detected (Not Detect); Pseudomonas aeruginosa by PCR Not Detected (Not Detect); Serratia marcescens by PCR Not Detected (Not Detect); Staphylococcus aureus by PCR Not Detected (Not Detect); Staphylococcus by PCR Not Detected (Not Detect); Streptococcus agalactiae(B)PCR Not Detected (Not Detect); Streptococcus by PCR Not Detected (Not Detect); Streptococcus pneumoniae PCR Not Detected (Not Detect); Streptococcus pyogenes (A) PCR Not Detected (Not Detect)
[2020-02-21] MEDS: *HR* HYDROmorphone 2 MG/ML SYRINGE IVP SCH ×2 (02:47→07:52)
[2020-02-21] MEDS: Insulin LISPRO 300 UNITS/3 ML VIAL SQ SCH ×6 (03:35→23:37)
[2020-02-21] MEDS: Artificial Tears SOLN 15 ML BOTTLE BOTH EYES SCH ×6 (03:35→23:22)
[2020-02-21] MEDS: Piperacillin/Tazobactam 3.375 GM in 0.9 % Sodium Chloride Mini Bag 100 ML IVPB SCH ×3 (03:40→20:02)
[2020-02-21 04:06] LABS: Hematocrit 30.6 % (37.5-50.1); Mean Corpuscular HGB Conc 30.7 g/dL (31.6-35.5); Mean Corpuscular Hemoglobin 29.3 pg (28.0-33.3); Mean Corpuscular Volume 95.3 fL (83.0-100.0); Mean Platelet Volume 10.3 fL (9.4-12.4); Platelet Count 183 K/mcL (140-400); Red Blood Count 3.21 M/mcL (4.19-5.50); Red Cell Distribution Width 14.4 % (11.5-14.5); White Blood Count 10.5 K/mcL (4.3-11.1)
[2020-02-21 04:12] LABS: Hemoglobin 9.4 g/dL (12.9-16.9)
[2020-02-21 04:25] LABS: BUN/Creatinine Ratio 42 (6-26); Blood Urea Nitrogen 33 mg/dL (8-23); Carbon Dioxide 36 mEq/L (23-29); Chloride 108 mEq/L (98-107); Glucose 112 mg/dL (70-105); Osmolality,Calculated 310 (280-300); Potassium 2.9 mEq/L (3.5-5.1); Sodium 146 mEq/L (136-145); eGFR For African Americans > 60 (> 60); eGFR For Non-African Americans > 60 (> 60)
[2020-02-21 04:36] LABS: Anisocytosis 1+ (Not Present); Lymphocytes # 0.6 K/mcL (0.6-4.6); Monocytes # 0.2 K/mcL (0.0-1.3); Neutrophils # 9.7 K/mcL (1.6-8.9); Platelet Estimate Normal (Normal)
[2020-02-21 04:50] LABS: ABG Base Excess 12 mEq/L (-2 to 3); ABG HCO3 37 mEq/L (21-27); ABG Oxygen Saturation 98 % (95-98); ABG PCO2 53 mmHg (35-45); ABG PH 7.46 pH Units (7.32-7.45); ABG PO2 96 mmHg (85-104); ABG TCO2 39 mEq/L (20-26); Blood Gas Modality ASSIST CONTROL; Blood Gas VT 400 cc
[2020-02-21] MEDS: D5% in Lactated Ringers 1,000 ML IVC SCH ×2 (05:31→14:39)
[2020-02-21] MEDS: *HR* Heparin 5,000 UNIT/ML VIAL SQ SCH ×2 (05:32→17:18)
[2020-02-21] MEDS: Budesonide/Formoterol 160/4.5 1 PUFF INH IH SCH ×2 (07:15→20:12)
[2020-02-21] MEDS: DilTIAZem CD (24hr) 180 MG CAP.ER.24H PO SCH (07:52)
[2020-02-21] MEDS: Norepinephrine 4 MG in 0.9 % Sodium Chloride 250 ML IVC SCH (07:53)
[2020-02-21] MEDS: Chlorhexidine Rinse 15 ML MOUTHWASH MM SCH ×2 (08:01→20:03)
[2020-02-21] MEDS: Folic Acid 1 MG TABLET PO SCH (08:01)
[2020-02-21] MEDS: Pantoprazole 40 MG VIAL IVP SCH (08:01)
[2020-02-21] MEDS: Gabapentin 300 MG CAPSULE PO SCH ×2 (08:01→20:03)
[2020-02-21] MEDS: levETIRAcetam 500 MG/5 ML UDC PO SCH ×2 (08:01→20:02)
[2020-02-21] MEDS: *HR* LORazepam 0.5 MG TABLET PO SCH (08:01)
[2020-02-21] MEDS: Thiamine (B-1) 100 MG TABLET PO SCH (08:01)
[2020-02-21] MEDS: levoFLOXacin 750 MG/150 ML 750 MG/150 ML BAG IVPB SCH (08:02)
[2020-02-21] MEDS ORDERED: MethylPREDNISolone 40 MG/ML VIAL IVP SCH ×2 (09:00)
[2020-02-21] MEDS ORDERED: Ipratropium/Albuterol Neb 3 ML IH PRN (09:17)
[2020-02-21] MEDS: GuaiFENesin Liq 200 MG/10 ML UDC GTUBE SCH ×3 (11:40→23:22)
[2020-02-21] MEDS: Dexmedetomidine HCl 400 MCG/100 ML MLS IVC SCH ×2 (17:19→19:45)
[2020-02-21] MEDS: Mirtazapine 15 MG TABLET PO SCH (20:03)
[2020-02-21] MEDS: MethylPREDNISolone 40 MG/ML VIAL IVP SCH (20:03)
[2020-02-22] MEDS: D5% in Lactated Ringers 1,000 ML IVC SCH ×2 (00:43→11:26)
[2020-02-22] MEDS: Artificial Tears SOLN 15 ML BOTTLE BOTH EYES SCH ×6 (03:29→23:50)
[2020-02-22] MEDS: Insulin LISPRO 300 UNITS/3 ML VIAL SQ SCH ×6 (03:29→23:50)
[2020-02-22] MEDS: Piperacillin/Tazobactam 3.375 GM in 0.9 % Sodium Chloride Mini Bag 100 ML IVPB SCH ×3 (03:32→20:28)
[2020-02-22 03:40] LABS: Hemoglobin 9.9 g/dL (12.9-16.9); Mean Corpuscular HGB Conc 30.9 g/dL (31.6-35.5); Mean Corpuscular Hemoglobin 29.4 pg (28.0-33.3); Mean Platelet Volume 10.1 fL (9.4-12.4); Platelet Count 186 K/mcL (140-400); Red Blood Count 3.37 M/mcL (4.19-5.50); Red Cell Distribution Width 14.6 % (11.5-14.5); White Blood Count 10.1 K/mcL (4.3-11.1)
[2020-02-22 03:58] LABS: Lymphocytes # 1.2 K/mcL (0.6-4.6); Neutrophils # 8.9 K/mcL (1.6-8.9)
[2020-02-22 03:59] LABS: Platelet Estimate Normal (Normal)
[2020-02-22 04:04] LABS: Alanine Aminotransferase 91 Units/L (7-52); Albumin 2.4 g/dL (3.5-5.7); Albumin/Globulin Ratio 0.9 (1.1-2.2); Alkaline Phosphatase 65 Units/L (34-104); Aspartate Amino Transferase 63 Units/L (13-39); BUN/Creatinine Ratio 41 (6-26); Bilirubin,Total 0.4 mg/dL (0.3-1.0); Blood Urea Nitrogen 22 mg/dL (8-23); Calcium 8.5 mg/dL (8.6-10.3); Carbon Dioxide 30 mEq/L (23-29); Chloride 106 mEq/L (98-107); Globulin 2.6 g/dL (2.4-3.5); Glucose 137 mg/dL (70-105); Magnesium 1.6 mg/dL (1.6-2.6); Osmolality,Calculated 297 (280-300); Phosphorous 2.5 mg/dL (2.7-4.5); Potassium 3.3 mEq/L (3.5-5.1); Sodium 141 mEq/L (136-145); eGFR For African Americans > 60 (> 60); eGFR For Non-African Americans > 60 (> 60)
[2020-02-22 05:10] LABS: ABG Base Excess 10 mEq/L (-2 to 3); ABG HCO3 35 mEq/L (21-27); ABG Oxygen Saturation 96 % (95-98); ABG PCO2 53 mmHg (35-45); ABG PH 7.44 pH Units (7.32-7.45); ABG PO2 83 mmHg (85-104); ABG TCO2 37 mEq/L (20-26); Blood Gas Modality ASSIST CONTROL; Blood Gas VT 400 cc
[2020-02-22] MEDS: GuaiFENesin Liq 200 MG/10 ML UDC GTUBE SCH ×4 (05:46→23:50)
[2020-02-22] MEDS: *HR* Heparin 5,000 UNIT/ML VIAL SQ SCH ×2 (05:46→18:33)
[2020-02-22] MEDS: Budesonide/Formoterol 160/4.5 1 PUFF INH IH SCH ×2 (07:37→20:42)
[2020-02-22] MEDS ORDERED: Aminoglycoside Consult 1 EACH MC ONE (08:17)
[2020-02-22] MEDS: *HR* LORazepam 0.5 MG TABLET PO SCH (08:18)
[2020-02-22] MEDS: Folic Acid 1 MG TABLET PO SCH (08:18)
[2020-02-22] MEDS: Thiamine (B-1) 100 MG TABLET PO SCH (08:18)
[2020-02-22] MEDS: Chlorhexidine Rinse 15 ML MOUTHWASH MM SCH ×2 (08:19→20:29)
[2020-02-22] MEDS: levETIRAcetam 500 MG/5 ML UDC PO SCH (08:19)
[2020-02-22] MEDS: Pantoprazole 40 MG VIAL IVP SCH (08:19)
[2020-02-22] MEDS: MethylPREDNISolone 40 MG/ML VIAL IVP SCH ×2 (08:19→20:27)
[2020-02-22] MEDS: Gabapentin 300 MG CAPSULE PO SCH ×2 (10:19→20:16)
[2020-02-22] MEDS: Dexmedetomidine HCl 400 MCG/100 ML MLS IVC SCH (11:48)
[2020-02-22] MEDS ORDERED: *HR* Metoprolol 5 MG/5 ML VIAL IVP ONE (18:10)
[2020-02-22] MEDS: Mirtazapine 15 MG TABLET PO SCH (20:16)
[2020-02-22] MEDS: Sennosides/Docusate Sodium TABLET PO SCH (20:16)
[2020-02-23 03:35] LABS: Hematocrit 33.7 % (37.5-50.1); Hemoglobin 10.4 g/dL (12.9-16.9); Immature Granulocytes % 4.7 % (0-4); Mean Corpuscular HGB Conc 30.9 g/dL (31.6-35.5); Mean Corpuscular Hemoglobin 29.1 pg (28.0-33.3); Mean Corpuscular Volume 94.1 fL (83.0-100.0); Mean Platelet Volume 10.4 fL (9.4-12.4); Monocytes % 2.4 %; Platelet Count 203 K/mcL (140-400); Red Blood Count 3.58 M/mcL (4.19-5.50); Red Cell Distribution Width 14.1 % (11.5-14.5); Segmented Neutrophils % 87.7 %; White Blood Count 12.7 K/mcL (4.3-11.1)
[2020-02-23 03:36] LABS: Basophils % 0.2 %; Lymphocytes # 0.6 K/mcL (0.6-4.6); Monocytes # 0.3 K/mcL (0.0-1.3); Neutrophils # 11.2 K/mcL (1.6-8.9)
[2020-02-23 03:46] LABS: BUN/Creatinine Ratio 31 (6-26); Blood Urea Nitrogen 15 mg/dL (8-23); Calcium 8.4 mg/dL (8.6-10.3); Carbon Dioxide 36 mEq/L (23-29); Chloride 102 mEq/L (98-107); Glucose 156 mg/dL (70-105); Magnesium 1.5 mg/dL (1.6-2.6); Osmolality,Calculated 296 (280-300); Phosphorous 2.5 mg/dL (2.7-4.5); Potassium 2.9 mEq/L (3.5-5.1); Sodium 141 mEq/L (136-145); eGFR For African Americans > 60 (> 60); eGFR For Non-African Americans > 60 (> 60)
[2020-02-23] MEDS: *HR* Heparin 5,000 UNIT/ML VIAL SQ SCH ×2 (04:42→18:29)
[2020-02-23] MEDS: Piperacillin/Tazobactam 3.375 GM in 0.9 % Sodium Chloride Mini Bag 100 ML IVPB SCH ×3 (04:44→21:31)
[2020-02-23] MEDS: GuaiFENesin Liq 200 MG/10 ML UDC GTUBE SCH ×4 (04:45→23:13)
[2020-02-23] MEDS: Insulin LISPRO 300 UNITS/3 ML VIAL SQ SCH ×6 (04:45→23:24)
[2020-02-23] MEDS: Artificial Tears SOLN 15 ML BOTTLE BOTH EYES SCH ×6 (04:45→23:12)
[2020-02-23] MEDS: D5% in Lactated Ringers 1,000 ML IVC SCH (04:46)
[2020-02-23] MEDS ORDERED: Albuterol 2.5 MG/3 ML NEBULIZER IH PRN (04:52)
[2020-02-23] MEDS ORDERED: Potassium Phosphate 44 MEQ in 0.9 % Sodium Chloride 250 ML IVPB ONE ×2 (06:43→15:13)
[2020-02-23] MEDS: Ipratropium/Albuterol Neb 3 ML IH SCH ×4 (07:43→20:04)
[2020-02-23] MEDS: Budesonide/Formoterol 160/4.5 1 PUFF INH IH SCH ×2 (07:43→20:05)
[2020-02-23] MEDS: *HR* LORazepam 0.5 MG TABLET PO SCH (08:57)
[2020-02-23] MEDS: Chlorhexidine Rinse 15 ML MOUTHWASH MM SCH ×2 (08:57→21:31)
[2020-02-23] MEDS: Folic Acid 1 MG TABLET PO SCH (08:58)
[2020-02-23] MEDS: polyethylene glycoL 3350 17 GM POWD.PACK PO SCH (08:59)
[2020-02-23] MEDS: MethylPREDNISolone 40 MG/ML VIAL IVP SCH (09:00)
[2020-02-23] MEDS: Sennosides/Docusate Sodium TABLET PO SCH ×2 (09:00→21:28)
[2020-02-23] MEDS: Gabapentin 300 MG CAPSULE PO SCH ×2 (09:00→21:28)
[2020-02-23] MEDS: Pantoprazole 40 MG VIAL IVP SCH (09:00)
[2020-02-23] MEDS: Thiamine (B-1) 100 MG TABLET PO SCH (09:01)
[2020-02-23] MEDS ORDERED: *HR* Metoprolol 5 MG/5 ML VIAL IVP ONE (09:24)
[2020-02-23] MEDS: lisinopriL 5 MG TABLET PO SCH (10:10)
[2020-02-23] MEDS: Nystatin SUSP 5 ML UD.LIQ PO SCH ×4 (10:14→21:28)
[2020-02-23] MEDS ORDERED: *HR* Metoprolol 5 MG/5 ML VIAL IVP PRN (10:28)
[2020-02-23] MEDS ORDERED: Milk and Molasses Enema 200 ML RC ONE (10:29)
[2020-02-23] MEDS: Dexamethasone 4 MG/ML VIAL IVP SCH ×3 (12:18→21:32)
[2020-02-23 13:28] LABS: BUN/Creatinine Ratio 28 (6-26); Blood Urea Nitrogen 13 mg/dL (8-23); Calcium 8.3 mg/dL (8.6-10.3); Carbon Dioxide 36 mEq/L (23-29); Chloride 100 mEq/L (98-107); Glucose 165 mg/dL (70-105); Osmolality,Calculated 296 (280-300); Potassium 2.8 mEq/L (3.5-5.1); Sodium 141 mEq/L (136-145); eGFR For African Americans > 60 (> 60); eGFR For Non-African Americans > 60 (> 60)
[2020-02-23] MEDS: Dexmedetomidine HCl 400 MCG/100 ML MLS IVC SCH (18:48)
[2020-02-23] MEDS: Levalbuterol Neb 1.25 MG/3 ML IH SCH (21:10)
[2020-02-23] MEDS: Mirtazapine 15 MG TABLET PO SCH (21:28)
[2020-02-24] MEDS: Ipratropium/Albuterol Neb 3 ML IH SCH ×4 (00:05→11:45)
[2020-02-24] MEDS: D5% in Lactated Ringers 1,000 ML IVC SCH ×2 (00:45→20:57)
[2020-02-24] MEDS: Artificial Tears SOLN 15 ML BOTTLE BOTH EYES SCH ×2 (03:05→07:34)
[2020-02-24] MEDS: Piperacillin/Tazobactam 3.375 GM in 0.9 % Sodium Chloride Mini Bag 100 ML IVPB SCH ×3 (03:05→20:42)
[2020-02-24] MEDS: Insulin LISPRO 300 UNITS/3 ML VIAL SQ SCH ×6 (03:23→23:44)
[2020-02-24 03:30] LABS: Hematocrit 34.9 % (37.5-50.1); Hemoglobin 10.9 g/dL (12.9-16.9); Mean Corpuscular HGB Conc 31.2 g/dL (31.6-35.5); Mean Corpuscular Hemoglobin 28.7 pg (28.0-33.3); Mean Corpuscular Volume 91.8 fL (83.0-100.0); Platelet Count 203 K/mcL (140-400); White Blood Count 14.1 K/mcL (4.3-11.1)
[2020-02-24 03:51] LABS: Alanine Aminotransferase 127 Units/L (7-52); Albumin 2.7 g/dL (3.5-5.7); Alkaline Phosphatase 74 Units/L (34-104); Aspartate Amino Transferase 75 Units/L (13-39); BUN/Creatinine Ratio 22 (6-26); Bilirubin,Total 0.5 mg/dL (0.3-1.0); Blood Urea Nitrogen 11 mg/dL (8-23); Calcium 8.4 mg/dL (8.6-10.3); Carbon Dioxide 39 mEq/L (23-29); Chloride 102 mEq/L (98-107); Globulin 2.7 g/dL (2.4-3.5); Glucose 130 mg/dL (70-105); Magnesium 2.1 mg/dL (1.6-2.6); Osmolality,Calculated 299 (280-300); Potassium 3.3 mEq/L (3.5-5.1); Sodium 144 mEq/L (136-145); Total Protein 5.4 g/dL (6.4-8.9); eGFR For African Americans > 60 (> 60); eGFR For Non-African Americans > 60 (> 60)
[2020-02-24] MEDS: Dexmedetomidine HCl 400 MCG/100 ML MLS IVC SCH (06:14)
[2020-02-24] MEDS: GuaiFENesin Liq 200 MG/10 ML UDC GTUBE SCH ×4 (06:14→23:56)
[2020-02-24] MEDS: *HR* Heparin 5,000 UNIT/ML VIAL SQ SCH ×2 (06:14→17:56)
[2020-02-24] MEDS ORDERED: Potassium Chloride 40 MEQ, Lidocaine 1% 2 ML in 0.9 % Sodium Chloride 500 ML IVPB ONE (06:33)
[2020-02-24] MEDS: Budesonide/Formoterol 160/4.5 1 PUFF INH IH SCH ×2 (07:40→19:45)
[2020-02-24] MEDS: Levalbuterol Neb 1.25 MG/3 ML IH SCH ×4 (07:41→23:33)
[2020-02-24] MEDS: Folic Acid 1 MG TABLET PO SCH (07:55)
[2020-02-24] MEDS: *HR* LORazepam 0.5 MG TABLET PO SCH (07:55)
[2020-02-24] MEDS: Gabapentin 300 MG CAPSULE PO SCH ×2 (07:56→21:00)
[2020-02-24] MEDS: polyethylene glycoL 3350 17 GM POWD.PACK PO SCH (07:56)
[2020-02-24] MEDS: Nystatin SUSP 5 ML UD.LIQ PO SCH ×4 (07:56→20:59)
[2020-02-24] MEDS: Sennosides/Docusate Sodium TABLET PO SCH ×2 (07:57→21:00)
[2020-02-24] MEDS: Thiamine (B-1) 100 MG TABLET PO SCH (07:57)
[2020-02-24] MEDS: lisinopriL 5 MG TABLET PO SCH (07:59)
[2020-02-24] MEDS: Chlorhexidine Rinse 15 ML MOUTHWASH MM SCH ×2 (08:42→09:21)
[2020-02-24] MEDS: Pantoprazole 40 MG VIAL IVP SCH (08:42)
[2020-02-24] MEDS: Dexamethasone 4 MG/ML VIAL IVP SCH ×3 (08:42→21:00)
[2020-02-24] MEDS: *HR* Metoprolol 5 MG/5 ML VIAL IVP SCH ×3 (11:48→23:57)
[2020-02-24] MEDS ORDERED: Ipratropium/Albuterol Neb 3 ML IH PRN (14:38)
[2020-02-24] MEDS: Furosemide 20 MG/2 ML VIAL IVP SCH ×2 (15:48→20:59)
[2020-02-24] MEDS: Mirtazapine 15 MG TABLET PO SCH (21:00)
[2020-02-24] MEDS: *HR* HYDROmorphone 2 MG/ML SYRINGE IVP SCH (22:50)
[2020-02-25] MEDS: Levalbuterol Neb 1.25 MG/3 ML IH SCH ×6 (03:43→23:27)
[2020-02-25 04:10] LABS: Hematocrit 33.6 % (37.5-50.1); Hemoglobin 10.6 g/dL (12.9-16.9); Mean Corpuscular HGB Conc 31.5 g/dL (31.6-35.5); Mean Corpuscular Hemoglobin 29.1 pg (28.0-33.3); Mean Corpuscular Volume 92.3 fL (83.0-100.0); Mean Platelet Volume 10.2 fL (9.4-12.4); Platelet Count 218 K/mcL (140-400); Red Blood Count 3.64 M/mcL (4.19-5.50); Red Cell Distribution Width 14.2 % (11.5-14.5); White Blood Count 12.4 K/mcL (4.3-11.1)
[2020-02-25 04:37] LABS: BUN/Creatinine Ratio 19 (6-26); Blood Urea Nitrogen 11 mg/dL (8-23); Calcium 8.7 mg/dL (8.6-10.3); Carbon Dioxide 40 mEq/L (23-29); Chloride 97 mEq/L (98-107); Glucose 156 mg/dL (70-105); Magnesium 1.7 mg/dL (1.6-2.6); Osmolality,Calculated 295 (280-300); Phosphorous 2.5 mg/dL (2.7-4.5); Potassium 2.8 mEq/L (3.5-5.1); Sodium 141 mEq/L (136-145); eGFR For African Americans > 60 (> 60); eGFR For Non-African Americans > 60 (> 60)
[2020-02-25] MEDS: Insulin LISPRO 300 UNITS/3 ML VIAL SQ SCH ×6 (05:10→23:36)
[2020-02-25] MEDS: Piperacillin/Tazobactam 3.375 GM in 0.9 % Sodium Chloride Mini Bag 100 ML IVPB SCH ×3 (05:11→19:45)
[2020-02-25] MEDS: GuaiFENesin Liq 200 MG/10 ML UDC GTUBE SCH ×4 (05:41→23:36)
[2020-02-25] MEDS: *HR* Metoprolol 5 MG/5 ML VIAL IVP SCH (05:41)
[2020-02-25] MEDS: *HR* Heparin 5,000 UNIT/ML VIAL SQ SCH ×2 (05:45→17:02)
[2020-02-25] MEDS ORDERED: Potassium Phosphate 44 MEQ in 0.9 % Sodium Chloride 250 ML IVPB ONE (06:49)
[2020-02-25] MEDS ORDERED: MethylPREDNISolone 40 MG/ML VIAL IVP SCH (06:53)
[2020-02-25] MEDS: Budesonide/Formoterol 160/4.5 1 PUFF INH IH SCH ×2 (07:33→19:29)
[2020-02-25] MEDS: Furosemide 20 MG/2 ML VIAL IVP SCH ×2 (08:23→19:44)
[2020-02-25] MEDS: polyethylene glycoL 3350 17 GM POWD.PACK PO SCH (08:23)
[2020-02-25] MEDS: Sennosides/Docusate Sodium TABLET PO SCH ×2 (08:33→21:19)
[2020-02-25] MEDS: Gabapentin 300 MG CAPSULE PO SCH ×2 (08:33→21:19)
[2020-02-25] MEDS: lisinopriL 5 MG TABLET PO SCH (08:33)
[2020-02-25] MEDS: Thiamine (B-1) 100 MG TABLET PO SCH (08:33)
[2020-02-25] MEDS: Nystatin SUSP 5 ML UD.LIQ PO SCH ×4 (08:33→21:19)
[2020-02-25] MEDS: Pantoprazole 40 MG VIAL IVP SCH (08:33)
[2020-02-25] MEDS: *HR* LORazepam 0.5 MG TABLET PO SCH (08:33)
[2020-02-25] MEDS: Folic Acid 1 MG TABLET PO SCH (08:33)
[2020-02-25] MEDS ORDERED: Furosemide 20 MG/2 ML VIAL IVP SCH ×2 (09:00→19:00)
[2020-02-25] MEDS ORDERED: predniSONE 20 MG TABLET PO SCH (09:00)
[2020-02-25] MEDS ORDERED: Dextrose Gel 15 GM/37.5 ML TUBE PO PRN ×2 (10:14)
[2020-02-25] MEDS ORDERED: *HR* Dextrose 50 % in Water (Syg) 50 ML SYRINGE IVP PRN (10:14)
[2020-02-25] MEDS ORDERED: D5% in Water 1,000 ML IVC PRN (10:14)
[2020-02-25] MEDS ORDERED: Ondansetron 4 MG/2 ML VIAL IVP PRN (10:14)
[2020-02-25] MEDS ORDERED: Acetaminophen 325 MG TABLET PO PRN (10:14)
[2020-02-25] MEDS ORDERED: Naloxone 0.4 MG/ML INJ IVP PRN (10:14)
[2020-02-25] MEDS ORDERED: Ipratropium/Albuterol Neb 3 ML IH PRN (10:14)
[2020-02-25] MEDS: D5% in Lactated Ringers 1,000 ML IVC SCH ×2 (10:53→19:45)
[2020-02-25] MEDS: MethylPREDNISolone 40 MG/ML VIAL IVP SCH (17:04)
[2020-02-25 18:03] LABS: Magnesium 1.9 mg/dL (1.6-2.6); Potassium 3.4 mEq/L (3.5-5.1)
[2020-02-25] MEDS: Mirtazapine 15 MG TABLET PO SCH (21:19)
[2020-02-26 03:18] LABS: Basophils % 0.3 %; Hematocrit 35.2 % (37.5-50.1); Hemoglobin 10.8 g/dL (12.9-16.9); Immature Granulocytes % 3.4 % (0-4); Lymphocytes # 0.6 K/mcL (0.6-4.6); Lymphocytes % 4.3 %; Mean Corpuscular HGB Conc 30.7 g/dL (31.6-35.5); Mean Corpuscular Hemoglobin 28.9 pg (28.0-33.3); Mean Corpuscular Volume 94.1 fL (83.0-100.0); Mean Platelet Volume 10.3 fL (9.4-12.4); Monocytes # 0.5 K/mcL (0.0-1.3); Monocytes % 3.6 %; Neutrophils # 11.9 K/mcL (1.6-8.9); Platelet Count 221 K/mcL (140-400); Red Blood Count 3.74 M/mcL (4.19-5.50); Red Cell Distribution Width 14.4 % (11.5-14.5); Segmented Neutrophils % 88.4 %; White Blood Count 13.5 K/mcL (4.3-11.1)
[2020-02-26 03:39] LABS: BUN/Creatinine Ratio 27 (6-26); Blood Urea Nitrogen 12 mg/dL (8-23); Calcium 8.9 mg/dL (8.6-10.3); Carbon Dioxide 38 mEq/L (23-29); Chloride 100 mEq/L (98-107); Glucose 180 mg/dL (70-105); Magnesium 1.7 mg/dL (1.6-2.6); Osmolality,Calculated 302 (280-300); Phosphorous 2.2 mg/dL (2.7-4.5); Potassium 3.2 mEq/L (3.5-5.1); Sodium 144 mEq/L (136-145); eGFR For African Americans > 60 (> 60); eGFR For Non-African Americans > 60 (> 60)
[2020-02-26] MEDS: Levalbuterol Neb 1.25 MG/3 ML IH SCH ×5 (03:44→20:04)
[2020-02-26] MEDS: Piperacillin/Tazobactam 3.375 GM in 0.9 % Sodium Chloride Mini Bag 100 ML IVPB SCH ×3 (04:19→20:01)
[2020-02-26] MEDS: Insulin LISPRO 300 UNITS/3 ML VIAL SQ SCH ×6 (04:19→23:58)
[2020-02-26] MEDS: GuaiFENesin Liq 200 MG/10 ML UDC GTUBE SCH ×4 (05:30→23:57)
[2020-02-26] MEDS: MethylPREDNISolone 40 MG/ML VIAL IVP SCH ×2 (05:30→16:41)
[2020-02-26] MEDS: *HR* Heparin 5,000 UNIT/ML VIAL SQ SCH ×2 (05:30→16:41)
[2020-02-26] MEDS: Budesonide/Formoterol 160/4.5 1 PUFF INH IH SCH ×2 (07:38→20:04)
[2020-02-26] MEDS ORDERED: Potassium Phosphate 44 MEQ in 0.9 % Sodium Chloride 250 ML IVPB ONE (07:42)
[2020-02-26] MEDS: Folic Acid 1 MG TABLET PO SCH (08:46)
[2020-02-26] MEDS: Sennosides/Docusate Sodium TABLET PO SCH ×2 (08:46→22:19)
[2020-02-26] MEDS: Nystatin SUSP 5 ML UD.LIQ PO SCH ×4 (08:46→22:20)
[2020-02-26] MEDS: *HR* LORazepam 0.5 MG TABLET PO SCH (08:46)
[2020-02-26] MEDS: Gabapentin 300 MG CAPSULE PO SCH ×2 (08:46→22:19)
[2020-02-26] MEDS: Thiamine (B-1) 100 MG TABLET PO SCH (08:46)
[2020-02-26] MEDS: lisinopriL 5 MG TABLET PO SCH (08:46)
[2020-02-26] MEDS: Furosemide 20 MG/2 ML VIAL IVP SCH (08:47)
[2020-02-26] MEDS: Pantoprazole 40 MG VIAL IVP SCH (08:47)
[2020-02-26] MEDS: polyethylene glycoL 3350 17 GM POWD.PACK PO SCH (08:47)
[2020-02-26] MEDS: Mirtazapine 15 MG TABLET PO SCH (22:19)
[2020-02-26] MEDS: D5% in Lactated Ringers 1,000 ML IVC SCH (23:21)
[2020-02-27] MEDS: Levalbuterol Neb 1.25 MG/3 ML IH SCH ×7 (00:04→23:10)
[2020-02-27] MEDS: Insulin LISPRO 300 UNITS/3 ML VIAL SQ SCH ×5 (04:26→21:20)
[2020-02-27] MEDS: MethylPREDNISolone 40 MG/ML VIAL IVP SCH ×2 (05:14→17:33)
[2020-02-27] MEDS: GuaiFENesin Liq 200 MG/10 ML UDC GTUBE SCH ×3 (05:15→17:34)
[2020-02-27] MEDS: *HR* Heparin 5,000 UNIT/ML VIAL SQ SCH ×2 (05:15→17:34)
[2020-02-27 05:23] LABS: Hemoglobin 10.5 g/dL (12.9-16.9); Mean Corpuscular HGB Conc 30.9 g/dL (31.6-35.5); Mean Corpuscular Hemoglobin 29.5 pg (28.0-33.3); Mean Corpuscular Volume 95.5 fL (83.0-100.0); Mean Platelet Volume 10.1 fL (9.4-12.4); Platelet Count 218 K/mcL (140-400); Red Blood Count 3.56 M/mcL (4.19-5.50); Red Cell Distribution Width 14.5 % (11.5-14.5)
[2020-02-27 05:28] LABS: VBG HCO3 43 mEq/L (21-27); VBG PCO2 72 mmHg (41-51); VBG PH 7.39 pH Units (7.32-7.42); VBG PO2 87 mmHg (25-50)
[2020-02-27 05:44] LABS: BUN/Creatinine Ratio 26 (6-26); Blood Urea Nitrogen 12 mg/dL (8-23); Calcium 8.9 mg/dL (8.6-10.3); Carbon Dioxide 43 mEq/L (23-29); Chloride 102 mEq/L (98-107); Glucose 136 mg/dL (70-105); Osmolality,Calculated 310 (280-300); Potassium 3.1 mEq/L (3.5-5.1); Sodium 149 mEq/L (136-145); eGFR For African Americans > 60 (> 60); eGFR For Non-African Americans > 60 (> 60)
[2020-02-27] MEDS: Budesonide/Formoterol 160/4.5 1 PUFF INH IH SCH ×2 (07:12→19:33)
[2020-02-27] MEDS ORDERED: Potassium Chloride Elixir 20 MEQ/15 ML UDC PO ONE (07:26)
[2020-02-27] MEDS ORDERED: Potassium Chloride 20 MEQ in D5% in Water 1,000 ML IVC SCH (07:30)
[2020-02-27] MEDS: Pantoprazole 40 MG VIAL IVP SCH (08:43)
[2020-02-27] MEDS: Sennosides/Docusate Sodium TABLET PO SCH ×2 (08:44→20:09)
[2020-02-27] MEDS: Gabapentin 300 MG CAPSULE PO SCH ×2 (08:44→20:09)
[2020-02-27] MEDS: Thiamine (B-1) 100 MG TABLET PO SCH (08:44)
[2020-02-27] MEDS: *HR* LORazepam 0.5 MG TABLET PO SCH (08:44)
[2020-02-27] MEDS: lisinopriL 5 MG TABLET PO SCH (08:44)
[2020-02-27] MEDS: polyethylene glycoL 3350 17 GM POWD.PACK PO SCH (08:45)
[2020-02-27] MEDS: Nystatin SUSP 5 ML UD.LIQ PO SCH ×4 (08:45→20:10)
[2020-02-27] MEDS: Folic Acid 1 MG TABLET PO SCH (08:45)
[2020-02-27] MEDS: acetaZOLAMIDE 250 MG TABLET PO SCH (08:50)
[2020-02-27] MEDS: Mirtazapine 15 MG TABLET PO SCH (20:10)
[2020-02-28] MEDS: GuaiFENesin Liq 200 MG/10 ML UDC GTUBE SCH ×3 (01:26→12:07)
[2020-02-28] MEDS: Levalbuterol Neb 1.25 MG/3 ML IH SCH ×6 (04:04→23:01)
[2020-02-28 05:28] LABS: Basophils # 0.1 K/mcL (0.0-0.2); Basophils % 0.3 %; Hematocrit 36.7 % (37.5-50.1); Hemoglobin 11.4 g/dL (12.9-16.9); Immature Granulocytes % 1.9 % (0-4); Lymphocytes # 0.7 K/mcL (0.6-4.6); Lymphocytes % 3.6 %; Mean Corpuscular HGB Conc 31.1 g/dL (31.6-35.5); Mean Corpuscular Hemoglobin 29.3 pg (28.0-33.3); Mean Corpuscular Volume 94.3 fL (83.0-100.0); Mean Platelet Volume 10.4 fL (9.4-12.4); Monocytes # 0.8 K/mcL (0.0-1.3); Monocytes % 4.1 %; Neutrophils # 17.8 K/mcL (1.6-8.9); Platelet Count 200 K/mcL (140-400); Red Blood Count 3.89 M/mcL (4.19-5.50); Red Cell Distribution Width 14.4 % (11.5-14.5); Segmented Neutrophils % 90.1 %; White Blood Count 19.8 K/mcL (4.3-11.1)
[2020-02-28 05:33] LABS: VBG HCO3 37 mEq/L (21-27); VBG PCO2 62 mmHg (41-51); VBG PH 7.39 pH Units (7.32-7.42); VBG PO2 75 mmHg (25-50)
[2020-02-28 05:47] LABS: BUN/Creatinine Ratio 33 (6-26); Blood Urea Nitrogen 16 mg/dL (8-23); Calcium 9.8 mg/dL (8.6-10.3); Carbon Dioxide 37 mEq/L (23-29); Chloride 102 mEq/L (98-107); Glucose 162 mg/dL (70-105); Osmolality,Calculated 301 (280-300); Potassium 2.9 mEq/L (3.5-5.1); Sodium 143 mEq/L (136-145); eGFR For African Americans > 60 (> 60); eGFR For Non-African Americans > 60 (> 60)
[2020-02-28] MEDS ORDERED: *HR* Alteplase (Cathflo) 2 MG VIAL IVP ONE (05:57)
[2020-02-28] MEDS: *HR* Heparin 5,000 UNIT/ML VIAL SQ SCH ×2 (06:02→17:30)
[2020-02-28] MEDS: MethylPREDNISolone 40 MG/ML VIAL IVP SCH ×3 (06:03→17:31)
[2020-02-28] MEDS: Insulin LISPRO 300 UNITS/3 ML VIAL SQ SCH ×7 (06:07→22:50)
[2020-02-28] MEDS ORDERED: Potassium Chloride Elixir 20 MEQ/15 ML UDC PO ONE (07:14)
[2020-02-28] MEDS: Thiamine (B-1) 100 MG TABLET PO SCH (08:34)
[2020-02-28] MEDS: Gabapentin 300 MG CAPSULE PO SCH ×2 (08:34→20:41)
[2020-02-28] MEDS: Folic Acid 1 MG TABLET PO SCH (08:34)
[2020-02-28] MEDS: Sennosides/Docusate Sodium TABLET PO SCH ×2 (08:34→20:41)
[2020-02-28] MEDS: lisinopriL 5 MG TABLET PO SCH (08:34)
[2020-02-28] MEDS: *HR* LORazepam 0.5 MG TABLET PO SCH (08:34)
[2020-02-28] MEDS: Pantoprazole 40 MG VIAL IVP SCH (08:35)
[2020-02-28] MEDS: Nystatin SUSP 5 ML UD.LIQ PO SCH ×4 (08:36→20:42)
[2020-02-28] MEDS: polyethylene glycoL 3350 17 GM POWD.PACK PO SCH (08:39)
[2020-02-28] MEDS: acetaZOLAMIDE 250 MG TABLET PO SCH (08:39)
[2020-02-28] MEDS ORDERED: Isovue-370 500 ML BOTTLE IVP ONE (09:13)
[2020-02-28] MEDS ORDERED: Furosemide 20 MG/2 ML VIAL IVP ONE (09:14)
[2020-02-28] MEDS ORDERED: *HR* Propofol 200 MG/20 ML VIAL IVP ONE (10:36)
[2020-02-28] MEDS ORDERED: *HR* Succinylcholine 200 MG/10 ML VIAL IVP ONE (10:36)
[2020-02-28] MEDS: Budesonide/Formoterol 160/4.5 1 PUFF INH IH SCH ×2 (11:00→19:56)
[2020-02-28] MEDS: Piperacillin/Tazobactam 3.375 GM in 0.9 % Sodium Chloride Mini Bag 100 ML IVPB SCH ×2 (16:07→23:22)
[2020-02-28] MEDS: GuaiFENesin Liq 200 MG/10 ML UDC PO SCH ×2 (17:31→22:50)
[2020-02-28] MEDS: Mirtazapine 15 MG TABLET PO SCH (20:41)
[2020-02-28] MEDS ORDERED: Scopolamine Patch 1.5 MG PATCH.TD72 TD ONE (21:00)
[2020-02-28 22:15] LABS: ABG Base Excess 9 mEq/L (-2 to 3); ABG HCO3 42 mEq/L (21-27); ABG Oxygen Saturation 91 % (95-98); ABG PCO2 116 mmHg (35-45); ABG PH 7.17 pH Units (7.32-7.45); ABG PO2 82 mmHg (85-104); ABG TCO2 46 mEq/L (20-26)
[2020-02-29 03:49] LABS: BUN/Creatinine Ratio 23 (6-26); Blood Urea Nitrogen 23 mg/dL (8-23); Carbon Dioxide 40 mEq/L (23-29); Chloride 106 mEq/L (98-107); Glucose 192 mg/dL (70-105); Osmolality,Calculated 319 (280-300); Potassium 2.9 mEq/L (3.5-5.1); Sodium 150 mEq/L (136-145); eGFR For African Americans > 60 (> 60); eGFR For Non-African Americans > 60 (> 60)
[2020-02-29 04:00] LABS: ABG Base Excess 4 mEq/L (-2 to 3); ABG HCO3 39 mEq/L (21-27); ABG Oxygen Saturation 90 % (95-98); ABG PCO2 143 mmHg (35-45); ABG PH 7.04 pH Units (7.32-7.45); ABG PO2 92 mmHg (85-104); ABG TCO2 43 mEq/L (20-26); Blood Gas VT 500 cc
[2020-02-29] MEDS: Levalbuterol Neb 1.25 MG/3 ML IH SCH ×2 (04:03→08:19)
[2020-02-29 04:15] LABS: Hematocrit 40.3 % (37.5-50.1); Hemoglobin 11.6 g/dL (12.9-16.9); Mean Corpuscular HGB Conc 28.8 g/dL (31.6-35.5); Mean Corpuscular Hemoglobin 29.4 pg (28.0-33.3); Mean Platelet Volume 10.3 fL (9.4-12.4); Platelet Count 294 K/mcL (140-400); Red Blood Count 3.95 M/mcL (4.19-5.50); Red Cell Distribution Width 14.5 % (11.5-14.5); White Blood Count 14.9 K/mcL (4.3-11.1)
[2020-02-29] MEDS: Insulin LISPRO 300 UNITS/3 ML VIAL SQ SCH ×5 (04:15→22:15)
[2020-02-29] MEDS ORDERED: Artificial Tears SOLN 15 ML BOTTLE BOTH EYES PRN (04:51)
[2020-02-29] MEDS ORDERED: Norepinephrine 4 MG in 0.9 % Sodium Chloride 250 ML IVC SCH (05:45)
[2020-02-29] MEDS ORDERED: Ringers Solution, Lactated 1,000 ML IVC ONE (08:14)
[2020-02-29] MEDS: GuaiFENesin Liq 200 MG/10 ML UDC PO SCH ×3 (08:15→08:24)
[2020-02-29] MEDS: Budesonide/Formoterol 160/4.5 1 PUFF INH IH SCH ×2 (08:18→21:34)
[2020-02-29] MEDS ORDERED: Ringers Solution, Lactated 1,000 ML ONE (08:18)
[2020-02-29] MEDS: *HR* Heparin 5,000 UNIT/ML VIAL SQ SCH (08:20)
[2020-02-29] MEDS: Nystatin SUSP 5 ML UD.LIQ PO SCH ×4 (08:20→20:30)
[2020-02-29] MEDS: Chlorhexidine Rinse 15 ML MOUTHWASH MM SCH ×2 (08:20→22:16)
[2020-02-29] MEDS: MethylPREDNISolone 40 MG/ML VIAL IVP SCH ×2 (08:20→17:51)
[2020-02-29] MEDS: Pantoprazole 40 MG VIAL IVP SCH (08:20)
[2020-02-29] MEDS: Piperacillin/Tazobactam 3.375 GM in 0.9 % Sodium Chloride Mini Bag 100 ML IVPB SCH ×3 (08:21→23:53)
[2020-02-29] MEDS: Artificial Tears SOLN 15 ML BOTTLE BOTH EYES SCH ×4 (08:21→20:58)
[2020-02-29] MEDS: acetaZOLAMIDE 250 MG TABLET PO SCH (08:22)
[2020-02-29] MEDS: Folic Acid 1 MG TABLET PO SCH ×2 (08:22→10:57)
[2020-02-29] MEDS: *HR* LORazepam 0.5 MG TABLET PO SCH (08:22)
[2020-02-29] MEDS: Gabapentin 300 MG CAPSULE PO SCH ×3 (08:23→22:16)
[2020-02-29] MEDS: lisinopriL 5 MG TABLET PO SCH (08:23)
[2020-02-29] MEDS: Thiamine (B-1) 100 MG TABLET PO SCH ×2 (08:23→10:57)
[2020-02-29] MEDS: Sennosides/Docusate Sodium TABLET PO SCH ×3 (08:23→20:31)
[2020-02-29] MEDS: polyethylene glycoL 3350 17 GM POWD.PACK PO SCH ×3 (08:23→10:55)
[2020-02-29 08:25] LABS: ABG Base Excess 6 mEq/L (-2 to 3); ABG HCO3 34 mEq/L (21-27); ABG Oxygen Saturation 94 % (95-98); ABG PCO2 64 mmHg (35-45); ABG PH 7.33 pH Units (7.32-7.45); ABG PO2 78 mmHg (85-104); ABG TCO2 36 mEq/L (20-26); Blood Gas Modality AF; Blood Gas VT 550 cc
[2020-02-29] MEDS: Norepinephrine 8 MG in 0.9 % Sodium Chloride 250 ML IVC SCH ×2 (09:54→15:45)
[2020-02-29] MEDS ORDERED: Levalbuterol 1 PUFF INHALER IH PRN (10:39)
[2020-02-29] MEDS ORDERED: *HR* PHENYLEPHRINE 1,000 MCG/10 ML SYRINGE IVP ONE (10:39)
[2020-02-29] MEDS: *HR* LORazepam 2 MG/ML VIAL IVP PRN (13:14)
[2020-02-29] MEDS: Phenylephrine 10 MG in 0.9 % Sodium Chloride 250 ML IVC SCH ×2 (14:21→16:05)
[2020-02-29] MEDS: *HR* HYDROmorphone 2 MG/ML SYRINGE IVP SCH ×3 (14:22→20:31)
[2020-02-29 14:52] LABS: Calcium 9.7 mg/dL (8.6-10.3); Potassium 3.7 mEq/L (3.5-5.1)
[2020-02-29] MEDS: Phenylephrine 50 MG in 0.9 % Sodium Chloride 250 ML IVC SCH (17:50)
[2020-02-29] MEDS: *HR* Enoxaparin 60 MG/0.6 ML SYRINGE SQ SCH (17:51)
[2020-02-29] MEDS: Mirtazapine 15 MG TABLET PO SCH (20:30)
[2020-02-29] MEDS ORDERED: 0.9 % Sodium Chloride 250 ML ONE (21:08)
[2020-03-01] MEDS: Artificial Tears SOLN 15 ML BOTTLE BOTH EYES SCH ×7 (00:05→23:20)
[2020-03-01] MEDS: Insulin LISPRO 300 UNITS/3 ML VIAL SQ SCH ×7 (00:06→23:20)
[2020-03-01] MEDS: Phenylephrine 50 MG in 0.9 % Sodium Chloride 250 ML IVC SCH ×2 (02:05→17:16)
[2020-03-01] MEDS: *HR* HYDROmorphone 2 MG/ML SYRINGE IVP SCH ×4 (02:12→13:16)
[2020-03-01 03:23] LABS: Hematocrit 35.1 % (37.5-50.1); Hemoglobin 10.3 g/dL (12.9-16.9); Mean Corpuscular HGB Conc 29.3 g/dL (31.6-35.5); Mean Corpuscular Hemoglobin 28.6 pg (28.0-33.3); Mean Corpuscular Volume 97.5 fL (83.0-100.0); Platelet Count 188 K/mcL (140-400); Red Cell Distribution Width 15.1 % (11.5-14.5); White Blood Count 19.5 K/mcL (4.3-11.1)
[2020-03-01 03:45] LABS: Calcium 9.3 mg/dL (8.6-10.3); Magnesium 2.4 mg/dL (1.6-2.6); Potassium 4.5 mEq/L (3.5-5.1)
[2020-03-01 04:16] LABS: ABG Base Excess 2 mEq/L (-2 to 3); ABG HCO3 32 mEq/L (21-27); ABG Oxygen Saturation 68 % (95-98); ABG PCO2 74 mmHg (35-45); ABG PH 7.24 pH Units (7.32-7.45); ABG PO2 43 mmHg (85-104); ABG TCO2 34 mEq/L (20-26); Blood Gas Modality AF; Blood Gas VT 550 cc
[2020-03-01 04:23] LABS: ABG Base Excess 4 mEq/L (-2 to 3); ABG HCO3 31 mEq/L (21-27); ABG Oxygen Saturation 96 % (95-98); ABG PCO2 63 mmHg (35-45); ABG PO2 96 mmHg (85-104); ABG TCO2 33 mEq/L (20-26); Blood Gas VT 550 cc
[2020-03-01] MEDS: MethylPREDNISolone 40 MG/ML VIAL IVP SCH ×2 (05:13→17:16)
[2020-03-01] MEDS: *HR* Enoxaparin 60 MG/0.6 ML SYRINGE SQ SCH (05:13)
[2020-03-01] MEDS: *HR* LORazepam 0.5 MG TABLET PO SCH (07:45)
[2020-03-01] MEDS: Pantoprazole 40 MG VIAL IVP SCH (07:45)
[2020-03-01] MEDS: Chlorhexidine Rinse 15 ML MOUTHWASH MM SCH ×2 (07:45→19:49)
[2020-03-01] MEDS: Folic Acid 1 MG TABLET PO SCH (07:45)
[2020-03-01] MEDS: Sennosides/Docusate Sodium TABLET PO SCH ×2 (07:45→19:50)
[2020-03-01] MEDS: Nystatin SUSP 5 ML UD.LIQ PO SCH ×4 (07:45→19:49)
[2020-03-01] MEDS: acetaZOLAMIDE 250 MG TABLET PO SCH (07:45)
[2020-03-01] MEDS: Gabapentin 300 MG CAPSULE PO SCH ×2 (07:46→19:50)
[2020-03-01] MEDS: Piperacillin/Tazobactam 3.375 GM in 0.9 % Sodium Chloride Mini Bag 100 ML IVPB SCH ×3 (07:46→23:19)
[2020-03-01] MEDS: Budesonide/Formoterol 160/4.5 1 PUFF INH IH SCH ×2 (07:59→21:55)
[2020-03-01] MEDS ORDERED: Vancomycin 1 EACH in 0.9 % Sodium Chloride 250 ML IVPB PRN (09:00)
[2020-03-01] MEDS: D5% in Water 1,000 ML IVC SCH ×2 (09:34→17:16)
[2020-03-01] MEDS ORDERED: *HR* HYDROmorphone 2 MG/ML SYRINGE IVP PRN (14:36)
[2020-03-01 16:22] LABS: Uric Acid 5.1 mg/dL (2.3-7.6)
[2020-03-01 16:34] LABS: Thyroid Stimulating Hormone 0.299 mcIU/mL (0.340-5.600)
[2020-03-01 17:49] LABS: Potassium,Urine 82.7 mEq/L; Protein/Creatinine Ratio,Urine 7.84 mg/mg (0.00-0.20); Sodium, Urine 42.5 mEq/L
[2020-03-01] MEDS: Mirtazapine 15 MG TABLET PO SCH (19:49)
[2020-03-01 21:10] LABS: Bilirubin,Urine Moderate (Negative); Blood,Urine Large (Negative); Clarity,Urine Turbid (Clear); Color,Urine Red (Yellow); Glucose,Urine (UA) 100 mg/dL (Normal); Ketones,Urine Trace mg/dL (Negative); Leukocyte Esterase,Urine Small (Negative); Nitrite,Urine Positive (Negative); Protein,Urine 100 mg/dL (Neg-Trace); Specific Gravity,Urine > 1.030 (1.010-1.025); Urobilinogen,Urine Normal (Normal)
[2020-03-02] MEDS: Artificial Tears SOLN 15 ML BOTTLE BOTH EYES SCH ×2 (03:42→08:54)
[2020-03-02] MEDS: Insulin LISPRO 300 UNITS/3 ML VIAL SQ SCH ×2 (03:42→07:48)
[2020-03-02 04:11] LABS: Basophils # 0.1 K/mcL (0.0-0.2); Basophils % 0.4 %; Eosinophils % 0.1 %; Hematocrit 34.1 % (37.5-50.1); Immature Granulocytes % 3.3 % (0-4); Lymphocytes # 0.5 K/mcL (0.6-4.6); Lymphocytes % 3.1 %; Mean Corpuscular HGB Conc 29.3 g/dL (31.6-35.5); Mean Corpuscular Hemoglobin 28.2 pg (28.0-33.3); Mean Corpuscular Volume 96.3 fL (83.0-100.0); Mean Platelet Volume 11.5 fL (9.4-12.4); Monocytes # 0.3 K/mcL (0.0-1.3); Monocytes % 1.9 %; Neutrophils # 14.3 K/mcL (1.6-8.9); Nucleated Red Blood Cells 0.4 /100 WBC (0); Platelet Count 151 K/mcL (140-400); Red Blood Count 3.54 M/mcL (4.19-5.50); Red Cell Distribution Width 15.4 % (11.5-14.5); Segmented Neutrophils % 91.2 %; White Blood Count 15.7 K/mcL (4.3-11.1)
[2020-03-02 04:26] LABS: ABG Base Excess -1 mEq/L (-2 to 3); ABG HCO3 26 mEq/L (21-27); ABG Oxygen Saturation 94 % (95-98); ABG PCO2 52 mmHg (35-45); ABG PH 7.31 pH Units (7.32-7.45); ABG PO2 78 mmHg (85-104); ABG TCO2 28 mEq/L (20-26); Blood Gas Modality AF; Blood Gas VT 500 cc
[2020-03-02 04:29] LABS: Albumin 2.3 g/dL (3.5-5.7); Albumin/Globulin Ratio 0.9 (1.1-2.2); Bilirubin,Total 0.6 mg/dL (0.3-1.0); Calcium 8.8 mg/dL (8.6-10.3); Globulin 2.5 g/dL (2.4-3.5); Magnesium 2.3 mg/dL (1.6-2.6); Potassium 4.2 mEq/L (3.5-5.1); Total Protein 4.8 g/dL (6.4-8.9)
[2020-03-02] MEDS: MethylPREDNISolone 40 MG/ML VIAL IVP SCH (05:17)
[2020-03-02 05:21] LABS: Hypochromasia Present (Not Present); Platelet Estimate Normal (Normal); Toxic Granulation Present (Not Present)
[2020-03-02] MEDS ORDERED: *HR* Enoxaparin 30 MG/0.3 ML SYRINGE SQ SCH (06:00)
[2020-03-02] MEDS: Budesonide/Formoterol 160/4.5 1 PUFF INH IH SCH (07:12)
[2020-03-02] MEDS: Sennosides/Docusate Sodium TABLET PO SCH (07:56)
[2020-03-02 08:08] LABS: Uric Acid 4.9 mg/dL (2.3-7.6)
[2020-03-02] MEDS: Phenylephrine 50 MG in 0.9 % Sodium Chloride 250 ML IVC SCH (08:30)
[2020-03-02] MEDS: Chlorhexidine Rinse 15 ML MOUTHWASH MM SCH (08:48)
[2020-03-02] MEDS: *HR* LORazepam 0.5 MG TABLET PO SCH (08:50)
[2020-03-02] MEDS: Thiamine (B-1) 100 MG TABLET PO SCH (08:50)
[2020-03-02] MEDS: Nystatin SUSP 5 ML UD.LIQ PO SCH (08:50)
[2020-03-02] MEDS: Gabapentin 300 MG CAPSULE PO SCH (08:51)
[2020-03-02] MEDS: Folic Acid 1 MG TABLET PO SCH (08:51)
[2020-03-02] MEDS: Pantoprazole 40 MG VIAL IVP SCH (08:51)
[2020-03-02] MEDS ORDERED: Piperacillin/Tazobactam 3.375 GM in 0.9 % Sodium Chloride Mini Bag 100 ML IVPB SCH (09:00)
[2020-03-02] MEDS ORDERED: Morphine Sulfate 2 MG/ML SYRINGE IVP PRN ×2 (10:51→11:20)
[2020-03-02 11:03] VITALS: BP 80/66
[2020-03-02] MEDS ORDERED: Atropine Sulfate 1% 40 DROP/2 ML BOTTLE SL PRN (11:22)
[2020-03-02] MEDS ORDERED: *HR* LORazepam 2 MG/ML VIAL IVP PRN (11:24)
[2020-03-02] MEDS: *HR* LORazepam 2 MG/ML VIAL IVP PRN (11:24)
[2020-03-02] MEDS ORDERED: Haloperidol Lactate 5 MG/ML VIAL IVP PRN (11:25)
[2020-03-02] MEDS ORDERED: Aminoglycoside Consult 1 EACH MC ONE (15:21)
== END 2020-03-02 15:22 | disposition expired | DRG 871 ==
LOC: 2NENU 09:16 → EMEROOARM 09:16 → 2NENU 14:01 → 2NNU 02-20 09:24 → ICNU 02-20 22:43 → 2ANU 02-25 15:17 → 2NENU 02-29 04:30 → ICNU 03-01 11:15
PROVIDERS: ADMIT Student in an Organized Health Care Education/Training Program; ATTEND Student in an Organized Health Care Education/Training Program